=== PATIENT | female | born 2000 | race Caucasian/White ===

== ENCOUNTER 2018-07-14 20:35 | Emergency (ER) | payer SELFPAY ==
[~2018-07-14] VITALS: Ht 162.6 cm; Wt 127.0 kg
--- OUTSIDE RECORDS SUMMARY | 2018-07-14 20:47 | XMS REPORT | Continuity of Care Document ---
Author Organization Unknown Address Unknown Allergies There is no data. Medications There is no data. Problems There is no data. Procedures There is no data. Results There is no data. Encounters ACCT No. Visit Date/Time Discharge Status Pt. Type Provider Facility Loc./Unit Complaint [id number] 06/02/2018 14:20:00 06/02/2018 23:59:59 CLS Outpatient ALECIA QUIÑONEZ [facility] IN [facility]
[2018-07-14] MEDS ORDERED: CEPHALEXIN 250 MG (KEFLEX) CAP PO STA (20:49)
[2018-07-14] MEDS ORDERED: IBUPROFEN 800 MG (MOTRIN) TAB PO STA (20:49)
--- NOTE | 2018-07-14 20:56 | ED Integumentary General ---
General Chief Complaint: Skin/Wound Problems Stated Complaint: CHEST PAIN Source: patient History of Present Illness Date Seen by Provider: July 14, 2018 Time Seen by Provider: 20:39 Initial Comments 17-year-old female presenting with complaints of raised tender area on her left chest where she has a tattoo. She states that this raised area has been there f or over 4 days. She noticed pain with it since waking up this morning. It is been a sharp pain that comes and goes. It is worse with activity and using her arms. She had initially thought the area was maybe a pimple and had tried to pop it. She was never able to get anything to drain from it and all she has noted was that it has become more sore and tender. She denies any fever or chills. She has been having a GI stomach illness where she has been having some nausea and diarrhea. She denies any vomiting. Her last menstrual period was a month ago but she states that her periods are irregular and that she could not be right now. Allergies and Home Medications Allergies Coded Allergies: Sulfa (Sulfonamide Antibiotics) (Verified Allergy, Unknown, 07/14/18) silver sulfadiazine (Verified Allergy, Unknown, 07/14/18) Home Medications Cephalexin 500 Mg Tablet, 500 MG PO TID Prescribed by: SUKHI DEY on 07/14/182100 Naproxen 500 Mg Tablet, 500 MG PO BID PRN for PAIN-MODERATE TO SEVERE Prescribed by: SUKHI DEY on 07/14/182100 Patient Home Medication List Home Medication List Reviewed: Yes Review of Systems Review of Systems Constitutional: see HPI EENTM: no symptoms reported Respiratory: no symptoms reported Cardiovascular: no symptoms reported Gastrointestinal: diarrhea, nausea; No vomiting Genitourinary: No dysuria, No frequency Musculoskeletal: see HPI Skin: see HPI Psychiatric/Neurological: No Symptoms Reported Past Wjuuvqf-Wtnzel-Ymlzql Hx Past Med/Social Hx: Reviewed Nursing Past Med/Soc Hx Patient Social History Recent Foreign Travel: No Contact w/Someone Who Travel: No Physical Exam Vital Signs Vital Signs - First Documented 07/14/18 20:45 Temp 98.1 Pulse 72 Resp 16 B/P (MAP) 163/85 Pulse Ox 98 O2 Delivery Room Air Capillary Refill : General Appearance: WD/WN, no apparent distress HEENT: PERRL/EOMI, normal ENT inspection, pharynx normal Neck: non-tender, full range of motion, supple Cardiovascular: normal peripheral pulses, regular rate, rhythm Respiratory: other (chest wall tender to palpation over the upper chest on left side where she has tattoo and the red raised lesion on her chest wall) Neurologic/Psychiatric: alert, normal mood/affect, oriented x 3 Skin: warm/dry, tattoos/piercings, other (red raised papule to left upper chest wall that is in the area of a tattoo. ) Skin Problem Location: torso Skin Problem Character: tenderness (papule to left upper chest wall) Lymphatic: no adenopathy Progress/Results/Core Measures Results/Orders My Orders Orders - SUKHI DEY MD Cephalexin Capsule (Keflex Capsule) (07/14/18 20:49) Ibuprofen Tablet (Motrin Tablet) (07/14/18 20:49) Vital Signs/I&O 07/14/18 07/14/18 20:45 21:06 Temp 98.1 Pulse 72 72 Resp 16 16 B/P (MAP) 163/85 Pulse Ox 98 98 O2 Delivery Room Air Progress Progress Note : Progress Note Treat with Keflex and NSAIDS. Encourage her to follow up with Dr. Moura Thursday or Thursday if not improving Departure Impression Primary Impression: Papule of skin Additional Impression: Cellulitis of chest wall Disposition: 01 HOME, SELF-CARE Condition: Stable Departure-Patient Inst. Decision time for Depature: 20:58 Referrals: LIZETT MOURA MD (PCP) Primary Care Physician Patient Instructions: Cellulitis (Skin Infection), Adult (DC) Add. Discharge Instructions: Take the antibiotics until gone. Use Ibuprofen or Naproxen for pain and inflammation. Check with Dr. Moura in clinic if not improving or having more problems Thursday or Thursday. All discharge instructions reviewed with patient and/or family. Voiced understanding. Scripts Naproxen (Naprosyn) 500 Mg Tablet 500 MG PO BID PRN for PAIN-MODERATE TO SEVERE for 10 Days, #20 TAB 0 Refills Prov: SUKHI DEY MD 07/14/18 Cephalexin (Cephalexin) 500 Mg Tablet 500 MG PO TID for 10 Days, #30 TAB 0 Refills Prov: SUKHI DEY MD 07/14/18 SUKHI DEY MD July 14, 2018 20:56
[2018-07-14] MEDS ORDERED: NAPR-1071 PO (21:01)
[2018-07-14] MEDS ORDERED: CEPH500T PO (21:01)
== END 2018-07-14 21:15 | disposition home or self-care (01) ==
LOC: ER FS 20:37
DX: L03.313 Cellulitis of chest wall (principal); R23.8 Other skin changes; Z88.2 Allergy status to sulfonamides; Z88.8 Allergy status to other drugs, medicaments and biological substances
CPT/HCPCS: 99283

== ENCOUNTER 2018-07-18 07:13 | Emergency (ER) | payer SELFPAY ==
[~2018-07-18] VITALS: Ht 162.6 cm; Wt 127.0 kg
[~2018-07-18 07:13] MED LIST: CEPH500T PO; NAPR-1071 PO
[2018-07-18] MEDS ORDERED: NEO/POLY/BAC (NEOSPORIN) OINT 15 GM TUBE TOP STA (07:24)
[2018-07-18] MEDS ORDERED: AUGMENTIN 875 MG TAB (AMOXICILLIN/CLAVULANATE) PO STA (07:24)
[2018-07-18] MEDS ORDERED: TETANUS IMMUNE GLOBULIN 250 UNIT/ML SYR IM ONE (07:25)
[2018-07-18] MEDS ORDERED: TETANUS,DIPTH,PERTUSS P/F (BOOSTRIX) 0.5 ML VIAL IM ONE (07:30)
[2018-07-18] MEDS ORDERED: RABIES IMMUNE GLOBULIN 300 UNIT/ML 5 ML (HyperRAB) IM ONE (07:30)
[2018-07-18] MEDS ORDERED: RABIES VACCINE HUMAN DIPL CELL 1 ML/2.5 UNITS SYR IM ONE (07:30)
--- NOTE | 2018-07-18 07:39 | ED Integumentary General ---
General Chief Complaint: Bite-Animal/Human/Insect Stated Complaint: PT BIT BY DOG ON LT ANKLE History of Present Illness Date Seen by Provider: Jul 18, 2018 Time Seen by Provider: 07:15 Initial Comments The patient is a 17-year-old female who is otherwise healthy and whose tetanus is not up-to-date. She presents with concern for an unprovoked bite from an apparent stray dog occurring just prior to arrival. Bite is to the patient's left distal villegas. Patient states she was out on the road and a dog ran out and chased her for 2 blocks and then bit her on the leg. No other injury during the episode. Patient is ambulatory with a narrow, steady gait and with a superficial bite sher to her left lower villegas. No other concerns today. Of note, the patient does state that she received the full rabies immunoglobulin and vaccination series 2-3 years ago after a prior dog bite here in [facility]. Allergies and Home Medications Allergies Coded Allergies: Sulfa (Sulfonamide Antibiotics) (Verified Allergy, Unknown, 07/14/18) silver sulfadiazine (Verified Allergy, Unknown, 07/14/18) Home Medications Amoxicillin/Potassium Clav 1 Each Tablet, 1 EACH PO BID Prescribed by: PARIS CUNNINGHAM on 07/18/18 0747 Cephalexin 500 Mg Tablet, 500 MG PO TID Prescribed by: SUKHI DEY on 07/14/182100 Ibuprofen 800 Mg Tablet, 800 MG PO Q8H PRN for PAIN Prescribed by: PARIS CUNNINGHAM on 07/18/18 0747 Naproxen 500 Mg Tablet, 500 MG PO BID PRN for PAIN-MODERATE TO SEVERE Prescribed by: SUKHI DEY on 07/14/182100 Patient Home Medication List Home Medication List Reviewed: Yes Review of Systems Review of Systems Constitutional: see HPI All Other Systems Reviewed Negative Unless Noted: Yes Past Zaumrrq-Fukfjj-Fleubz Hx Past Med/Social Hx: Reviewed Nursing Past Med/Soc Hx Patient Social History 2nd Hand Smoke Exposure: No Recent Hopitalizations: No Seasonal Allergies Seasonal Allergies: No Past Medical History Surgeries: Yes Gallbladder Respiratory: No Cardiac: No Neurological: No Genitourinary: No Gastrointestinal: No Musculoskeletal: No Endocrine: No HEENT: No Cancer: No Psychosocial: No Integumentary: No Blood Disorders: No Family Medical History Reviewed Nursing Family Hx Physical Exam Vital Signs Vital Signs - First Documented 07/18/18 07:18 Temp 99.0 Pulse 96 Resp 18 B/P (MAP) 141/99 Pulse Ox 98 O2 Delivery Room Air Capillary Refill : General Appearance: no apparent distress Comments This is younger female who appears nontoxic and in no acute distress. Head is normocephalic and atraumatic. Neck is supple and nontender. Oropharynx is moist. Lungs are clear to auscultation in all stations. There is normal S1 and S2 without rubs or gallops and capillary refill is appropriate, less 2 seconds globally. Abdomen is soft, nontender nondistended. Skin is warm and dry without cyanosis, clubbing or edema. Psychiatrically, the patient in a straight appropriate mood and affect and is alert. From a musculoskeletal standpoint, examination of the left lower extremity is remarkable for an apparent bite sher to the lateral left lower villegas without surrounding erythema, warmth or swelling. This is punctate in size. The left lower extremity is neurovascularly intact. Progress/Results/Core Measures Results/Orders My Orders Orders - PARIS CUNNINGHAM MD Tetanus Immune Globulin Inj (Baytet Inje (07/18/18 07:25) Rabies Immune Globulin/Pf Inj (Hyperrab (07/18/18 07:30) Rabies Vaccine Human Dipl Cell (Rabavert (07/18/18 07:30) Amoxicillin/Clavulanate Tablet (Augmenti (07/18/18 07:24) Dipht,Pertuss(Acell),Tet Adult (Boostrix (07/18/18 07:30) Misael/Poly/Maico Topical Ointment (Neosporin (07/18/18 07:24) Tibia Fibula 2 View Left (07/18/18 07:24) Vital Signs/I&O 07/18/18 07:18 Temp 99.0 Pulse 96 Resp 18 B/P (MAP) 141/99 Pulse Ox 98 O2 Delivery Room Air Progress Progress Note : Progress Note Patient who is previously immunized with the full rabies vaccination series within the last 2-3 years who presents with unprovoked dog bite. Per CDC recommendations, patient does not require immunoglobulin and will be administered a dose of vaccine now and another in 3 days. Will give a dose of Augmentin and prescribed same and will update tetanus. Patient understands and agrees with the plan of care. Diagnostic Imaging Diagonstic Imaging: Xray Comments XR tib/fib L: negative for fracture or retained FB, EP interp Departure Impression Primary Impression: Dog bite of left lower leg Disposition: HOME, SELF-CARE Condition: Improved Departure-Patient Inst. Decision time for Depature: 07:47 Referrals: LIZETT HEARD MD (PCP/Family) Primary Care Physician Patient Instructions: Animal Bites (DC) Add. Discharge Instructions: All discharge instructions reviewed with patient and/or family. Voiced understanding. Return in 3 days or follow up with your doctor for the second rabies booster vaccination. Scripts Ibuprofen (Ibuprofen) 800 Mg Tablet 800 MG PO Q8H PRN for PAIN, #30 TAB 0 Refills Prov: PARIS CUNNINGHAM MD 07/18/18 Amoxicillin/Potassium Clav (Augmentin 875-125 Tablet) 1 Each Tablet 1 EACH PO BID, #20 TAB 0 Refills Prov: PARIS CUNNINGHAM MD 07/18/18 PARIS CUNNINGHAM MD Jul 18, 2018 07:39
[2018-07-18] MEDS ORDERED: AMOX-358 PO (07:47)
[2018-07-18] MEDS ORDERED: IBUP-1780 PO (07:47)
--- NOTE | 2018-07-18 07:50 | Diagnostic Imaging Report ---
INDICATION: Bit by dog this morning. Blood. TECHNIQUE: AP and lateral views of the left tibia and fibula CORRELATION STUDY: None FINDINGS: The tibia and fibula are intact. There is no evidence for acute fracture. Limited visualized portions of the knee and ankle are unremarkable. Soft tissues are unremarkable. No abnormal gas collection or evidence for foreign body. IMPRESSION: 1.Negative for acute bony abnormality of the leg. Dictated by: Dictated on workstation # [id number]
== END 2018-07-18 08:17 | disposition home or self-care (01) ==
LOC: EDUNIT# 07:13 → ER FS 07:15
DX: S81.852A Open bite, left lower leg, initial encounter (principal); Z23 Encounter for immunization; Z88.2 Allergy status to sulfonamides; Z88.8 Allergy status to other drugs, medicaments and biological substances; W54.0XXA Bitten by dog, initial encounter
CPT/HCPCS: 73590; 90471; 90675; 90715; 96372

== ENCOUNTER 2018-07-21 07:35 | Emergency (ER) | payer SELFPAY ==
[~2018-07-21] VITALS: Ht 162.6 cm; Wt 127.0 kg
[~2018-07-21 07:35] MED LIST changes: +AMOX-358 PO; +IBUP-1780 PO
--- OUTSIDE RECORDS SUMMARY | 2018-07-21 07:40 | XMS REPORT | Continuity of Care Document ---
Author Organization Unknown Address Unknown Allergies There is no data. Medications There is no data. Problems There is no data. Procedures There is no data. Results There is no data. Encounters ACCT No. Visit Date/Time Discharge Status Pt. Type Provider Facility Loc./Unit Complaint [id number] 06/02/2018 14:20:00 06/02/2018 23:59:59 CLS Outpatient ALECIA QUIÑONEZ [facility] IN [facility]
[2018-07-21] MEDS ORDERED: RABIES VACCINE HUMAN DIPL CELL 1 ML/2.5 UNITS SYR IM ONE (08:15)
--- NOTE | 2018-07-21 08:29 | ED Suture Removal/Wound Check ---
Suture/Wound Re-check Suture Removal/Wound Recheck : Progress 17-year-old female who is previously immunized for rabies who presents for her second of 2 rabies boosters. She received a rabies vaccination 3 days ago and is here for her second and final vaccination per CDC recommendations. She reports that her dog bite is healing well and that she has no other concerns today. She is taking her antibiotic and pain is controlled with ibuprofen. Physical Exam Vital Signs Capillary Refill : General Appearance: no apparent distress Comments This is a young female appearing nontoxic and in no acute distress. Head is normocephalic and atraumatic. Neck is supple and nontender. Oropharynx is moist. Lungs are clear to auscultation at all stations. There is a normal S1 and S2 without rubs or gallops and capillary refill is appropriate, less than 2 seconds globally. Abdomen is soft, nontender and nondistended. Skin is warm and dry without cyanosis, clubbing or edema. Psychiatrically, the patient demonstrates appropriate mood and affect and is alert. From a musculoskeletal standpoint, there is a healing dog bite incision to the left mid villegas without erythema, warmth or swelling. This is only minimally tender. The left lower extremity is neurovascularly intact. Departure Impression Primary Impression: Dog bite of left lower leg Qualified Codes: S81.852A - Open bite, left lower leg, initial encounter; W54.0XXA - Bitten by dog, initial encounter Disposition: 01 HOME, SELF-CARE Condition: Improved Departure-Patient Inst. Referrals: LIZETT HEARD MD (PCP/Family) Primary Care Physician Patient Instructions: Wound Care (DC) Add. Discharge Instructions: Follow-up with your primary care physician in the next few days for a wound recheck to make sure your wound is continuing to heal appropriately. Take your antibiotics until the prescription is gone and use the ibuprofen as needed. Return for worsening symptoms or other new concerns. PARIS CUNNINGHAM MD Jul 21, 2018 08:29
[2018-07-21 08:40] VITALS: BP 141/95
== END 2018-07-21 08:40 | disposition home or self-care (01) ==
LOC: EDUNIT# 07:35 → ER FS 07:37
DX: S81.852A Open bite, left lower leg, initial encounter (principal); W54.0XXA Bitten by dog, initial encounter
CPT/HCPCS: 90675; 96372

== ENCOUNTER 2018-09-24 15:33 | Emergency (ER) | payer SELFPAY ==
[~2018-09-24] VITALS: Ht 162.6 cm; Wt 127.0 kg
--- NOTE | 2018-09-24 15:56 | ED EENT ---
History of Present Illness General Stated Complaint: THROAT PAIN, NOSE CLOGGED, EAR PAIN, HEADACHE, SOB Source: patient Exam Limitations: no limitations History of Present Illness Date Seen by Provider: Sep 24, 2018 Time Seen by Provider: 15:40 Initial Comments The patient is a pleasant 17-year-old female who presents for evaluation of sore throat, mild headache, nasal congestion, ear fullness, cough, and general malaise over the last few days. She reports her younger brother has similar symptoms. She denies fever but believes she has been having some chills. She denies any significant past medical history. She is alert and oriented 4, calm, appears to be in no distress this time. The patient smokes cigarettes and has be en encouraged to quit smoking. She denies chest pain or shortness of breath, abdominal pain, back or flank pain, urinary symptoms, nausea or vomiting, palpitations, dizziness or syncope. Severity: moderate Location: nose, throat Prearrival Treatment: no prearrival treatment Associated Symptoms: cough, malaise, nasal congestion/drainage, sinus infection, sore throat Allergies and Home Medications Allergies Coded Allergies: Sulfa (Sulfonamide Antibiotics) (Verified Allergy, Unknown, 07/14/18) silver sulfadiazine (Verified Allergy, Unknown, 07/14/18) Uncoded Allergies: head and shoulders shampoo (Allergy, Unknown, 09/24/18) seafood (Allergy, Unknown, 09/24/18) Home Medications Amoxicillin/Potassium Clav 1 Each Tablet, 1 EACH PO BID Prescribed by: PARIS CUNNINGHAM on 07/18/18746 Cephalexin 500 Mg Tablet, 500 MG PO TID Prescribed by: SUKHI DEY on 07/14/182100 Ibuprofen 800 Mg Tablet, 800 MG PO Q8H PRN for PAIN Prescribed by: PARIS CUNNINGHAM on 07/18/18746 Naproxen 500 Mg Tablet, 500 MG PO BID PRN for PAIN-MODERATE TO SEVERE Prescribed by: SUKHI DEY on 07/14/182100 Patient Home Medication List Home Medication List Reviewed: Yes Review of Systems Review of Systems Constitutional: chills Eyes: No Symptoms Reported Ears: Pain Nose: congestion Mouth: no symptoms reported Throat: pain Respiratory: cough Cardiovascular: no symptoms reported Gastrointestinal: no symptoms reported : No Musculoskeletal: no symptoms reported Skin: no symptoms reported Neurological: No Symptoms Reported Hematologic/Lymphatic: No Symptoms Reported Immunological/Allergic: no symptoms reported All Other Systems Reviewed Negative Unless Noted: Yes Past Iycicws-Yrlqpz-Ltfbdh Hx Past Med/Social Hx: Reviewed Nursing Past Med/Soc Hx Patient Social History Type Used: Cigarettes 2nd Hand Smoke Exposure: No Recent Foreign Travel: No Contact w/Someone Who Travel: No Recent Hopitalizations: No Seasonal Allergies Seasonal Allergies: No Past Medical History Surgeries: Yes Gallbladder Respiratory: No Cardiac: No Neurological: No Genitourinary: No Gastrointestinal: No Musculoskeletal: No Endocrine: No HEENT: No Cancer: No Psychosocial: No Integumentary: No Blood Disorders: No Physical Exam Vital Signs Vital Signs - First Documented 09/24/18 15:39 Temp 100.1 Pulse 96 Resp 18 B/P (MAP) 138/80 Pulse Ox 96 Height, Weight, BMI Height: 5'4.00" Weight: 280lbs. oz. 127.712280yk; 42.18 BMI Method:Stated General Appearance: WD/WN, no apparent distress Eyes: bilateral eye normal inspection, bilateral eye PERRL, bilateral eye EOMI Ears: bilateral ear auricle normal, bilateral ear canal normal Nose: discharge, sinus tenderness (b/l maxillary) Mouth/Throat: tonsillar swelling (mild) Neck: non-tender, full range of motion, supple, normal inspection Cardiovascular: regular rate, rhythm, no JVD, no murmur Respiratory: chest non-tender, normal breath sounds, no respiratory distress, no accessory muscle use Gastrointestinal: normal bowel sounds, non tender, soft, no pulsatile mass Neurologic/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 She will go home with a prescription for Augmentin and guaifenesin. Advised the patient strongly to stop smoking cigarettes. Workup today fails to reveal any emergent pathology. The patient is stable for discharge home at this time. Advised the pt to follow-up with her PCP in the next 2-3 days and to return to the emergency Department immediately for new or worsening symptoms. Departure Impression Primary Impression: URI (upper respiratory infection) Additional Impressions: Acute viral pharyngitis Acute sinusitis Tobacco abuse Disposition: HOME, SELF-CARE Condition: Stable Departure-Patient Inst. Decision time for Depature: 16:20 Referrals: LIZETT HEARD MD (PCP/Family) Primary Care Physician Patient Instructions: Viral Pharyngitis (DC), Sinusitis, Adult (DC), Sinus Headache (DC) Add. Discharge Instructions: Follow-up with your doctor in the next 2-3 days. Stop smoking cigarettes. Return to the emergency Department immediately for new or worsening symptoms. Take the prescribed medications as instructed. Scripts Guaifenesin (Guaifenesin) 400 Mg Tablet 400 MG PO Q4H PRN for COUGH for 7 Days, #20 TAB Prov: OSIRIS JIMENEZ DO 09/24/18 Amoxicillin/Potassium Clav (Augmentin 875-125 Tablet) 1 Each Tablet 1 EACH PO BID for 7 Days, #14 TAB 0 Refills Prov: OSIRIS JIMENEZ DO 09/24/18 Work/School Note: Work Release Form Date Seen in the Emergency Department: Sep 24, 2018 Return to Work: Sep 27, 2018 Restrictions: No Restrictions OSIRIS JIMENEZ DO Sep 24, 2018 15:56
[2018-09-24] MEDS ORDERED: AMOX-358 PO (16:21)
[2018-09-24] MEDS ORDERED: GUAI400T71 PO (16:21)
--- OUTSIDE RECORDS SUMMARY | 2018-09-24 16:44 | XMS REPORT | Continuity of Care Document ---
Author Organization Unknown Address Unknown Phone Unavailable Allergies Active Description Code Type Severity Reaction Onset Reported/Identified Relationship to Patient Clinical Status Yes silver sulfadiazine [id number] Drug Allergy Unknown N/A 07/14/2018 Yes Sulfa (Sulfonamide Antibiotics) [id number] Drug Allergy Unknown N/A 07/14/2018 Yes head and shoulders shampoo head and shoulders shampoo Unknown N/A 09/24/2018 Yes seafood seafood Unknown N/A 09/24/2018 Medications There is no data. Problems Date Dx Coded Attending Type Code Diagnosis Diagnosed By 07/14/2018 SUKHI DEY MD, Ot L03.313 CELLULITIS OF CHEST WALL 07/14/2018 SUKHI DEY MD Ot R07.89 OTHER CHEST PAIN 07/14/2018 SUKHI DEY MD Ot R23.8 OTHER SKIN CHANGES 07/14/2018 SUKHI DEY MD, Ot Z88.2 ALLERGY STATUS TO SULFONAMIDES STATUS 07/14/2018 SUKHI DEY MD, Ot Z88.8 ALLERGY STATUS TO OTH DRUG/MEDS/BIOL SUB 07/16/2018 SUKHI DEY MD, Ot L03.313 CELLULITIS OF CHEST WALL 07/16/2018 SUKHI DEY MD, Ot R07.89 OTHER CHEST PAIN 07/16/2018 SUKHI DEY MD, Ot R23.8 OTHER SKIN CHANGES 07/16/2018 SUKHI DEY MD, Ot Z88.2 ALLERGY STATUS TO SULFONAMIDES STATUS 07/16/2018 SUKHI DEY MD, Ot Z88.8 ALLERGY STATUS TO OTH DRUG/MEDS/BIOL SUB 07/22/2018 PARIS CUNNINGHAM MD Ot S81.852A OPEN BITE, LEFT LOWER LEG, INITIAL ENCOU 07/22/2018 PARIS CUNNINGHAM MD, Ot W54.0XXA BITTEN BY DOG, INITIAL ENCOUNTER 07/22/2018 PARIS CUNNINGHAM MD, Ot Z23 ENCOUNTER FOR IMMUNIZATION 07/22/2018 PARIS CUNNINGHAM MD Ot Z88.2 ALLERGY STATUS TO SULFONAMIDES STATUS 07/22/2018 PARIS CUNNINGHAM MD Ot Z88.8 ALLERGY STATUS TO OTH DRUG/MEDS/BIOL SUB 07/26/2018 PARIS CUNNINGHAM MD Ot S81.852A OPEN BITE, LEFT LOWER LEG, INITIAL ENCOU 07/26/2018 PARIS CUNNINGHAM MD, Ot W54.0XXA BITTEN BY DOG, INITIAL ENCOUNTER Procedures There is no data. Results Test Result Range GC/CHLAMYDIA (SWAB OR URINE)-RAPID - 07/29/18 14:47 CHLAMYDIA TRACHOMATIS RNA, TMA NOT DETECTED NOT DETECTED NEISSERIA GONORRHOEAE RNA, TMA NOT DETECTED NOT DETECTED COMMENT NRG PROLACTIN - 09/06/18 16:00 PROLACTIN 19.5 ng/mL NRG TSH - 09/06/18 16:00 TSH 2.38 mIU/L NRG TESTOSTERONE, FREE AND TOTAL - 09/06/18 16:00 TESTOSTERONE, TOTAL, LC/MS/MS TNP ng/dL NRG INSULIN LEVEL - 09/06/18 16:00 INSULIN 51.3 uIU/mL 2.0-19.6 TESTOSTERONE, FREE AND TOTAL - 09/10/18 12:14 TESTOSTERONE, TOTAL, LC/MS/MS 64 ng/dL 2-45 TESTOSTERONE, FREE 6.6 pg/mL 0.2-5.0 TESTOSTERONE,BIOAVAILABLE 12.2 ng/dL 0.5-8.5 SEX HORMONE BINDING GLOBULIN 40 nmol/L 17-124 Streptococcus pyogenes antigen detection - 09/24/18 15:47 Streptococcus pyogenes antigen detection NEGATIVE NEGATIVE Encounters ACCT No. Visit Date/Time Discharge Status Pt. Type Provider Facility Loc./Unit Complaint [id number] 09/10/2018 12:00:00 09/10/2018 23:59:59 [id number] 09/10/2018 12:00:00 Document Registration [id number] 09/06/2018 15:45:00 Document Registration [id number] 07/29/2018 15:15:00 Document Registration [id number] 07/21/2018 07:37:00 07/21/2018 08:40:00 DIS Outpatient PARIS CUNNINGHAM MD [facility] FS DOG BITE [id number] 07/18/2018 07:15:00 07/18/2018 08:17:00 DIS Outpatient MARISA JOHNSON, PARIS Carey [facility] FS PT BIT BY DOG ON LT ANKLE [id number] 07/14/2018 20:37:00 07/14/2018 21:15:00 DIS Emergency TIBURCIO JOHNSON, SUKHI Pereira [facility] FS CHEST PAIN [id number] 09/24/2018 15:35:00 ACT Emergency TONY NEWELL DO [facility] FS THROAT PAIN, NOSE CLOGGED, EAR PAIN, HEADACHE, SOB
== END 2018-09-24 16:29 | disposition home or self-care (01) ==
LOC: EDUNIT# 15:33 → ER FS 15:35
DX: J02.9 Acute pharyngitis, unspecified (principal); J01.90 Acute sinusitis, unspecified; F17.210 Nicotine dependence, cigarettes, uncomplicated; Z88.2 Allergy status to sulfonamides; Z90.49 Acquired absence of other specified parts of digestive tract
CPT/HCPCS: 87430; 87804

== ENCOUNTER 2018-12-08 20:04 | Emergency (ER) | payer SELFPAY ==
[~2018-12-08] VITALS: Ht 165 cm; Wt 132.5 kg
[~2018-12-08 20:04] MED LIST changes: +GUAI400T71 PO
--- NOTE | 2018-12-08 20:22 | ED GI ---
General Chief Complaint: Rect Problems Stated Complaint: ANAL PAIN,DIARRHEA Source of Information: Patient Exam Limitations: No Limitations History of Present Illness Date Seen by Provider: Dec 08, 2018 Time Seen by Provider: 20:08 Initial Comments 18-year-old female presents with anal pain. Patient reports that she has been having diarrhea for about a month. That she saw her primary care provider about a week ago. She reports that this was medication related so they stopped her off of the medication. She still having some diarrhea and now hurts when she sits down on the toilet. She is concerned that she may have hemorrhoids. She presents tonight because she would like me to see if she has any hemorrhoids and if there is any treatment options. Allergies and Home Medications Allergies Coded Allergies: Sulfa (Sulfonamide Antibiotics) (Verified Allergy, Unknown, 07/14/18) silver sulfadiazine (Verified Allergy, Unknown, 07/14/18) Uncoded Allergies: head and shoulders shampoo (Allergy, Unknown, 09/24/18) seafood (Allergy, Unknown, 09/24/18) Home Medications Amoxicillin/Potassium Clav 1 Each Tablet, 1 EACH PO BID Prescribed by: PARIS CUNNINGHAM on 07/18/18746 Amoxicillin/Potassium Clav 1 Each Tablet, 1 EACH PO BID Prescribed by: OSIRIS JIMENEZ on 09/24/181620 Cephalexin 500 Mg Tablet, 500 MG PO TID Prescribed by: SUKHI DEY on 07/14/182100 Diphenoxylate HCl/Atropine 1 Each Tablet, 1 EACH PO TID PRN for DIARRHEA Prescribed by: NESSA SMITH on 12/08/182026 Guaifenesin 400 Mg Tablet, 400 MG PO Q4H PRN for COUGH Prescribed by: OSIRIS JIMENEZ on 09/24/181620 Ibuprofen 800 Mg Tablet, 800 MG PO Q8H PRN for PAIN Prescribed by: PARIS CUNNINGHAM on 07/18/18746 Naproxen 500 Mg Tablet, 500 MG PO BID PRN for PAIN-MODERATE TO SEVERE Prescribed by: SUKHI DEY on 07/14/182100 Jaswant Mcintyre 1 Each Med..pad, 1 EACH TP Q4H PRN for PAIN-MILD Prescribed by: NESSA SMITH on 12/08/182026 Patient Home Medication List Home Medication List Reviewed: Yes Review of Systems Review of Systems Constitutional: no symptoms reported; No chills, No fever EENTM: No Symptoms Reported Respiratory: No Symptoms Reported Cardiovascular: No Symptoms Reported Gastrointestinal: See HPI, Diarrhea Past Zjnhhky-Aojhgf-Vbumhu Hx Past Med/Social Hx: Reviewed Nursing Past Med/Soc Hx Patient Social History Type Used: Cigarettes 2nd Hand Smoke Exposure: No Recent Foreign Travel: No Contact w/Someone Who Travel: No Recent Hopitalizations: No Seasonal Allergies Seasonal Allergies: No Past Medical History Surgeries: Yes Gallbladder Respiratory: No Cardiac: No Neurological: No Genitourinary: No Gastrointestinal: No Musculoskeletal: No Endocrine: Yes (high testosterone level) Diabetes, Non-Insulin dep HEENT: No Cancer: No Psychosocial: No Integumentary: No Blood Disorders: No Physical Exam Vital Signs Vital Signs - First Documented 12/08/18 20:10 Temp 36.8 Pulse 103 Resp 16 B/P (MAP) 160/92 (114) Pulse Ox 96 O2 Delivery Room Air Capillary Refill : Height/Weight/BMI Height: 5'4.00" Weight: 280lbs. oz. 127.735227zn; 42.18 BMI Method:Stated General Appearance: WD/WN, no apparent distress Respiratory: lungs clear, normal breath sounds Cardiovascular: normal peripheral pulses, regular rate, rhythm Gastrointestinal: soft Rectal: No hemorrhoids; tenderness, other (irritation to the perirectal area) Neurologic/Psychiatric: alert, normal mood/affect Progress/Results/Core Measures Results/Orders Vital Signs/I&O 12/08/18 12/08/18 20:10 20:28 Temp 36.8 36.8 Pulse 103 103 Resp 16 16 B/P (MAP) 160/92 (114) 160/92 Pulse Ox 96 96 O2 Delivery Room Air Room Air Departure Impression Primary Impression: Rectal fissure Disposition: HOME, SELF-CARE Condition: Stable Departure-Patient Inst. Referrals: LIZETT HEARD MD (PCP/Family) Primary Care Physician Patient Instructions: Anal Fissure (DC) Scripts Jaswant Mcintyre (Kathy) 1 Each Med..pad 1 EACH TP Q4H PRN for PAIN-MILD, #30 PKT Prov: NESSA SMITH DO 12/08/18 Diphenoxylate HCl/Atropine (Lomotil 2.5-0.025 mg Tablet) 1 Each Tablet 1 EACH PO TID PRN for DIARRHEA, #10 TAB Prov: NESSA SMITH DO 12/08/18 NESSA SMITH DO Dec 08, 2018 20:22
[2018-12-08] MEDS ORDERED: DIPH1TAB PO (20:27)
[2018-12-08] MEDS ORDERED: WITC1MED3 TP (20:27)
[2018-12-08 20:28] VITALS: BP 160/92
== END 2018-12-08 20:29 | disposition home or self-care (01) ==
LOC: EDUNIT# 20:04 → ER FS 20:05
DX: K60.2 Anal fissure, unspecified (principal); E11.9 Type 2 diabetes mellitus without complications; Z88.2 Allergy status to sulfonamides; Z88.8 Allergy status to other drugs, medicaments and biological substances
CPT/HCPCS: 99282

== ENCOUNTER 2018-12-22 11:00 | Outpatient (CLI) | payer SELFPAY ==
[~2018-12-22] VITALS: Ht 162 cm; Wt 127.0 kg
[~2018-12-22 11:00] MED LIST changes: +DIPH1TAB PO; +WITC1MED3 TP
== END 2018-12-22 13:58 | disposition home or self-care (01) ==
LOC: PREOP 11:00
PROVIDERS: ATTEND Pediatrics
DX: Z01.818 Encounter for other preprocedural examination (principal)

== ENCOUNTER → 2018-12-23 | Day surgery (SDC) | payer SELFPAY ==
[~2018-12-23] VITALS: Ht 162 cm; Wt 127.0 kg
[2018-12-23] VITALS (10 sets, daily range): BP systolic 103–136; BP diastolic 53–87
[~2018-12-23] MED LIST changes: +LACTATED RINGERS 1,000 ML IV ONE; +LACTATED RINGERS 1,000 ML IV STA; +MIDAZOLAM 2 MG/2 ML (VERSED) VIAL ONE; +PROPOFOL INJECTION 50 ML IV ONE
--- NOTE | 2018-12-23 08:37 | Progress Note-Pre Operative ---
Pre-Operative Progress Note H&P Reviewed The H&P was reviewed, patient examined and no changes noted. Date Seen by Provider: Dec 23, 2018 Time Seen by Provider: 08:37 Date H&P Reviewed: Dec 23, 2018 Time H&P Reviewed: 08:37 Pre-Operative Diagnosis: LIZETT MCKEON MD Dec 23, 2018 08:37 POS
--- NOTE | 2018-12-23 08:52 | Endoscopy Procedure Report ---
Colonoscopy Procedure Performed: Colonoscopy Pre-Operative Diagnosis: diarrhea Post-Operative Diagnosis: none Store Associate: None. Indications for Procedure: diarhea and BRBPR Procedure Details: Informed consent was obtained, the risks, benefits and alternatives to the procedure were explained to the patient. The Sugey العراقي, a 18 yr old fe male, was brought to to surgery area, sedated by anesthesia per their documentation She was placed in the left lateral decubitus position. Under direct visualization the scope was passed easily to the cecum. Cecum is identified by landmarks. Scope was carefully withdrawn. Findings: Ascending Colon: none Transverse Colon: none Descending/Sigmoid: none Rectum: none Estimated Blood Loss: 0 mL Specimens: none Complications: None; patient tolerated the procedure well. Final Diagnosis: very poor bowel prep as photo documented with no obvious inflammatory changes or mass lesion or polyp LIZETT HEARD MD Dec 23, 2018 08:52 POS
--- NOTE | 2018-12-23 10:51 | Anesthesia-General Post-Op ---
MAC Post Op Complications Complications None Follow Up Care/Instructions Patient Instructions None needed. Anesthesiology Discharge Order Discharge Order Patient is doing well, no complaints, stable vital signs, no apparent adverse anesthesia problems. No complications reported per nursing. MOISES SANDOVAL CRNA Dec 23, 2018 10:51 POS
== END | disposition home or self-care (01) ==
LOC: ENDO 06:53
PROVIDERS: ATTEND Pediatrics
DX: K62.5 Hemorrhage of anus and rectum (principal); R19.7 Diarrhea, unspecified; K21.9 Gastro-esophageal reflux disease without esophagitis; J45.909 Unspecified asthma, uncomplicated; E66.01 Morbid (severe) obesity due to excess calories; F17.200 Nicotine dependence, unspecified, uncomplicated; Z90.49 Acquired absence of other specified parts of digestive tract; Z68.41 Body mass index [BMI] 40.0-44.9, adult; Z87.410 Personal history of cervical dysplasia; Z88.8 Allergy status to other drugs, medicaments and biological substances; Z88.1 Allergy status to other antibiotic agents; Z91.013 Allergy to seafood; Z88.2 Allergy status to sulfonamides; Z91.048 Other nonmedicinal substance allergy status
CPT/HCPCS: 84703

== ENCOUNTER 2019-01-25 19:06 | Emergency (ER) | payer SELFPAY ==
[~2019-01-25] VITALS: Ht 162 cm; Wt 131.0 kg
[~2019-01-25 19:06] MED LIST changes: -LACTATED RINGERS 1,000 ML IV ONE; -LACTATED RINGERS 1,000 ML IV STA; -MIDAZOLAM 2 MG/2 ML (VERSED) VIAL ONE; -PROPOFOL INJECTION 50 ML IV ONE
[2019-01-25 19:37] LABS: CLARITY,URINE CLOUDY; COLOR,URINE RED; GLUCOSE, URINE (UA) TRACE (NEGATIVE); KETONES,URINE NEGATIVE (NEGATIVE); NITRITE,URINE POSITIVE (NEGATIVE); PH,URINE 5.5 (5-9); PROTEIN,URINE 2+ (NEGATIVE)
[2019-01-25 19:38] LABS: BACTERIA,URINE NEGATIVE /HPF; BILIRUBIN,URINE NEGATIVE (NEGATIVE); LEUKOCYTE ESTERASE ,URINE 1+ (NEGATIVE); RBC,URINE TNTC /HPF
--- NOTE | 2019-01-25 20:56 | ED GU-Female ---
General Chief Complaint: Abdominal/GI Problems Stated Complaint: LOWER ABDOMINAL PAIN Nursing Triage Note: pt complaining of lower abd cramping since 6pm tonight Nursing Sepsis Screen: No Definite Risk Source: patient History of Present Illness Date Seen by Provider: Jan 25, 2019 Time Seen by Provider: 20:56 Initial Comments 18-year-old female presenting with complaints of lower pelvic pain since she woke up around 1800 tonight. She had tried taking 400 mg of ibuprofen at home with no improvement in her symptoms. She also has only been spotting for her menstrual cycle. She is approximately 7-10 days late because she usually starts around the first of the month. She was concerned that she might be or having a miscarriage. She has not checked a test at home. She has had unprotected sex. She denies any vaginal discharge and has only had spotting. She denies any change in her bowels or bladder. She has no fever or chills. She denies any nausea or vomiting. Allergies and Home Medications Allergies Coded Allergies: sulfamethoxazole (Verified Allergy, Mild, RASH, 12/22/18) trimethoprim (Verified Allergy, Mild, RASH, 12/22/18) Uncoded Allergies: head and shoulders shampoo (Allergy, Unknown, 09/24/18) seafood (Allergy, Unknown, 09/24/18) Home Medications No Active Prescriptions or Reported Meds Patient Home Medication List Home Medication List Reviewed: Yes Review of Systems Review of Systems Constitutional: No chills, No fever EENTM: no symptoms reported Respiratory: no symptoms reported Cardiovascular: no symptoms reported Gastrointestinal: see HPI, abdominal pain (low pelvic pain since waking up from a nap at 1800 tonight. The pain is cramping in nature); No constipation, No diarrhea; heartburn; No melena, No nausea, No vomiting Genitourinary: denies discharge, denies dysuria, denies frequency, denies flank pain, denies pain, denies urgency Musculoskeletal: no symptoms reported Skin: no symptoms reported Past Qplifhd-Vndcof-Mkuwzf Hx Past Med/Social Hx: Reviewed Nursing Past Med/Soc Hx Patient Social History Alcohol Use: Denies Use Recreational Drug Use: No Smoking Status: Current Everyday Smoker Type Used: Cigarettes 2nd Hand Smoke Exposure: No Recent Foreign Travel: No Contact w/Someone Who Travel: No Recent Infectious Disease Expo: No Recent Hopitalizations: No Physical Abuse: No Sexual Abuse: No Mistreated: No Seasonal Allergies Seasonal Allergies: Yes Past Medical History Surgeries: Yes Gallbladder Respiratory: No Cardiac: No Neurological: No Sexually Transmitted Disease: No HIV/AIDS: No Genitourinary: No Gastrointestinal: Yes Gastroesophageal Reflux, Chronic Diarrhea Musculoskeletal: No Endocrine: Yes (high testosterone level-INSULIN RESISTANCE) Diabetes, Non-Insulin dep HEENT: Yes (GLASSES) Loss of Vision: Denies Hearing Impairment: Denies Cancer: No Psychosocial: Yes (MILD) Anxiety, Depression Integumentary: No Blood Disorders: No Adverse Reaction/Blood Tranf: No (N/A) Physical Exam Vital Signs Vital Signs - First Documented 01/25/19 19:13 Temp 36.3 Pulse 84 Resp 18 B/P (MAP) 127/68 (87) Pulse Ox 100 O2 Delivery Room Air Capillary Refill : Less Than 3 Seconds Height, Weight, BMI Height: 5'4.00" Weight: 280lbs. oz. 127.308116lm; 49.00 BMI Method:Stated General Appearance: WD/WN, no apparent distress, obese HEENT: PERRL/EOMI, pharynx normal Neck: non-tender, supple Cardiovascular: normal peripheral pulses, regular rate, rhythm Respiratory: chest non-tender, lungs clear, normal breath sounds, no resp iratory distress, no accessory muscle use Gastrointestinal: normal bowel sounds, soft, no pulsatile mass; No guarding, No rebound; tenderness (mild suprapubic tenderness) Genital/Rectal: other (deferred as pt would rather wait and follow up with Dr. Page if pelvic was needed) Rectal: deferred Back: no vertebral tenderness Extremities: normal range of motion, non-tender, normal capillary refill Neurologic/Psychiatric: [employer] II-XII nml as tested, alert, normal mood/affect, oriented x 3 Skin: normal color, warm/dry Progress/Results/Core Measures Suspected Sepsis Recent Fever Within 48 Hours: No Infection Criteria Present: None New/Unexplained Altered Menta: No Sepsis Screen: No Definite Risk SIRS Temperature: Pulse: 84 Respiratory Rate: 18 Blood Pressure 127 /68 Mean: 87 Results/Orders Lab Results Laboratory Tests Test 01/25/19 19:17 Range/Units Urine Color RED H Urine Clarity CLOUDY Urine pH 5.5 5-9 Urine Specific [place] 1.025 H 1.016-1.022 Urine Protein 2+ H NEGATIVE Urine Glucose (UA) TRACE H NEGATIVE Urine Ketones NEGATIVE NEGATIVE Urine Nitrite POSITIVE NEGATIVE Urine Bilirubin NEGATIVE NEGATIVE Urine Urobilinogen 1.0 < = 1.0 MG/DL Urine Leukocyte Esterase 1+ H NEGATIVE Urine RBC (Auto) 3+ H NEGATIVE Urine RBC TNTC H /HPF Urine WBC NONE /HPF Urine Squamous Epithelial Cells NONE /HPF Urine Crystals NONE /LPF Urine Bacteria NEGATIVE /HPF Urine Casts NONE /LPF Urine Mucus NEGATIVE /LPF Urine Culture Indicated YES Urine Test NEGATIVE NEGATIVE My Orders Orders - SUKHI DEY MD Ua Culture If Indicated (01/25/19 19:30) Hcg,Qualitative Urine (01/25/19 19:30) Urine Culture (01/25/19 19:17) Ketorolac Injection (Toradol Injection) (01/25/19 21:09) Vital Signs/I&O 01/25/19 01/25/19 19:13 21:21 Temp 36.3 Pulse 84 76 Resp 18 18 B/P (MAP) 127/68 (87) 121/64 Pulse Ox 100 100 O2 Delivery Room Air Room Air Capillary Refill : Less Than 3 Seconds Blood Pressure Mean: 87 POS Progress Note : Progress Note UA showed blood but no sign of infection. Negative test. When reviewed these results with the patient I advised her that between this and the vital signs were looking okay and having localized pain down in the pelvis area that is likely was related to go for your uterus. I could do a CT scan and some g eneral labs but they may still not show any specific source for her symptoms. An ultrasound could be more specific but I would not have that available until during the day. They pelvic exam could also give a little more detail but with no discharge and it does not appear to be an infection. Patient stated she would prefer to wait and work with Dr. Page during the day of a pelvic exam or ultrasound was needed. I did advise her that the emergency department would have an ultrasound available during the day as well. Especially if she could not get in with Dr. Page she could always return to the emergency department during the day. I could still do the basic labs to look for abnormality with blood count or electrolytes but pt stated she would wait and check with Dr. Page clinic tomorrow. Give Toradol shot to help with symptoms tonight and discharge home with return precautions Departure Impression Primary Impression: Acute pelvic pain, female Additional Impression: Abnormal vaginal bleeding Disposition: HOME, SELF-CARE Condition: Stable Departure-Patient Inst. Decision time for Depature: 21:12 Referrals: LIZETT HEARD MD (PCP/Family) Primary Care Physician JACEK PAGE DO Patient Instructions: Acute Pelvic Pain (DC) Add. Discharge Instructions: Check with Dr. Page in the morning and if having continued pain or worsening symptoms than you may need to have an ultrasound tomorrow to look for an ovarian cyst or reason for your pelvic pain Continue on Ibuprofen or Naprosyn for your pelvic pain All discharge instructions reviewed with patient and/or family. Voiced understanding. Scripts No Active Prescriptions or Reported Meds SUKHI DEY MD Jan 25, 2019 20:56 POS
[2019-01-25] MEDS ORDERED: KETOROLAC 60 MG/2 ML VIAL IM STA (21:09)
[2019-01-25 21:21] VITALS: BP 121/64
== END 2019-01-25 21:21 | disposition home or self-care (01) ==
LOC: EDUNIT# 19:06 → ER FS 19:09
DX: R10.2 Pelvic and perineal pain (principal); N93.9 Abnormal uterine and vaginal bleeding, unspecified; E11.9 Type 2 diabetes mellitus without complications; F41.9 Anxiety disorder, unspecified; F32.9 Major depressive disorder, single episode, unspecified; K21.9 Gastro-esophageal reflux disease without esophagitis; F17.210 Nicotine dependence, cigarettes, uncomplicated; Z88.2 Allergy status to sulfonamides; Z88.1 Allergy status to other antibiotic agents
CPT/HCPCS: 81000; 84703; 87088; 96372; 99284

== ENCOUNTER 2019-03-18 07:58 | Emergency (ER) | payer SELFPAY ==
[~2019-03-18] VITALS: Ht 162.6 cm; Wt 132.1 kg
--- NOTE | 2019-03-18 08:15 | ED General ---
General Stated Complaint: LUMP ON LEFT BREAST Source of Information: Patient Exam Limitations: No Limitations History of Present Illness Date Seen by Provider: Mar 18, 2019 Time Seen by Provider: 08:05 Initial Comments The patient is a pleasant 18-year-old obese female who presents for evaluation of tenderness and redness to the left breast over the last 5 days or so. She states that it started out as a small lesion approximately the size of her pinky. She states that since that time the area has become more tender and red. She denies any history of MRSA or abscess or cellulitis. She is not breast- feeding. She denies fevers or chills, nausea or vomiting, chest pain or shortness of breath, drainage or discharge, bleeding, or any breast abnormality prior to 5 days ago. She has been taking Tylenol at home for pain relief which she states is working quite well. Timing/Duration: 5-6 Days Severity: Mild Modifying Factors: improves with Medication (Tylenol is helping) Associated Systoms: Denies Symptoms Allergies and Home Medications Allergies Coded Allergies: sulfamethoxazole (Verified Allergy, Mild, RASH, 12/22/18) trimethoprim (Verified Allergy, Mild, RASH, 12/22/18) Uncoded Allergies: head and shoulders shampoo (Allergy, Unknown, 09/24/18) seafood (Allergy, Unknown, 09/24/18) Home Medications No Active Prescriptions or Reported Meds Patient Home Medication List Home Medication List Reviewed: Yes Review of Systems Review of Systems Constitutional: no symptoms reported EENTM: no symptoms reported Respiratory: no symptoms reported Cardiovascular: no symptoms reported Gastrointestinal: no symptoms reported Genitourinary: no symptoms reported Musculoskeletal: no symptoms reported Skin: other (redness and pain to left breast) Psychiatric/Neurological: No Symptoms Reported Hematologic/Lymphatic: No Symptoms Reported Immunological/Allergic: no symptoms reported All Other Systems Reviewed Negative Unless Noted: Yes Past Xgmilim-Rvrpso-Crffxa Hx Past Med/Social Hx: Reviewed Nursing Past Med/Soc Hx Patient Social History Type Used: Cigarettes 2nd Hand Smoke Exposure: No Recent Foreign Travel: No Contact w/Someone Who Travel: No Recent Hopitalizations: No Seasonal Allergies Seasonal Allergies: Yes Past Medical History Surgeries: Yes Gallbladder Respiratory: No Cardiac: No Neurological: No Sexually Transmitted Disease: No HIV/AIDS: No Genitourinary: No Gastrointestinal: Yes Gastroesophageal Reflux, Chronic Diarrhea Musculoskeletal: No Endocrine: Yes (high testosterone level-INSULIN RESISTANCE) Diabetes, Non-Insulin dep HEENT: Yes (GLASSES) Loss of Vision: Denies Hearing Impairment: Denies Cancer: No Psychosocial: Yes (MILD) Anxiety, Depression Integumentary: No Blood Disorders: No Adverse Reaction/Blood Tranf: No (N/A) Physical Exam Vital Signs Capillary Refill : Height, Weight, BMI Height: 5'4.00" Weight: 280lbs. oz. 127.361635pz; 49.00 BMI Method:Stated General Appearance: No Apparent Distress, WD/WN, Obese HEENT: PERRL/EOMI, Pharynx Normal Neck: Full Range of Motion, Normal Inspection, Non Tender Respiratory: Chest Non Tender, Lungs Clear, Normal Breath Sounds, No Accessory Muscle Use, No Respiratory Distress Cardiovascular: Regular Rate, Rhythm, No Edema, No Murmur Gastrointestinal: Normal Bowel Sounds, No Pulsatile Mass, Non Tender, Soft Extremity: Normal Capillary Refill, Normal Inspection, Normal Range of Motion Neurologic/Psychiatric: Alert, Oriented x3, No Motor/Sensory Deficits, Normal Mood/Affect Skin: Warm/Dry, Other (in the medial and inferior surface of the left breast there is a small lesion approximately 0.5 cm in diameter which is soft but not fluctuant, surrounding this area there is approximately 5 cm of skin redness consistent with cellulitis, there is no other abnormality seen, this area does not reach the areola) Progress/Results/Core Measures Suspected Sepsis SIRS Temperature: Pulse: Respiratory Rate: Blood Pressure / Mean: Results/Orders Vital Signs/I&O Capillary Refill : Progress Note : Progress Note @0818 - advised to the patient to apply Neosporin topically to the area and to take the prescribed oral antibiotic as directed. Advised to keep the area very clean and dry. Advise follow-up with PCP in 2-3 days and return to the emergency department for new or worsening symptoms such as but not limited to worsening pain, spread of red area/cellulitis, or nausea vomiting/fevers. The patient expresses verbal understanding and agreement with the plan. Explained to the patient that this may be an early abscess but it is too early for incision and drainage and the patient understands that antibiotics may completely resolve her issue or she may have the symptoms worsen to the point where she does require incision and drainage at a future date. She understands this and does not want any attempted incision and drainage performed today. Departure Impression Primary Impression: Cellulitis of left breast Disposition: 01 HOME, SELF-CARE Condition: Stable Departure-Patient Inst. Decision time for Depature: 08:27 Referrals: LIZETT HEARD MD (PCP/Family) Primary Care Physician Add. Discharge Instructions: Take the prescribed medicine as directed. Apply topical Neosporin or similar antibiotic to the red area 2 times daily. Continue to take Tylenol for pain relief. Follow-up with your doctor in the next 2-3 days. Return to the Emergency Department immediately for new or worsening symptoms. Scripts Clindamycin HCl (Clindamycin HCl) 300 Mg Capsule 300 MG PO Q6H for 10 Days, #40 CAP Prov: OSIRIS JIMENEZ DO 03/18/19 OSIRIS JIMENEZ DO Mar 18, 2019 08:15
[2019-03-18] MEDS ORDERED: CLIN300C11 PO (08:39)
[2019-03-18 08:44] VITALS: BP 156/83
== END 2019-03-18 08:45 | disposition home or self-care (01) ==
LOC: EDUNIT# 07:58 → ER FS 08:00
DX: N61.0 Mastitis without abscess (principal); Z88.2 Allergy status to sulfonamides; Z88.1 Allergy status to other antibiotic agents
CPT/HCPCS: 99282

== ENCOUNTER 2019-04-16 14:16 | Emergency (ER) | payer SELFPAY ==
[~2019-04-16] VITALS: Ht 162.5 cm; Wt 132.1 kg
[~2019-04-16 14:16] MED LIST changes: +CLIN300C11 PO; -GUAI400T71 PO; +GUAI400T86 PO
[2019-04-16 14:27] VITALS: BP 107/73
--- NOTE | 2019-04-16 14:40 | NUR ---
This RN present in room for Dr to do a physical examination of pt's genital area c/o.
--- NOTE | 2019-04-16 14:43 | ED Integumentary General ---
General Chief Complaint: Skin/Wound Problems Stated Complaint: VAGINAL SORES Source: patient History of Present Illness Date Seen by Provider: Apr 16, 2019 Time Seen by Provider: 14:40 Initial Comments Presents with complaint of a sore in her vaginal area, first noticed yesterday after shaving and then had some blood on her toilet tissue. This morning she thinks she felt a bump. Denies any pelvic pain, vaginal discharge, fever or chills. Denies any lesions or sores. Allergies and Home Medications Allergies Coded Allergies: sulfamethoxazole (Verified Allergy, Mild, RASH, 12/22/18) trimethoprim (Verified Allergy, Mild, RASH, 12/22/18) Uncoded Allergies: head and shoulders shampoo (Allergy, Unknown, 09/24/18) seafood (Allergy, Unknown, 09/24/18) Home Medications Clindamycin HCl 300 Mg Capsule, 300 MG PO Q6H Prescribed by: OSIRIS JIMNEEZ on 03/18/19 0839 Patient Home Medication List Home Medication List Reviewed: Yes Review of Systems Review of Systems Constitutional: No fever, No malaise Gastrointestinal: No abdominal pain, No loss of appetite Genitourinary: no symptoms reported; No decreased output, No dysuria, No frequency, No pain Skin: see HPI, lesions, lumps, other Past Rmnhxue-Fqmsbm-Vmansw Hx Past Med/Social Hx: Reviewed Nursing Past Med/Soc Hx Patient Social History Alcohol Use: Occasionally Uses Recreational Drug Use: No Smoking Status: Current Someday Smoker Type Used: Cigarettes 2nd Hand Smoke Exposure: No Recent Hopitalizations: No Physical Abuse: No Sexual Abuse: No Mistreated: No Fear: No Seasonal Allergies Seasonal Allergies: Yes Past Medical History Surgeries: Yes Gallbladder Respiratory: No Cardiac: No Neurological: No Sexually Transmitted Disease: No HIV/AIDS: No Genitourinary: No Gastrointestinal: Yes Gastroesophageal Reflux, Chronic Diarrhea Musculoskeletal: No Endocrine: Yes (high testosterone level-INSULIN RESISTANCE) Diabetes, Non-Insulin dep HEENT: Yes (GLASSES) Loss of Vision: Denies Hearing Impairment: Denies Cancer: No Psychosocial: Yes (MILD) Anxiety, Depression Integumentary: No Blood Disorders: No Adverse Reaction/Blood Tranf: No (N/A) Physical Exam Vital Signs Vital Signs - First Documented 04/16/19 14:27 Temp 36.6 Pulse 83 Resp 20 B/P (MAP) 107/73 (84) Pulse Ox 99 O2 Delivery Room Air Capillary Refill : General Appearance: WD/WN, no apparent distress Gastrointestinal: non tender, soft Skin: normal color, warm/dry, other (normal color, warm/dry, other (very small abrasion/ lesion w small eschar (likely 2 to shaving). no abscess. no papules or vessicles.)) Progress/Results/Core Measures Results/Orders Vital Signs/I&O 04/16/19 14:27 Temp 36.6 Pulse 83 Resp 20 B/P (MAP) 107/73 (84) Pulse Ox 99 O2 Delivery Room Air Departure Impression Primary Impression: Perineal abrasion Disposition: 01 HOME, SELF-CARE Condition: Stable Departure-Patient Inst. Referrals: LIZETT HEARD MD (PCP/Family) Primary Care Physician Patient Instructions: Skin Abrasions (DC) OPAL VIDES DO Apr 16, 2019 14:42
== END 2019-04-16 14:47 | disposition home or self-care (01) ==
LOC: EDUNIT# 14:16 → ER FS 14:18
DX: S30.814A Abrasion of vagina and vulva, initial encounter (principal); F17.210 Nicotine dependence, cigarettes, uncomplicated; Z88.2 Allergy status to sulfonamides; Z88.1 Allergy status to other antibiotic agents; X58.XXXA Exposure to other specified factors, initial encounter
CPT/HCPCS: 99282

== ENCOUNTER 2019-04-26 20:53 | Emergency (ER) | payer SELFPAY ==
[~2019-04-26] VITALS: Ht 162.5 cm; Wt 133.6 kg
--- NOTE | 2019-04-26 21:09 | ED Chest Pain ---
General Chief Complaint: Chest Pain Stated Complaint: CHEST PAINS History of Present Illness Date Seen by Provider: Apr 26, 2019 Time Seen by Provider: 21:08 Initial Comments This patient presented to the emergency department with complaint of pleuritic- type chest pain when she takes deep breath. Patient denies cough or fever. Patient states she smokes half pack per day. Patient denies any other significant medical problems patient denies any significant cardiac pain. We'll do a medical evaluation and treatment as needed. Timing/Duration: 4-6 hours Severity/Quality: mild Location: substernal Radiation: no radiation Activities at Onset: none Prior CP/Workup: no prior chest pain, non-cardiac Modifying Factors: worse with antacids, worse with breathing, worse with coughing, worse with defecting, worse with eating, worse with exercise, worse with lying down, worse with morphine, worse with movement, worse with nitroglycerin, worse with oxygen, worse with palpation, worse with rest, worse with other Associated Symptoms: denies symptoms; No abdominal pain, No back pain, No diaphoresis, No dizziness, No edema, No fatigue, No fever/chills, No headache, No heartburn, No nausea/vomiting, No rash, No shortness of breath, No swelling/lump in chest, No syncope, No weakness Allergies and Home Medications Allergies Coded Allergies: sulfamethoxazole (Verified Allergy, Mild, RASH, 12/22/18) trimethoprim (Verified Allergy, Mild, RASH, 12/22/18) Uncoded Allergies: head and shoulders shampoo (Allergy, Unknown, 09/24/18) seafood (Allergy, Unknown, 09/24/18) Home Medications Clindamycin HCl 300 Mg Capsule, 300 MG PO Q6H Prescribed by: OSIRIS JIMENEZ on 03/18/19 0839 Patient Home Medication List Home Medication List Reviewed: Yes Review of Systems Review of Systems Constitutional: no symptoms reported, see HPI; No chills, No diaphoresis, No dizziness, No fever, No malaise, No weakness, No weight gain, No weight loss, No other EENTM: No No Symptoms Reported, No See HPI, No Blurred Vision, No Double Vision, No Eye Pain, No Eye Tearing, No Ear Drainage, No Ear Pain, No Mouth Pain, No Mouth Swelling, No Nose Congestion, No Nose Pain, No Throat Pain, No Throat Swelling, No Other Respiratory: No Symptoms Reported, See HPI; Denies Cough, Denies Orthopnea, Denies Shortness of Air, Denies SOA With Exertion, Denies SOA at Rest, Denies Stridor, Denies Wheezing, Denies Other Cardiovascular: No Symptoms Reported, See HPI Gastrointestinal: No Symptoms Reported, See HPI; Denies Abdomen Distended, Denies Abdominal Pain, Denies Blood Streaked Stools, Denies Constipated, Denies Diarrhea, Denies Difficulty Swallowing, Denies Nausea, Denies Poor Appetite, Denies Poor Fluid Intake, Denies Rectal Bleeding, Denies Vomiting, Denies Other Genitourinary: No Symptoms Reported, See HPI; Denies Burning, Denies Discharge, Denies Drainage, Denies Frequency, Denies Flank Pain, Denies Hematuria, Denies Incontinence, Denies Pain, Denies Urgency, Denies Other Past Dnapfds-Eipddq-Bjsjoq Hx Patient Social History Type Used: Cigarettes 2nd Hand Smoke Exposure: No Recent Foreign Travel: No Contact w/Someone Who Travel: No Recent Hopitalizations: No Seasonal Allergies Seasonal Allergies: Yes Past Medical History Surgeries: Yes Gallbladder Respiratory: No Cardiac: No Neurological: No Sexually Transmitted Disease: No HIV/AIDS: No Genitourinary: No Gastrointestinal: Yes Gastroesophageal Reflux, Chronic Diarrhea Musculoskeletal: No Endocrine: Yes (high testosterone level-INSULIN RESISTANCE) Diabetes, Non-Insulin dep HEENT: Yes (GLASSES) Loss of Vision: Denies Hearing Impairment: Denies Cancer: No Psychosocial: Yes (MILD) Anxiety, Depression Integumentary: No Blood Disorders: No Adverse Reaction/Blood Tranf: No (N/A) Physical Exam Vital Signs Vital Signs - First Documented 04/26/19 04/26/19 21:00 21:05 Temp 37.0 Pulse 90 B/P (MAP) 149/96 (113) Pulse Ox 97 O2 Delivery Room Air Capillary Refill : Height, Weight, BMI Height: 5'4.00" Weight: 280lbs. oz. 127.288105dq; 50.00 BMI Method:Stated General Appearance: No Apparent Distress, WD/WN HEENT: PERRL/EOMI, TMs Normal, Normal ENT Inspection, Pharynx Normal Neck: Full Range of Motion, Normal Inspection, Non Tender Respiratory: Chest Non Tender, Lungs Clear, Normal Breath Sounds, No Accessory Muscle Use, No Respiratory Distress Cardiovascular: Regular Rate, Rhythm, No Edema, No Gallop, No JVD, No Murmur, Normal Peripheral Pulses Gastrointestinal: Normal Bowel Sounds, No Organomegaly, No Pulsatile Mass, Non Tender Skin: Normal Color, Warm/Dry Progress/Results/Core Measures Results/Orders Lab Results Laboratory Tests Test 04/26/19 21:09 Range/Units Urine Color DARK YELLOW Urine Clarity SL CLOUDY Urine pH 6.0 5-9 Urine Specific [place] >=1.030 1.016-1.022 Urine Protein NEGATIVE NEGATIVE Urine Glucose (UA) NEGATIVE NEGATIVE Urine Ketones TRACE H NEGATIVE Urine Nitrite NEGATIVE NEGATIVE Urine Bilirubin 1+ H NEGATIVE Urine Urobilinogen 0.2 < = 1.0 MG/DL Urine Leukocyte Esterase NEGATIVE NEGATIVE Urine RBC (Auto) 2+ H NEGATIVE Urine RBC 2-5 H /HPF Urine WBC RARE /HPF Urine Squamous Epithelial Cells 25-50 H /HPF Urine Crystals PRESENT H /LPF Urine Calcium Oxalate Crystals LARGE H /LPF Urine Bacteria NEGATIVE /HPF Urine Casts NONE /LPF Urine Mucus LARGE H /LPF Urine Culture Indicated NO Urine Test NEGATIVE NEGATIVE My Orders Orders - SD CLARKE MD Urinalysis (04/26/19 21:06) Chest 1 View Ap/Pa Only (04/26/19 21:06) Ekg Tracing (04/26/19 21:06) Hcg,Qualitative Urine (04/26/19 21:10) Vital Signs/I&O 04/26/19 04/26/19 21:00 21:05 Temp 37.0 Pulse 90 B/P (MAP) 149/96 (113) Pulse Ox 97 O2 Delivery Room Air Room Air Progress Progress Note : Progress Note Negative evaluation in the emergency department. Chest x-ray negative EKG. Negative exam. Patient is a smoker most likely pleuritic chest pain patient instructed the use cool mist humidifier at home. Try to avoid smoking encourage by mouth fluids. Patient states understanding she is discharged home Initial ECG Impression Date: Apr 26, 2019 Initial ECG Impression Time: 21:20 Initial ECG Rate: 87 Initial ECG Rhythm: Normal Sinus Initial ECG Intervals: Normal Initial ECG Impression: Normal Departure Impression Primary Impression: Pleurisy Disposition: 01 HOME, SELF-CARE Condition: Stable Departure-Patient Inst. Referrals: LIZETT HEARD MD (PCP/Family) Primary Care Physician Patient Instructions: Pleuritic Chest Pain Add. Discharge Instructions: Encourage by mouth fluids. Cool mist humidifier at home while sleeping. Stop smoking. Follow-up with her PCP in 2-3 days. Tylenol Motrin as needed for pain. All discharge instructions reviewed with patient and/or family. Voiced understanding. SD CLARKE MD Apr 26, 2019 21:09
--- NOTE | 2019-04-26 21:23 | Diagnostic Imaging Report ---
INDICATION: Midsternal chest pain around 9:00 this morning. Pain continued to get worse. Patient is also having some diarrhea. FINDINGS: Frontal view of the chest demonstrates the lungs to be clear. The heart, mediastinum, and pulmonary vascularity and visualized bony thorax are normal. IMPRESSION: Normal chest. Dictated by: Dictated on workstation # [id number]
[2019-04-26 21:30] LABS: CLARITY,URINE SL CLOUDY; COLOR,URINE DARK YELLOW; GLUCOSE, URINE (UA) NEGATIVE (NEGATIVE); KETONES,URINE TRACE (NEGATIVE); NITRITE,URINE NEGATIVE (NEGATIVE); PROTEIN,URINE NEGATIVE (NEGATIVE)
[2019-04-26 21:31] LABS: BACTERIA,URINE NEGATIVE /HPF; BILIRUBIN,URINE 1+ (NEGATIVE); CALCIUM OXALATE CRYSTALS,UR LARGE /LPF; LEUKOCYTE ESTERASE ,URINE NEGATIVE (NEGATIVE); SQUAMOUS EPITHELIAL CELL,UR 25-50 /HPF; WBC,URINE RARE /HPF
[2019-04-26 21:48] VITALS: BP 149/96
--- OUTSIDE RECORDS SUMMARY | 2019-04-28 23:30 | XMS REPORT | Continuity of Care Document ---
Author Organization Unknown Address Unknown Phone Unavailable Allergies Active Description Code Type Severity Reaction Onset Reported/Identified Relationship to Patient Clinical Status Yes silver sulfadiazine [id number] Drug Allergy Unknown N/A 07/14/2018 Yes Sulfa (Sulfonamide Antibiotics) [id number] Drug Allergy Unknown N/A 019 Yes head and shoulders shampoo hea d and shoulders shampoo Unknown N/A 9 Yes seafood seafood Unknown N/A 09/24/2018 Yes sulfamethoxazole [id number] Drug Allergy Mild RASH 12/22/2018 Yes trimethoprim [id number] Drug Allergy Mild RASH 12/22/2018 Medications There is no data. Problems Date Dx Coded Attending Type Code Diagnosis Diagnosed By 07/14/2018 SUKHI DEY MD, Ot L03.3 13 CELLULITIS OF CHEST WALL 07/14/2018 SUKHI DEY MD Ot R07.8 9 OTHER CHEST PAIN 07/14/2018 SUKHI DEY MD, Ot R23.8 OTHER SKIN CHANGES 07/14/2018 SUKHI DEY MD, Ot Z88.2 ALLERGY STATUS TO SULFONAMIDES STATUS 07/14/2018 SUKHI DEY MD Ot Z88.8 ALLERGY STATUS TO OTH DRUG/MEDS/BIOL SUB 07/16/2018 SUKHI DEY MD Ot L03.3 13 CELLULITIS OF CHEST WALL 07/16/2018 SUKHI DEY MD, Ot R07.8 9 OTHER CHEST PAIN 07/16/2018 SUKHI DEY MD, Ot R23.8 OTHER SKIN CHANGES 07/16/2018 SUKHI DEY MD, Ot Z88.2 ALLERGY STATUS TO SULFONAMIDES STATUS 07/16/2018 SUKHI DEY MD, Ot Z88.8 ALLERGY STATUS TO OTH DRUG/MEDS/BIOL SUB 07/18/2018 PARIS CUNNINGHAM MD, Ot S81.852A OPEN BITE, LEFT LOWER LEG, INITIAL ENCOU 07/18/2018 MARISA MD, [place] W Ot W54.0XXA BITTEN BY DOG, INITIAL ENCOUNTER 07/18/2018 [place]IS CUNNINGHAM MD Ot Z23 ENCOUNTER FOR IMMUNIZATION 07/18/2018 [place]IS CUNNINGHAM MD Ot Z88. 2 ALLERGY STATUS TO SULFONAMIDES STATUS 07/18/2018 PARIS CUNNINGHAM MD, Ot Z88. 8 ALLERGY STATUS TO OTH DRUG/MEDS/BIOL SUB 07/21/2018 PARIS CUNNINGHAM MD Ot S81.852A OPEN BITE, LEFT LOWER LEG, INITIAL ENCOU 07/21/2018 PARIS CUNNINGHAM MD Ot W54.0XXA BITTEN BY DOG, INITIAL ENCOUNTER 07/22/2018 PARIS CUNNINGHAM MD Ot S81.852A OPEN BITE, LEFT LOWER LEG, INITIAL ENCOU 07/22/2018 PARIS CUNNINGHAM MD Ot W54.0XXA BITTEN BY DOG, INITIAL ENCOUNTER 07/22/2018 PARIS CUNNINGHAM MD, Ot Z23 ENCOUNTER FOR IMMUNIZATION 07/22/2018 PARIS CUNNINGHAM MD, Ot Z88. 2 ALLERGY STATUS TO SULFONAMIDES STATUS 07/22/2018 PARIS CUNNINGHAM MD Ot Z88. 8 ALLERGY STATUS TO OTH DRUG/MEDS/BIOL SUB 07/26/2018 PARIS CUNNINGHAM MD Ot S81.852A OPEN BITE, LEFT LOWER LEG, INITIAL ENCOU 07/26/2018 PARIS CUNNINGHAM MD Ot W54.0XXA BITTEN BY DOG, INITIAL ENCOUNTER 09/24/2018 TONY NEWELL DO Ot F17.210 NICOTINE DEPENDENCE, CIGARETTES, UNCOMPL 09/24/2018 TONY NEWELL DO Ot J01. 90 ACUTE SINUSITIS, UNSPECIFIED 09/24/2018 TONY NEWELL DO Ot J02. 9 ACUTE PHARYNGITIS, UNSPECIFIED 09/24/2018 TONY NEWELL DO Ot R07. 0 PAIN IN THROAT 09/24/2018 TONY NEWELL DO Ot Z88. 2 ALLERGY STATUS TO SULFONAMIDES STATUS 09/24/2018 TONY NEWELL DO Ot Z90. 49 ACQUIRED ABSENCE OF OTHER SPECIFIED PART 12/08/2018 SMITH DO NESSA L Ot E11.9 TYPE 2 DIABETES MELLITUS WITHOUT COMPLIC 12/08/2018 ROSELIA SMITH DOVOR L Ot K60.2 ANAL FISSURE, UNSPECIFIED 12/08/2018 SMITH DO, NESSA L Ot Z88.2 ALLERGY STATUS TO SULFONAMIDES STATUS 12/08/2018 SMITH DO, NESSA L Ot Z88.8 ALLERGY STATUS TO OTH DRUG/MEDS/BIOL SUB 12/13/2018 SMITH DO, NESSA L Ot E11.9 TYPE 2 DIABETES MELLITUS WITHOUT COMPLIC 12/13/2018 SMITH DO, NESSA L Ot K60.2 ANAL FISSURE, UNSPECIFIED 12/13/2018 SMITH DO, NESSA L Ot Z88.2 ALLERGY STATUS TO SULFONAMIDES STATUS 12/13/2018 SMITH DO, NESSA L Ot Z88.8 ALLERGY STATUS TO OTH DRUG/MEDS/BIOL SUB 12/22/2018 LIZETT HEARD MD Ot Z01.818 ENCOUNTER FOR OTHER PREPROCEDURAL EXAMIN 12/22/2018 LIZETT HEARD MD, Ot Z01.818 ENCOUNTER FOR OTHER PREPROCEDURAL EXAMIN 12/27/2018 LIZETT HEARD MD Ot E66.01 MORBID (SEVERE) OBESITY DUE TO EXCESS CA 12/27/2018 LIZETT HEARD MD Ot F17.200 NICOTINE DEPENDENCE, UNSPECIFIED, UNCOMP 12/27/2018 LIZETT HEARD MD Ot J45.909 UNSPECIFIED ASTHMA, UNCOMPLICATED 12/27/2018 LIZETT HEARD MD Ot K21.9 GASTRO-ESOPHAGEAL REFLUX DISEASE WITHOUT 12/27/2018 LIZETT HEARD MD Ot K62.5 HEMORRHAGE OF ANUS AND RECTUM 12/27/2018 LIZETT HEARD MD Ot R19.7 DIARRHEA, UNSPECIFIED 12/27/2018 LIZETT HEARD MD Ot Z68.41 BODY MASS INDEX (BMI) 40.0-44.9, ADULT 12/27/2018 LIZETT HEARD MD Ot Z87.410 PERSONAL HISTORY OF CERVICAL DYSPLASIA 12/27/2018 LIZETT HEARD MD Ot Z88.1 ALLERGY STATUS TO OTHER ANTIBIOTIC AGENT 12/27/2018 LIZETT HEARD MD Ot Z88.2 ALLERGY STATUS TO SULFONAMIDES STATUS 12/27/2018 LIZETT HEARD MD Ot Z88.8 ALLERGY STATUS TO OTH DRUG/MEDS/BIOL SUB 12/27/2018 LIZETT HEARD MD Ot Z90.49 ACQUIRED ABSENCE OF OTHER SPECIFIED PART 12/27/2018 LIZETT HEARD MD Ot Z91.013 ALLERGY TO SEAFOOD 12/27/2018 LIZETT HEARD MD Ot Z91.048 OTHER NONMEDICINAL SUBSTANCE ALLERGY STA 12/29/2018 LIZETT HEARD MD Ot E66.01 MORBID (SEVERE) OBESITY DUE TO EXCESS CA 12/29/2018 LIZETT HEARD MD, Ot F17.200 NICOTINE DEPENDENCE, UNSPECIFIED, UNCOMP 12/29/2018 LIZETT HEARD MD, Ot J45.909 UNSPECIFIED ASTHMA, UNCOMPLICATED 12/29/2018 LIZETT HEARD MD Ot K21.9 GASTRO-ESOPHAGEAL REFLUX DISEASE WITHOUT 12/29/2018 LIZETT HEARD MD Ot K62.5 HEMORRHAGE OF ANUS AND RECTUM 12/29/2018 LIZETT HEARD MD, Ot R19.7 DIARRHEA, UNSPECIFIED 12/29/2018 LIZETT HEARD MD, Ot Z68.41 BODY MASS INDEX (BMI) 40.0-44.9, ADULT 12/29/2018 LIZETT HEARD MD, Ot Z87.410 PERSONAL HISTORY OF CERVICAL DYSPLASIA 12/29/2018 LIZETT HEARD MD, Ot Z88.1 ALLERGY STATUS TO OTHER ANTIBIOTIC AGENT 12/29/2018 LIZETT HEARD MD, Ot Z88.2 ALLERGY STATUS TO SULFONAMIDES STATUS 12/29/2018 LIZETT HEARD MD, Ot Z88.8 ALLERGY STATUS TO OTH DRUG/MEDS/BIOL SUB 12/29/2018 LIZETT HEARD MD Ot Z90.49 ACQUIRED ABSENCE OF OTHER SPECIFIED PART 12/29/2018 LIZETT HEARD MD Ot Z91.013 ALLERGY TO SEAFOOD 12/29/2018 LIZETT HEARD MD Ot Z91.048 OTHER NONMEDICINAL SUBSTANCE ALLERGY STA 01/25/2019 LIZETT HEARD MD Ot E66.01 MORBID (SEVERE) OBESITY DUE TO EXCESS CA 01/25/2019 LIZETT HEARD MD Ot F17.200 NICOTINE DEPENDENCE, UNSPECIFIED, UNCOMP 01/25/2019 LIZETT HEARD MD, Ot J45.909 UNSPECIFIED ASTHMA, UNCOMPLICATED 01/25/2019 LIZETT HEARD MD, Ot K21.9 GASTRO-ESOPHAGEAL REFLUX DISEASE WITHOUT 01/25/2019 LIZETT HEARD MD, Ot K62.5 HEMORRHAGE OF ANUS AND RECTUM 01/25/2019 LZIETT HEARD MD, Ot R19.7 DIARRHEA, UNSPECIFIED 01/25/2019 LIZETT HEARD MD, Ot Z68.41 BODY MASS INDEX (BMI) 40.0-44.9, ADULT 01/25/2019 LIZETT HEARD MD Ot Z87.410 PERSONAL HISTORY OF CERVICAL DYSPLASIA 01/25/2019 LIZETT HEARD MD Ot Z88.1 ALLERGY STATUS TO OTHER ANTIBIOTIC AGENT 01/25/2019 LIZETT HEARD MD Ot Z88.2 ALLERGY STATUS TO SULFONAMIDES STATUS 01/25/2019 LIZETT HEARD MD Ot Z88.8 ALLERGY STATUS TO OTH DRUG/MEDS/BIOL SUB 01/25/2019 LIZETT HEARD MD Ot Z90.49 ACQUIRED ABSENCE OF OTHER SPECIFIED PART 01/25/2019 LIZETT HEARD MD Ot Z91.013 ALLERGY TO SEAFOOD 01/25/2019 LIZETT HEARD MD Ot Z91.048 OTHER NONMEDICINAL SUBSTANCE ALLERGY STA 03/22/2019 TONY NEWELL DO B Ot N61. 0 MASTITIS WITHOUT ABSCESS 03/22/2019 TONY NEWELL DO B Ot Z88. 1 ALLERGY STATUS TO OTHER ANTIBIOTIC AGENT 03/22/2019 TONY NEWELL DO B Ot Z88. 2 ALLERGY STATUS TO SULFONAMIDES STATUS 04/19/2019 ROVENSTINE DO OPAL L Ot F17.210 NICOTINE DEPENDENCE, CIGARETTES, UNCOMPL 04/19/2019 ROVENSTINE DO OPAL L Ot S30.814A ABRASION OF VAGINA AND VULVA, INITIAL EN 04/19/2019 ROVENSTINE DO, OPAL L Ot X58.XXXA EXPOSURE TO OTHER SPECIFIED FACTORS, INI 04/19/2019 ROVENSTINE DO OPAL L Ot Z88.1 ALLERGY STATUS TO OTHER ANTIBIOTIC AGENT 04/19/2019 ROVENSTINE DO, OPAL L Ot Z88.2 ALLERGY STATUS TO SULFONAMIDES STATUS Procedures There is no data. Results Test Result Range GC/CHLAMYDIA (SWAB OR URINE)-RAPID - 14:47 CHLAMYDIA TRACHOMATIS RNA, TMA NOT DETECTED [...] FREE 6.6 pg/mL 0.2-5.0 TESTOSTERONE,BIOAVAILABLE 12.2 ng/dL 0.5 -8.5 SEX HORMONE BINDING GLOBULIN 40 nmol/L 1 7-124 Streptococcus pyogenes antigen detection - 09/24/18 15:47 Streptococcus pyogenes antigen detection NEGATIVE NEGATIVE Bacterial throat culture - 09/24/18 15:4 7 Bacterial throat culture NBS NRG Influenza virus A and B antigen detectio n - 09/24/18 15:48 FLU RESULT NEGATIVE FOR INFLUENZA A AND B ANTIGENS BY IA NRG HCG, QUANTITATIVE - 11/10/18 11:13 HCG, TOTAL, QN <2 mIU/mL NRG STOOL (C-DIFF) - 11/10/18 13:10 CLOSTRIDIUM DIFFICILE TOXIN/GDH W/REFL TO PCR SEE NOTE NRG STOOL (O T P) - 11/10/18 13:29 OVA AND PARASITES, CONC AND PERM SMEAR SEE NOTE NRG STOOL (WBC) - 11/10/18 13:29 FECAL LEUKOCYTE STAIN SEE NOTE NRG CULTURE, STOOL - 11/10/18 13:29 SALMONELLA AND SHIGELLA, CULTURE SEE NOTE NRG GIARDIA, STOOL - 11/10/18 13:29 GIARDIA AG, EIA, STOOL SEE NOTE NRG Complete urinalysis with reflex to cultu re - 01/25/19 19:17 Urine color determination RED NRG Urine clarity determination CLOUDY NR G Urine pH measurement by test strip 5.5 5-9 Specific gravity of urine by test strip 1.025 1.016-1.022 Urine protein assay by test strip, semi-quantitative 2+ NEGATIVE Urine glucose detection by automated test strip TR MARCUS NEGATIVE Erythrocytes detection in urine sediment by light micr oscopy 3+ NEGATIVE Urine ketones detection by automated test strip NE GATIVE NEGATIVE Urine nitrite detection by test strip POSITIVE NEGATIVE Urine total bilirubin detection by test strip NEGA TIVE NEGATIVE Urine urobilinogen measurement by automated test strip (mass/volume) 1.0 mg/dL < = 1.0 Urine leukocyte esterase detection by dipstick 1+ NEGATIVE Automated urine sediment erythrocyte cou nt by microscopy (number/high power field) TNTC NRG Automated urine sediment leukocyte count by microscopy (number/high power field) NONE NRG Bacteria detection in urine sediment by light microsco py NEGATIVE NRG Squamous epithelial cells detection in u rine sediment by light microscopy NONE NRG Crystals detection in urine sediment by light microsco py NONE NRG Casts detection in urine sediment by light microscopy NONE NRG Mucus detection in urine sediment by light microscopy NEGATIVE NRG Complete urinalysis with reflex to culture YES NRG Urine beta human chorionic gonadotropin (hCG) measurement - 01/25/19 19:17 Urine beta human chorionic gonadotropin (hCG) measurem ent NEGATIVE NEGATIVE Bacterial urine culture - 01/25/19 19:17 Bacterial urine culture 3 OR MORE NRG COLONY COUNT 60,000 cfu/ml NRG FTX;REPORTABLE GRAM POSITIVE ISOLATES; SUGGESTING NRG FREE TEXT ENTRY 2 PROBABLE COLLECTION CONTAMINATIO N WITH NRG FREE TEXT ENTRY 3 SKIN KVNG. NO SUSCEPTIBILITY PE RFORMED. NRG INSULIN LEVEL - 01/31/19 10:37 INSULIN 52.1 uIU/mL 2.0-19.6 HCG, QUANTITATIVE - 01/31/19 10:37 HCG, TOTAL, QN <2 mIU/mL NRG A1C - 01/31/19 10:37 HEMOGLOBIN A1c 4.8 % of total Hgb <5.7 Urine beta human chorionic gonadotropin (hCG) measurement - 04/26/19 21:09 Urine beta human chorionic gonadotropin (hCG) measurem ent NEGATIVE NEGATIVE Complete urinalysis with reflex to cultu re - 04/26/19 21:09 Urine color determination DARK YELLOW N RG Urine clarity determination SL CLOUDY N RG Urine pH measurement by test strip 6.0 5-9 Specific gravity of urine by test strip >= 1.016-1.022 Urine protein assay by test strip, semi-quantitative NEGATIVE NEGATIVE Urine glucose detection by automated test strip NE GATIVE NEGATIVE Erythrocytes detection in urine sediment by light micr oscopy 2+ NEGATIVE Urine ketones detection by automated test strip TR MARCUS NEGATIVE Urine nitrite detection by test strip NEGATIVE NEGATIVE Urine total bilirubin detection by test strip 1+ NEGATIVE Urine urobilinogen measurement by automated test strip (mass/volume) 0.2 mg/dL < = 1.0 Urine leukocyte esterase detection by dipstick NEG ATIVE NEGATIVE Automated urine sediment erythrocyte cou nt by microscopy (number/high power field) [HPF] NRG Automated urine sediment leukocyte count by microscopy (number/high power field) RARE NRG Bacteria detection in urine sediment by light microsco py NEGATIVE NRG Squamous epithelial cells detection in u rine sediment by light microscopy 25-50 NRG Crystals detection in urine sediment by light microsco py PRESENT NRG Casts detection in urine sediment by light microscopy NONE NRG Mucus detection in urine sediment by light microscopy LARGE NRG Complete urinalysis with reflex to culture NO NRG Calcium oxalate crystals detection in ur ine sediment by light microscopy LARGE NRG Encounters ACCT No. Visit Date/Time Discharge Status Pt. Type Provider Facility Loc./Unit Complaint [id number] 01/31/2019 10:00:00 01/31/2019 23:59: 59 CLS Outpatient SUGEY YEPEZ [facility] [id number] 01/31/2019 10:00:00 Document Registration [id number] 11/10/2018 09:20:00 Document Registration [id number] 09/10/2018 12:00:00 Document Registration [id number] 09/06/2018 15:45:00 Document Registration [id number] 07/29/2018 15:15:00 Document Registration [id number] 09/07/2017 08:00:00 09/07/2017 23:59 :59 CLS Outpatient [facility] [id number] 04/26/2019 20:54:00 21:48:00 DIS Emergency SD CLARKE MD [facility] ER FS CHEST PAINS [id number] 04/16/2019 14:18:00 14:47:00 DIS Outpatient OPAL VIDES DO [facility] ER FS VAGINAL SORES [id number] 03/18/2019 08:00:00 08:45:00 DIS Outpatient TONY NEWELL DO [facility] ER FS LUMP ON LEFT BREAST [id number] 01/25/2019 19:09:00 21:21:00 DIS Emergency SUKHI DEY MD [facility] ER FS LOWER ABDOMINAL PAIN [id number] 12/23/2018 06:53:00 23:59:59 CLS Outpatient LIZETT HEARD MD [facility] ENDO PERSISTANT DIARRHEA/MUC OUS [id number] 12/22/2018 11:00:00 13:58:00 DIS Outpatient LIZETT HEARD MD [facility] PREOP COLONOSCOPY [id number] 12/08/2018 20:05:00 20:29:00 DIS Emergency SARAH ROCHA NESSA L [facility] ER FS ANAL PAIN,DIARRHEA [id number] 09/24/2018 15:35:00 16:29:00 DIS Emergency OSIRIS ROCHA TONY Yina [facility] ER FS THROAT PAIN, NOSE CLOGG ED, EAR PAIN, HEADACHE, SOB [id number] 07/21/2018 07:37:00 08:40:00 DIS Emergency MARISA JOHNSON, [place] Carey [facility] ER FS DOG BITE [id number] 07/18/2018 07:15:00 08:17:00 DIS Emergency MARISA JOHNSON, [place] Carey [facility] ER FS PT BIT BY DOG ON LT ANK LE [id number] 07/14/2018 20:37:00 21:15:00 DIS Emergency SUKHI DEY MD [facility] ER FS CHEST PAIN
== END 2019-04-26 21:48 | disposition home or self-care (01) ==
LOC: EDUNIT# 20:53 → ER FS 20:54
DX: R09.1 Pleurisy (principal); F17.210 Nicotine dependence, cigarettes, uncomplicated; Z88.2 Allergy status to sulfonamides; Z88.1 Allergy status to other antibiotic agents
CPT/HCPCS: 71045; 81000; 84703; 93005

== ENCOUNTER 2019-07-13 07:20 | Emergency (ER) | payer SELFPAY ==
[~2019-07-13] VITALS: Ht 162.6 cm; Wt 109.1 kg
[2019-07-13 07:36] VITALS: BP 139/92
[2019-07-13] MEDS ORDERED: DICL75TA2 PO (07:44)
--- NOTE | 2019-07-13 07:44 | ED General ---
General Chief Complaint: Facial Problems Stated Complaint: FACIAL PAIN Source of Information: Patient Exam Limitations: No Limitations History of Present Illness Date Seen by Provider: July 13, 2019 Time Seen by Provider: 07:30 Initial Comments This patient is a 18-year-old female presents to the emergency department and threatening intermittent left sided face pain. Patient states less than coming on for about a week. Patient does have a local dentist and a peak PCP. Denies injury. Denies fever. Denies swelling. Timing/Duration: 1 Week Associated Systoms: No Denies Symptoms, No Chest Pain, No Cough, No Diaphoresis, No Fever/Chills, No Headaches, No Loss of Appetite, No Malaise, No Nausea/Vomiting, No Rash, No Seizure, No Shortness of Air, No Syncope, No Weakness, No Other Allergies and Home Medications Allergies Coded Allergies: sulfamethoxazole (Verified Allergy, Unknown, 07/13/19) trimethoprim (Verified Allergy, Unknown, 07/13/19) Uncoded Allergies: seafood (Allergy, Unknown, 07/13/19) Patient Home Medication List Home Medication List Reviewed: Yes Review of Systems Review of Systems Constitutional: see HPI EENTM: No see HPI, No no symptoms reported, No ear discharge, No hearing loss, No ear pain, No blurred vision, No double vision, No eye pain, No tearing, No vision loss, No dental problems, No hoarseness, No mouth pain, No mouth swelling, No epistaxis, No nose congestion, No nose pain, No throat pain, No throat swelling, No other Respiratory: No no symptoms reported, No see HPI, No cough, No dyspnea on exertion, No hemoptysis, No orthopnea, No phlegm, No short of breath, No stridor, No wheezing, No other Cardiovascular: No no symptoms reported, No see HPI, No chest pain, No edema, No Hx of Intervention, No palpitations, No syncope, No vascular heart diseas, No other Gastrointestinal: No RUQ, No LUQ, No RLQ, No LLQ, No no symptoms reported, No see HPI, No abdominal pain, No constipation, No diarrhea, No dysphagia, No hemat emesis, No heartburn, No jaundice, No loss of appetite, No melena, No nausea, No vomiting, No other Genitourinary: No no symptoms reported, No see HPI, No decreased output, No discharge, No dysuria, No frequency, No hematuria, No hesitancy, No incontinence, No nocturia, No pain, No other Musculoskeletal: No no symptoms reported, No see HPI, No back pain, No gout, No joint pain, No joint swelling, No muscle pain, No muscle stiffness, No muscle cramps, No muscle twitching, No muscle weakness, No neck pain, No other Skin: No no symptoms reported, No see HPI, No change in color, No change in hair/nails, No dryness, No hx of skin cancer, No lesions, No lumps, No pruritus, No rash, No other All Other Systems Reviewed Negative Unless Noted: Yes Past Lolgybr-Qcwyre-Hsgitp Hx Patient Social History Alcohol Use: Denies Use Recreational Drug Use: No Smoking Status: Current Everyday Smoker Type Used: Cigarettes 2nd Hand Smoke Exposure: Yes Recent Hopitalizations: No Physical Abuse: No Sexual Abuse: No Mistreated: No Fear: No Seasonal Allergies Seasonal Allergies: No Past Medical History Surgeries: Yes Gallbladder Respiratory: No Cardiac: No Neurological: No Genitourinary: No Gastrointestinal: No Musculoskeletal: No Endocrine: No HEENT: No Cancer: No Psychosocial: No Integumentary: No Blood Disorders: No Physical Exam Vital Signs Capillary Refill : Height, Weight, BMI Height: '" Weight: lbs. oz. kg; BMI Method: General Appearance: No Apparent Distress, WD/WN HEENT: PERRL/EOMI, TMs Normal, Normal ENT Inspection, Pharynx Normal Neck: Full Range of Motion, Normal Inspection, Non Tender, Supple, Carotid Bruit Respiratory: Chest Non Tender, Lungs Clear, Normal Breath Sounds, No Accessory Muscle Use, No Respiratory Distress Cardiovascular: Regular Rate, Rhythm, No Edema, No Gallop, No JVD, No Murmur, Normal Peripheral Pulses Skin: Normal Color, Warm/Dry Progress/Results/Core Measures Suspected Sepsis SIRS Temperature: Pulse: Respiratory Rate: Blood Pressure / Mean: Results/Orders Vital Signs/I&O Capillary Refill : Progress Note : Time: 07:42 Progress Note Negative evaluation in the emergency department. There is no pain at this time no signs of swelling of dental problems negative ENT evaluation. I did discuss limitations of options. Patient be written a prescription for diclofenac. Patient is encouraged to use ice as needed. Follow up with PCP if it still continues. Patient states understanding she is discharged home Departure Impression Primary Impression: Face pain Disposition: HOME, SELF-CARE Condition: Stable Departure-Patient Inst. Decision time for Depature: 07:43 Add. Discharge Instructions: Alternate heat and ice as needed. Diclofenac as needed for pain. Follow up with PCP in 2-3 days the symptoms felt improved. All discharge instructions reviewed with patient and/or family. Voiced understanding. Scripts Diclofenac Sodium (Diclofenac Sodium) 75 Mg Tablet. 75 MG PO BID for 10 Days, #20 TAB 0 Refills Prov: SD CLARKE MD 07/13/19 SD CLARKE MD July 13, 2019 07:44
--- OUTSIDE RECORDS SUMMARY | 2019-07-13 08:03 | XMS REPORT | Continuity of Care Document ---
Author Organization Unknown Address Unknown Phone Unavailable Allergies Active Description Code Type Severity Reaction Onset Reported/Identified Relationship to Patient Clinical Status Yes silver sulfadiazine [id number] Drug Allergy Unknown N/A 07/14/2018 Yes Sulfa (Sulfonamide Antibiotics) N79671 0491 Drug Allergy Unknown N/A 019 Yes head and shoulders shampoo hea d and shoulders shampoo Unknown N/A 9 Yes seafood seafood Unknown N/A 09/24/2018 Yes sulfamethoxazole [id number] Drug Allergy Mild RASH 12/22/2018 Yes trimethoprim [id number] Drug Allergy Mild RASH 12/22/2018 Medications There [...] Z91.048 OTHER NONMEDICINAL SUBSTANCE ALLERGY STA 12/29/2018 LZIETT HEARD MD Ot E66.01 MORBID (SEVERE) OBESITY [...] K62.5 HEMORRHAGE OF ANUS AND RECTUM 01/25/2019 LIZETT HEARD MD, Ot R19.7 DIARRHEA, UNSPECIFIED 01/25/2019 [...] ine sediment by light microscopy LARGE NRG CULTURE, URINE - 05/20/19 17:15 CULTURE, URINE, ROUTINE SEE NOTE NRG Encounters ACCT No. Visit Date/Time Discharge Status Pt. Type Provider Facility Loc./Unit Complaint [id number] 01/31/2019 10:00:00 01/31/2019 23:59: 59 CLS Outpatient MARLENI SUGEY [facility] [id number] 05/20/2019 16:40:00 Document Registration [id number] 01/31/2019 10:00:00 Document Registration [id number] 11/10/2018 09:20:00 Document Registration [id number] 09/10/2018 12:00:00 Document Registration [id number] 09/06/2018 15:45:00 Document Registration [id number] 07/29/2018 15:15:00 Document Registration [id number] 09/07/2017 08:00:00 09/07/2017 23:59 :59 CLS Outpatient Uriel Daniels [facility] [id number] 04/26/2019 20:54:00 21:48:00 DIS Emergency TRICIA JOHNSON, [place] Carey [facility] ER FS CHEST PAINS [id number] 04/16/2019 14:18:00 14:47:00 DIS Outpatient OPAL VIDES DO [facility] ER FS VAGINAL SORES [id number] 03/18/2019 08:00:00 08:45:00 DIS Outpatient TONY NEWELL DO Via [facility] ER FS LUMP ON LEFT BREAST [id number] 01/25/2019 19:09:00 21:21:00 DIS Emergency SUKHI DEY MD Via [facility] ER FS LOWER ABDOMINAL PAIN [id number] 12/23/2018 06:53:00 23:59:59 CLS Outpatient FÉLIX JOHNSON, LIZETT mariscal [facility] ENDO PERSISTANT DIARRHEA/MUC OUS [id number] 12/22/2018 11:00:00 13:58:00 DIS Outpatient FÉLIX JOHNSON, LIZETT mariscal [facility] PREOP COLONOSCOPY [id number] 12/08/2018 20:05:00 20:29:00 DIS Emergency SARAH NESSA ROCHA [facility] ER FS ANAL PAIN,DIARRHEA [id number] 09/24/2018 15:35:00 16:29:00 DIS Emergency OSIRIS ROCHA TONY B [facility] ER FS THROAT PAIN, NOSE CLOGG ED, EAR PAIN, HEADACHE, SOB [id number] 07/21/2018 07:37:00 08:40:00 DIS Emergency MARISA JOHNSON, [place] Carey [facility] ER FS DOG BITE [id number] 07/18/2018 07:15:00 08:17:00 DIS Emergency MARISA JOHNSON, [place] Carey Via [facility] ER FS PT BIT BY DOG ON LT ANK LE [id number] 07/14/2018 20:37:00 21:15:00 DIS Emergency SUKHI DEY MD [facility] ER FS CHEST PAIN [id number] 07/13/2019 07:58:[address] Emergency TRICIA JOHNSON, [place] Carey [facility] ER FS FACIAL PAIN
== END 2019-07-13 07:58 | disposition home or self-care (01) ==
LOC: EDUNIT# 07:20 → ER FS 07:58
DX: R51 Headache (principal); F17.210 Nicotine dependence, cigarettes, uncomplicated; Z88.2 Allergy status to sulfonamides; Z88.1 Allergy status to other antibiotic agents; Z91.013 Allergy to seafood
CPT/HCPCS: 99283

== ENCOUNTER 2019-08-02 00:58 | Emergency (ER) | payer SELFPAY ==
[~2019-08-02] VITALS: Ht 162.6 cm; Wt 131.6 kg
[~2019-08-02 00:58] MED LIST changes: +DICL75TA2 PO
[2019-08-02] MEDS ORDERED: ONDANSETRON 4 MG/2 ML (SDV) Z0FRAN IVP STA (01:09)
[2019-08-02] MEDS ORDERED: KETOROLAC 60 MG/2 ML VIAL IM STA (01:09)
[2019-08-02] MEDS ORDERED: NS IV 1000 ML 1,000 ML IV STA (01:09)
--- NOTE | 2019-08-02 01:16 | ED General ---
General Chief Complaint: Abdominal/GI Problems Stated Complaint: NAUSEA,DIZZINESS Nursing Triage Note: PT AMBULATE TO ROOM FS02 WITH C/O SUNBURN, DIZZINESS, VOMITING. PT STATES ALL SYMPTOMS STARTED AFTER THE SUNBURN. Nursing Sepsis Screen: No Definite Risk Source of Information: Patient History of Present Illness Date Seen by Provider: Aug 02, 2019 Time Seen by Provider: 01:01 Initial Comments 18 yo female presents to the ED with complaints of sunburn with blisters since this weekend. Then yesterday she started having n/v. She continued to vomit today and feels dizzy, especially with changing positions. She denies burning or pain with urination. She has headache and blurry vision when she stands up fast. She has not tried anything for this at home. Her LMP was 2 weeks ago with spotting. She is still making urine. She threw up on her way to the ED tonight, but is asking for water and something to drink on arrival. Allergies and Home Medications Allergies Coded Allergies: sulfamethoxazole (Verified Allergy, Mild, RASH, 12/22/18) trimethoprim (Verified Allergy, Mild, RASH, 12/22/18) Uncoded Allergies: head and shoulders shampoo (Allergy, Unknown, 09/24/18) seafood (Allergy, Unknown, 09/24/18) Home Medications Clindamycin HCl 300 Mg Capsule, 300 MG PO Q6H Prescribed by: OSIRIS JIMENEZ on 03/18/19 0839 Diclofenac Sodium 75 Mg Tablet.dr, 75 MG PO BID Prescribed by: SD CLARKE on 07/13/19 0744 Patient Home Medication List Home Medication List Reviewed: Yes Review of Systems Review of Systems Constitutional: chills, dizziness (with changing positions), malaise EENTM: blurred vision (when she gets dizzy and nauseated) Respiratory: no symptoms reported Cardiovascular: no symptoms reported Gastrointestinal: No abdominal pain; diarrhea (chronic and no different from normal), nausea, vomiting Genitourinary: decreased output Musculoskeletal: no symptoms reported Skin: change in color (diffuse sunburn with some areas burned to the point she has blisters) Psychiatric/Neurological: Anxiety Hematologic/Lymphatic: No Symptoms Reported Immunological/Allergic: no symptoms reported Past Oscruzj-Xctugd-Avgvqe Hx Past Med/Social Hx: Reviewed Nursing Past Med/Soc Hx Patient Social History Type Used: Cigarettes 2nd Hand Smoke Exposure: No Recent Foreign Travel: No Contact w/Someone Who Travel: No Recent Infectious Disease Expo: No Recent Hopitalizations: No Seasonal Allergies Seasonal Allergies: Yes Past Medical History Surgeries: Yes Gallbladder Respiratory: No Cardiac: No Neurological: No Sexually Transmitted Disease: No HIV/AIDS: No Genitourinary: No Gastrointestinal: Yes Gastroesophageal Reflux, Chronic Diarrhea Musculoskeletal: No Endocrine: Yes (high testosterone level-INSULIN RESISTANCE) Diabetes, Non-Insulin dep HEENT: Yes (GLASSES) Loss of Vision: Denies Hearing Impairment: Denies Cancer: No Psychosocial: Yes (MILD) Anxiety, Depression Integumentary: No Blood Disorders: No Adverse Reaction/Blood Tranf: No (N/A) Physical Exam Vital Signs Vital Signs - First Documented 08/02/19 01:04 Temp 36.3 Pulse 115 Resp 18 B/P (MAP) 125/80 (95) O2 Delivery Room Air Capillary Refill : Less Than 3 Seconds Height, Weight, BMI Height: 5'4.00" Weight: 280lbs. oz. 127.738211xu; 49.00 BMI Method:Stated General Appearance: WD/WN, Mild Distress, Obese HEENT: PERRL/EOMI, TMs Normal, Normal ENT Inspection, Pharynx Normal, Moist Mucous Membranes Neck: Full Range of Motion, Normal Inspection, Non Tender, Supple Respiratory: Chest Non Tender, Lungs Clear, Normal Breath Sounds Cardiovascular: Normal Peripheral Pulses, Tachycardia Gastrointestinal: Normal Bowel Sounds, Non Tender, Soft Rectal: Deferred Extremity: Normal Capillary Refill, Normal Inspection, No Pedal Edema Neurologic/Psychiatric: Alert, Oriented x3, No Motor/Sensory Deficits, Normal Mood/Affect, weather stripper II-XII Norm as Tested Skin: Warm/Dry, Other (diffuse sun burn, especially on shoulders and upper ar ms) Progress/Results/Core Measures Suspected Sepsis Recent Fever Within 48 Hours: No Infection Criteria Present: None New/Unexplained Altered Menta: No Sepsis Screen: No Definite Risk SIRS Temperature: Pulse: 115 Respiratory Rate: 18 Laboratory Tests 08/02/19 01:17: White Blood Count 12.9H Blood Pressure 125 /80 Mean: 95 Laboratory Tests 08/02/19 01:17: Creatinine 0.98, Platelet Count 321, Total Bilirubin 0.2 Results/Orders Lab Results Laboratory Tests Test 08/02/19 01:17 Range/Units White Blood Count 12.9 H 4.3-11.0 10^3/uL Red Blood Count 4.52 4.35-5.85 10^6/uL Hemoglobin 13.0 11.5-16.0 G/DL Hematocrit 38 35-52 % Mean Corpuscular Volume 85 80-99 FL Mean Corpuscular Hemoglobin 29 25-34 PG Mean Corpuscular Hemoglobin Concent 34 32-36 G/DL Red Cell Distribution Width 12.1 10.0-14.5 % Platelet Count 321 130-400 10^3/uL Mean Platelet Volume 10.2 7.4-10.4 FL Neutrophils (%) (Auto) 62 42-75 % Lymphocytes (%) (Auto) 29 12-44 % Monocytes (%) (Auto) 7 0-12 % Eosinophils (%) (Auto) 1 0-10 % Basophils (%) (Auto) 0 0-10 % Neutrophils # (Auto) 8.0 H 1.8-7.8 X 10^3 Lymphocytes # (Auto) 3.7 1.0-4.0 X 10^3 Monocytes # (Auto) 0.9 0.0-1.0 X 10^3 Eosinophils # (Auto) 0.2 0.0-0.3 10^3/uL Basophils # (Auto) 0.1 0.0-0.1 10^3/uL Urine Color YELLOW Urine Clarity SLT CLOUDY Urine pH 6.0 5-9 Urine Specific [place] 1.025 H 1.016-1.022 Urine Protein NEGATIVE NEGATIVE Urine Glucose (UA) NEGATIVE NEGATIVE Urine Ketones TRACE H NEGATIVE Urine Nitrite NEGATIVE NEGATIVE Urine Bilirubin 1+ H NEGATIVE Urine Urobilinogen 0.2 < = 1.0 MG/DL Urine Leukocyte Esterase 1+ H NEGATIVE Urine RBC (Auto) NEGATIVE NEGATIVE Urine RBC NONE /HPF Urine WBC 2-5 /HPF Urine Squamous Epithelial Cells 10-25 H /HPF Urine Crystals NONE /LPF Urine Bacteria MODERATE H /HPF Urine Casts NONE /LPF Urine Mucus MODERATE H /LPF Urine Culture Indicated YES Sodium Level 140 135-145 MMOL/L Potassium Level 3.9 3.6-5.0 MMOL/L Chloride Level 104 98-107 MMOL/L Carbon Dioxide Level 23 21-32 MMOL/L Anion Gap 13 5-14 MMOL/L Blood Urea Nitrogen 10 7-18 MG/DL Creatinine 0.98 0.60-1.30 MG/DL Estimat Glomerular Filtration Rate > 60 BUN/Creatinine Ratio 10 Glucose Level 107 H 70-105 MG/DL Calcium Level 8.8 8.5-10.1 MG/DL Corrected Calcium 8.9 8.5-10.1 MG/DL Total Bilirubin 0.2 0.1-1.0 MG/DL Aspartate Amino Transf (AST/SGOT) 18 5-34 U/L Alanine Aminotransferase (ALT/SGPT) 18 0-55 U/L Alkaline Phosphatase 51 40-136 U/L Total Protein 7.1 6.4-8.2 GM/DL Albumin 3.9 3.2-4.5 GM/DL Lipase 14 8-78 U/L Serum Test, Qualitative NEGATIVE NEGATIVE My Orders Orders - SUKHI DEY MD Comprehensive Metabolic Panel (08/02/19 01:09) Lipase (08/02/19 01:09) Ua Culture If Indicated (08/02/19 01:09) Hcg,Qualitative Serum (08/02/19 01:09) Ed Iv/Invasive Line Start (08/02/19 01:09) Cbc With Automated Diff (08/02/19 01:09) Ns Iv 1000 Ml (Sodium Chloride 0.9%) (08/02/19 01:09) Ondansetron Injection (Zofran Injectio (08/02/19 01:09) Ketorolac Injection (Toradol Injection) (08/02/19 01:22) Urine Culture (08/02/19 01:17) Vital Signs/I&O 08/02/19 01:04 Temp 36.3 Pulse 115 Resp 18 B/P (MAP) 125/80 (95) O2 Delivery Room Air Capillary Refill : Less Than 3 Seconds Blood Pressure Mean: 95 Progress Note #1: Progress Note check labs and urine. Give IVF with Zofran for nausea and toradol for pain. Progress Note #2: Time: 02:11 Progress Note CBC with mild elevationof WBC count to go with stress and dehydration. UA concentrated with specific gravity 1.025 and contaminated with skin cells. Culture pending but with pt denying dysuria, frequency will defer any antibiotic until culture indicates it is needed. Chemistry still pending. Pt tolerating oral intake and feeling better. Progress Note #3: Time: 02:28 Progress Note Chemistry panel is normal other than glucose 107. IVF infused so will discharge to home and have her use the zofran she has at home. Counseled on follow up and return precautions. Departure Impression Primary Impression: Nausea and vomiting Qualified Codes: R11.14 - Bilious vomiting Additional Impressions: Sunburn of second degree Dehydration Disposition: 01 HOME, SELF-CARE Condition: Improved Departure-Patient Inst. Decision time for Depature: 02:29 Referrals: LIZETT HEARD MD (PCP/Family) Primary Care Physician Patient Instructions: Nausea and Vomiting, Adult (DC), Sunburn (DC), Dehydration, Adult (DC) Add. Discharge Instructions: Continue to drink plenty of fluids and electrolyte drinks. Use nausea medicine to help keep your stomach settled. Use aloe or moisturizing lotion to help with sunburn. Avoid excessive sun exposure and make sure you frequently apply sun roman lotion with a high SPF value to help prevent further burning. Follow up with clinic if not improving. All discharge instructions reviewed with patient and/or family. Voiced understanding. SUKHI DEY MD Aug 02, 2019 01:16
--- OUTSIDE RECORDS SUMMARY | 2019-08-02 01:21 | XMS REPORT | Continuity of Care Document ---
Author Organization Unknown Address Unknown Phone Unavailable Allergies Active Description Code Type Severity Reaction Onset Reported/Identified Relationship to Patient Clinical Status Yes silver sulfadiazine [id number] Drug Allergy Unknown N/A 07/14/2018 Yes Sulfa (Sulfonamide Antibiotics) E42320 0491 Drug Allergy Unknown N/A 019 Yes head and shoulders shampoo hea d and shoulders shampoo Unknown N/A 9 Yes seafood seafood Unknown N/A 09/24/2018 Yes sulfamethoxazole [id number] Drug Allergy Mild RASH 12/22/2018 Yes trimethoprim [id number] Drug Allergy Mild RASH 12/22/2018 Medications There [...] HISTORY OF CERVICAL DYSPLASIA 01/25/2019 LIZETT HEARD MD, Ot Z88.1 ALLERGY STATUS TO OTHER ANTIBIOTIC AGENT 01/25/2019 LIZETT HEARD MD Ot Z88.2 ALLERGY STATUS TO SULFONAMIDES STATUS 01/25/2019 LIZETT HEARD MD, Ot Z88.8 ALLERGY STATUS TO OTH DRUG/MEDS/BIOL SUB 01/25/2019 LIZETT HEARD MD Ot Z90.49 ACQUIRED ABSENCE OF OTHER SPECIFIED PART 01/25/2019 LIZETT HEARD MD Ot Z91.013 ALLERGY TO SEAFOOD 01/25/2019 LIZETT HEARD MD Ot Z91.048 OTHER NONMEDICINAL SUBSTANCE ALLERGY STA 03/22/2019 OSIRIS ROCHA TONY B Ot N61. 0 MASTITIS WITHOUT ABSCESS 03/22/2019 TONY NEWELL DO B Ot Z88. 1 ALLERGY STATUS TO OTHER ANTIBIOTIC AGENT 03/22/2019 OSIRIS ROCHA TONY B Ot Z88. 2 ALLERGY STATUS TO SULFONAMIDES STATUS 04/19/2019 ROVENSTINE DO, OPAL L Ot F17.210 NICOTINE DEPENDENCE, CIGARETTES, UNCOMPL 04/19/2019 ROVENSTINE DO, OPAL L Ot S30.814A ABRASION OF VAGINA AND VULVA, INITIAL EN 04/19/2019 ROVENSTINE DO, OPAL L Ot X58.XXXA EXPOSURE TO OTHER SPECIFIED FACTORS, INI 04/19/2019 ROVENSTINE DO, OPAL L Ot Z88.1 ALLERGY STATUS TO OTHER ANTIBIOTIC AGENT 04/19/2019 ROVENSTINE DO, OPAL L Ot Z88.2 ALLERGY STATUS TO SULFONAMIDES STATUS 07/15/2019 SD CLARKE MD Ot F17.210 NICOTINE DEPENDENCE, CIGARETTES, UNCOMPL 07/15/2019 SD CLARKE MD Ot R5 1 HEADACHE 07/15/2019 SD CLARKE MD Ot Z88.1 ALLERGY STATUS TO OTHER ANTIBIOTIC AGENT 07/15/2019 DS CLARKE MD Ot Z88.2 ALLERGY STATUS TO SULFONAMIDES STATUS 07/15/2019 SD CLARKE MD Ot Z91.013 ALLERGY TO SEAFOOD Procedures There is no data. Results Test [...] 17:15 CULTURE, URINE, ROUTINE SEE NOTE NRG TSH - 07/26/19 16:26 TSH 1.80 mIU/L NRG Encounters ACCT No. Visit Date/Time Discharge Status Pt. Type Provider Facility Loc./Unit Complaint [id number] 07/26/2019 16:00:00 07/26/2019 23:59: 59 CLS Outpatient MARLENI SUGEY [facility] [id number] 07/26/2019 16:00:00 Document Registration [id number] 05/20/2019 16:40:00 Document Registration [id number] 01/31/2019 10:00:00 Document Registration [id number] 11/10/2018 09:20:00 Document Registration [id number] 09/10/2018 12:00:00 Document Registration [id number] 09/06/2018 15:45:00 Document Registration [id number] 07/29/2018 15:15:00 Document Registration [id number] 09/07/2017 08:00:00 09/07/2017 23:59 :59 CLS Outpatient Uriel Daniels [employer] [id number] 07/13/2019 07:58:00 07:58:00 DIS Emergency SD CLARKE MD Via [facility] ER FS FACIAL PAIN [id number] 04/26/2019 20:54:00 21:48:00 DIS Emergency SD CLARKE MD Via [facility] ER FS CHEST PAINS [id number] 04/16/2019 14:18:00 14:47:00 DIS Outpatient OPAL VIDES DO Salomon [facility] ER FS VAGINAL SORES [id number] 03/18/2019 08:00:00 08:45:00 DIS Outpatient TONY NEWELL DO Via [facility] ER FS LUMP ON LEFT BREAST [id number] 01/25/2019 19:09:00 21:21:00 DIS Emergency SUKHI DEY MD Via [facility] ER FS LOWER ABDOMINAL PAIN [id number] 12/23/2018 06:53:00 23:59:59 CLS Outpatient LIZETT HEARD MD [facility] ENDO PERSISTANT DIARRHEA/MUC OUS [id number] 12/22/2018 11:00:00 13:58:00 DIS Outpatient LIZETT HEARD MD [facility] PREOP COLONOSCOPY [id number] 12/08/2018 20:05:00 20:29:00 DIS Emergency SARAH ROCHANESSA Salomon [facility] ER FS ANAL PAIN,DIARRHEA [id number] 09/24/2018 15:35:00 16:29:00 DIS Emergency TONY NEWELL DO Via [facility] ER FS THROAT PAIN, NOSE CLOGG ED, EAR PAIN, HEADACHE, SOB [id number] 07/21/2018 07:37:00 08:40:00 DIS Emergency [place]IS CUNNINGHAM MD Via [facility] ER FS DOG BITE [id number] 07/18/2018 07:15:00 08:17:00 DIS Emergency [place]IS CUNNINGHAM MD Via [facility] ER FS PT BIT BY DOG ON LT ANK LE [id number] 07/14/2018 20:37:00 21:15:00 DIS Emergency SUKHI DEY MD Via [facility] ER FS CHEST PAIN
[2019-08-02] MEDS ORDERED: KETOROLAC 30 MG/ML VIAL IVP STA (01:22)
[2019-08-02 01:49] LABS: BASOPHILS % (AUTO) 0 % (0-10); EOSINOPHILS % (AUTO) 1 % (0-10); HEMATOCRIT 38 % (35-52); LYMPHOCYTES % (AUTO) 29 % (12-44); MEAN CORPUSCULAR HEMOGLOBIN 29 PG (25-34); MEAN CORPUSCULAR HGB CONC 34 G/DL (32-36); MEAN CORPUSCULAR VOLUME 85 FL (80-99); MEAN PLATELET VOLUME 10.2 FL (7.4-10.4); MONOCYTES % (AUTO) 7 % (0-12); NEUTROPHILS % (AUTO) 62 % (42-75); PLATELET COUNT 321 10^3/uL (130-400); RED CELL DISTRIBUTION WIDTH 12.1 % (10.0-14.5); WHITE BLOOD COUNT 12.9 10^3/uL (4.3-11.0)
[2019-08-02 01:50] LABS: BASOPHILS # (AUTO) 0.1 10^3/uL (0.0-0.1); EOSINOPHILS # (AUTO) 0.2 10^3/uL (0.0-0.3); LYMPHOCYTES # (AUTO) 3.7 X 10^3 (1.0-4.0); MONOCYTES # (AUTO) 0.9 X 10^3 (0.0-1.0)
[2019-08-02 02:01] LABS: BILIRUBIN,URINE 1+ (NEGATIVE); CLARITY,URINE SLT CLOUDY; COLOR,URINE YELLOW; GLUCOSE, URINE (UA) NEGATIVE (NEGATIVE); KETONES,URINE TRACE (NEGATIVE); LEUKOCYTE ESTERASE ,URINE 1+ (NEGATIVE); NITRITE,URINE NEGATIVE (NEGATIVE); PROTEIN,URINE NEGATIVE (NEGATIVE)
[2019-08-02 02:02] LABS: BACTERIA,URINE MODERATE /HPF
[2019-08-02 02:25] LABS: CHLORIDE 104 MMOL/L (98-107); POTASSIUM 3.9 MMOL/L (3.6-5.0); SODIUM 140 MMOL/L (135-145)
[2019-08-02 02:26] LABS: ALANINE AMINOTRANSFERASE 18 U/L (0-55); ALBUMIN 3.9 GM/DL (3.2-4.5); ALKALINE PHOSPHATASE 51 U/L (40-136); BILIRUBIN,TOTAL 0.2 MG/DL (0.1-1.0); BUN/CREATININE RATIO 10; CALCIUM 8.8 MG/DL (8.5-10.1); CARBON DIOXIDE 23 MMOL/L (21-32); CREATININE SERUM 0.98 MG/DL (0.60-1.30); GFR ESTIMATED > 60; GLUCOSE 107 MG/DL (70-105); TOTAL PROTEIN 7.1 GM/DL (6.4-8.2)
[2019-08-02 02:27] LABS: LIPASE 14 U/L (8-78)
[2019-08-02] MEDS ORDERED: RX-ONDANSETRON 4 MG ODT (ZOFRAN) PPK #4 PO PRN (02:30)
[2019-08-02 02:37] VITALS: BP 137/80
== END 2019-08-02 02:37 | disposition home or self-care (01) ==
LOC: EDUNIT# 00:58 → ER FS 01:00
DX: L55.1 Sunburn of second degree (principal); E86.0 Dehydration; R11.2 Nausea with vomiting, unspecified; E11.9 Type 2 diabetes mellitus without complications; Z88.2 Allergy status to sulfonamides; Z88.1 Allergy status to other antibiotic agents
CPT/HCPCS: 36415; 80053; 81000; 83690; 84703; 85025; 87088

== ENCOUNTER 2019-08-16 15:22 | Emergency (ER) | payer SELFPAY ==
[~2019-08-16] VITALS: Ht 162.5 cm; Wt 131.9 kg
--- NOTE | 2019-08-16 15:38 | ED Abdominal Pain ---
General Chief Complaint: Abdominal/GI Problems Stated Complaint: ABD/RIB PAIN Source of Information: Patient History of Present Illness Date Seen by Provider: Aug 16, 2019 Time Seen by Provider: 15:30 Initial Comments This patient is a 18-year-old female presents to the [facility] department complaining of upper abdominal pain. Patient states she does have a history of acid reflux but states this pain is different patient also has a long history of constipation and has not had a bowel movement several days. Patient states in the past she has had to use MiraLAX to help with the bowel movements. Patient denies nausea and vomiting. We'll do medical evaluation treatment is needed. Timing/Duration: 1-2 Days Severity/Quality: Mild Location: Epigastric Radiation: No Radiation Activities at Onset: None Associated Symptoms: No Denies Symptoms, No Back Pain, No Chest Pain, No Diaphoresis, No Fever/Chills, No Fatigue, No Headache, No Heartburn, No Nausea/Vomiting, No Rash, No Shortness of Air, No Swelling/Mass in Abdomen, No Syncope, No Weakness, No Other Allergies and Home Medications Allergies Coded Allergies: sulfamethoxazole (Verified Allergy, Mild, RASH, 12/22/18) trimethoprim (Verified Allergy, Mild, RASH, 12/22/18) Uncoded Allergies: head and shoulders shampoo (Allergy, Unknown, 09/24/18) seafood (Allergy, Unknown, 09/24/18) Home Medications Clindamycin HCl 300 Mg Capsule, 300 MG PO Q6H Prescribed by: OSIRIS JIMENEZ on 03/18/19 0839 Diclofenac Sodium 75 Mg Tablet.dr, 75 MG PO BID Prescribed by: SD CLARKE on 07/13/19 0744 Patient Home Medication List Home Medication List Reviewed: Yes Review of Systems Review of Systems Constitutional: No no symptoms reported; see HPI; No chills, No diaphoresis, No dizziness, No fever, No malaise, No weakness, No weight gain, No weight loss, No other EENTM: No No Symptoms Reported, No See HPI, No Blurred Vision, No Double Vision, No Eye Pain, No Eye Tearing, No Ear Drainage, No Ear Pain, No Mouth Pain, No Mouth Swelling, No Nose Congestion, No Nose Pain, No Throat Pain, No Throat Swelling, No Other Respiratory: Denies No Symptoms Reported, Denies See HPI, Denies Cough, Denies Orthopnea, Denies Shortness of Air, Denies SOA With Exertion, Denies SOA at Rest, Denies Stridor, Denies Wheezing, Denies Other Cardiovascular: Denies No Symptoms Reported, Denies See HPI, Denies Chest Pain, Denies Edema, Denies Irregular Heart Rate, Denies Lightheadedness, Denies Palpitations, Denies Syncope, Denies Other Gastrointestinal: Denies No Symptoms Reported; See HPI; Denies Abdomen Distended; Abdominal Pain; Denies Blood Streaked Stools; Constipated; Denies Diarrhea, Denies Difficulty Swallowing, Denies Nausea, Denies Poor Appetite, Denies Poor Fluid Intake, Denies Rectal Bleeding, Denies Vomiting, Denies Other Genitourinary: Denies No Symptoms Reported, Denies See HPI, Denies Burning, Denies Discharge, Denies Drainage, Denies Frequency, Denies Flank Pain, Denies Hematuria, Denies Incontinence, Denies Pain, Denies Urgency, Denies Other Skin: No no symptoms reported, No see HPI, No change in color, No change in hair/nails, No dryness, No hx of skin cancer, No lesions, No lumps, No pruritus, No rash, No other All Other Systems Reviewed Negative Unless Noted: Yes Past Qpnpwzt-Qxtuwo-Yateqs Hx Patient Social History Alcohol Use: Denies Use Recreational Drug Use: No Smoking Status: Current Everyday Smoker Type Used: Cigarettes 2nd Hand Smoke Exposure: Yes Recent Foreign Travel: No Contact w/Someone Who Travel: No Recent Hopitalizations: No Physical Abuse: No Sexual Abuse: No Mistreated: No Fear: No Seasonal Allergies Seasonal Allergies: No Past Medical History Surgeries: Yes Gallbladder Respiratory: No Cardiac: No Neurological: No Sexually Transmitted Disease: No HIV/AIDS: No Genitourinary: No Gastrointestinal: No Gastroesophageal Reflux, Chronic Diarrhea Musculoskeletal: No Endocrine: No Diabetes, Non-Insulin dep HEENT: No Loss of Vision: Denies Hearing Impairment: Denies Cancer: No Psychosocial: No Anxiety, Depression Integumentary: No Blood Disorders: No Adverse Reaction/Blood Tranf: No (N/A) Physical Exam Vital Signs Vital Signs - First Documented 08/16/19 15:25 Temp 35.8 Pulse 78 Resp 16 B/P (MAP) 129/65 (86) Pulse Ox 98 O2 Delivery Room Air Capillary Refill : Height/Weight/BMI Height: 5'4.00" Weight: 280lbs. oz. 127.914115ez; 49.00 BMI Method:Stated General Appearance: WD/WN, no apparent distress HEENT: PERRL/EOMI, normal ENT inspection, TMs normal, pharynx normal Neck: non-tender, full range of motion, supple, normal inspection Respiratory: chest non-tender, lungs clear, normal breath sounds, no respiratory distress, no accessory muscle use Cardiovascular: normal peripheral pulses, regular rate, rhythm, no edema, no gallop, no JVD, no murmur Gastrointestinal: normal bowel sounds, non tender, soft, no organomegaly, no pulsatile mass Skin: normal color, warm/dry Progress/Results/Core Measures Results/Orders My Orders Orders - SD CLARKE MD Abdomen Flat & Upright/Decub (08/16/19 15:36) Urinalysis (08/16/19 15:36) Hcg,Qualitative Urine (08/16/19 16:16) Vital Signs/I&O 08/16/19 15:25 Temp 35.8 Pulse 78 Resp 16 B/P (MAP) 129/65 (86) Pulse Ox 98 O2 Delivery Room Air Progress Progress Note : Time: 16:27 Progress Note Action appears to have constipation on x-ray. Consistent with patient's history. Take Bentyl as prescribed. MiraLAX [id number]. May also make a brown cow with mixing Milk of magnesia 2 ounces with 4 ounces of prune juice and 1 tablespoon assaulted butter. Serve warm. May do this daily. Diagnostic Imaging Diagonstic Imaging: Xray Plain Films/CT/US/NM/MRI: abdomen Comments Constipation on x-ray Departure Impression Primary Impression: Constipation Additional Impression: Nonspecific abdominal pain Disposition: HOME, SELF-CARE Condition: Stable Departure-Patient Inst. Decision time for Depature: 16:28 Referrals: LIZETT HEARD MD (PCP/Family) Primary Care Physician Patient Instructions: Constipation, Adult (DC) Add. Discharge Instructions: Take Bentyl as prescribed. MiraLAX [id number]. May also make a brown cow with mixing Milk of magnesia 2 ounces with 4 ounces of prune juice and 1 tablesp oon assaulted butter. Serve warm. May do this daily. All discharge instructions reviewed with patient and/or family. Voiced und erstanding. Scripts Dicyclomine HCl (Dicyclomine HCl) 20 Mg Tablet 20 MG PO BID for 10 Days, #20 TAB 0 Refills Prov: SD CLARKE MD 08/16/19 SD CLARKE MD Aug 16, 2019 15:38
--- NOTE | 2019-08-16 16:03 | Diagnostic Imaging Report ---
INDICATION: Abdominal pain. Time of Exam: 3:48 PM No free air is identified. There are surgical clips in the gallbladder fossa. Bowel gas pattern is nonobstructed. No pathologic calcifications are identified. IMPRESSION: No acute abnormality is detected. Dictated by: Dictated on workstation # [id number]
[2019-08-16] MEDS ORDERED: DICY20TA10 PO (16:29)
[2019-08-16 16:34] VITALS: BP 129/65
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
== END 2019-08-16 16:38 | disposition home or self-care (01) ==
LOC: EDUNIT# 15:22 → ER FS 15:23
DX: K59.00 Constipation, unspecified (principal); K21.9 Gastro-esophageal reflux disease without esophagitis; F17.210 Nicotine dependence, cigarettes, uncomplicated; E11.9 Type 2 diabetes mellitus without complications; K52.9 Noninfective gastroenteritis and colitis, unspecified; F41.9 Anxiety disorder, unspecified; F32.9 Major depressive disorder, single episode, unspecified; Z88.8 Allergy status to other drugs, medicaments and biological substances; Z88.2 Allergy status to sulfonamides; Z91.013 Allergy to seafood
CPT/HCPCS: 74019

== ENCOUNTER 2019-08-22 01:50 | Emergency (ER) | payer SELFPAY ==
[~2019-08-22] VITALS: Ht 162 cm; Wt 134.3 kg
[~2019-08-22 01:50] MED LIST changes: +DICY20TA10 PO
--- OUTSIDE RECORDS SUMMARY | 2019-08-22 01:58 | XMS REPORT | Continuity of Care Document ---
Author Organization Unknown Address Unknown Phone Unavailable Allergies Active Description Code Type Severity Reaction Onset Reported/Identified Relationship to Patient Clinical Status Yes silver sulfadiazine [id number] Drug Allergy Unknown N/A 07/14/2018 Yes Sulfa (Sulfonamide Antibiotics) [id number] 0491 Drug Allergy Unknown N/A 019 Yes head and shoulders shampoo hea d and shoulders shampoo Unknown N/A 9 Yes seafood seafood Unknown N/A 09/24/2018 Yes sulfamethoxazole [id number] Drug Allergy Mild RASH 12/22/2018 Yes trimethoprim [id number] Drug Allergy Mild RASH 12/22/2018 Medications There [...] MD Ot Z91.013 ALLERGY TO SEAFOOD 01/25/2019 LIEZTT HEARD MD Ot Z91.048 OTHER NONMEDICINAL SUBSTANCE [...] Complete urinalysis with reflex to culture YES [facility] Comprehensive metabolic panel - 08/02/19 [...] Status Pt. Type Provider Facility Loc./Unit Complaint [id number] 07/26/2019 16:00:00 07/26/2019 23:59: 59 [facility] [id number] 07/26/2019 16:00:00 Document Registration [id number] 05/20/2019 16:40:00 Document Registration [id number] 01/31/2019 10:00:00 Document Registration [id number] 11/10/2018 09:20:00 Document Registration [id number] 09/10/2018 12:00:00 Document Registration [id number] 09/06/2018 15:45:00 Document Registration [id number] 07/29/2018 15:15:00 Document Registration [id number] 09/07/2017 08:00:00 09/07/2017 23:59 :59 CLS Outpatient Uriel Daniels [employer] [id number] 08/16/2019 15:23:00 16:38:00 DIS Emergency SD CLARKE MD [facility] ER FS ABD/RIB PAIN [id number] 08/02/2019 01:00:00 02:37:00 DIS Emergency SUKHI DEY MD [facility] ER FS NAUSEA,DIZZINESS [id number] 07/13/2019 07:58:00 07:58:00 DIS Emergency SD CLARKE MD [facility] ER FS FACIAL PAIN [id number] 04/26/2019 20:54:00 21:48:00 DIS Emergency SD CLARKE MD [facility] ER FS CHEST PAINS [id number] 04/16/2019 14:18:00 14:47:00 DIS Outpatient OPAL VIDES DO [facility] ER FS VAGINAL SORES [id number] 03/18/2019 08:00:00 08:45:00 DIS Outpatient TONY NEWELL DO [facility] ER FS LUMP ON LEFT BREAST [id number] 01/25/2019 19:09:00 21:21:00 DIS Emergency SUKHI DEY MD [facility] ER FS LOWER ABDOMINAL PAIN [id number] 12/23/2018 06:53:00 23:59:59 CLS Outpatient FÉLIX JOHNSON, LIZETT mariscal [facility] ENDO PERSISTANT DIARRHEA/MUC OUS [id number] 12/22/2018 11:00:00 13:58:00 DIS Outpatient FÉLIX JOHNSON, LIZETT mariscal [facility] PREOP COLONOSCOPY [id number] 12/08/2018 20:05:00 20:29:00 DIS Emergency NESSA SMITH DO [facility] ER FS ANAL PAIN,DIARRHEA [id number] 09/24/2018 15:35:00 16:29:00 DIS Emergency TONY NEWELL DO [facility] ER FS THROAT PAIN, NOSE CLOGG ED, EAR PAIN, HEADACHE, SOB [id number] 07/21/2018 07:37:00 08:40:00 DIS Emergency PARIS CUNNINGHAM MD [facility] ER FS DOG BITE [id number] 07/18/2018 07:15:00 08:17:00 DIS Emergency PARIS CUNNINGHAM MD [facility] ER FS PT BIT BY DOG ON LT ANK LE [id number] 07/14/2018 20:37:00 21:15:00 DIS Emergency SUKHI DEY MD [facility] ER FS CHEST PAIN
--- NOTE | 2019-08-22 02:19 | ED Cardiac General ---
History of Present Illness General Chief Complaint: Cardiac/General Problems Stated Complaint: FLUCCUATING BP Nursing Triage Note: Pt states she woke up feeling dizzy tonight and checked her bp and it was high. Source: patient History of Present Illness Date Seen by Provider: Aug 22, 2019 Time Seen by Provider: 02:16 Initial Comments Pt presents with dizziness and high blood pressure. She woke up earlier today and didn't feel good. Throughout the day she has been a little dizzy and nauseated. She checked her blood pressure tonight and it was 170 systolic. It is currently 140/76. She notes a history of insulin resistance, but is not on any diabetic medications. She does note some urinary urgency today. Allergies and Home Medications Allergies Coded Allergies: sulfamethoxazole (Verified Allergy, Mild, RASH, 12/22/18) trimethoprim (Verified Allergy, Mild, RASH, 12/22/18) Uncoded Allergies: head and shoulders shampoo (Allergy, Unknown, 09/24/18) seafood (Allergy, Unknown, 09/24/18) Home Medications Clindamycin HCl 300 Mg Capsule, 300 MG PO Q6H Prescribed by: OSIRIS JIMENEZ on 03/18/19 0839 Diclofenac Sodium 75 Mg Tablet.dr, 75 MG PO BID Prescribed by: SD CLARKE on 07/13/19 0744 Dicyclomine HCl 20 Mg Tablet, 20 MG PO BID Prescribed by: SD CLARKE on 08/16/19 1629 Patient Home Medication List Home Medication List Reviewed: Yes Review of Systems Review of Systems Constitutional: No chills, No fever EENTM: No Nose Congestion, No Throat Pain Respiratory: Denies Cough, Denies Shortness of Air Cardiovascular: Chest Pain, Lightheadedness Gastrointestinal: Nausea; Denies Vomiting Genitourinary: Denies Burning; Urgency Skin: no symptoms reported Psychiatric/Neurological: Denies Headache; Other (Dizziness) Endocrine: No Symptoms Reported Past Oljupfy-Bfzjlf-Vfamkw Hx Patient Social History Alcohol Use: Denies Use Recreational Drug Use: No Smoking Status: Current Everyday Smoker Type Used: Cigarettes 2nd Hand Smoke Exposure: Yes Recent Foreign Travel: No Contact w/Someone Who Travel: No Recent Infectious Disease Expo: No Recent Hopitalizations: No Physical Abuse: No Sexual Abuse: No Seasonal Allergies Seasonal Allergies: No Past Medical History Surgeries: Yes Gallbladder Respiratory: No Cardiac: No Neurological: No Sexually Transmitted Disease: No HIV/AIDS: No Genitourinary: No Gastrointestinal: No Gastroesophageal Reflux, Chronic Diarrhea Musculoskeletal: No Endocrine: No Diabetes, Non-Insulin dep HEENT: No Loss of Vision: Denies Hearing Impairment: Denies Cancer: No Psychosocial: No Anxiety, Depression Integumentary: No Blood Disorders: No Adverse Reaction/Blood Tranf: No (N/A) Physical Exam Vital Signs Vital Signs - First Documented 08/22/19 01:55 Temp 36.9 Pulse 77 Resp 18 B/P (MAP) 140/76 (97) Pulse Ox 96 O2 Delivery Room Air Capillary Refill : Less Than 3 Seconds Height, Weight, BMI Height: 5'4.00" Weight: 280lbs. oz. 127.832622tb; 51.00 BMI Method:Stated General Appearance: No Apparent Distress, WD/WN HEENT: PERRL/EOMI Respiratory: Lungs Clear, Normal Breath Sounds Cardiovascular: Regular Rate, Rhythm, No Murmur Gastrointestinal: Non Tender, Soft Extremity: Normal Inspection Neurologic/Psychiatric: Alert, Oriented x3 Skin: Normal Color, Warm/Dry Progress/Results/Core Measures Results/Orders Lab Results Laboratory Tests Test 08/22/19 02:10 08/22/19 02:17 Range/Units Urine Color YELLOW Urine Clarity CLEAR Urine pH 6.0 5-9 Urine Specific [place] 1.025 H 1.016-1.022 Urine Protein NEGATIVE NEGATIVE Urine Glucose (UA) NEGATIVE NEGATIVE Urine Ketones NEGATIVE NEGATIVE Urine Nitrite NEGATIVE NEGATIVE Urine Bilirubin NEGATIVE NEGATIVE Urine Urobilinogen 0.2 < = 1.0 MG/DL Urine Leukocyte Esterase 1+ H NEGATIVE Urine RBC (Auto) NEGATIVE NEGATIVE Urine RBC 0-2 /HPF Urine WBC 10-25 H /HPF Urine Squamous Epithelial Cells 25-50 H /HPF Urine Crystals NONE /LPF Urine Bacteria LARGE H /HPF Urine Casts NONE /LPF Urine Mucus NEGATIVE /LPF Urine Culture Indicated YES Urine Test NEGATIVE NEGATIVE Glucometer 103 70-110 MG/DL My Orders Orders - MARIA ANTONIA WILLIS MD Ua Culture If Indicated (08/22/19 02:09) Glucose (08/22/19 02:09) Hcg,Qualitative Urine (08/22/19 02:09) Ekg Tracing (08/22/19 02:18) Urine Culture (08/22/19 02:10) Nitrofurantoin Capsule,Macro (Macrobid C (08/22/19 02:45) Vital Signs/I&O 08/22/19 01:55 Temp 36.9 Pulse 77 Resp 18 B/P (MAP) 140/76 (97) Pulse Ox 96 O2 Delivery Room Air Blood Pressure Mean: 97 Initial ECG Impression Date: Aug 22, 2019 Initial ECG Impression Time: 21:50 Initial ECG Rate: 74 Initial ECG Rhythm: Normal Sinus Initial ECG Intervals: Normal Initial ECG Impression: Normal Departure Impression Primary Impression: Urinary tract infection Disposition: 01 HOME, SELF-CARE Condition: Stable Departure-Patient Inst. Decision time for Depature: 02:34 Referrals: LIZETT HEARD MD (PCP/Family) Primary Care Physician Patient Instructions: Urinary Tract Infections in Adults Scripts Nitrofurantoin Macrocrystal (Nitrofurantoin) 100 Mg Capsule 100 MG PO BID for 7 Days, #14 CAP 0 Refills Prov: MARIA ANTONIA WILLIS MD 08/22/19 MARIA ANTONIA WILLIS MD Aug 22, 2019 02:19
[2019-08-22 02:25] LABS: BILIRUBIN,URINE NEGATIVE (NEGATIVE); CLARITY,URINE CLEAR; COLOR,URINE YELLOW; GLUCOSE, URINE (UA) NEGATIVE (NEGATIVE); KETONES,URINE NEGATIVE (NEGATIVE); LEUKOCYTE ESTERASE ,URINE 1+ (NEGATIVE); NITRITE,URINE NEGATIVE (NEGATIVE); PROTEIN,URINE NEGATIVE (NEGATIVE)
[2019-08-22 02:26] LABS: BACTERIA,URINE LARGE /HPF; RBC,URINE 0-2 /HPF; SQUAMOUS EPITHELIAL CELL,UR 25-50 /HPF
[2019-08-22] MEDS ORDERED: NITROFURANTOIN 100 MG (MACROBID) CAPSULE PO ONE ×2 (02:32→02:45)
[2019-08-22] MEDS ORDERED: NITR100C PO (02:35)
[2019-08-22 02:36] VITALS: BP 140/76
== END 2019-08-22 02:40 | disposition home or self-care (01) ==
LOC: EDUNIT# 01:50 → ER FS 01:53
DX: N39.0 Urinary tract infection, site not specified (principal); K21.9 Gastro-esophageal reflux disease without esophagitis; K52.9 Noninfective gastroenteritis and colitis, unspecified; F41.9 Anxiety disorder, unspecified; F32.9 Major depressive disorder, single episode, unspecified; E88.81 Metabolic syndrome and other insulin resistance; F17.210 Nicotine dependence, cigarettes, uncomplicated; Z88.2 Allergy status to sulfonamides; Z88.8 Allergy status to other drugs, medicaments and biological substances; Z91.013 Allergy to seafood; Z79.899 Other long term (current) drug therapy
CPT/HCPCS: 81000; 82962; 84703; 87088; 93005

== ENCOUNTER 2019-09-11 09:26 | Emergency (ER) | payer SELFPAY ==
[~2019-09-11 09:26] MED LIST changes: +NITR100C PO
--- NOTE | 2019-09-11 09:29 | ED General ---
General Stated Complaint: RT EYE PAIN Source of Information: Patient History of Present Illness Date Seen by Provider: Sep 11, 2019 Time Seen by Provider: 09:28 Initial Comments Patient is a 18-year-old female who comes to the emergency department today complaining of pain of the right eye. She had some discomfort and pain started about 2 days earlier. Worsen. She does endorse any significant loss of vision or severe pain. She does not wear contacts at baseline but is supposed to her glasses which she does not have currently. No trauma. No foreign body sensation. Allergies and Home Medications Allergies Coded Allergies: sulfamethoxazole (Verified Allergy, Mild, RASH, 12/22/18) trimethoprim (Verified Allergy, Mild, RASH, 12/22/18) Uncoded Allergies: head and shoulders shampoo (Allergy, Unknown, 09/24/18) seafood (Allergy, Unknown, 09/24/18) Home Medications Cephalexin 500 Mg Capsule, 500 MG PO TID Prescribed by: SD BERGMAN on 09/11/19 1000 Clindamycin HCl 300 Mg Capsule, 300 MG PO Q6H Prescribed by: OSIRIS JIMENEZ on 03/18/19 0839 Diclofenac Sodium 75 Mg Tablet.dr, 75 MG PO BID Prescribed by: SD CLARKE on 07/13/19 0744 Dicyclomine HCl 20 Mg Tablet, 20 MG PO BID Prescribed by: SD CLARKE on 08/16/19 1629 Nitrofurantoin Macrocrystal 100 Mg Capsule, 100 MG PO BID Prescribed by: MARIA ANTONIA WILLIS on 08/22/19 0235 Patient Home Medication List Home Medication List Reviewed: Yes Review of Systems Review of Systems Constitutional: no symptoms reported EENTM: see HPI Respiratory: no symptoms reported Cardiovascular: no symptoms reported : No Musculoskeletal: no symptoms reported Skin: no symptoms reported All Other Systems Reviewed Negative Unless Noted: Yes Past Duqdmpf-Ydrcti-Azeigx Hx Patient Social History Type Used: Cigarettes 2nd Hand Smoke Exposure: Yes Recent Foreign Travel: No Contact w/Someone Who Travel: No Recent Hopitalizations: No Seasonal Allergies Seasonal Allergies: No Past Medical History Surgeries: Yes Gallbladder Respiratory: No Cardiac: No Neurological: No Sexually Transmitted Disease: No HIV/AIDS: No Genitourinary: No Gastrointestinal: No Gastroesophageal Reflux, Chronic Diarrhea Musculoskeletal: No Endocrine: No Diabetes, Non-Insulin dep HEENT: No Loss of Vision: Denies Hearing Impairment: Denies Cancer: No Psychosocial: No Anxiety, Depression Integumentary: No Blood Disorders: No Adverse Reaction/Blood Tranf: No (N/A) Physical Exam Vital Signs Vital Signs - First Documented 09/11/19 09:31 Temp 36.5 Pulse 91 Resp 16 B/P (MAP) 133/76 (95) Pulse Ox 95 Capillary Refill : Height, Weight, BMI Height: 5'4.00" Weight: 280lbs. oz. 127.949785sn; 51.00 BMI Method:Stated General Appearance: No Apparent Distress, WD/WN Eyes: Bilateral Eye PERRL, Bilateral Eye EOMI HEENT: PERRL/EOMI, TMs Normal, Other (stye over upper right eyelid with some edema. SLIT lamp exam as below.) Neck: Full Range of Motion Respiratory: Lungs Clear Cardiovascular: Regular Rate, Rhythm Neurologic/Psychiatric: Alert, Oriented x3 Skin: Normal Color, Warm/Dry Progress/Results/Core Measures Suspected Sepsis SIRS Temperature: Pulse: Respiratory Rate: Blood Pressure / Mean: Results/Orders My Orders Orders - SD BERGMAN DO Tetracaine 0.5% Ophth Candice Sdv (Tetracai (09/11/19 09:45) Fluorescein Strips (Ghzin-G-Rttsgz) (09/11/19 09:32) Tetracaine 0.5% Ophth Candice Sdv (Tetracai (09/11/19 09:32) Gentamicin 0.3% Ophth Solution (Garamyci (09/11/19 09:45) Vital Signs/I&O 09/11/19 09:31 Temp 36.5 Pulse 91 Resp 16 B/P (MAP) 133/76 (95) Pulse Ox 95 Capillary Refill : Progress Note : Time: 09:29 Progress Note Patient is seen in the ER for some discomfort in the right eye. She has early formation of a stye with some edema over the right upper lid. Visual acuities were 20/200 individually and together and this is expected as the patient does not have eyeglasses currently. Slit-lamp exam is performed. The conjunctiva are mildly inflamed and erythematous on the right eye. Cornea is smooth and free from any visible areas of uptake of foreseen stain. Anterior chamber is clear and without cell or flare. Stye is present as documented above. Following this, Chacorta-Pen was used to measure pressure in the eye. The readings were 17, 20, 18. Patient has an eye doctor in town which she states she cannot follow up with because she does not have money or coverage. I recommended she make some attempt to have on a follow-up. She is started on Keflex and given some gentamicin ophthalmic solution. Discharged home. Departure Impression Primary Impression: Carmen Disposition: 01 HOME, SELF-CARE Condition: Improved Departure-Patient Inst. Referrals: LIZETT HEARD MD (PCP/Family) Primary Care Physician Scripts Cephalexin (Keflex) 500 Mg Capsule 500 MG PO TID for 7 Days, #21 CAP Prov: SD BERGMAN DO 09/11/19 SD BERGMAN DO Sep 11, 2019 09:29
[2019-09-11 09:31] VITALS: BP 133/76
--- OUTSIDE RECORDS SUMMARY | 2019-09-11 09:31 | XMS REPORT | Continuity of Care Document ---
Author Organization Unknown Address Unknown Phone Unavailable Allergies Active Description Code Type Severity Reaction Onset Reported/Identified Relationship to Patient Clinical Status Yes silver sulfadiazine [id number] Drug Allergy Unknown N/A 07/14/2018 Yes Sulfa (Sulfonamide Antibiotics) [id number] Drug Allergy Unknown N/A 019 Yes head and shoulders shampoo hea d and shoulders shampoo Unknown N/A 9 Yes seafood seafood Unknown N/A 09/24/2018 Yes sulfamethoxazole [id number] Drug Allergy Mild RASH 12/22/2018 Yes trimethoprim [id number] Drug Allergy Mild RASH 12/22/2018 Medications There [...] J45.909 UNSPECIFIED ASTHMA, UNCOMPLICATED 12/29/2018 LIZETT HEARD MD, Ot K21.9 GASTRO-ESOPHAGEAL REFLUX DISEASE WITHOUT 12/29/2018 LIZETT HEARD MD, Ot K62.5 HEMORRHAGE OF [...] TO OTH DRUG/MEDS/BIOL SUB 12/29/2018 LIZETT HEARD MD, Ot Z90.49 ACQUIRED ABSENCE OF OTHER SPECIFIED PART 12/29/2018 LIZETT HEARD MD, Ot Z91.013 ALLERGY TO SEAFOOD 12/29/2018 LIZETT HEARD MD, Ot Z91.048 OTHER NONMEDICINAL SUBSTANCE ALLERGY STA 01/25/2019 SUKHI DEY MD Ot E11.9 TYPE 2 DIABETES MELLITUS WITHOUT COMPLIC 01/25/2019 SUKHI DEY MD, Ot F17.2 10 NICOTINE DEPENDENCE, CIGARETTES, UNCOMPL 01/25/2019 SUKHI DEY MD, Ot F32.9 MAJOR DEPRESSIVE DISORDER, SINGLE EPISOD 01/25/2019 SUKHI DEY MD, Ot F41.9 ANXIETY DISORDER, UNSPECIFIED 01/25/2019 SUKHI DEY MD, Ot K21.9 GASTRO-ESOPHAGEAL REFLUX DISEASE WITHOUT 01/25/2019 SUKHI DEY MD, Ot N93.9 ABNORMAL UTERINE AND VAGINAL BLEEDING, U 01/25/2019 SUKHI DEY MD, Ot R10.2 PELVIC AND PERINEAL PAIN 01/25/2019 ENYART MD, SUKHI E Ot Z88.1 ALLERGY STATUS TO OTHER ANTIBIOTIC AGENT 01/25/2019 TIBURCIO JOHNSON, SUKHI Pereira Ot Z88.2 ALLERGY STATUS TO SULFONAMIDES STATUS 01/25/2019 LIZETT HEARD MD Ot E66.01 MORBID (SEVERE) OBESITY DUE TO EXCESS CA 01/25/2019 LIZETT HEARD MD Ot F17.200 NICOTINE DEPENDENCE, UNSPECIFIED, UNCOMP 01/25/2019 LIZETT HEARD MD Ot J45.909 UNSPECIFIED ASTHMA, UNCOMPLICATED 01/25/2019 LIZETT HEARD MD Ot K21.9 GASTRO-ESOPHAGEAL REFLUX DISEASE WITHOUT 01/25/2019 LIZETT HEARD MD Ot K62.5 HEMORRHAGE OF ANUS AND RECTUM 01/25/2019 LIZETT HEARD MD Ot R19.7 DIARRHEA, UNSPECIFIED 01/25/2019 LIZETT HEARD [...] Ot Z91.048 OTHER NONMEDICINAL SUBSTANCE ALLERGY STA 03/18/2019 TONY NEWELL DO Ot N61. 0 MASTITIS WITHOUT ABSCESS 03/18/2019 TONY NEWELL DO Ot Z88. 1 ALLERGY STATUS TO OTHER ANTIBIOTIC AGENT 03/18/2019 TONY NEWELL DO Ot Z88. 2 ALLERGY STATUS TO SULFONAMIDES STATUS 03/22/2019 TONY NEWELL DO Ot N61. 0 MASTITIS WITHOUT ABSCESS 03/22/2019 TONY NEWELL DO Ot Z88. 1 ALLERGY STATUS TO OTHER ANTIBIOTIC AGENT 03/22/2019 TONY NEWELL DO Ot Z88. 2 ALLERGY STATUS TO SULFONAMIDES STATUS 04/16/2019 JOHNVENOPAL TRENT DO Ot F17.210 NICOTINE DEPENDENCE, CIGARETTES, UNCOMPL 04/16/2019 ROVENSTINE DO, OPAL L Ot S30.814A ABRASION OF VAGINA AND VULVA, INITIAL EN 04/16/2019 ROVENSTINE DO, OPAL L Ot X58.XXXA EXPOSURE TO OTHER SPECIFIED FACTORS, INI 04/16/2019 ROVENSTINE DO, OPAL L Ot Z88.1 ALLERGY STATUS TO OTHER ANTIBIOTIC AGENT 04/16/2019 ROVENSTINE DO, OPAL L Ot Z88.2 ALLERGY STATUS TO SULFONAMIDES STATUS 04/19/2019 ROVENSTINE [...] Ot Z88.2 ALLERGY STATUS TO SULFONAMIDES STATUS 07/13/2019 SD CLARKE MD Ot F17.210 NICOTINE DEPENDENCE, CIGARETTES, UNCOMPL 07/13/2019 SD CLARKE MD Ot R5 1 HEADACHE 07/13/2019 SD CLARKE MD Ot Z88.1 ALLERGY STATUS TO OTHER ANTIBIOTIC AGENT 07/13/2019 SD CLARKE MD Ot Z88.2 ALLERGY STATUS TO SULFONAMIDES STATUS 07/13/2019 SD CLARKE MD Ot Z91.013 ALLERGY TO SEAFOOD 07/15/2019 SD CLARKE MD Ot F17.210 NICOTINE [...] SUNBURN OF SECOND DEGREE 08/05/2019 SUKHI DEY MD Ot R11.2 NAUSEA WITH VOMITING, UNSPECIFIED 08/05/2019 SUKHI DEY MD Ot Z88.1 ALLERGY STATUS TO OTHER ANTIBIOTIC AGENT 08/05/2019 SUKHI DEY MD Ot Z88.2 ALLERGY STATUS TO SULFONAMIDES STATUS 08/22/2019 LIZETT HEARD MD Ot E66.01 MORBID (SEVERE) OBESITY DUE TO EXCESS CA 08/22/2019 LIZETT HEARD MD Ot F17.200 NICOTINE DEPENDENCE, UNSPECIFIED, UNCOMP 08/22/2019 LIZETT HEARD MD Ot J45.909 UNSPECIFIED ASTHMA, UNCOMPLICATED 08/22/2019 LIZETT HEARD MD Ot K21.9 GASTRO-ESOPHAGEAL REFLUX DISEASE WITHOUT 08/22/2019 LIZETT HEARD MD Ot K62.5 HEMORRHAGE OF ANUS AND RECTUM 08/22/2019 LIZETT HEARD MD Ot R19.7 DIARRHEA, UNSPECIFIED 08/22/2019 LIZETT HEARD MD Ot Z68.41 BODY MASS INDEX (BMI) 40.0-44.9, ADULT 08/22/2019 LIZETT HEARD MD Ot Z87.410 PERSONAL HISTORY OF CERVICAL DYSPLASIA 08/22/2019 LIZETT HEARD MD Ot Z88.1 ALLERGY STATUS TO OTHER ANTIBIOTIC AGENT 08/22/2019 LIZETT HEARD MD Ot Z88.2 ALLERGY STATUS TO SULFONAMIDES STATUS 08/22/2019 LIZETT HEARD MD Ot Z88.8 ALLERGY STATUS TO OTH DRUG/MEDS/BIOL SUB 08/22/2019 LIZETT HEARD MD Ot Z90.49 ACQUIRED ABSENCE OF OTHER SPECIFIED PART 08/22/2019 LIZETT HEARD MD Ot Z91.013 ALLERGY TO SEAFOOD 08/22/2019 LIZETT HEARD MD Ot Z91.048 OTHER NONMEDICINAL SUBSTANCE ALLERGY STA 08/23/2019 SD CLARKE MD Ot E11.9 TYPE 2 DIABETES MELLITUS WITHOUT COMPLIC 08/23/2019 SD CLARKE MD Ot F17.210 NICOTINE DEPENDENCE, CIGARETTES, UNCOMPL 08/23/2019 SD CLARKE MD Ot F32.9 MAJOR DEPRESSIVE DISORDER, SINGLE EPISOD 08/23/2019 SD CLARKE MD, Ot F41.9 ANXIETY DISORDER, UNSPECIFIED 08/23/2019 SD CLARKE MD Ot K21.9 GASTRO-ESOPHAGEAL REFLUX DISEASE WITHOUT 08/23/2019 SD CLARKE MD Ot K52.9 NONINFECTIVE GASTROENTERITIS AND COLITIS 08/23/2019 SD CLARKE MD, Ot K59.00 CONSTIPATION, UNSPECIFIED 08/23/2019 SD CLARKE MD Ot R10.9 UNSPECIFIED ABDOMINAL PAIN 08/23/2019 SD CLARKE MD, Ot Z88.2 ALLERGY STATUS TO SULFONAMIDES STATUS 08/23/2019 SD CLARKE MD, Ot Z88.8 ALLERGY STATUS TO OTH DRUG/MEDS/BIOL SUB 08/23/2019 SD CLARKE MD Ot Z91.013 ALLERGY TO SEAFOOD 08/26/2019 MARIA ANTONIA WILLIS MD Ot E88.8 1 METABOLIC SYNDROME 08/26/2019 MARIA ANTONIA WILLIS MD Ot F17.2 10 NICOTINE DEPENDENCE, CIGARETTES, UNCOMPL 08/26/2019 MARIA ANTONIA WILLIS MD, Ot F32.9 MAJOR DEPRESSIVE DISORDER, SINGLE EPISOD 08/26/2019 MARIA ANTONIA WILLIS MD, Ot F41.9 ANXIETY DISORDER, UNSPECIFIED 08/26/2019 MARIA ANTONIA WILLIS MD Ot K21.9 GASTRO-ESOPHAGEAL REFLUX DISEASE WITHOUT 08/26/2019 MARIA ANTONIA WILLIS MD, Ot K52.9 NONINFECTIVE GASTROENTERITIS AND COLITIS 08/26/2019 MARIA ANTONIA WILLIS MD Ot N39.0 URINARY TRACT INFECTION, SITE NOT SPECIF 08/26/2019 MARIA ANTONIA WILLIS MD Ot R42 DIZZINESS AND GIDDINESS 08/26/2019 MARIA ANTONIA WILLIS MD Ot Z79.8 99 OTHER [facility] (CURRENT) DRUG THERAPY 08/26/2019 MARIA ANTONIA WILLIS MD, Ot Z88.2 ALLERGY STATUS TO SULFONAMIDES STATUS 08/26/2019 MARIA ANTONIA WILLIS MD, Ot Z88.8 ALLERGY STATUS TO OTH DRUG/MEDS/BIOL SUB 08/26/2019 MARIA ANTONIA WILLIS MD, Ot Z91.0 13 ALLERGY TO SEAFOOD 08/28/2019 MARIA ANTONIA WILLIS MD, Ot E88.8 1 METABOLIC SYNDROME 08/28/2019 MARIA ANTONIA WILLIS MD, Ot F17.2 10 NICOTINE DEPENDENCE, CIGARETTES, UNCOMPL 08/28/2019 MARIA ANTONIA WILLIS MD, Ot F32.9 MAJOR DEPRESSIVE DISORDER, SINGLE EPISOD 08/28/2019 MARIA ANTONIA WILLIS MD, Ot F41.9 ANXIETY DISORDER, UNSPECIFIED 08/28/2019 MARIA ANTONIA WILLIS MD, Ot K21.9 GASTRO-ESOPHAGEAL REFLUX DISEASE WITHOUT 08/28/2019 MARIA ANTONIA WILLIS MD, Ot K52.9 NONINFECTIVE GASTROENTERITIS AND COLITIS 08/28/2019 MARIA ANTONIA WILLIS MD, Ot N39.0 URINARY TRACT INFECTION, SITE NOT SPECIF 08/28/2019 MARIA ANTONIA WILLIS MD, Ot R42 DIZZINESS AND GIDDINESS 08/28/2019 MARIA ANTONIA WILLIS MD, Ot Z79.8 99 OTHER [employer] [facility] (CURRENT) DRUG THERAPY 08/28/2019 MARIA ANTONIA WILLIS MD, Ot Z88.2 ALLERGY STATUS TO SULFONAMIDES STATUS 08/28/2019 MARIA ANTONIA WILLIS MD, Ot Z88.8 ALLERGY STATUS TO OTH DRUG/MEDS/BIOL SUB 08/28/2019 MARIA ANTONIA WILLIS MD, Ot Z91.0 13 ALLERGY TO SEAFOOD Procedures There is no [...] urinalysis with reflex to culture YES NRG Comprehensive metabolic panel - 08/02/19 01:17 Serum [...] 08/02/19 01:17 Bacterial urine culture NG NRG Urine beta human chorionic gonadotropin (hCG) measurement - 08/22/19 02:10 Urine beta human chorionic gonadotropin (hCG) measurem ent NEGATIVE NEGATIVE Complete urinalysis with reflex to cultu re - 08/22/19 02:10 Urine color determination YELLOW NRG Urine clarity determination CLEAR NR G Urine pH measurement by test strip 6.0 [...] in urine sediment by light microsco py LARGE NRG Squamous epithelial cells detection in u rine sediment by light microscopy 25-50 NRG Crystals detection in urine sediment by light microsco py NONE NRG Casts detection in urine sediment by light microscopy NONE NRG Mucus detection in urine sediment by light microscopy NEGATIVE NRG Complete urinalysis with reflex to culture YES NRG Bacterial urine culture - 08/22/19 02:10 Bacterial urine culture 3 OR MORE NRG COLONY COUNT >100,000/ML NRG SUSCEPTIBILITY GRAM POSITIVES, SUGGESTING PROBABLE NRG MRSA SCREEN COLLECTION CONTAMINATION WITH SKIN KAREN RA NRG RAPID ID NO SUSCEPTIBILITY PERFORMED N RG Capillary blood glucose measurement by g lucometer (mass/volume) - 08/22/19 02:17 Capillary blood glucose measurement by glucometer (mas s/volume) 103 mg/dL 70-110 TEST, SERUM (QUAL) - 09/01/19 09:33 HCG, TOTAL, QL NEGATIVE See Note: Encounters ACCT No. Visit Date/Time Discharge Status Pt. Type Provider Facility Loc./Unit Complaint [id number] 09/01/2019 09:30:00 09/01/2019 23:59: 59 CLS Outpatient MARLENI SUGEY [facility] [id number] 09/01/2019 09:30:00 Document Registration [id number] 07/26/2019 16:00:00 Document Registration [id number] 05/20/2019 16:40:00 Document Registration [id number] 01/31/2019 10:00:00 Document Registration [id number] 11/10/2018 09:20:00 Document Registration [id number] 09/10/2018 12:00:00 Document Registration [id number] 09/06/2018 15:45:00 Document Registration [id number] 07/29/2018 15:15:00 Document Registration [id number] 09/07/2017 08:00:00 09/07/2017 23:59 :59 CLS Outpatient Frances Uriel [facility] [id number] 08/22/2019 01:53:00 02:40:00 DIS Outpatient ALBA JOHNSON, MARIA ANTONIA Zaragoza Via [facility] FS FLUCCUATING BP [id number] 08/16/2019 15:23:00 16:38:00 DIS Outpatient SD CLARKE MD Via [facility] FS ABD/RIB PAIN [id number] 08/02/2019 01:00:00 020 02:37:00 DIS Emergency SUKHI DEY MD Via [facility] FS NAUSEA,DIZZINESS [id number] 07/13/2019 07:58:00 07:58:00 DIS Emergency SD CLRAKE MD Via [facility] FS FACIAL PAIN [id number] 04/26/2019 20:54:00 21:48:00 DIS Emergency SD CLARKE MD Via [facility] FS CHEST PAINS [id number] 04/16/2019 14:18:00 14:47:00 DIS Emergency ROVENSTOPAL LY DO Via [facility] FS VAGINAL SORES [id number] 03/18/2019 08:00:00 08:45:00 DIS Emergency TONY NEWELL DO Via [facility] ER FS LUMP ON LEFT BREAST [id number] 01/25/2019 19:09:00 21:21:00 DIS Emergency SUKHI DEY MD Via [facility] ER FS LOWER ABDOMINAL PAIN [id number] 12/23/2018 06:53:00 23:59:59 CLS Outpatient LIZETT HEARD MD [facility] ENDO PERSISTANT DIARRHEA/MUC OUS [id number] 12/22/2018 11:00:00 13:58:00 DIS Outpatient LIZETT HEARD MD [facility] PREOP COLONOSCOPY [id number] 12/08/2018 20:05:00 20:29:00 DIS Emergency NESSA SMITH DO Via [facility] FS ANAL PAIN,DIARRHEA [id number] 09/24/2018 15:35:00 16:29:00 DIS Emergency TONY NEWELL DO Via [facility] FS THROAT PAIN, NOSE CLOGG ED, EAR PAIN, HEADACHE, SOB [id number] 07/21/2018 07:37:00 08:40:00 DIS Emergency PARIS CUNNINGHAM MD Via [facility] FS DOG BITE [id number] 07/18/2018 07:15:00 08:17:00 DIS Emergency PARIS CUNNINGHAM MD Via [facility] FS PT BIT BY DOG ON LT ANK LE [id number] 07/14/2018 20:37:00 019 21:15:00 DIS Emergency TIBURCIO JOHNSON, SUKHI Reina [facility] ER FS CHEST PAIN
[2019-09-11] MEDS ORDERED: FLUORESCEIN (FLUOR-I-STRIPS) 1 MG STRP ONE (09:32)
[2019-09-11] MEDS ORDERED: TETRACAINE 0.5% OPHTH SOLN 4 ML BTL (SINGLE DOSE ONLY) ONE (09:32)
[2019-09-11] MEDS ORDERED: TETRACAINE 0.5% OPHTH SOLN 4 ML BTL (SINGLE DOSE ONLY) OP ONE (09:45)
[2019-09-11] MEDS ORDERED: GENTAMICIN 0.3% OPHTH SOLN 5 ML OP SCH (09:45)
[2019-09-11] MEDS ORDERED: CEPH-507 PO (10:00)
== END 2019-09-11 10:07 | disposition home or self-care (01) ==
LOC: EDUNIT# 09:26 → ER FS 09:27
DX: H00.011 Hordeolum externum right upper eyelid (principal); Z88.2 Allergy status to sulfonamides; Z88.1 Allergy status to other antibiotic agents; Z77.22 Contact with and (suspected) exposure to environmental tobacco smoke (acute) (chronic)
CPT/HCPCS: 99282

== ENCOUNTER 2019-09-18 04:21 | Emergency (ER) | payer SELFPAY ==
[~2019-09-18] VITALS: Ht 162.5 cm; Wt 133.4 kg
[~2019-09-18 04:21] MED LIST changes: +CEPH-507 PO
[2019-09-18 04:27] VITALS: BP 155/92
--- OUTSIDE RECORDS SUMMARY | 2019-09-18 04:28 | XMS REPORT | Continuity of Care Document ---
Author Organization Unknown Address Unknown Phone Unavailable Allergies Active Description Code Type Severity Reaction Onset Reported/Identified Relationship to Patient Clinical Status Yes silver sulfadiazine [id number] Drug Allergy Unknown N/A 07/14/2018 Yes Sulfa (Sulfonamide Antibiotics) Z75366 0491 Drug Allergy Unknown N/A 019 Yes head and shoulders shampoo hea d and shoulders shampoo Unknown N/A 9 Yes seafood seafood Unknown N/A 09/24/2018 Yes sulfamethoxazole [id number] Drug Allergy Mild RASH 12/22/2018 Yes trimethoprim [id number] Drug Allergy Mild RASH 12/22/2018 Medications There [...] BITE, LEFT LOWER LEG, INITIAL ENCOU 07/26/2018 PRAIS CUNNINGHAM MD Ot W54.0XXA BITTEN BY DOG, [...] ANTONIA WILLIS MD Ot Z79.8 99 OTHER [facility] (CURRENT) DRUG THERAPY 08/26/2019 MARIA ANTONIA WILLIS MD, Ot Z88.2 ALLERGY STATUS TO SULFONAMIDES STATUS 08/26/2019 MARIA ANTONIA WILLIS MD, Ot Z88.8 ALLERGY STATUS TO OTH DRUG/MEDS/BIOL SUB 08/26/2019 MARIA ANTONIA WILLIS MD, Ot Z91.0 13 ALLERGY TO SEAFOOD 08/28/2019 MARAI ANTONIA WILLIS MD, Ot E88.8 1 METABOLIC [...] ANTONIA WILLIS MD, Ot Z79.8 99 OTHER [facility] (CURRENT) DRUG THERAPY 08/28/2019 MARIA ANTONIA WILLIS MD, Ot Z88.2 ALLERGY STATUS TO SULFONAMIDES STATUS 08/28/2019 MARIA ANTONIA WILLIS MD, Ot Z88.8 ALLERGY STATUS TO OTH DRUG/MEDS/BIOL SUB 08/28/2019 MARIA ANTONIA WILLIS MD, Ot Z91.0 13 ALLERGY TO SEAFOOD 09/13/2019 SD BERGMAN DO Ot H00.011 HORDEOLUM EXTERNUM RIGHT UPPER EYELID 09/13/2019 SD BERGMAN DO, Ot H57.11 OCULAR PAIN, RIGHT EYE 09/13/2019 SD BERGMAN DO Ot Z77.22 CNTCT W AND EXPSR TO ENVIRON TOBACCO SMO 09/13/2019 SD BERGMAN DO, Ot Z88 .1 ALLERGY STATUS TO OTHER ANTIBIOTIC AGENT 09/13/2019 SD BERGMAN DO, Ot Z88 .2 ALLERGY STATUS TO SULFONAMIDES STATUS Procedures There [...] Status Pt. Type Provider Facility Loc./Unit Complaint [id number] 09/14/2019 10:15:00 09/14/2019 23:59: 59 CLS Outpatient SUGEY [facility]PE[facility] [id number] 09/01/2019 09:30:00 Document Registration [id number] 07/26/2019 16:00:00 Document Registration [id number] 05/20/2019 16:40:00 Document Registration [id number] 01/31/2019 10:00:00 Document Registration [id number] 11/10/2018 09:20:00 Document Registration [id number] 09/10/2018 12:00:00 Document Registration [id number] 09/06/2018 15:45:00 Document Registration [id number] 07/29/2018 15:15:00 Document Registration [id number] 09/07/2017 08:00:00 09/07/2017 23:59 :59 CLS Outpatient Uriel Daniels [employer] [id number] 09/11/2019 09:27:00 020 10:07:00 DIS Outpatient SD BERGMAN DO Via [facility] FS RT EYE PAIN [id number] 08/22/2019 01:53:00 02:40:00 DIS Outpatient ALBA JOHNSON, MARIA ANTONIA Zaragoza Via [facility] FS FLUCCUATING BP [id number] 08/16/2019 15:23:00 16:38:00 DIS Outpatient TRICIA JOHNSON, SD Carey Via [facility] FS ABD/RIB PAIN [id number] 08/02/2019 01:00:00 02:37:00 DIS Emergency TIBURCIO JOHNSON, SUKHI Pereira Via [facility] FS NAUSEA,DIZZINESS [id number] 07/13/2019 07:58:00 07:58:00 DIS Emergency TRICIA JOHNSON, SD Carey Via [facility] FS FACIAL PAIN [id number] 04/26/2019 20:54:00 21:48:00 DIS Emergency TRICIA JOHNSON, SD Carey Via [facility] FS CHEST PAINS [id number] 04/16/2019 14:18:00 14:47:00 DIS Emergency ROVENSTOPAL LY DO Via [facility] FS VAGINAL SORES [id number] 03/18/2019 08:00:00 08:45:00 DIS Emergency TONY NEWELL DO Via [facility] FS LUMP ON LEFT BREAST [id number] 01/25/2019 19:09:00 21:21:00 DIS Emergency SUKHI DEY MD Via [facility] FS LOWER ABDOMINAL PAIN [id number] 12/23/2018 06:53:00 23:59:59 CLS Outpatient FÉLIX JOHNSON, LIZETT mariscal [facility] ENDO PERSISTANT DIARRHEA/MUC OUS [id number] 12/22/2018 11:00:00 13:58:00 DIS Outpatient LIZETT HEARD MD [facility] PREOP COLONOSCOPY [id number] 12/08/2018 20:05:00 20:29:00 DIS Emergency NESSA SMITH DO Via [facility] FS ANAL PAIN,DIARRHEA [id number] 09/24/2018 15:35:00 16:29:00 DIS Emergency TONY NEWELL DO Via [facility] FS THROAT PAIN, NOSE CLOGG ED, EAR PAIN, HEADACHE, SOB [id number] 07/21/2018 07:37:00 08:40:00 DIS Emergency MARISA JOHNSON, PARIS Carey Via [facility] FS DOG BITE [id number] 07/18/2018 07:15:00 08:17:00 DIS Emergency PARIS CUNNINGHAM MD Via [facility] FS PT BIT BY DOG ON LT ANK LE [id number] 07/14/2018 20:37:00 21:15:00 DIS Emergency SUKHI DEY MD Via [facility] FS CHEST PAIN
[2019-09-18] MEDS ORDERED: IBUPROFEN TABLET 200 MG TAB PO ONE (04:45)
[2019-09-18 04:48] LABS: BILIRUBIN,URINE NEGATIVE (NEGATIVE); CLARITY,URINE CLOUDY; COLOR,URINE YELLOW; GLUCOSE, URINE (UA) NEGATIVE (NEGATIVE); KETONES,URINE NEGATIVE (NEGATIVE); LEUKOCYTE ESTERASE ,URINE 2+ (NEGATIVE); NITRITE,URINE NEGATIVE (NEGATIVE); PROTEIN,URINE NEGATIVE (NEGATIVE); WBC,URINE 25-50 /HPF
[2019-09-18 04:49] LABS: BACTERIA,URINE LARGE /HPF
[2019-09-18] MEDS ORDERED: ONDANSETRON 4 MG (ZOFRAN) ORAL DISSOLVE TAB PO STA (04:56)
[2019-09-18] MEDS ORDERED: CEPHALEXIN 250 MG (KEFLEX) CAP PO ONE (05:00)
[2019-09-18] MEDS ORDERED: CEPH-507 PO (05:03)
[2019-09-18] MEDS ORDERED: ONDA4TAB11 PO (05:03)
--- NOTE | 2019-09-18 05:03 | ED General ---
General Chief Complaint: - Urinary Stated Complaint: CRAMPING Nursing Triage Note: Patient states that she has been cramping for approximately a week. Patient saw her doctor on 09-13-19 because of the cramping and being late on her period. Patient had a urine that was negative. Patient was advised to go back to the office to get another test on Thursday. Patient states the cramping is worse and she wanted to have it checked out. Nursing Sepsis Screen: No Definite Risk Source of Information: Patient Exam Limitations: No Limitations History of Present Illness Date Seen by Provider: Sep 18, 2019 Time Seen by Provider: 04:57 Initial Comments Patient is a 18-year-old female who presents with pelvic cramping consistent with menstrual period for several days. Patient is approximately 10 days late for her period. She was evaluated by her PCP 2 days ago and had a negative urine test. She states her pain is poorly controlled to the point where she is nauseated. She did take Tylenol prior to ED arrival. No flank pain, urinary f requency urgency or hematuria. No vomiting. No fever chills or sweats. No other acute symptoms or complaints. Timing/Duration: 1 Week Severity: Moderate Modifying Factors: improves with Medication Associated Systoms: Nausea/Vomiting Allergies and Home Medications Allergies Coded Allergies: sulfamethoxazole (Verified Allergy, Mild, RASH, 12/22/18) trimethoprim (Verified Allergy, Mild, RASH, 12/22/18) Uncoded Allergies: head and shoulders shampoo (Allergy, Unknown, 09/24/18) seafood (Allergy, Unknown, 09/24/18) Home Medications Cephalexin 500 Mg Capsule, 500 MG PO TID Prescribed by: SD BERGMAN on 09/11/19 1000 Clindamycin HCl 300 Mg Capsule, 300 MG PO Q6H Prescribed by: OSIRIS JIMENEZ on 03/18/19 0839 Diclofenac Sodium 75 Mg Tablet.dr, 75 MG PO BID Prescribed by: SD CLARKE on 07/13/19 0744 Dicyclomine HCl 20 Mg Tablet, 20 MG PO BID Prescribed by: SD CLARKE on 08/16/19 1629 Nitrofurantoin Macrocrystal 100 Mg Capsule, 100 MG PO BID Prescribed by: MARIA ANTONIA WILLIS on 08/22/19 0235 Patient Home Medication List Home Medication List Reviewed: Yes Review of Systems Review of Systems Constitutional: see HPI EENTM: see HPI Respiratory: see HPI Cardiovascular: see HPI Genitourinary: see HPI Musculoskeletal: see HPI Skin: see HPI Psychiatric/Neurological: See HPI Hematologic/Lymphatic: See HPI Immunological/Allergic: see HPI All Other Systems Reviewed Negative Unless Noted: Yes Past Ocexiws-Soxkek-Tsdmvm Hx Past Med/Social Hx: Reviewed Nursing Past Med/Soc Hx Patient Social History Alcohol Use: Denies Use Recreational Drug Use: No Smoking Status: Current Everyday Smoker Type Used: Cigarettes 2nd Hand Smoke Exposure: Yes Recent Foreign Travel: No Contact w/Someone Who Travel: No Recent Infectious Disease Expo: No Recent Hopitalizations: No Physical Abuse: No Sexual Abuse: No Mistreated: No Fear: No Seasonal Allergies Seasonal Allergies: No Past Medical History Surgeries: Yes (eye surgery as ) Gallbladder Respiratory: Yes Asthma Cardiac: No Neurological: No Sexually Transmitted Disease: No HIV/AIDS: No Genitourinary: No Gastrointestinal: No Gastroesophageal Reflux, Chronic Diarrhea Musculoskeletal: No Endocrine: No Diabetes, Non-Insulin dep HEENT: No Loss of Vision: Denies Hearing Impairment: Denies Cancer: No Psychosocial: No Anxiety, Depression Integumentary: No Blood Disorders: No Adverse Reaction/Blood Tranf: No (N/A) Physical Exam Vital Signs Vital Signs - First Documented 09/18/19 04:27 Temp 36.2 Pulse 102 Resp 18 B/P (MAP) 155/92 (113) Pulse Ox 97 O2 Delivery Room Air Capillary Refill : Less Than 3 Seconds Height, Weight, BMI Height: 5'4.00" Weight: 280lbs. oz. 127.879592lm; 50.00 BMI Method:Stated General Appearance: WD/WN Eyes: Bilateral Eye Normal Inspection, Bilateral Eye PERRL, Bilateral Eye EOMI HEENT: PERRL/EOMI Neck: Full Range of Motion Respiratory: Lungs Clear Cardiovascular: Regular Rate, Rhythm Gastrointestinal: Tenderness, Other Back: Normal Inspection (suprapubic), No CVA Tenderness Neurologic/Psychiatric: Alert, Oriented x3, core winder II-XII Norm as Tested Focused Exam Sepsis Stage: Ruled Out Progress/Results/Core Measures Suspected Sepsis Recent Fever Within 48 Hours: No Infection Criteria Present: None New/Unexplained Altered Menta: No Sepsis Screen: No Definite Risk SIRS Temperature: Pulse: 102 Respiratory Rate: 18 Blood Pressure 155 /92 Mean: 113 Results/Orders Lab Results Laboratory Tests Test 8/2/20 04:34 Range/Units Urine Color YELLOW Urine Clarity CLOUDY Urine pH 6.0 5-9 Urine Specific [place] 1.020 1.016-1.022 Urine Protein NEGATIVE NEGATIVE Urine Glucose (UA) NEGATIVE NEGATIVE Urine Ketones NEGATIVE NEGATIVE Urine Nitrite NEGATIVE NEGATIVE Urine Bilirubin NEGATIVE NEGATIVE Urine Urobilinogen 0.2 < = 1.0 MG/DL Urine Leukocyte Esterase 2+ H NEGATIVE Urine RBC (Auto) NEGATIVE NEGATIVE Urine RBC 5-10 H /HPF Urine WBC 25-50 H /HPF Urine Squamous Epithelial Cells 10-25 H /HPF Urine Crystals NONE /LPF Urine Bacteria LARGE H /HPF Urine Casts NONE /LPF Urine Mucus NEGATIVE /LPF Urine Culture Indicated YES My Orders Orders - TREY PAZ DO Ua Culture If Indicated (09/18/19 04:32) Urine Bedside (09/18/19 04:32) Ibuprofen Tablet (Motrin Tablet) (09/18/19 04:45) Urine Culture (09/18/19 04:34) Ondansetron Oral Dissolve Tab (Zofran (09/18/19 04:56) Cephalexin Capsule (Keflex Capsule) (09/18/19 05:00) Medications Given in ED Current Medications Medications Dose Ordered Sig/Artem Route Start Time Stop Time Status Last Admin Dose Admin Ibuprofen 400 mg ONCE ONCE PO 09/18/19 04:45 09/18/19 04:46 DC 09/18/19 04:40 400 MG Vital Signs/I&O 09/18/19 04:27 Temp 36.2 Pulse 102 Resp 18 B/P (MAP) 155/92 (113) Pulse Ox 97 O2 Delivery Room Air Capillary Refill : Less Than 3 Seconds Blood Pressure Mean: 113 Departure Communication (Admissions) Urine is negative. Diffuse intermittent pelvic cramping waxing and waning similar in location care to menstrual cramps. Ibuprofen given. Antibiotics given for possible UTI. Patient plans to follow up with [facility] on Thursday. Impression Primary Impression: Urinary tract infection Additional Impression: Pelvic pain Disposition: HOME, SELF-CARE Condition: Stable Departure-Patient Inst. Decision time for Depature: 05:01 Referrals: LIZETT HEARD MD (PCP/Family) Primary Care Physician Patient Instructions: Acute Pelvic Pain (DC) Add. Discharge Instructions: Please increase fluids and take antibiotics nausea medication as directed. Take Tylenol and ibuprofen as needed for pelvic cramps and follow-up with your gy necologist or PCP on Thursday. All discharge instructions reviewed with patient and/or family. Voiced understanding. Scripts Ondansetron (Ondansetron Odt) 4 Mg Tab.rapdis 4 MG PO Q6H, #10 TAB Prov: TREY PAZ DO 09/18/19 Cephalexin (Keflex) 500 Mg Capsule 500 MG PO BID, #10 CAP Prov: TREY PAZ DO 09/18/19 TREY PAZ DO Sep 18, 2019 05:02
== END 2019-09-18 05:05 | disposition home or self-care (01) ==
LOC: EDUNIT# 04:21 → ER FS 04:24
DX: N39.0 Urinary tract infection, site not specified (principal); R10.2 Pelvic and perineal pain; Z88.2 Allergy status to sulfonamides; Z91.048 Other nonmedicinal substance allergy status; Z91.013 Allergy to seafood; E11.9 Type 2 diabetes mellitus without complications; F41.9 Anxiety disorder, unspecified; F32.9 Major depressive disorder, single episode, unspecified; K21.9 Gastro-esophageal reflux disease without esophagitis; K52.9 Noninfective gastroenteritis and colitis, unspecified; F17.210 Nicotine dependence, cigarettes, uncomplicated
CPT/HCPCS: 81000; 84703; 87088; 99283

== ENCOUNTER 2019-12-05 19:07 | Emergency (ER) | payer SELFPAY ==
[~2019-12-05] VITALS: Ht 162.5 cm; Wt 133.5 kg
[~2019-12-05 19:07] MED LIST changes: +ONDA4TAB11 PO
[2019-12-05 19:13] VITALS: BP 157/93
[2019-12-05] MEDS ORDERED: ONDANSETRON 4 MG (ZOFRAN) ORAL DISSOLVE TAB PO STA (19:17)
--- NOTE | 2019-12-05 19:19 | ED GI ---
General Chief Complaint: Abdominal/GI Problems Stated Complaint: VOMITING Source of Information: Patient, Old Records, RN/MD, RN Notes Reviewed Exam Limitations: No Limitations History of Present Illness Date Seen by Provider: Dec 05, 2019 Time Seen by Provider: 19:10 Initial Comments This patient is a 19-year-old female presents to the emergency department with complaints of nausea and feels like she vomits every time she tries to drink water. Patient denies diarrhea. Patient does not appear to be acutely sick. Patient states she has long history of reflux. Timing/Duration: 1-3 Hours Severity/Quality: Mild Allergies and Home Medications Allergies Coded Allergies: sulfamethoxazole (Verified Allergy, Mild, RASH, 12/22/18) trimethoprim (Verified Allergy, Mild, RASH, 12/22/18) Uncoded Allergies: head and shoulders shampoo (Allergy, Unknown, 09/24/18) seafood (Allergy, Unknown, 09/24/18) Home Medications Cephalexin 500 Mg Capsule, 500 MG PO TID Prescribed by: SD BERGMAN on 09/11/19 1000 Cephalexin 500 Mg Capsule, 500 MG PO BID Prescribed by: TREY PAZ on 09/18/19 0503 Clindamycin HCl 300 Mg Capsule, 300 MG PO Q6H Prescribed by: OSIRIS JIMENEZ on 03/18/19 0839 Diclofenac Sodium 75 Mg Tablet.dr, 75 MG PO BID Prescribed by: SD CLARKE on 07/13/19 0744 Dicyclomine HCl 20 Mg Tablet, 20 MG PO BID Prescribed by: SD CLARKE on 08/16/19 1629 Nitrofurantoin Macrocrystal 100 Mg Capsule, 100 MG PO BID Prescribed by: MARIA ANTONIA WILLIS on 08/22/19 0235 Ondansetron 4 Mg Tab.rapdis, 4 MG PO Q6H Prescribed by: TREY PAZ on 09/18/19 0503 Patient Home Medication List Home Medication List Reviewed: Yes Review of Systems Review of Systems Constitutional: No no symptoms reported, No see HPI, No chills, No diaphoresis, No dizziness, No fever, No malaise, No weakness, No weight gain, No weight loss, No other EENTM: No No Symptoms Reported, No See HPI, No Blurred Vision, No Double Vision, No Eye Pain, No Eye Tearing, No Ear Drainage, No Ear Pain, No Mouth Pain, No Mouth Swelling, No Nose Congestion, No Nose Pain, No Throat Pain, No Throat Swelling, No Other Respiratory: Denies No Symptoms Reported, Denies See HPI, Denies Cough, Denies Orthopnea, Denies Shortness of Air, Denies SOA With Exertion, Denies SOA at Rest, Denies Stridor, Denies Wheezing, Denies Other Cardiovascular: Denies No Symptoms Reported, Denies See HPI, Denies Chest Pain, Denies Edema, Denies Irregular Heart Rate, Denies Lightheadedness, Denies Palpitations, Denies Syncope, Denies Other Gastrointestinal: Denies No Symptoms Reported; See HPI; Denies Abdomen Distended, Denies Abdominal Pain, Denies Blood Streaked Stools, Denies Constipated, Denies Diarrhea, Denies Difficulty Swallowing; Nausea; Denies Poor Appetite, Denies Poor Fluid Intake, Denies Rectal Bleeding, Denies Vomiting, Denies Other Genitourinary: Denies No Symptoms Reported, Denies See HPI, Denies Burning, Denies Discharge, Denies Drainage, Denies Frequency, Denies Flank Pain, Denies Hematuria, Denies Incontinence, Denies Pain, Denies Urgency, Denies Other Musculoskeletal: No no symptoms reported, No see HPI, No back pain, No gout, No joint pain, No joint swelling, No muscle pain, No muscle stiffness, No muscle cramps, No muscle twitching, No muscle weakness, No neck pain, No other Skin: No no symptoms reported, No see HPI, No change in color, No change in hair/nails, No dryness, No hx of skin cancer, No lesions, No lumps, No pruritus, No rash, No other Psychiatric/Neurological: Denies No Symptoms Reported, Denies See HPI, Denies Anxiety, Denies Depressed, Denies Emotional Problems, Denies Headache, Denies Numbness, Denies Paresthesia, Denies Pre-Existing Deficit, Denies Seizure, Denies Tingling, Denies Tremors, Denies Weakness, Denies Other All Other Systems Reviewed Negative Unless Noted: Yes Past Wzahcxm-Ksmxad-Mxblff Hx Patient Social History Type Used: Cigarettes 2nd Hand Smoke Exposure: Yes Recent Foreign Travel: No Contact w/Someone Who Travel: No Recent Hopitalizations: No Seasonal Allergies Seasonal Allergies: No Past Medical History Surgeries: Yes (eye surgery as ) Gallbladder Respiratory: Yes Asthma Cardiac: No Neurological: No Sexually Transmitted Disease: No HIV/AIDS: No Genitourinary: No Gastrointestinal: No Gastroesophageal Reflux, Chronic Diarrhea Musculoskeletal: No Endocrine: No Diabetes, Non-Insulin dep HEENT: No Loss of Vision: Denies Hearing Impairment: Denies Cancer: No Psychosocial: No Anxiety, Depression Integumentary: No Blood Disorders: No Adverse Reaction/Blood Tranf: No (N/A) Physical Exam Vital Signs Vital Signs - First Documented 12/05/19 19:13 Temp 36.8 Pulse 86 Resp 18 B/P (MAP) 157/93 (114) Pulse Ox 100 O2 Delivery Room Air Capillary Refill : Height/Weight/BMI Height: 5'4.00" Weight: 280lbs. oz. 127.995640xw; 50.00 BMI Method:Stated General Appearance: WD/WN, no apparent distress Respiratory: chest non-tender, lungs clear, normal breath sounds, no respiratory distress, no accessory muscle use Cardiovascular: normal peripheral pulses, regular rate, rhythm, no edema, no gallop, no JVD, no murmur Gastrointestinal: normal bowel sounds, non tender, soft, no organomegaly, no pulsatile mass Extremities: normal range of motion, non-tender, normal inspection, no pedal edema, no calf tenderness, normal capillary refill, pelvis stable Skin: normal color, warm/dry Progress/Results/Core Measures Results/Orders My Orders Orders - SD CLARKE MD Ondansetron Oral Dissolve Tab (Zofran (12/05/19 19:17) Urine Bedside (12/05/19 19:27) Vital Signs/I&O 12/05/19 19:13 Temp 36.8 Pulse 86 Resp 18 B/P (MAP) 157/93 (114) Pulse Ox 100 O2 Delivery Room Air Progress Progress Note : Time: 20:06 Progress Note Patient was given water and Zofran patient states she was feeling much better but that she did vomit appears to be her dinner that she ate prior to coming. Patient states she feels much better after vomiting. I did discuss at length with patient further had offered full medical screening exam including IV labs IV fluids and further nausea medication. Patient declines. Patient requesting a test which was negative. Again discuss length with patient about options and offered again a full medical screening exam the patient declines. She agrees and understands treatment options. Request we discharged home. Patient given a prescription for Zofran to help with nausea. Patient should start with ice chips and clear liquid diet and advance slowly. May use Pepto- Bismol as needed to help soothe stomach and may help if patient develops diarrhea. Patient should return to the emergency department symptoms failed to improve or worsen follow-up with PCP in 2-3 days as needed. Departure Impression Primary Impression: Nausea and vomiting Disposition: HOME, SELF-CARE Condition: Stable Departure-Patient Inst. Decision time for Depature: 20:08 Referrals: LIZETT HEARD MD (PCP/Family) Primary Care Physician Patient Instructions: Nausea and Vomiting, Adult (DC) Add. Discharge Instructions: Patient given a prescription for Zofran to help with nausea. Patient should start with ice chips and clear liquid diet and advance slowly. May use Pepto- Bismol as needed to help soothe stomach and may help if patient develops diarr hea. Patient should return to the emergency department symptoms failed to improve or worsen follow-up with PCP in 2-3 days as needed. All discharge instructions reviewed with patient and/or family. Voiced understanding. Scripts Ondansetron (Ondansetron Odt) 4 Mg Tab.rapdis 4 MG PO BID for 7 Days, #10 TAB 0 Refills Prov: SD CLARKE MD 12/05/19 SD CLARKE MD Dec 05, 2019 19:19
[2019-12-05] MEDS ORDERED: ONDA4TAB11 PO (20:09)
[2019-12-05] MEDS ORDERED: RX-ONDANSETRON 4 MG ODT (ZOFRAN) PPK #4 PO STA (20:24)
[2019-12-05] MEDS ORDERED: RX-ONDANSETRON 4 MG ODT (ZOFRAN) PPK #4 ONE (20:26)
== END 2019-12-05 20:29 | disposition home or self-care (01) ==
LOC: EDUNIT# 19:07 → ER FS 19:09
DX: R11.2 Nausea with vomiting, unspecified (principal); Z77.22 Contact with and (suspected) exposure to environmental tobacco smoke (acute) (chronic); Z88.1 Allergy status to other antibiotic agents; Z88.2 Allergy status to sulfonamides
CPT/HCPCS: 84703; 99283

== ENCOUNTER 2019-12-25 18:43 | Emergency (ER) | payer SELFPAY ==
[2019-12-25] MEDS ORDERED: ONDANSETRON 4 MG (ZOFRAN) ORAL DISSOLVE TAB PO STA (18:58)
[2019-12-25] MEDS ORDERED: ONDANSETRON 4 MG (ZOFRAN) ORAL DISSOLVE TAB ONE (18:59)
--- NOTE | 2019-12-25 19:05 | ED Abdominal Pain ---
General Chief Complaint: Abdominal/GI Problems Stated Complaint: STOMACH PAIN Nursing Triage Note: Pt complaining of nausea, decreased appetite and LUQ pain for a few days Sepsis Screen: No Definite Risk Source of Information: Patient Exam Limitations: No Limitations History of Present Illness Date Seen by Provider: Dec 25, 2019 Time Seen by Provider: 18:55 Initial Comments Patient is a 19-year-old female who presents to the emergency department today with a chief complaint of left upper quadrant abdominal discomfort, nausea, decreased appetite. Patient states her symptoms have been going on for about 3 days. Patient states that she had one episode of vomiting at the onset of her symptoms. Patient denies any hematemesis, she denies any black or bloody stools or diarrhea. Patient denies any dysuria, urgency or frequency. Her last menstrual cycle was 6 days ago and was shorter than normal at 2 days. Patient denies any fevers or chills. No productive cough she has had upper respiratory symptoms however with congestion and runny nose, she believes that she has had a "cold". Patient has taken some ibuprofen without any relief of her symptoms. Nothing makes her symptoms any worse and nothing has made it any better. All other review of systems reviewed and negative except as stated above. Timing/Duration: 2-3 Days Severity/Quality: Mild, Cramping Location: LUQ Radiation: No Radiation Activities at Onset: None Modifying Factors: Improves With Analgesics Associated Symptoms: Nausea/Vomiting Allergies and Home Medications Allergies Coded Allergies: sulfamethoxazole (Verified Allergy, Mild, RASH, 12/22/18) trimethoprim (Verified Allergy, Mild, RASH, 12/22/18) Uncoded Allergies: head and shoulders shampoo (Allergy, Unknown, 09/24/18) seafood (Allergy, Unknown, 09/24/18) Home Medications Cephalexin 500 Mg Capsule, 500 MG PO TID Prescribed by: SD BERGMAN on 09/11/19 1000 Cephalexin 500 Mg Capsule, 500 MG PO BID Prescribed by: TREY PAZ on 09/18/19 0503 Clindamycin HCl 300 Mg Capsule, 300 MG PO Q6H Prescribed by: OSIRIS JIMENEZ on 03/18/19 0839 Diclofenac Sodium 75 Mg Tablet.dr, 75 MG PO BID Prescribed by: SD CLARKE on 07/13/19 0744 Dicyclomine HCl 20 Mg Tablet, 20 MG PO BID Prescribed by: SD CLARKE on 08/16/19 1629 Nitrofurantoin Macrocrystal 100 Mg Capsule, 100 MG PO BID Prescribed by: MARIA ANTONIA WILLIS on 08/22/19 0235 Ondansetron 4 Mg Tab.rapdis, 4 MG PO Q6H Prescribed by: TREY PAZ on 09/18/19 0503 Ondansetron 4 Mg Tab.rapdis, 4 MG PO BID Prescribed by: SD CLARKE on 12/05/192008 Patient Home Medication List Home Medication List Reviewed: Yes Review of Systems Review of Systems Constitutional: no symptoms reported EENTM: Nose Congestion Respiratory: No Symptoms Reported Cardiovascular: No Symptoms Reported Gastrointestinal: Abdominal Pain (Left upper quadrant), Nausea Genitourinary: No Symptoms Reported Musculoskeletal: no symptoms reported Skin: no symptoms reported All Other Systems Reviewed Negative Unless Noted: Yes Past Qawcugq-Rlbbzz-Pclcfd Hx Patient Social History Alcohol Use: Denies Use Recreational Drug Use: No Smoking Status: Current Everyday Smoker Type Used: Cigarettes 2nd Hand Smoke Exposure: Yes Recent Foreign Travel: No Contact w/Someone Who Travel: No Recent Infectious Disease Expo: No Recent Hopitalizations: No Physical Abuse: No Sexual Abuse: No Seasonal Allergies Seasonal Allergies: No Past Medical History Surgeries: Yes (eye surgery as ) Gallbladder Respiratory: Yes Asthma Cardiac: No Neurological: No Sexually Transmitted Disease: No HIV/AIDS: No Genitourinary: No Gastrointestinal: No Gastroesophageal Reflux, Chronic Diarrhea Musculoskeletal: No Endocrine: No Diabetes, Non-Insulin dep HEENT: No Loss of Vision: Denies Hearing Impairment: Denies Cancer: No Psychosocial: No Anxiety, Depression Integumentary: No Blood Disorders: No Adverse Reaction/Blood Tranf: No (N/A) Physical Exam Vital Signs Vital Signs - First Documented 12/25/19 18:45 Temp 37.0 Pulse 88 Resp 18 B/P (MAP) 148/90 (109) Pulse Ox 97 O2 Delivery Room Air Capillary Refill : Less Than 3 Seconds Height/Weight/BMI Height: 5'4.00" Weight: 280lbs. oz. 127.968176pz; 50.00 BMI Method:Stated General Appearance: WD/WN, no apparent distress, obese HEENT: PERRL/EOMI Neck: full range of motion Respiratory: lungs clear, normal breath sounds, no respiratory distress, no accessory muscle use Cardiovascular: regular rate, rhythm, no gallop, no murmur Gastrointestinal: normal bowel sounds, soft, tenderness (Mild tenderness in the left upper quadrant to deep palpation, no rebound, no involuntary guarding) Extremities: non-tender, normal inspection Back: normal inspection Neurologic/Psychiatric: alert, normal mood/affect, oriented x 3 Skin: normal color, warm/dry Progress/Results/Core Measures Results/Orders Lab Results Laboratory Tests Test 12/25/19 18:50 Range/Units Urine Color YELLOW Urine Clarity SLIGHTLY CLOUDY Urine pH 7.0 5-9 Urine Specific [place] 1.020 1.016-1.022 Urine Protein NEGATIVE NEGATIVE Urine Glucose (UA) NEGATIVE NEGATIVE Urine Ketones NEGATIVE NEGATIVE Urine Nitrite NEGATIVE NEGATIVE Urine Bilirubin NEGATIVE NEGATIVE Urine Urobilinogen 0.2 < = 1.0 MG/DL Urine Leukocyte Esterase TRACE H NEGATIVE Urine RBC (Auto) NEGATIVE NEGATIVE Urine RBC 0-2 /HPF Urine WBC 10-25 H /HPF Urine Squamous Epithelial Cells 10-25 H /HPF Urine Crystals NONE /LPF Urine Bacteria FEW H /HPF Urine Casts NONE /LPF Urine Mucus LARGE H /LPF Urine Culture Indicated YES Urine Test NEGATIVE NEGATIVE My Orders Orders - VANESSA ABDULLAHI MD Ua Culture If Indicated (12/25/19 18:58) Hcg,Qualitative Urine (12/25/19 18:58) Ondansetron Oral Dissolve Tab (Zofran (12/25/19 18:58) Ondansetron Oral Dissolve Tab (Zofran (12/25/19 18:59) Urine Culture (12/25/19 18:50) Vital Signs/I&O 12/25/19 18:45 Temp 37.0 Pulse 88 Resp 18 B/P (MAP) 148/90 (109) Pulse Ox 97 O2 Delivery Room Air Blood Pressure Mean: 109 Progress Progress Note : Time: 19:03 Progress Note 19-year-old female presents to the emergency room with a chief complaint of left upper quadrant abdominal pain. Patient's exam is benign, mild tenderness noted to deep palpation in the left upper quadrant. No involuntary guarding, rebound tenderness, no hypoactive bowel sounds no hyperactive bowel sounds. Patient is nontoxic-appearing. Patient had a shorter than normal period this month, will check a test as well as a urinalysis. Anticipate the patient will go home with symptomatic treatment of some ODT Zofran and recheck in 24 hours if worsening. 192 Patient's test is negative, urinalysis was contaminated with squamous epithelial cells and does not appear to be infected. Patient will be sent home with gastritis precautions including Zofran [id number] Protonix, bland diet and follow-up in 24 hours if worsening. She verbalized understanding of her discharge instructions and is comfortable with plan of care. All questions were sought and answered and she is stable for discharge. Departure Impression Primary Impression: Gastritis Qualified Codes: K29.00 - Acute gastritis without bleeding Disposition: ADMITTED INPATIENT Condition: Stable Departure-Patient Inst. Decision time for Depature: 19:19 Referrals: LIZETT HEARD MD (PCP/Family) Primary Care Physician Patient Instructions: Gastritis Add. Discharge Instructions: Take the Zofran as needed for upset stomach. [place] diet for 24 hours. You can also take [id number] Prilosec which can help reduce the amount of acid in your stomach and may help improve your symptoms. Call your primary care doctor's office on Thursday for a follow-up appointment. Please come back to the emergency department for any worsening symptoms especially associated with fever over 101, persistent vomiting or other emergent, concerning symptoms. Scripts Ondansetron (Ondansetron Odt) 4 Mg Tab.rapdis 4 MG PO Q8H for nausea, #10 TAB Prov: VANESSA ABDULLAHI MD 12/25/19 VANESSA ABDULLAHI MD Dec 25, 2019 19:04
[2019-12-25 19:11] LABS: BACTERIA,URINE FEW /HPF; BILIRUBIN,URINE NEGATIVE (NEGATIVE); CLARITY,URINE SLIGHTLY CLOUDY; COLOR,URINE YELLOW; GLUCOSE, URINE (UA) NEGATIVE (NEGATIVE); KETONES,URINE NEGATIVE (NEGATIVE); LEUKOCYTE ESTERASE ,URINE TRACE (NEGATIVE); NITRITE,URINE NEGATIVE (NEGATIVE); PROTEIN,URINE NEGATIVE (NEGATIVE); RBC,URINE 0-2 /HPF
[2019-12-25] MEDS ORDERED: ONDA4TAB11 PO (19:21)
[2019-12-25 19:23] VITALS: BP 148/90
== END 2019-12-25 19:24 | disposition other institution (70) ==
LOC: EDUNIT# 18:43 → ER FS 18:44
DX: K29.00 Acute gastritis without bleeding (principal); F17.210 Nicotine dependence, cigarettes, uncomplicated; Z88.2 Allergy status to sulfonamides; Z88.1 Allergy status to other antibiotic agents
CPT/HCPCS: 81000; 84703; 87088; 99283

== ENCOUNTER 2019-12-27 01:48 | Emergency (ER) | payer SELFPAY ==
[~2019-12-27] VITALS: Ht 162.5 cm; Wt 132.7 kg
[2019-12-27 01:55] VITALS: BP 142/92
--- NOTE | 2019-12-27 02:09 | ED Respiratory ---
General Chief Complaint: Cough/Cold/Flu Symptoms Stated Complaint: RESP PROBLEMS Nursing Triage Note: Patient states that she has been having a productive cough. Patient states that she wakes up from sleep short of breath. Patient had a covid test and it was negative. Source: patient, RN/MD, RN notes reviewed Exam Limitations: no limitations History of Present Illness Date Seen by Provider: Dec 27, 2019 Time Seen by Provider: 01:50 Initial Comments This patient presents to the emergency department with complaint of felt like she had a cough which he tried to lay down, she was short of breath. This happen multiple times throughout the day. Patient is completely normal sats 100% no signs of illness. Patient was in the emergency department last night with a complaint of abdominal pain which states since resolved. Patient states that she monitored just been cold. Patient denies fever. Patient denies any significant cough or congestion. Denies any nausea. Denies any cold or flulike symptoms. Discussed at length about different options. Patient lack of symptoms does not warrant any testing. Patient is an encourage by mouth fluids. Cool mist humidifier/warm vaporizer as needed. May take Benadryl or Claritin as needed for any congestion. Patient should follow-up with PCP tomorrow if symptoms failed to improve or worsen. Timing/Duration: this morning Severity: mild Prior Episodes/Possible Cause: no prior episodes Associated Symptoms: denies symptoms; No chest pain/soreness, No cough, No dizziness, No earache, No facial pain, No fever/chills, No headache, No lightheadedness, No muscle aches, No nasal congestion; nasal drainage; No shortness of breath, No sinus infection, No sore throat, No wheezing, No other Allergies and Home Medications Allergies Coded Allergies: sulfamethoxazole (Verified Allergy, Mild, RASH, 12/22/18) trimethoprim (Verified Allergy, Mild, RASH, 12/22/18) Uncoded Allergies: head and shoulders shampoo (Allergy, Unknown, 09/24/18) seafood (Allergy, Unknown, 09/24/18) Home Medications Cephalexin 500 Mg Capsule, 500 MG PO TID Prescribed by: SD BERGMAN on 09/11/19 1000 Cephalexin 500 Mg Capsule, 500 MG PO BID Prescribed by: TREY PAZ on 09/18/19 0503 Clindamycin HCl 300 Mg Capsule, 300 MG PO Q6H Prescribed by: OSIRIS JIMENEZ on 03/18/19 0839 Diclofenac Sodium 75 Mg Tablet.dr, 75 MG PO BID Prescribed by: SD CLARKE on 07/13/19 0744 Dicyclomine HCl 20 Mg Tablet, 20 MG PO BID Prescribed by: SD CLARKE on 08/16/19 1629 Nitrofurantoin Macrocrystal 100 Mg Capsule, 100 MG PO BID Prescribed by: MARIA ANTONIA WILLIS on 08/22/19 0235 Ondansetron 4 Mg Tab.rapdis, 4 MG PO Q6H Prescribed by: TREY PAZ on 09/18/19 0503 Ondansetron 4 Mg Tab.rapdis, 4 MG PO BID Prescribed by: SD CLARKE on 12/05/192008 Ondansetron 4 Mg Tab.rapdis, 4 MG PO Q8H Prescribed by: VANESSA ABDULLAHI on 12/25/191920 Patient Home Medication List Home Medication List Reviewed: Yes Review of Systems Review of Systems Constitutional: No no symptoms reported; see HPI; No chills, No diaphoresis, No dizziness, No fever, No malaise, No weakness, No weight gain, No weight loss, No other EENTM: No see HPI, No no symptoms reported, No ear discharge, No hearing loss, No ear pain, No blurred vision, No double vision, No eye pain, No tearing, No vision loss, No dental problems, No hoarseness, No mouth pain, No mouth swelling, No epistaxis, No nose congestion, No nose pain, No throat pain, No thr oat swelling, No other Respiratory: No no symptoms reported, No see HPI; cough; No dyspnea on exertion, No hemoptysis, No orthopnea, No phlegm; short of breath; No stridor, No wheezing, No other Cardiovascular: No no symptoms reported, No see HPI, No chest pain, No edema, No Hx of Intervention, No palpitations, No syncope, No vascular heart diseas, No other Gastrointestinal: No RUQ, No LUQ, No RLQ, No LLQ, No no symptoms reported, No see HPI, No abdominal pain, No constipation, No diarrhea, No dysphagia, No hematemesis, No heartburn, No jaundice, No loss of appetite, No melena, No nausea, No vomiting, No other Genitourinary: No no symptoms reported, No see HPI, No decreased output, No discharge, No dysuria, No frequency, No hematuria, No hesitancy, No incontinence, No nocturia, No pain, No other Musculoskeletal: No no symptoms reported, No see HPI, No back pain, No gout, No joint pain, No joint swelling, No muscle pain, No muscle stiffness, No muscle cramps, No muscle twitching, No muscle weakness, No neck pain, No other Skin: No no symptoms reported, No see HPI, No change in color, No change in hair/nails, No dryness, No hx of skin cancer, No lesions, No lumps, No pruritus, No rash, No other Psychiatric/Neurological: Denies No Symptoms Reported, Denies See HPI, Denies Anxiety, Denies Depressed, Denies Emotional Problems, Denies Headache, Denies Numbness, Denies Paresthesia, Denies Pre-Existing Deficit, Denies Seizure, Denies Tingling, Denies Tremors, Denies Weakness, Denies Other Hematologic/Lymphatic: Denies No Symptoms Reported, Denies See HPI, Denies Anemia, Denies Blood Clots, Denies Easy Bleeding, Denies Easy Bruising, Denies Swollen Glands, Denies Other All Other Systems Reviewed Negative Unless Noted: Yes Past Bwnxtke-Edwoys-Hpfwpr Hx Patient Social History Alcohol Use: Denies Use Recreational Drug Use: No Smoking Status: Unknown if Ever Smoked Type Used: Cigarettes 2nd Hand Smoke Exposure: Yes Recent Foreign Travel: No Contact w/Someone Who Travel: No Recent Infectious Disease Expo: No Recent Hopitalizations: No Physical Abuse: No Sexual Abuse: No Mistreated: No Fear: No Seasonal Allergies Seasonal Allergies: No Past Medical History Surgeries: Yes (eye surgery as infant) Gallbladder Respiratory: Yes Asthma Cardiac: No Neurological: No Sexually Transmitted Disease: No HIV/AIDS: No Genitourinary: No Gastrointestinal: No Gastroesophageal Reflux, Chronic Diarrhea Musculoskeletal: No Endocrine: No Diabetes, Non-Insulin dep HEENT: No Loss of Vision: Denies Hearing Impairment: Denies Cancer: No Psychosocial: No Anxiety, Depression Integumentary: No Blood Disorders: No Adverse Reaction/Blood Tranf: No (N/A) Physical Exam Vital Signs - First Documented 12/27/19 01:55 Temp 36.3 Pulse 85 Resp 18 B/P (MAP) 142/92 (109) Pulse Ox 97 O2 Delivery Room Air Capillary Refill : Less Than 3 Seconds Height: 5'4.00" Weight: 280lbs. oz. 127.286182vo; 50.00 BMI Method:Stated General Appearance: WD/WN, no apparent distress HEENT: PERRL/EOMI, normal ENT inspection, TMs normal, pharynx normal Respiratory: chest non-tender, lungs clear, normal breath sounds, no respiratory distress, no accessory muscle use, respiratory distress Cardiovascular: normal peripheral pulses, regular rate, rhythm, no edema, no gallop, no JVD, no murmur Gastrointestinal: normal bowel sounds, non tender, soft, no organomegaly, no pulsatile mass Extremities: normal range of motion, non-tender, normal inspection, no pedal ed steph, no calf tenderness, normal capillary refill Skin: normal color, warm/dry, cyanosis, cool, diaphoresis, damp Progress/Results/Core Measures Suspected Sepsis Recent Fever Within 48 Hours: No Infection Criteria Present: None New/Unexplained Altered Menta: No Sepsis Screen: No Definite Risk SIRS Temperature: Pulse: 85 Respiratory Rate: 18 Blood Pressure 142 /92 Mean: 109 Results/Orders Vital Signs/I&O 12/27/19 01:55 Temp 36.3 Pulse 85 Resp 18 B/P (MAP) 142/92 (109) Pulse Ox 97 O2 Delivery Room Air Capillary Refill : Less Than 3 Seconds Blood Pressure Mean: 109 Progress Note : Time: 02:07 Progress Note Negative evaluation in the emergency Department normal vital signs pulse ox 100% on room air. Patient no identifiable symptoms. Symptoms. Patient states that when she was trying to sleep she felt like she Started like she was short of breath. Happen multiple times throughout the day. However the patient breathing, normal with no issues. Intermittent vague cough minor nasal drainage as described however does not seem appeared to be on physical exam. No sore throat no fever negative evaluation. Discussed at length about options possible viral URI. Related to the weather. Patient states that home was cold and lack of heat. Patient states she does have a history of asthma. Does not appear to be short of breath. Patient is an encourage by mouth fluids. Cool mist humidifier/warm vaporizer as needed. May take Benadryl or Claritin as needed for any congestion. Patient should follow-up with PCP tomorrow if symptoms failed to improve or worsen. Departure Impression Primary Impression: Viral URI with cough Disposition: 01 HOME, SELF-CARE Condition: Stable Departure-Patient Inst. Decision time for Depature: 02:09 Referrals: LIZETT HEARD MD (PCP/Family) Primary Care Physician Patient Instructions: Cough, Runny Nose, and the Common Cold (DC) Add. Discharge Instructions: Patient is an encourage by mouth fluids. Cool mist humidifier/warm vaporizer as needed. May take Benadryl or Claritin as needed for any congestion. Patient should follow-up with PCP tomorrow if symptoms failed to improve or worsen. All discharge instructions reviewed with patient and/or family. Voiced understanding. SD CLARKE MD Dec 27, 2019 02:09
== END 2019-12-27 02:11 | disposition home or self-care (01) ==
LOC: EDUNIT# 01:48 → ER FS 01:51
DX: J06.9 Acute upper respiratory infection, unspecified (principal); R05 Cough; Z77.22 Contact with and (suspected) exposure to environmental tobacco smoke (acute) (chronic); Z88.2 Allergy status to sulfonamides; Z88.1 Allergy status to other antibiotic agents
CPT/HCPCS: 99282

== ENCOUNTER 2020-04-11 12:57 | Emergency (ER) | payer SELFPAY ==
[~2020-04-11] VITALS: Ht 152.5 cm; Wt 132.7 kg
[~2020-04-11 12:57] MED LIST changes: -CLIN300C11 PO; +CLIN300C12 PO
--- NOTE | 2020-04-11 13:12 | ED GU-Female ---
General Chief Complaint: Female Reproductive Stated Complaint: IRREGULAR MENSES; SUPRAPUBIC PAIN History of Present Illness Date Seen by Provider: Apr 11, 2020 Time Seen by Provider: 13:12 Initial Comments 19-year-old female presents with suprapubic and pelvic pain. Patient reports that her regular menstrual cycle should have started about 10 days ago. This can have been irregular with some irregular spotting since then. She denies any urinary symptoms. Reports the pain is more suprapubic with little bit of right sided lower pelvic pain. She denies any vaginal discharge burning or stinging. Patient reports that her and her have been trying to get . She reports that the pain started approximately 5 days ago. She denies any fevers [place] nausea or vomiting. She does not have any flank or back pain. Allergies and Home Medications Allergies Coded Allergies: sulfamethoxazole (Verified Allergy, Mild, RASH, 12/22/18) trimethoprim (Verified Allergy, Mild, RASH, 12/22/18) Uncoded Allergies: head and shoulders shampoo (Allergy, Unknown, 09/24/18) seafood (Allergy, Unknown, 09/24/18) Home Medications Cephalexin 500 Mg Capsule, 500 MG PO TID Prescribed by: SD BERGMAN on 09/11/19 1000 Cephalexin 500 Mg Capsule, 500 MG PO BID Prescribed by: TREY PAZ on 09/18/19 0503 Clindamycin HCl 300 Mg Capsule, 300 MG PO Q6H Prescribed by: OSIRIS JIMENEZ on 03/18/19 0839 Diclofenac Sodium 75 Mg Tablet.dr, 75 MG PO BID Prescribed by: SD CLARKE on 07/13/19 0744 Dicyclomine HCl 20 Mg Tablet, 20 MG PO BID Prescribed by: SD CLARKE on 08/16/19 1629 Nitrofurantoin Macrocrystal 100 Mg Capsule, 100 MG PO BID Prescribed by: MARIA ANTONIA WILLIS on 08/22/19 0235 Ondansetron 4 Mg Tab.rapdis, 4 MG PO Q6H Prescribed by: TREY PAZ on 09/18/19 0503 Ondansetron 4 Mg Tab.rapdis, 4 MG PO BID Prescribed by: SD CLARKE on 12/05/192008 Ondansetron 4 Mg Tab.rapdis, 4 MG PO Q8H Prescribed by: VANESSA ABDULLAHI on 12/25/191920 Patient Home Medication List Home Medication List Reviewed: Yes Review of Systems Review of Systems Constitutional: No chills, No fever EENTM: no symptoms reported Respiratory: no symptoms reported Cardiovascular: no symptoms reported Gastrointestinal: see HPI Genitourinary: see HPI : No Musculoskeletal: no symptoms reported Skin: no symptoms reported Psychiatric/Neurological: No Symptoms Reported Endocrine: No Symptoms Reported Hematologic/Lymphatic: No Symptoms Reported Past Yhvsome-Bvnrmk-Rgjtju Hx Past Med/Social Hx: Reviewed Nursing Past Med/Soc Hx Patient Social History Type Used: Cigarettes 2nd Hand Smoke Exposure: Yes Recent Hopitalizations: No Seasonal Allergies Seasonal Allergies: No Past Medical History Surgeries: Yes (eye surgery as infant) Gallbladder Respiratory: Yes Asthma Cardiac: No Neurological: No Sexually Transmitted Disease: No HIV/AIDS: No Genitourinary: No Gastrointestinal: No Gastroesophageal Reflux, Chronic Diarrhea Musculoskeletal: No Endocrine: No Diabetes, Non-Insulin dep HEENT: No Loss of Vision: Denies Hearing Impairment: Denies Cancer: No Psychosocial: No Anxiety, Depression Integumentary: No Blood Disorders: No Adverse Reaction/Blood Tranf: No (N/A) Physical Exam Vital Signs Vital Signs - First Documented 04/11/20 13:15 Temp 37.7 Pulse 82 Resp 18 B/P (MAP) 118/63 (81) Pulse Ox 99 O2 Delivery Room Air Capillary Refill : Height, Weight, BMI Height: 5'4.00" Weight: 280lbs. oz. 127.555345gr; 50.00 BMI Method:Stated General Appearance: WD/WN, no apparent distress, obese Cardiovascular: normal peripheral pulses, regular rate, rhythm Respiratory: chest non-tender, lungs clear Gastrointestinal: soft, tenderness (Very minimal tenderness to palpation suprapubic and right pelvic region no rebound or guarding noted) Back: normal inspection, no CVA tenderness Extremities: normal range of motion, non-tender Neurologic/Psychiatric: alert, normal mood/affect, oriented x 3 Skin: normal color, warm/dry Progress/Results/Core Measures Suspected Sepsis SIRS Temperature: Pulse: Respiratory Rate: Laboratory Tests 04/11/20 13:20: White Blood Count 11.7H Blood Pressure / Mean: Laboratory Tests 04/11/20 13:20: Creatinine 0.76, Platelet Count 327 Results/Orders Lab Results Laboratory Tests Test 04/11/20 13:04 04/11/20 13:20 Range/Units Urine Color YELLOW Urine Clarity SL CLOUDY Urine pH 6.0 5-9 Urine Specific [place] >=1.030 1.016-1.022 Urine Protein NEGATIVE NEGATIVE Urine Glucose (UA) NEGATIVE NEGATIVE Urine Ketones NEGATIVE NEGATIVE Urine Nitrite NEGATIVE NEGATIVE Urine Bilirubin NEGATIVE NEGATIVE Urine Urobilinogen 0.2 < = 1.0 MG/DL Urine Leukocyte Esterase 1+ H NEGATIVE Urine RBC (Auto) TRACE H NEGATIVE Urine RBC 2-5 H /HPF Urine WBC 10-25 H /HPF Urine Squamous Epithelial Cells 25-50 H /HPF Urine Crystals PRESENT H /LPF Urine Calcium Oxalate Crystals FEW H /LPF Urine Bacteria FEW H /HPF Urine Casts NONE /LPF Urine Mucus LARGE H /LPF Urine Culture Indicated YES White Blood Count 11.7 H 4.3-11.0 10^3/uL Red Blood Count 5.06 4.35-5.85 10^6/uL Hemoglobin 14.6 11.5-16.0 G/DL Hematocrit 44 35-52 % Mean Corpuscular Volume 86 80-99 FL Mean Corpuscular Hemoglobin 29 25-34 PG Mean Corpuscular Hemoglobin Concent 34 32-36 G/DL Red Cell Distribution Width 11.9 10.0-14.5 % Platelet Count 327 130-400 10^3/uL Mean Platelet Volume 9.9 7.4-10.4 FL Immature Granulocyte % (Auto) 0 % Neutrophils (%) (Auto) 59 42-75 % Lymphocytes (%) (Auto) 32 12-44 % Monocytes (%) (Auto) 7 0-12 % Eosinophils (%) (Auto) 2 0-10 % Basophils (%) (Auto) 0 0-10 % Neutrophils # (Auto) 7.0 1.8-7.8 X 10^3 Lymphocytes # (Auto) 3.7 1.0-4.0 X 10^3 Monocytes # (Auto) 0.8 0.0-1.0 X 10^3 Eosinophils # (Auto) 0.2 0.0-0.3 10^3/uL Basophils # (Auto) 0.0 0.0-0.1 10^3/uL Immature Granulocyte # (Auto) 0.0 0.0-0.1 10^3/uL Sodium Level 137 135-145 MMOL/L Potassium Level 3.7 3.6-5.0 MMOL/L Chloride Level 103 98-107 MMOL/L Carbon Dioxide Level 26 21-32 MMOL/L Anion Gap 8 5-14 MMOL/L Blood Urea Nitrogen 8 7-18 MG/DL Creatinine 0.76 0.60-1.30 MG/DL Estimat Glomerular Filtration Rate > 60 BUN/Creatinine Ratio 11 Glucose Level 92 70-105 MG/DL Calcium Level 8.6 8.5-10.1 MG/DL C-Reactive Protein 0.51 H <0.50 MG/DL My Orders Orders - NESSA SMITH DO Us Non Ob Transvaginal [id number] (04/11/20 13:12) Ed Iv/Invasive Line Start (04/11/20 13:13) Urine Bedside (04/11/20 13:13) Basic Metabolic Panel (04/11/20 13:13) Cbc With Automated Diff (04/11/20 13:13) Ua Culture If Indicated (04/11/20 13:13) Crp Fs (04/11/20 13:13) Us Pelvis Non-Ob Limited [id number] (04/11/20 13:12) Urine Culture (04/11/20 13:04) Vital Signs/I&O 04/11/20 13:15 Temp 37.7 Pulse 82 Resp 18 B/P (MAP) 118/63 (81) Pulse Ox 99 O2 Delivery Room Air Capillary Refill : Diagnostic Imaging Diagonstic Imaging: Ultrasound Plain Films/CT/US/NM/MRI: abdomen, pelvis Comments No acute findings [facility], [place] NAME: MIRIAM CALDERON [facility] REC#: [id number] PT STATUS: REG ER : 2000 PHYSICIAN: NESSA SMITH DO ADMIT DATE: 04/11/20/ER FS Draft Date of Exam:04/11/20 US NON OB TRANSVAGINAL [id number] PROCEDURE: US NONOB transvaginal. TECHNIQUE: Complete transabdominal and transvaginal pelvic ultrasound was performed. In addition, limited pelvic Doppler was performed. INDICATION: Right lower quadrant pain, abnormal menses. FINDINGS: Uterus measures 7.7 x 4.6 x 3.8 cm. Endometrium is 4 mm in thickness. No myometrial mass is detected. Right ovary measures 2.1 x 4.1 x 1.3 cm and left ovary measures 3.6 x 2.6 x 2.2 cm. Ovaries contain small follicles. There is blood flow to both ovaries. No adnexal mass or free fluid is detected. IMPRESSION: Unremarkable transabdominal and transvaginal pelvic ultrasound. Dictated on workstation # [id number] Dict: 04/11/20 1434 Trans: 04/11/20 1442 [id number] Interpreted by: SHADY CHRISTIAN MD Electronically signed by: [email or web address] [place], [place] NAME: MIRIAM CALDERON [facility] REC#: [id number] PT STATUS: REG ER : 2000 PHYSICIAN: NESSA SMITH DO ADMIT DATE: 04/11/20/ER FS Draft Date of Exam:04/11/20 US PELVIS NON-OB LIMITED [id number] INDICATION: Right lower quadrant pain. EXAMINATION: Sonographic interrogation of right lower quadrant was performed. FINDINGS: The appendix could not be visualized. No mass or fluid collection is detected. IMPRESSION: Nonvisualized appendix. Dictated on workstation # [id number] Dict: 04/11/20 1436 Trans: 04/11/20 1442 [facility] [id number] Interpreted by: SHADY CHRISTIAN MD Electronically signed by: Departure Impression Primary Impression: Acute cystitis Qualified Codes: N30.01 - Acute cystitis with hematuria Additional Impression: Abnormal menstrual cycle Disposition: HOME, SELF-CARE Condition: Stable Departure-Patient Inst. Referrals: LIZETT HEARD MD (PCP/Family) Primary Care Physician Patient Instructions: Acute Cystitis (DC), Absent or Irregular Periods Add. Discharge Instructions: Follow-up with your primary care provider in 1 week for recheck of today's symptoms All discharge instructions reviewed with patient and/or family. Voiced understanding. Scripts Nitrofurantoin Monohyd/M-Cryst (Macrobid 100 mg Capsule) 100 Mg Capsule 1 EACH PO BID for 7 Days, #14 EA 0 Refills Prov: NESSA SMITH DO 04/11/20 NESSA SMITH DO Apr 11, 2020 13:12
[2020-04-11 13:38] LABS: BASOPHILS % (AUTO) 0 % (0-10); EOSINOPHILS % (AUTO) 2 % (0-10); HEMATOCRIT 44 % (35-52); HEMOGLOBIN 14.6 G/DL (11.5-16.0); LYMPHOCYTES % (AUTO) 32 % (12-44); MEAN CORPUSCULAR HEMOGLOBIN 29 PG (25-34); MEAN CORPUSCULAR HGB CONC 34 G/DL (32-36); MEAN CORPUSCULAR VOLUME 86 FL (80-99); MEAN PLATELET VOLUME 9.9 FL (7.4-10.4); MONOCYTES % (AUTO) 7 % (0-12); NEUTROPHILS % (AUTO) 59 % (42-75); PLATELET COUNT 327 10^3/uL (130-400); WHITE BLOOD COUNT 11.7 10^3/uL (4.3-11.0)
[2020-04-11 13:39] LABS: EOSINOPHILS # (AUTO) 0.2 10^3/uL (0.0-0.3); LYMPHOCYTES # (AUTO) 3.7 X 10^3 (1.0-4.0); MONOCYTES # (AUTO) 0.8 X 10^3 (0.0-1.0)
[2020-04-11 13:44] LABS: CLARITY,URINE SL CLOUDY; COLOR,URINE YELLOW
[2020-04-11 13:45] LABS: BACTERIA,URINE FEW /HPF; BILIRUBIN,URINE NEGATIVE (NEGATIVE); CALCIUM OXALATE CRYSTALS,UR FEW /LPF; GLUCOSE, URINE (UA) NEGATIVE (NEGATIVE); KETONES,URINE NEGATIVE (NEGATIVE); LEUKOCYTE ESTERASE ,URINE 1+ (NEGATIVE); NITRITE,URINE NEGATIVE (NEGATIVE); PROTEIN,URINE NEGATIVE (NEGATIVE); SQUAMOUS EPITHELIAL CELL,UR 25-50 /HPF
[2020-04-11 14:00] LABS: BUN/CREATININE RATIO 11; CALCIUM 8.6 MG/DL (8.5-10.1); CARBON DIOXIDE 26 MMOL/L (21-32); CHLORIDE 103 MMOL/L (98-107); CREATININE SERUM 0.76 MG/DL (0.60-1.30); GFR ESTIMATED > 60; GLUCOSE 92 MG/DL (70-105); POTASSIUM 3.7 MMOL/L (3.6-5.0); SODIUM 137 MMOL/L (135-145)
--- NOTE | 2020-04-11 14:42 | Diagnostic Imaging Report ---
INDICATION: Right lower quadrant pain. EXAMINATION: Sonographic interrogation of right lower quadrant was performed. FINDINGS: The appendix could not be visualized. No mass or fluid collection is detected. IMPRESSION: Nonvisualized appendix. Dictated by: Dictated on workstation # [id number]
--- NOTE | 2020-04-11 14:43 | Diagnostic Imaging Report ---
PROCEDURE: US NONOB transvaginal. TECHNIQUE: Complete transabdominal and transvaginal pelvic ultrasound was performed. In addition, limited pelvic Doppler was performed. INDICATION: Right lower quadrant pain, abnormal menses. FINDINGS: Uterus measures 7.7 x 4.6 x 3.8 cm. Endometrium is 4 mm in thickness. No myometrial mass is detected. Right ovary measures 2.1 x 4.1 x 1.3 cm and left ovary measures 3.6 x 2.6 x 2.2 cm. Ovaries contain small follicles. There is blood flow to both ovaries. No adnexal mass or free fluid is detected. IMPRESSION: Unremarkable transabdominal and transvaginal pelvic ultrasound. Dictated by: Dictated on workstation # [id number]
[2020-04-11] MEDS ORDERED: NITR-65 PO (15:07)
[2020-04-11 15:14] VITALS: BP 121/59
== END 2020-04-11 15:13 | disposition home or self-care (01) ==
LOC: EDUNIT# 12:57 → ER FS 12:59
DX: N30.00 Acute cystitis without hematuria (principal); N92.6 Irregular menstruation, unspecified; E66.9 Obesity, unspecified; Z68.43 Body mass index [BMI] 50.0-59.9, adult; Z77.22 Contact with and (suspected) exposure to environmental tobacco smoke (acute) (chronic); Z88.2 Allergy status to sulfonamides; Z88.1 Allergy status to other antibiotic agents
CPT/HCPCS: 36415; 76830; 76857; 80048; 81000; 84703; 85025; 86141; 87088

== ENCOUNTER 2020-05-24 06:53 | Emergency (ER) | payer SELFPAY ==
[~2020-05-24] VITALS: Ht 162 cm; Wt 133.0 kg
[~2020-05-24 06:53] MED LIST changes: +METR500T PO; +NITR-65 PO
[2020-05-24 07:00] VITALS: BP 137/89
[2020-05-24] MEDS ORDERED: AMOX500C2 PO (07:20)
--- NOTE | 2020-05-24 07:20 | ED EENT ---
History of Present Illness General Chief Complaint: Dental Problems/Pain Stated Complaint: FACIAL PAIN Nursing Triage Note: PT REPORTS RIGHT UPPER DENTAL PAIN SINCE YESTERDAY. History of Present Illness Date Seen by Provider: May 24, 2020 Time Seen by Provider: 07:00 Initial Comments 19 yo female reports right sided dental pain since last night. pt has had prior similar dental pain. pt has poor dentation of right upper teeth. pt has not seen a dentist. Allergies and Home Medications Allergies Coded Allergies: sulfamethoxazole (Verified Allergy, Mild, RASH, 12/22/18) trimethoprim (Verified Allergy, Mild, RASH, 12/22/18) Uncoded Allergies: head and shoulders shampoo (Allergy, Unknown, 09/24/18) seafood (Allergy, Unknown, 09/24/18) Home Medications Cephalexin 500 Mg Capsule, 500 MG PO TID Prescribed by: SD BERGMAN on 09/11/19 1000 Cephalexin 500 Mg Capsule, 500 MG PO BID Prescribed by: TREY PAZ on 09/18/19 0503 Clindamycin HCl 300 Mg Capsule, 300 MG PO Q6H Prescribed by: OSIRIS JIMENEZ on 03/18/19 0839 Diclofenac Sodium 75 Mg Tablet.dr, 75 MG PO BID Prescribed by: SD CLARKE on 07/13/19 0744 Dicyclomine HCl 20 Mg Tablet, 20 MG PO BID Prescribed by: SD CLARKE on 08/16/19 1629 Metronidazole 500 Mg Tablet, 500 MG PO BID, (Reported) Nitrofurantoin Macrocrystal 100 Mg Capsule, 100 MG PO BID Prescribed by: MARIA ANTONIA WILLIS on 08/22/19 0235 Nitrofurantoin Monohyd/M-Cryst 100 Mg Capsule, 1 EACH PO BID Prescribed by: NESSA SMITH on 04/11/20 1507 Ondansetron 4 Mg Tab.rapdis, 4 MG PO Q6H Prescribed by: TREY PAZ on 09/18/19 0503 Ondansetron 4 Mg Tab.rapdis, 4 MG PO BID Prescribed by: SD CLARKE on 12/05/192008 Ondansetron 4 Mg Tab.rapdis, 4 MG PO Q8H Prescribed by: VANESSA ABDULLAHI on 12/25/19 192 Patient Home Medication List Home Medication List Reviewed: Yes Review of Systems Review of Systems Constitutional: No fever Eyes: No Symptoms Reported Ears: No Symptoms Reported Mouth: see HPI Throat: no symptoms reported Respiratory: No cough, No short of breath Cardiovascular: No chest pain Gastrointestinal: No abdominal pain, No diarrhea, No nausea, No vomiting Musculoskeletal: no symptoms reported Skin: no symptoms reported Neurological: No Symptoms Reported Hematologic/Lymphatic: No Symptoms Reported Past Cpyyqht-Dklsnn-Jwntqo Hx Past Med/Social Hx: Reviewed Nursing Past Med/Soc Hx Patient Social History Alcohol Use: Denies Use Smoking Status: Current Everyday Smoker Type Used: Cigarettes 2nd Hand Smoke Exposure: Yes Recent Infectious Disease Expo: No Recent Hopitalizations: No Seasonal Allergies Seasonal Allergies: No Past Medical History Surgeries: Yes (eye surgery as ) Gallbladder Respiratory: Yes Asthma Cardiac: No Neurological: No Female Reproductive Disorders: Menstrual Problems Sexually Transmitted Disease: No HIV/AIDS: No Genitourinary: No Gastrointestinal: No Gastroesophageal Reflux, Chronic Diarrhea Musculoskeletal: No Endocrine: No Diabetes, Non-Insulin dep HEENT: No Loss of Vision: Denies Hearing Impairment: Denies Cancer: No Psychosocial: No Anxiety, Depression Integumentary: No Blood Disorders: No Adverse Reaction/Blood Tranf: No (N/A) Physical Exam Vital Signs Vital Signs - First Documented 05/24/20 07:00 Temp 35.9 Pulse 82 Resp 18 B/P (MAP) 137/89 (105) Pulse Ox 97 O2 Delivery Room Air Height, Weight, BMI Height: 5'4.00" Weight: 280lbs. oz. 127.528541kb; 50.00 BMI Method:Stated General Appearance: no apparent distress, obese Eyes: bilateral eye normal inspection Mouth/Throat: dental tenderness Neck: full range of motion, supple Cardiovascular: normal peripheral pulses, regular rate, rhythm Respiratory: normal breath sounds, no respiratory distress Neurologic/Psychiatric: alert, normal mood/affect, oriented x 3 Skin: normal color, warm/dry Progress/Results/Core Measures Results/Orders Vital Signs/I&O 05/24/20 07:00 Temp 35.9 Pulse 82 Resp 18 B/P (MAP) 137/89 (105) Pulse Ox 97 O2 Delivery Room Air Blood Pressure Mean: 105 Progress Progress Note : Progress Note pt with infected dental caries, discuss need to follow up with dentist for definitive care. pt sees [facility], recommeded she follows up with [facility] to have them help arrange dental follow up Departure Impression Primary Impression: Dental caries Disposition: 01 HOME, SELF-CARE Condition: Stable Departure-Patient Inst. Referrals: LIZETT HEARD MD (PCP/Family) Primary Care Physician Patient Instructions: Dental Pain (DC), Tooth Decay, Adult (DC) Scripts Amoxicillin (Amoxicillin) 500 Mg Capsule 500 MG PO TID, #21 CAP 0 Refills Prov: NESSA SMITH DO 05/24/20 NESSA SMITH DO May 24, 2020 07:20
[2020-05-25] MEDS ORDERED: ONDA4TAB11 PO (02:01)
== END 2020-05-24 07:30 | disposition home or self-care (01) ==
LOC: EDUNIT# 06:53 → ER FS 06:56
DX: K02.9 Dental caries, unspecified (principal); E11.9 Type 2 diabetes mellitus without complications; K21.9 Gastro-esophageal reflux disease without esophagitis; K52.9 Noninfective gastroenteritis and colitis, unspecified; J45.909 Unspecified asthma, uncomplicated; F17.210 Nicotine dependence, cigarettes, uncomplicated
CPT/HCPCS: 99282

== ENCOUNTER 2020-05-25 01:47 | Emergency (ER) | payer SELFPAY ==
[~2020-05-25 01:47] MED LIST changes: +AMOX500C2 PO
[2020-05-25] MEDS ORDERED: ONDANSETRON 4 MG (ZOFRAN) ORAL DISSOLVE TAB SL STA (01:56)
[2020-05-25] MEDS ORDERED: diphenhydrAMINE 50 MG/ML INJ (BENADRYL) IM STA (01:56)
--- NOTE | 2020-05-25 01:56 | ED General ---
General Stated Complaint: poss medication allergy History of Present Illness Date Seen by Provider: May 25, 2020 Time Seen by Provider: 01:53 Initial Comments 19-year-old female concerned about a possible allergic reaction to either her toothpaste or mouthwash. Patient reports that after she brushed her teeth she vomited. She reports that "has some tongue swelling" and that her tongue turn blue. Patient reports that both her toothpaste and her mouthwash was blue. She denies any difficulty breathing, no fevers no chills. No other systemic complaints. Allergies and Home Medications Allergies Coded Allergies: sulfamethoxazole (Verified Allergy, Mild, RASH, 12/22/18) trimethoprim (Verified Allergy, Mild, RASH, 12/22/18) Uncoded Allergies: head and shoulders shampoo (Allergy, Unknown, 09/24/18) seafood (Allergy, Unknown, 09/24/18) Home Medications Amoxicillin 500 Mg Capsule, 500 MG PO TID Prescribed by: NESSA SMITH on 05/24/20 0720 Cephalexin 500 Mg Capsule, 500 MG PO TID Prescribed by: SD BERGMAN on 09/11/19 1000 Cephalexin 500 Mg Capsule, 500 MG PO BID Prescribed by: TREY PAZ on 09/18/19 0503 Clindamycin HCl 300 Mg Capsule, 300 MG PO Q6H Prescribed by: OSIRIS JIMENEZ on 03/18/19 0839 Diclofenac Sodium 75 Mg Tablet.dr, 75 MG PO BID Prescribed by: SD CLARKE on 07/13/19 0744 Dicyclomine HCl 20 Mg Tablet, 20 MG PO BID Prescribed by: SD CLARKE on 08/16/19 1629 Metronidazole 500 Mg Tablet, 500 MG PO BID, (Reported) Nitrofurantoin Macrocrystal 100 Mg Capsule, 100 MG PO BID Prescribed by: MARIA ANTONIA WILLIS on 08/22/19 0235 Nitrofurantoin Monohyd/M-Cryst 100 Mg Capsule, 1 EACH PO BID Prescribed by: NESSA SMITH on 04/11/20 1507 Ondansetron 4 Mg Tab.rapdis, 4 MG PO Q6H Prescribed by: TREY PAZ on 09/18/19 0503 Ondansetron 4 Mg Tab.rapdis, 4 MG PO BID Prescribed by: SD CLARKE on 12/05/192008 Ondansetron 4 Mg Tab.rapdis, 4 MG PO Q8H Prescribed by: VANESSA ABDULLAHI on 12/25/191920 Patient Home Medication List Home Medication List Reviewed: Yes Review of Systems Review of Systems Constitutional: see HPI EENTM: see HPI Respiratory: no symptoms reported Cardiovascular: no symptoms reported Gastrointestinal: vomiting Musculoskeletal: no symptoms reported Skin: no symptoms reported Psychiatric/Neurological: No Symptoms Reported Hematologic/Lymphatic: No Symptoms Reported Past Yfagibr-Wlondz-Qcwhnw Hx Past Med/Social Hx: Reviewed Nursing Past Med/Soc Hx Patient Social History Type Used: Cigarettes 2nd Hand Smoke Exposure: Yes Recent Hopitalizations: No Seasonal Allergies Seasonal Allergies: No Past Medical History Surgeries: Yes (eye surgery as ) Gallbladder Respiratory: Yes Asthma Cardiac: No Neurological: No Female Reproductive Disorders: Menstrual Problems Sexually Transmitted Disease: No HIV/AIDS: No Genitourinary: No Gastrointestinal: No Gastroesophageal Reflux, Chronic Diarrhea Musculoskeletal: No Endocrine: No Diabetes, Non-Insulin dep HEENT: No Loss of Vision: Denies Hearing Impairment: Denies Cancer: No Psychosocial: No Anxiety, Depression Integumentary: No Blood Disorders: No Adverse Reaction/Blood Tranf: No (N/A) Physical Exam Vital Signs Capillary Refill : Height, Weight, BMI Height: 5'4.00" Weight: 280lbs. oz. 127.732328ve; 50.00 BMI Method:Stated General Appearance: No Apparent Distress, WD/WN HEENT: Normal ENT Inspection, Moist Mucous Membranes, Other (No tongue swelling or lip swelling noted. No abnormality noted of tongue.) Respiratory: Lungs Clear, Normal Breath Sounds Cardiovascular: Regular Rate, Rhythm, No Edema Gastrointestinal: Non Tender, Soft Neurologic/Psychiatric: Alert, Oriented x3, Normal Mood/Affect, drum handler II-XII Norm as Tested Progress/Results/Core Measures Suspected Sepsis SIRS Temperature: Pulse: Respiratory Rate: Blood Pressure / Mean: Results/Orders My Orders Orders - SMITH,NESSA L DO Diphenhydramine Injection (Benadryl Inje (05/25/20 01:56) Zofran Sl (05/25/20 01:56) Vital Signs/I&O Capillary Refill : Progress Note : Progress Note Patient with no obvious signs of an allergic reaction. Tongue discoloration likely normal post toothpaste or mouthwash discoloration. Recommended she go back to her previous use mouthwash and toothpaste. Departure Impression Primary Impression: Nausea and vomiting Qualified Codes: R11.2 - Nausea with vomiting, unspecified Disposition: HOME, SELF-CARE Condition: Stable Departure-Patient Inst. Referrals: LIZETT HEARD MD (PCP/Family) Primary Care Physician Scripts Ondansetron (Ondansetron Odt) 4 Mg Tab.rapdis 4 MG PO Q6H PRN for NAUSEA/VOMITING, #20 TAB 0 Refills Prov: NESSA SMITH DO 05/25/20 NESSA SMITH DO May 25, 2020 01:56
[2020-05-25] MEDS ORDERED: ONDA4TAB11 PO (02:01)
[2020-05-25 02:08] VITALS: BP 150/96
== END 2020-05-25 02:08 | disposition home or self-care (01) ==
LOC: EDUNIT# 01:47 → ER FS 01:50
DX: R11.2 Nausea with vomiting, unspecified (principal); Z77.22 Contact with and (suspected) exposure to environmental tobacco smoke (acute) (chronic); Z88.2 Allergy status to sulfonamides; Z88.1 Allergy status to other antibiotic agents
CPT/HCPCS: 99284

== ENCOUNTER 2020-07-12 20:01 | Emergency (ER) | payer SELFPAY ==
[~2020-07-12] VITALS: Ht 162.5 cm; Wt 133.1 kg
[2020-07-12 20:03] VITALS: BP 136/76
--- NOTE | 2020-07-12 20:09 | ED Lower Extremity ---
General Chief Complaint: Lower Extremity Stated Complaint: LEFT LEG PAIN History of Present Illness Date Seen by Provider: July 12, 2020 Time Seen by Provider: 20:07 Initial Comments 19-year-old female presents with left thigh pain. Patient reports that 2 days ago she was at the [employer] and was getting some of the trunk of a car when a trunk slammed down on her leg. She has some pain now throughout her whole left leg. She is able to ambulate. She denies of any abrasions or lacerations. She has full range of motion. She presents due to the pain Allergies and Home Medications Allergies Coded Allergies: sulfamethoxazole (Verified Allergy, Mild, RASH, 12/22/18) trimethoprim (Verified Allergy, Mild, RASH, 12/22/18) Uncoded Allergies: head and shoulders shampoo (Allergy, Unknown, 09/24/18) seafood (Allergy, Unknown, 09/24/18) Home Medications Amoxicillin 500 Mg Capsule, 500 MG PO TID Prescribed by: NESSA SMITH on 05/24/20 0720 Cephalexin 500 Mg Capsule, 500 MG PO TID Prescribed by: SD BERGMAN on 09/11/19 1000 Cephalexin 500 Mg Capsule, 500 MG PO BID Prescribed by: TREY PAZ on 09/18/19 0503 Clindamycin HCl 300 Mg Capsule, 300 MG PO Q6H Prescribed by: OSIRIS JIMENEZ on 03/18/19 0839 Diclofenac Sodium 75 Mg Tablet.dr, 75 MG PO BID Prescribed by: SD CLARKE on 07/13/19 0744 Dicyclomine HCl 20 Mg Tablet, 20 MG PO BID Prescribed by: SD CLARKE on 08/16/19 1629 Metronidazole 500 Mg Tablet, 500 MG PO BID, (Reported) Nitrofurantoin Macrocrystal 100 Mg Capsule, 100 MG PO BID Prescribed by: MARIA ANTONIA WILLIS on 08/22/19 0235 Nitrofurantoin Monohyd/M-Cryst 100 Mg Capsule, 1 EACH PO BID Prescribed by: NESSA SMITH on 04/11/20 1507 Ondansetron 4 Mg Tab.rapdis, 4 MG PO Q6H Prescribed by: TREY PAZ on 09/18/19 0503 Ondansetron 4 Mg Tab.rapdis, 4 MG PO BID Prescribed by: SD CLARKE on 12/05/192008 Ondansetron 4 Mg Tab.rapdis, 4 MG PO Q8H Prescribed by: VANESSA ABDULLAHI on 12/25/19 192 Ondansetron 4 Mg Tab.rapdis, 4 MG PO Q6H PRN for NAUSEA/VOMITING Prescribed by: NESSA SMITH on 05/25/20 020 Patient Home Medication List Home Medication List Reviewed: Yes Review of Systems Constitutional: no symptoms reported EENTM: no symptoms reported Respiratory: no symptoms reported Genitourinary: no symptoms reported Musculoskeletal: see HPI Skin: no symptoms reported Psychiatric/Neurological: No Symptoms Reported Past Nvjrptw-Rzsrms-Zfkmbi Hx Past Med/Social Hx: Reviewed Nursing Past Med/Soc Hx Patient Social History Type Used: Cigarettes 2nd Hand Smoke Exposure: Yes Recent Hopitalizations: No Seasonal Allergies Seasonal Allergies: No Past Medical History Surgeries: Yes (eye surgery as ) Gallbladder Respiratory: Yes Asthma Cardiac: No Neurological: No Female Reproductive Disorders: Menstrual Problems Sexually Transmitted Disease: No HIV/AIDS: No Genitourinary: No Gastrointestinal: No Gastroesophageal Reflux, Chronic Diarrhea Musculoskeletal: No Endocrine: No Diabetes, Non-Insulin dep HEENT: No Loss of Vision: Denies Hearing Impairment: Denies Cancer: No Psychosocial: No Anxiety, Depression Integumentary: No Blood Disorders: No Adverse Reaction/Blood Tranf: No (N/A) Physical Exam Vital Signs Vital Signs - First Documented 07/12/20 20:03 Temp 36.6 Pulse 72 Resp 16 B/P (MAP) 136/76 (96) Capillary Refill : Height, Weight, BMI Height: 5'4.00" Weight: 280lbs. oz. 127.152609ac; 50.00 BMI Method:Stated General Appearance: WD/WN, no apparent distress Neck: full range of motion, supple Cardiovascular: normal peripheral pulses, regular rate, rhythm Respiratory: lungs clear, normal breath sounds Gastrointestinal: non tender, soft Hips: bilateral hip normal inspection, bilateral hip normal range of motion, bilateral hip no evidence of injury Legs: bilateral leg normal inspection, bilateral leg normal range of motion, bilateral leg no evidence of injury Knees: bilateral knee normal inspection, bilateral knee normal range of motion, bilateral knee no evidence of injury Ankles: bilateral ankle non-tender, bilateral ankle normal inspection, bilateral ankle normal range of motion, bilateral ankle no evidence of injury Neurologic/Tendon: normal sensation Neurologic/Psychiatric: alert, normal mood/affect, oriented x 3, other (Normal gait) Skin: normal color Progress/Results/Core Measures Results/Orders My Orders Orders - NESSA SMITH DO Femur 2 View Left (07/12/20 20:09) Vital Signs/I&O 07/12/20 20:03 Temp 36.6 Pulse 72 Resp 16 B/P (MAP) 136/76 (96) Progress Progress Note : Progress Note Patient with contusion to left thigh. She should use ice or warm wet moist heat. Tylenol ibuprofen and topical lidocaine. Patient is discharged home in stable condition Diagnostic Imaging Diagonstic Imaging: Xray Plain Films/CT/US/NM/MRI: leg Comments No acute fracture or finding Reviewed: Reviewed by Me Departure Impression Primary Impression: Contusion of left thigh, initial encounter Disposition: 01 HOME, SELF-CARE Condition: Stable Departure-Patient Inst. Referrals: LIZETT HEARD MD (PCP/Family) Primary Care Physician Patient Instructions: Contusion (DC) Add. Discharge Instructions: Tylenol or ibuprofen as needed for pain 4% topical lidocaine with menthol to affected area as instructed on package as needed for pain All discharge instructions reviewed with patient and/or family. Voiced understanding. NESSA SMITH DO July 12, 2020 20:09
--- NOTE | 2020-07-12 20:51 | Diagnostic Imaging Report ---
INDICATION: Trauma. COMPARISON: None available. TECHNIQUE: Four radiographs of the left femur dated July 12, 2020. FINDINGS: No acute fracture or dislocation. No destructive osseous process. The left femoral head maintains its normal shape and contour. The pubic symphysis is intact. IMPRESSION: No acute osseous abnormality. Dictated by: Dictated on workstation # [id number]
== END 2020-07-12 20:29 | disposition home or self-care (01) ==
LOC: EDUNIT# 20:01 → ER FS 20:02
DX: S70.12XA Contusion of left thigh, initial encounter (principal); J45.909 Unspecified asthma, uncomplicated; Z77.22 Contact with and (suspected) exposure to environmental tobacco smoke (acute) (chronic); W20.8XXA Other cause of strike by thrown, projected or falling object, initial encounter; Y92.828 Other wilderness area as the place of occurrence of the external cause
CPT/HCPCS: 73552

== ENCOUNTER 2020-08-10 22:58 | Emergency (ER) | payer SELFPAY ==
[~2020-08-10] VITALS: Ht 162.5 cm; Wt 130.0 kg
[2020-08-10 23:04] VITALS: BP 127/76
--- NOTE | 2020-08-10 23:10 | ED GI ---
General Stated Complaint: ABD CRAMPING History of Present Illness Date Seen by Provider: Aug 10, 2020 Time Seen by Provider: 23:09 Initial Comments 19-year-old female presents with onset of her period today with strong menstrual cramps. She took an gpoa-qqc-qqyxdey pain reliever without relief and has come to the [facility] for the same. Last measure. 1 month ago, she has not missed. And has no concern of being . Allergies and Home Medications Allergies Coded Allergies: sulfamethoxazole (Verified Allergy, Mild, RASH, 12/22/18) trimethoprim (Verified Allergy, Mild, RASH, 12/22/18) Uncoded Allergies: head and shoulders shampoo (Allergy, Unknown, 09/24/18) seafood (Allergy, Unknown, 09/24/18) Home Medications Amoxicillin 500 Mg Capsule, 500 MG PO TID Prescribed by: NESSA SMTIH on 05/24/20 0720 Cephalexin 500 Mg Capsule, 500 MG PO TID Prescribed by: SD BERGMAN on 09/11/19 1000 Cephalexin 500 Mg Capsule, 500 MG PO BID Prescribed by: TREY PAZ on 09/18/19 0503 Clindamycin HCl 300 Mg Capsule, 300 MG PO Q6H Prescribed by: OSIRIS JIMENEZ on 03/18/19 0839 Diclofenac Sodium 75 Mg Tablet.dr, 75 MG PO BID Prescribed by: SD CLARKE on 07/13/19 0744 Dicyclomine HCl 20 Mg Tablet, 20 MG PO BID Prescribed by: SD CLARKE on 08/16/19 1629 Metronidazole 500 Mg Tablet, 500 MG PO BID, (Reported) Nitrofurantoin Macrocrystal 100 Mg Capsule, 100 MG PO BID Prescribed by: MARIA ANTONIA WILLIS on 08/22/19 0235 Nitrofurantoin Monohyd/M-Cryst 100 Mg Capsule, 1 EACH PO BID Prescribed by: NESSA SMITH on 04/11/20 1507 Ondansetron 4 Mg Tab.rapdis, 4 MG PO Q6H Prescribed by: TREY PAZ on 09/18/19 0503 Ondansetron 4 Mg Tab.rapdis, 4 MG PO BID Prescribed by: SD CLARKE on 12/05/192008 Ondansetron 4 Mg Tab.rapdis, 4 MG PO Q8H Prescribed by: VANESSA ABDULLAHI on 12/25/191920 Ondansetron 4 Mg Tab.rapdis, 4 MG PO Q6H PRN for NAUSEA/VOMITING Prescribed by: NESSA SMITH on 05/25/20 020 Patient Home Medication List Home Medication List Reviewed: Yes Review of Systems Review of Systems Constitutional: No dizziness, No fever, No malaise, No weakness Gastrointestinal: Denies Nausea, Denies Vomiting Genitourinary: See HPI, Pain (cramping and spotting) Musculoskeletal: No back pain; muscle pain Past Xbmvgvs-Zqojmc-Xbpyzb Hx Past Med/Social Hx: Reviewed Nursing Past Med/Soc Hx Patient Social History Type Used: Cigarettes 2nd Hand Smoke Exposure: Yes Recent Hopitalizations: No Seasonal Allergies Seasonal Allergies: No Past Medical History Surgeries: Yes (eye surgery as infant) Gallbladder Respiratory: Yes Asthma Cardiac: No Neurological: No Female Reproductive Disorders: Menstrual Problems Sexually Transmitted Disease: No HIV/AIDS: No Genitourinary: No Gastrointestinal: No Gastroesophageal Reflux, Chronic Diarrhea Musculoskeletal: No Endocrine: No Diabetes, Non-Insulin dep HEENT: No Loss of Vision: Denies Hearing Impairment: Denies Cancer: No Psychosocial: No Anxiety, Depression Integumentary: No Blood Disorders: No Adverse Reaction/Blood Tranf: No (N/A) Physical Exam Vital Signs Capillary Refill : Height/Weight/BMI Height: 5'4.00" Weight: 280lbs. oz. 127.725069vl; 50.00 BMI Method:Stated General Appearance: WD/WN, no apparent distress Neurologic/Psychiatric: alert, normal mood/affect Skin: normal color, warm/dry Progress/Results/Core Measures Results/Orders My Orders Orders - OPAL VIDES DO Ibuprofen Tablet (Motrin Tablet) (08/10/20 23:15) Departure Impression Primary Impression: Dysmenorrhea Disposition: 01 HOME, SELF-CARE Condition: Stable Departure-Patient Inst. Decision time for Depature: 23:10 Referrals: LIZETT HEARD MD (PCP/Family) Primary Care Physician Patient Instructions: Menstrual Cramps (DC) Add. Discharge Instructions: Follow up with Dr Heard in 2 weeks to discuss your painful menstrual cramps OPAL VIDES DO Aug 10, 2020 23:10
[2020-08-10] MEDS ORDERED: IBUPROFEN 800 MG (MOTRIN) TAB PO ONE ×2 (23:15)
== END 2020-08-10 23:27 | disposition home or self-care (01) ==
LOC: EDUNIT# 22:58 → ER FS 22:59
DX: N94.6 Dysmenorrhea, unspecified (principal); J45.909 Unspecified asthma, uncomplicated; E11.9 Type 2 diabetes mellitus without complications; Z77.22 Contact with and (suspected) exposure to environmental tobacco smoke (acute) (chronic)
CPT/HCPCS: 99283

== ENCOUNTER 2020-11-08 00:22 | Emergency (ER) | payer SELFPAY ==
[~2020-11-08] VITALS: Ht 162.5 cm; Wt 129.0 kg
[2020-11-08] MEDS ORDERED: ACHD5005 PO (01:45)
[2020-11-08] MEDS ORDERED: PENI500T PO (01:45)
--- NOTE | 2020-11-08 01:46 | ED EENT ---
History of Present Illness General Chief Complaint: Dental Problems/Pain Stated Complaint: DENTAL PAIN Nursing Triage Note: Pt is awake, alert, oriented. Ambulated from waiting room to ER overflow without difficulty. Reports dental pain to a tooth that is on the bottom row, on the left side, in the back of her mouth. States that she needs to get it pulled, but has been unable to schedule with a dentist. States that she has been taking an OTC pain reliever et oragel at home. Pain is 8/10. Airway intact. Respirations even et unlabored. Skin warm, dry, approriate for ethnicity. No sx of acute distress. Source: patient Exam Limitations: no limitations History of Present Illness Date Seen by Provider: Nov 08, 2020 Time Seen by Provider: 13:00 Initial Comments Patient is a 19-year-old female presents with left posterior molar dental pain. Patient's been evaluated by her dentist and told she requires an oral surgeon. She is awaiting an appointment. She has completed recent antibiotics over a week ago but states pain is poorly controlled. Is currently rated 8 out of 10. No dysphonia, drooling or trismus. No dysphagia. No other symptoms or complaints Timing/Duration: gradual Severity: moderate Location: other Prearrival Treatment: other Modifying Factors: Improves With Other Associated Symptoms: other Allergies and Home Medications Allergies Coded Allergies: sulfamethoxazole (Verified Allergy, Mild, RASH, 12/22/18) trimethoprim (Verified Allergy, Mild, RASH, 12/22/18) Uncoded Allergies: head and shoulders shampoo (Allergy, Unknown, 09/24/18) seafood (Allergy, Unknown, 09/24/18) Patient Home Medication List Home Medication List Reviewed: Yes Amoxicillin (Amoxicillin) 500 Mg Capsule, 500 MG PO TID Prescribed by: NESSA SMITH on 05/24/20 0720 Cephalexin (Keflex) 500 Mg Capsule, 500 MG PO TID Prescribed by: SD BERGMAN on 09/11/19 1000 Cephalexin (Keflex) 500 Mg Capsule, 500 MG PO BID Prescribed by: TREY PAZ on 09/18/19 0503 Clindamycin HCl (Clindamycin HCl) 300 Mg Capsule, 300 MG PO Q6H Prescribed by: OSIRIS JIMENEZ on 03/18/19 0839 Diclofenac Sodium (Diclofenac Sodium) 75 Mg Tablet.dr, 75 MG PO BID Prescribed by: SD CLARKE on 07/13/19 0744 Dicyclomine HCl (Dicyclomine HCl) 20 Mg Tablet, 20 MG PO BID Prescribed by: SD CLARKE on 08/16/19 1629 Metronidazole (Flagyl) 500 Mg Tablet, 500 MG PO BID, (Reported) Entered as Reported by: DENISE AMADO on 04/16/20 0816 Nitrofurantoin Macrocrystal (Nitrofurantoin) 100 Mg Capsule, 100 MG PO BID Prescribed by: MARIA ANTONIA WILLIS on 08/22/19 0235 Nitrofurantoin Monohyd/M-Cryst (Macrobid 100 mg Capsule) 100 Mg Capsule, 1 EACH PO BID Prescribed by: NESSA SMITH on 04/11/20 1507 Ondansetron (Ondansetron Odt) 4 Mg Tab.rapdis, 4 MG PO Q6H Prescribed by: TREY PAZ on 09/18/19 0503 Ondansetron (Ondansetron Odt) 4 Mg Tab.rapdis, 4 MG PO BID Prescribed by: SD CLARKE on 12/05/192008 Ondansetron (Ondansetron Odt) 4 Mg Tab.rapdis, 4 MG PO Q8H Prescribed by: VANESSA ABDULLAHI on 12/25/19 192 Ondansetron (Ondansetron Odt) 4 Mg Tab.rapdis, 4 MG PO Q6H PRN for NAUSEA/ VOMITING Prescribed by: NESSA SMITH on 05/25/20 0201 Review of Systems Review of Systems Constitutional: no symptoms reported Eyes: See HPI Ears: See HPI Nose: see HPI Mouth: see HPI Throat: see HPI Respiratory: see HPI Cardiovascular: see HPI Gastrointestinal: see HPI Musculoskeletal: see HPI Skin: see HPI Neurological: See HPI Hematologic/Lymphatic: See HPI Immunological/Allergic: see HPI Past Bdowhmd-Slmczp-Mesutp Hx Patient Social History Tobacco Use?: Yes Tobacco type used: Cigarettes Smoking Status: Current Everyday Smoker Use of E-Cig and/or Vaping dev: No Substance use?: No Alcohol Use?: No Pt feels they are or have been: No Immunizations Up To Date Influenza Vaccine Up-to-Date: No; Not Current First/Initial COVID19 Vaccinat: May 2020 Second COVID19 Vaccination [place]: June 2020 COVID19 Vaccine Mixing Machine Feeder: Moderna Seasonal Allergies Seasonal Allergies: No Past Medical History Surgeries: Yes (eye surgery as infant) Gallbladder Respiratory: Yes Asthma Cardiac: No Neurological: No Female Reproductive Disorders: Menstrual Problems Sexually Transmitted Disease: No HIV/AIDS: No Genitourinary: No Gastrointestinal: No Gastroesophageal Reflux, Chronic Diarrhea Musculoskeletal: No Endocrine: No Diabetes, Non-Insulin dep HEENT: No Loss of Vision: Denies Hearing Impairment: Denies Cancer: No Psychosocial: No Anxiety, Depression Integumentary: No Blood Disorders: No Adverse Reaction/Blood Tranf: No (N/A) Physical Exam Vital Signs Vital Signs - First Documented 11/08/20 00:30 Temp 36.9 Pulse 85 Resp 24 B/P (MAP) 166/104 (124) Pulse Ox 99 Height, Weight, BMI Height: 5'4.00" Weight: 280lbs. oz. 127.361525ur; 48.00 BMI Method:Stated General Appearance: no apparent distress, other Eyes: bilateral eye normal inspection, bilateral eye PERRL, bilateral eye EOMI Mouth/Throat: pharynx normal, dental tenderness, other (Left posterior molar erosion, gingival swelling, no facial swelling fluctuance erythema. No trismus drooling or dysphonia) Progress/Results/Core Measures Results/Orders My Orders Orders - TREY PAZ DO Amoxicillin/Clavulanate Tablet (Augmenti (11/08/20 08:00) Acetaminophen Tablet (Tylenol Tablet) (11/08/20 01:45) Vital Signs/I&O 11/08/20 00:30 Temp 36.9 Pulse 85 Resp 24 B/P (MAP) 166/104 (124) Pulse Ox 99 Blood Pressure Mean: 124 Departure Communication (Admissions) Chronic dental pain secondary to dental caries and dental erosion. Antibiotics and pain medication given. We will continue treatment for the same with instructions to follow-up with oral surgeon RAOUL. Impression Primary Impression: Dental caries Additional Impression: Chronic pain Disposition: HOME, SELF-CARE Condition: Stable Departure-Patient Inst. Decision time for Depature: 01:43 Referrals: LIZETT HEARD MD (PCP/Family) Primary Care Physician Patient Instructions: Dental Pain Add. Discharge Instructions: Please take newly prescribed medications as directed and follow-up with your oral surgeon as soon as possible. All discharge instructions reviewed with patient and/or family. Voiced understanding. Scripts Hydrocodone/Acetaminophen (Hydrocodone-Acetamin 5-325 mg) 1 Each Tablet 1 TAB PO Q4H PRN for PAIN-MODERATE (5-7), #2 TAB Prov: TREY PAZ DO 11/08/20 Penicillin V Potassium (Penicillin V Potassium) 500 Mg Tablet 500 MG PO QID, #40 TAB Prov: TREY PAZ DO 11/08/20 TREY PAZ DO Nov 08, 2020 01:46
[2020-11-08] MEDS: AUGMENTIN 875 MG TAB (AMOXICILLIN/CLAVULANATE) PO SCH (01:49)
[2020-11-08] MEDS: AUGMENTIN 875 MG TAB (AMOXICILLIN/CLAVULANATE) ONE (01:50)
[2020-11-08] MEDS: ACETAMINOPHEN 500 MG TAB (TYLENOL) PO ONE (01:50)
[2020-11-08 01:54] VITALS: BP 166/104
== END 2020-11-08 01:54 | disposition home or self-care (01) ==
LOC: ER FS 00:22 → EDUNIT# 00:22 → ER FS 01:54
DX: K02.9 Dental caries, unspecified (principal); G89.29 Other chronic pain; J45.909 Unspecified asthma, uncomplicated; E11.9 Type 2 diabetes mellitus without complications; F17.210 Nicotine dependence, cigarettes, uncomplicated
CPT/HCPCS: 99283

== ENCOUNTER 2020-11-11 22:50 | Emergency (ER) | payer SELFPAY ==
[~2020-11-11] VITALS: Ht 162.5 cm; Wt 126.4 kg
[~2020-11-11 22:50] MED LIST changes: +ACHD5005 PO; +PENI500T PO
[2020-11-11 22:57] VITALS: BP 141/75
--- NOTE | 2020-11-11 23:18 | ED GU-Female ---
General Chief Complaint: - Reproductive Stated Complaint: LOW ABDOMINAL PAIN Nursing Triage Note: Patient states that she began having lower abdominal pain. She states she took a test and it was negative. She is concerned she has a UTI. Source: patient Exam Limitations: no limitations History of Present Illness Date Seen by Provider: Nov 11, 2020 Time Seen by Provider: 23:00 Initial Comments Patient is a 19-year-old female who presents with urinary frequency urgency burning and pelvic cramping. Symptoms began several hours ago and are rated as mild. No fever chills, nausea vomiting or sweats. No flank pain. No hematuria, vaginal bleeding. Patient is 2 days late on her menstrual period had negative home test earlier this evening. Timing/Duration: just prior to arrival Severity/Quality: mild Location: suprapubic, other Radiation: other Activities at Onset: other Sexual [place] History: multiple partners Modifying Factors: Improves With Other Associated Symptoms: other Allergies and Home Medications Allergies Coded Allergies: sulfamethoxazole (Verified Allergy, Mild, RASH, 12/22/18) trimethoprim (Verified Allergy, Mild, RASH, 12/22/18) Uncoded Allergies: head and shoulders shampoo (Allergy, Unknown, 09/24/18) seafood (Allergy, Unknown, 09/24/18) Patient Home Medication List Home Medication List Reviewed: Yes Amoxicillin (Amoxicillin) 500 Mg Capsule, 500 MG PO TID Prescribed by: NESSA SMITH on 05/24/20 0720 Cephalexin (Keflex) 500 Mg Capsule, 500 MG PO TID Prescribed by: SD BERGMAN on 09/11/19 1000 Cephalexin (Keflex) 500 Mg Capsule, 500 MG PO BID Prescribed by: TREY PAZ on 09/18/19 0503 Clindamycin HCl (Clindamycin HCl) 300 Mg Capsule, 300 MG PO Q6H Prescribed by: OSIRIS JIMENEZ on 03/18/19 0839 Diclofenac Sodium (Diclofenac Sodium) 75 Mg Tablet.dr, 75 MG PO BID Prescribed by: SD CLARKE on 07/13/19 0744 Dicyclomine HCl (Dicyclomine HCl) 20 Mg Tablet, 20 MG PO BID Prescribed by: SD CLARKE on 08/16/19 1629 Hydrocodone/Acetaminophen (Hydrocodone-Acetamin 5-325 mg) 1 Each Tablet, 1 TAB PO Q4H PRN for PAIN-MODERATE (5-7) Prescribed by: TREY PAZ on 11/08/20 0146 Metronidazole (Flagyl) 500 Mg Tablet, 500 MG PO BID, (Reported) Entered as Reported by: DENISE AMADO on 04/16/20 0816 Nitrofurantoin Macrocrystal (Nitrofurantoin) 100 Mg Capsule, 100 MG PO BID Prescribed by: MARIA ANOTNIA WILLIS on 08/22/19 0235 Nitrofurantoin Monohyd/M-Cryst (Macrobid 100 mg Capsule) 100 Mg Capsule, 1 EACH PO BID Prescribed by: NESSA SMITH on 04/11/20 1507 Nitrofurantoin Monohyd/M-Cryst (Macrobid 100 mg Capsule) 100 Mg Capsule, 1 TAB PO BID Prescribed by: TREY PAZ on 11/11/20 2342 Last Action: New Order Ondansetron (Ondansetron Odt) 4 Mg Tab.rapdis, 4 MG PO Q6H Prescribed by: TREY PAZ on 09/18/19 0503 Ondansetron (Ondansetron Odt) 4 Mg Tab.rapdis, 4 MG PO BID Prescribed by: SD CLARKE on 12/05/192008 Ondansetron (Ondansetron Odt) 4 Mg Tab.rapdis, 4 MG PO Q8H Prescribed by: VANESSA ABDULLAHI on 12/25/19 192 Ondansetron (Ondansetron Odt) 4 Mg Tab.rapdis, 4 MG PO Q6H PRN for NAUSEA/VOMITING Prescribed by: NESSA SMITH on 05/25/20 0201 Penicillin V Potassium (Penicillin V Potassium) 500 Mg Tablet, 500 MG PO QID Prescribed by: TREY PAZ on 11/08/20 0145 Review of Systems Review of Systems Constitutional: see HPI EENTM: see HPI Respiratory: see HPI Gastrointestinal: see HPI Genitourinary: see HPI Musculoskeletal: see HPI Skin: see HPI Psychiatric/Neurological: See HPI, Anxiety Endocrine: See HPI Hematologic/Lymphatic: See HPI Past Vjzuewo-Wsnvuh-Fuysax Hx Patient Social History Tobacco Use?: Yes Tobacco type used: Cigarettes Smoking Status: Current Everyday Smoker Substance use?: No Pt feels they are or have been: No Immunizations Up To Date First/Initial COVID19 Vaccinat: May 2020 Second COVID19 Vaccination [place]: June 2020 Seasonal Allergies Seasonal Allergies: No Past Medical History Surgeries: Yes (eye surgery as infant) Gallbladder Respiratory: Yes Asthma Cardiac: No Neurological: No Female Reproductive Disorders: Menstrual Problems Sexually Transmitted Disease: No HIV/AIDS: No Genitourinary: No Gastrointestinal: No Gastroesophageal Reflux, Chronic Diarrhea Musculoskeletal: No Endocrine: No Diabetes, Non-Insulin dep HEENT: No Loss of Vision: Denies Hearing Impairment: Denies Cancer: No Psychosocial: No Anxiety, Depression Integumentary: No Blood Disorders: No Adverse Reaction/Blood Tranf: No (N/A) Physical Exam Vital Signs Vital Signs - First Documented 11/11/20 22:57 Temp 37.0 Pulse 110 Resp 18 B/P (MAP) 141/75 (97) Pulse Ox 97 O2 Delivery Room Air Capillary Refill : Less Than 3 Seconds Height, Weight, BMI Height: 5'4.00" Weight: 280lbs. oz. 127.331573aw; 47.00 BMI Method:Stated General Appearance: WD/WN, no apparent distress HEENT: PERRL/EOMI, pharynx normal Cardiovascular: regular rate, rhythm Gastrointestinal: soft Neurologic/Psychiatric: no motor/sensory deficits, oriented x 3 Skin: normal color, warm/dry Focused Exam Sepsis Stage: Ruled Out Progress/Results/Core Measures Suspected Sepsis SIRS Temperature: Pulse: 110 Respiratory Rate: 18 Blood Pressure 141 /75 Mean: 97 Results/Orders Lab Results Laboratory Tests Test 11/11/20 22:59 Range/Units Urine Color YELLOW Urine Clarity CLEAR Urine pH 6.0 5-9 Urine Specific [facility] 1.025 H 1.016-1.022 Urine Protein TRACE H NEGATIVE Urine Glucose (UA) NEGATIVE NEGATIVE Urine Ketones NEGATIVE NEGATIVE Urine Nitrite NEGATIVE NEGATIVE Urine Bilirubin NEGATIVE NEGATIVE Urine Urobilinogen 0.2 < = 1.0 MG/DL Urine Leukocyte Esterase 1+ H NEGATIVE Urine RBC (Auto) NEGATIVE NEGATIVE Urine RBC 5-10 H /HPF Urine WBC 5-10 H /HPF Urine Squamous Epithelial Cells 5-10 /HPF Urine Crystals NONE /LPF Urine Bacteria LARGE H /HPF Urine Casts NONE /LPF Urine Mucus NEGATIVE /LPF Urine Yeast FEW H /HPF Urine Culture Indicated YES My Orders Orders - TREY PAZ DO Ua Culture If Indicated (11/11/20 23:05) Urine Culture (11/11/20 22:59) Vital Signs/I&O 11/11/20 22:57 Temp 37.0 Pulse 110 Resp 18 B/P (MAP) 141/75 (97) Pulse Ox 97 O2 Delivery Room Air Capillary Refill : Less Than 3 Seconds Blood Pressure Mean: 97 Departure Communication (Admissions) Mild dysuria. Impression Primary Impression: Urinary tract infection Disposition: HOME, SELF-CARE Condition: Stable Departure-Patient Inst. Referrals: LIZETT HEARD MD (PCP/Family) Primary Care Physician Scripts Nitrofurantoin Monohyd/M-Cryst (Macrobid 100 mg Capsule) 100 Mg Capsule 1 TAB PO BID, #20 CAP Prov: TREY PAZ DO 11/11/20 TREY PAZ DO Nov 11, 2020 23:18
[2020-11-11 23:39] LABS: BILIRUBIN,URINE NEGATIVE (NEGATIVE); CLARITY,URINE CLEAR; COLOR,URINE YELLOW; GLUCOSE, URINE (UA) NEGATIVE (NEGATIVE); KETONES,URINE NEGATIVE (NEGATIVE); NITRITE,URINE NEGATIVE (NEGATIVE); PROTEIN,URINE TRACE (NEGATIVE)
[2020-11-11 23:40] LABS: BACTERIA,URINE LARGE /HPF; LEUKOCYTE ESTERASE ,URINE 1+ (NEGATIVE); YEAST,URINE FEW /HPF
[2020-11-11] MEDS ORDERED: NITR-65 PO (23:42)
== END 2020-11-11 23:49 | disposition home or self-care (01) ==
LOC: EDUNIT# 22:50 → ER FS 22:53
DX: N39.0 Urinary tract infection, site not specified (principal); J45.909 Unspecified asthma, uncomplicated; F17.210 Nicotine dependence, cigarettes, uncomplicated; Z88.2 Allergy status to sulfonamides; Z88.1 Allergy status to other antibiotic agents
CPT/HCPCS: 81000; 87088; 99282

== ENCOUNTER 2020-12-21 22:21 | Emergency (ER) | payer SELFPAY ==
[~2020-12-21 22:21] MED LIST changes: +CLIN-144 PO; -CLIN300C12 PO
[2020-12-21 22:35] VITALS: BP 137/84
--- NOTE | 2020-12-21 22:37 | ED Upper Extremity ---
General Chief Complaint: Upper Extremity Stated Complaint: FALL,RT WRIST/HAND PAIN History of Present Illness Date Seen by Provider: Dec 21, 2020 Time Seen by Provider: 22:28 Initial Comments 20-year-old female presents with right hand and right wrist pain. Patient reports that around 8:00 yesterday evening she fell landing on her hand and wrist. She reports that she bent her hand away back. She has some mild swelling to the area. She has full but painful range of motion. Patient bought a wrist brace and has been wearing it. She presents today to have it further evaluated. She has a small abrasion and bruising to the area. No other reported injuries Allergies and Home Medications Allergies Coded Allergies: sulfamethoxazole (Verified Allergy, Mild, RASH, 12/22/18) trimethoprim (Verified Allergy, Mild, RASH, 12/22/18) Uncoded Allergies: head and shoulders shampoo (Allergy, Unknown, 09/24/18) seafood (Allergy, Unknown, 09/24/18) Patient Home Medication List Home Medication List Reviewed: Yes Amoxicillin (Amoxicillin) 500 Mg Capsule, 500 MG PO TID Prescribed by: NESSA SMITH on 05/24/20 0720 Cephalexin (Keflex) 500 Mg Capsule, 500 MG PO TID Prescribed by: SD BERGMAN on 09/11/19 1000 Cephalexin (Keflex) 500 Mg Capsule, 500 MG PO BID Prescribed by: TREY PAZ on 09/18/19 0503 Clindamycin HCl (Clindamycin HCl) 300 Mg Capsule, 300 MG PO Q6H Prescribed by: OSIRIS JIMENEZ on 03/18/19 0839 Diclofenac Sodium (Diclofenac Sodium) 75 Mg Tablet.dr, 75 MG PO BID Prescribed by: SD CLARKE on 07/13/19 0744 Dicyclomine HCl (Dicyclomine HCl) 20 Mg Tablet, 20 MG PO BID Prescribed by: SD CLARKE on 08/16/19 1629 Hydrocodone/Acetaminophen (Hydrocodone-Acetamin 5-325 mg) 1 Each Tablet, 1 TAB PO Q4H PRN for PAIN-MODERATE (5-7) Prescribed by: TREY PAZ on 11/08/20 0146 Metronidazole (Flagyl) 500 Mg Tablet, 500 MG PO BID, (Reported) Entered as Reported by: DENISE AMADO on 04/16/20 0816 Metronidazole (Flagyl) 500 Mg Tablet, 500 MG PO BID, (Reported) Entered as Reported by: DENISE AMADO on 11/15/20 1828 Nitrofurantoin Macrocrystal (Nitrofurantoin) 100 Mg Capsule, 100 MG PO BID Prescribed by: MARIA ANTONIA WILLIS on 08/22/19 0235 Nitrofurantoin Monohyd/M-Cryst (Macrobid 100 mg Capsule) 100 Mg Capsule, 1 EACH PO BID Prescribed by: NESSA SMITH on 04/11/20 1507 Nitrofurantoin Monohyd/M-Cryst (Macrobid 100 mg Capsule) 100 Mg Capsule, 1 TAB PO BID Prescribed by: TREY PAZ on 11/11/20 2342 Ondansetron (Ondansetron Odt) 4 Mg Tab.rapdis, 4 MG PO Q6H Prescribed by: TERY PAZ on 09/18/19 050 Ondansetron (Ondansetron Odt) 4 Mg Tab.rapdis, 4 MG PO BID Prescribed by: SD CLARKE on 12/05/192008 Ondansetron (Ondansetron Odt) 4 Mg Tab.rapdis, 4 MG PO Q8H Prescribed by: VANESSA ABDULLAHI on 12/25/19 192 Ondansetron (Ondansetron Odt) 4 Mg Tab.rapdis, 4 MG PO Q6H PRN for NAUSEA/VOMITING Prescribed by: NESSA SMITH on 05/25/20 0201 Penicillin V Potassium (Penicillin V Potassium) 500 Mg Tablet, 500 MG PO QID Prescribed by: RTEY PAZ on 11/08/20 0145 Review of Systems Constitutional: no symptoms reported EENTM: no symptoms reported Respiratory: see HPI Cardiovascular: no symptoms reported Gastrointestinal: no symptoms reported Musculoskeletal: see HPI Skin: see HPI Past Ymrgmmv-Yoipax-Pwavzv Hx Patient Social History Tobacco Use?: Yes Tobacco type used: Cigarettes Smoking Status: Current Everyday Smoker Use of E-Cig and/or Vaping dev: No Substance use?: No Alcohol Use?: No Pt feels they are or have been: No Immunizations Up To Date First/Initial COVID19 Vaccinat: May 2020 Second COVID19 Vaccination [place]: June 2020 Seasonal Allergies Seasonal Allergies: No Past Medical History Surgeries: Yes (eye surgery as ) Gallbladder Respiratory: Yes Asthma Cardiac: No Neurological: No Female Reproductive Disorders: Menstrual Problems Sexually Transmitted Disease: No HIV/AIDS: No Genitourinary: No Gastrointestinal: No Gastroesophageal Reflux, Chronic Diarrhea Musculoskeletal: No Endocrine: No Diabetes, Non-Insulin dep HEENT: No Loss of Vision: Denies Hearing Impairment: Denies Cancer: No Psychosocial: No Anxiety, Depression Integumentary: No Blood Disorders: No Adverse Reaction/Blood Tranf: No (N/A) Physical Exam Vital Signs Vital Signs - First Documented 12/21/20 22:24 Temp 36.6 Pulse 85 Resp 18 B/P (MAP) 137/84 (101) Pulse Ox 100 O2 Delivery Room Air Capillary Refill : Height, Weight, BMI Height: 5'4.00" Weight: 280lbs. oz. 127.001344hw; 47.00 BMI Method:Stated General Appearance: no apparent distress Cardiovascular: normal peripheral pulses, regular rate, rhythm Respiratory: lungs clear, normal breath sounds Elbow/Forearm: normal inspection Wrist: Yes soft tissue tenderness, Yes swelling (Right wrist and right thenar region) Hand: Right, swelling (Right) Neurologic/Tendon: normal sensation Neurologic/Psychiatric: alert, normal mood/affect, oriented x 3 Progress/Results/Core Measures Results/Orders My Orders Orders - NESSA SMITH DO Wrist 3 View Right (12/21/20 22:25) Vital Signs/I&O 12/21/20 12/21/20 22:24 22:35 Temp 36.6 36.6 Pulse 85 85 Resp 18 18 B/P (MAP) 137/84 (101) 137/84 Pulse Ox 100 100 O2 Delivery Room Air Room Air Progress Progress Note : Progress Note No acute fracture noted on x-ray. I did recommend she wear her brace for couple days, use topical lidocaine, Tylenol ibuprofen as needed for pain reported that if radiology notices any abnormality we would call her. Patient stable and discharged home Diagnostic Imaging Diagonstic Imaging: Xray Comments No acute fracture noted Reviewed: Reviewed by Me Departure Impression Primary Impression: Contusion of hand, right Qualified Codes: S60.221A - Contusion of right hand, initial encounter Additional Impression: Sprain of wrist, right Qualified Codes: S63.501A - Unspecified sprain of right wrist, initial encounter Disposition: HOME, SELF-CARE Condition: Stable Departure-Patient Inst. Referrals: LIZETT HEARD MD (PCP/Family) Primary Care Physician Patient Instructions: Wrist Sprain ED, Common Wrist Injuries ED, Contusion (DC) Add. Discharge Instructions: 4% topical lidocaine with menthol to affected area as directed on package Tylenol or ibuprofen as needed for pain You should wear your wrist brace for the next 3 to 4 days then as needed Follow-up with your primary care provider for recheck of symptoms if not improving over the next 7 to 10 days or if they significantly worsen All discharge instructions reviewed with patient and/or family. Voiced understanding. NESSA SMITH DO Dec 21, 2020 22:37
--- NOTE | 2020-12-21 22:41 | Diagnostic Imaging Report ---
INDICATION: Fall with right wrist pain. EXAMINATION: AP, oblique and lateral views of the right wrist were obtained. FINDINGS: No fracture or acute bony abnormality is seen. Joint spaces are unremarkable. IMPRESSION: Negative right wrist. Dictated by: Dictated on workstation # [id number]
== END 2020-12-21 22:40 | disposition home or self-care (01) ==
LOC: EDUNIT# 22:21 → ER FS 22:22
DX: S63.501A Unspecified sprain of right wrist, initial encounter (principal); S60.221A Contusion of right hand, initial encounter; J45.909 Unspecified asthma, uncomplicated; E11.9 Type 2 diabetes mellitus without complications; F17.210 Nicotine dependence, cigarettes, uncomplicated; W18.30XA Fall on same level, unspecified, initial encounter
CPT/HCPCS: 73110

== ENCOUNTER 2021-01-30 15:13 | Emergency (ER) | payer SELFPAY ==
[~2021-01-30] VITALS: Ht 162.5 cm; Wt 125.8 kg
[~2021-01-30 15:13] MED LIST changes: +DICY20TA PO; -DICY20TA10 PO
[2021-01-30 15:21] VITALS: BP 142/80
[2021-01-30] MEDS ORDERED: AMOX1TAB12 PO (16:12)
[2021-01-30] MEDS ORDERED: ACHD5005 PO (16:12)
[2021-01-30] MEDS ORDERED: IBUP-1780 PO (16:12)
[2021-01-30] MEDS ORDERED: cefTRIAXone 1,000 MG VIAL IM STA (16:13)
[2021-01-30] MEDS ORDERED: KETOROLAC 60 MG/2 ML VIAL IM STA (16:13)
--- NOTE | 2021-01-30 16:13 | ED EENT ---
History of Present Illness General Chief Complaint: Dental Problems/Pain Stated Complaint: TOOTH ABSCESS Nursing Triage Note: Patient presents to the ED with c/o left sided dental abcess. She reports the pain and swelling began 4 days ago and states she needs an antibiotic. Source: patient History of Present Illness Date Seen by Provider: Jan 30, 2021 Time Seen by Provider: 15:38 Initial Comments 20-year-old female presenting with complaints of pain and swelling to her left cheek. She has a bad tooth on the left upper part of her mouth. She started having increased pain and swelling to her gums around the tooth about 4 days ago. She had tried to get in with a dentist ever since the first day it started to bother her but they had no openings. Now that she has the increased swelling going up into her cheek the dentist advised her she needed to be seen and the emergency department her clinic so that she could be placed on antibiotics prior to them seeing her or treating her tooth. She reports having some chills but denies fever. She has increased pain to her cheek with some swelling on the left side. There is swelling to her gums around her upper teeth. She denies having any drainage from the gums or tooth. There is a chip off of the tooth that is bothering her. Timing/Duration: abrupt (4 days ago) Severity: severe Location: mouth (left upper side of mouth) Prearrival Treatment: over the counter meds Modifying Factors: Worse With Lying Down Associated Symptoms: No change in hearing, No cough, No drooling, No ear drainage; facial pain/swelling; No fever; malaise; No nasal congestion/drainage, No poor fluid intake, No poor solids intake; sinus infection (feels like she has infection in left sinus); No sore throat; tooth pain; No voice change; other (pain radiating to left ear) Allergies and Home Medications Allergies Coded Allergies: sulfamethoxazole (Verified Allergy, Mild, RASH, 12/22/18) trimethoprim (Verified Allergy, Mild, RASH, 12/22/18) Uncoded Allergies: head and shoulders shampoo (Allergy, Unknown, 09/24/18) seafood (Allergy, Unknown, 09/24/18) Patient Home Medication List Home Medication List Reviewed: Yes Amoxicillin (Amoxicillin) 500 Mg Capsule, 500 MG PO TID Prescribed by: NESSA SMITH on 05/24/20 0720 Amoxicillin/Potassium Clav (Amox Tr-K Clv 875-125 mg Tab) 1 Each Tablet, 1 EACH PO BID Prescribed by: SUKHI DEY on 01/30/21 1612 Cephalexin (Keflex) 500 Mg Capsule, 500 MG PO TID Prescribed by: SD EBRGMAN on 09/11/19 1000 Cephalexin (Keflex) 500 Mg Capsule, 500 MG PO BID Prescribed by: TREY PAZ on 09/18/19 0503 Clindamycin HCl (Clindamycin HCl) 300 Mg Capsule, 300 MG PO Q6H Prescribed by: OSIRIS JIMENEZ on 03/18/19 0839 Diclofenac Sodium (Diclofenac Sodium) 75 Mg Tablet.dr, 75 MG PO BID Prescribed by: SD CLARKE on 07/13/19 0744 Dicyclomine HCl (Dicyclomine HCl) 20 Mg Tablet, 20 MG PO BID Prescribed by: SD CLARKE on 08/16/19 1629 Hydrocodone/Acetaminophen (Hydrocodone-Acetamin 5-325 mg) 1 Each Tablet, 1 TAB PO Q4H PRN for PAIN-MODERATE (5-7) Prescribed by: TREY PAZ on 11/08/20 0146 Hydrocodone/Acetaminophen (Hydrocodone-Acetamin 5-325 mg) 1 Each Tablet, 1 TAB PO Q4H PRN for PAIN-SEVERE (8-10) Prescribed by: SUKHI DEY on 01/30/21 1613 Ibuprofen (Ibuprofen) 800 Mg Tablet, 800 MG PO Q8H PRN for PAIN Prescribed by: SUKHI DEY on 01/30/21 1612 Metronidazole (Flagyl) 500 Mg Tablet, 500 MG PO BID, (Reported) Entered as Reported by: DENISE AMADO on 04/16/20 0816 Metronidazole (Flagyl) 500 Mg Tablet, 500 MG PO BID, (Reported) Entered as Reported by: DENISE AMADO on 11/15/20 1828 Nitrofurantoin Macrocrystal (Nitrofurantoin) 100 Mg Capsule, 100 MG PO BID Prescribed by: MARIA ANTONIA WILLIS on 08/22/19 0235 Nitrofurantoin Monohyd/M-Cryst (Macrobid 100 mg Capsule) 100 Mg Capsule, 1 EACH PO BID Prescribed by: NESSA SMITH on 04/11/20 1507 Nitrofurantoin Monohyd/M-Cryst (Macrobid 100 mg Capsule) 100 Mg Capsule, 1 TAB PO BID Prescribed by: TREY PAZ on 11/11/20 2342 Ondansetron (Ondansetron Odt) 4 Mg Tab.rapdis, 4 MG PO Q6H Prescribed by: TREY PAZ on 09/18/19 0503 Ondansetron (Ondansetron Odt) 4 Mg Tab.rapdis, 4 MG PO BID Prescribed by: SD CLARKE on 12/05/192008 Ondansetron (Ondansetron Odt) 4 Mg Tab.rapdis, 4 MG PO Q8H Prescribed by: VANESSA ABDULLAHI on 12/25/19 192 Ondansetron (Ondansetron Odt) 4 Mg Tab.rapdis, 4 MG PO Q6H PRN for NAUSEA/VOMITING Prescribed by: NESSA SMITH on 05/25/20 0201 Penicillin V Potassium (Penicillin V Potassium) 500 Mg Tablet, 500 MG PO QID Prescribed by: TREY PAZ on 11/08/20 0145 Review of Systems Review of Systems Constitutional: chills; No fever Eyes: Denies Blurred Vision, Denies Drainage, Denies Photophobia, Denies Vision Changes Ears: Pain (left side); Denies Tinnitus, Denies Bloody Discharge, Denies Clear Discharge, Denies Purulent Discharge, Denies Serosanguinous Discharge Nose: denies clots, denies congestion, denies epistaxis, denies bloody discharge, denies clear discharge; other (tender left maxillary sinus with swelling to left cheek) Mouth: see HPI, swelling (left upper gums); denies bloody discharge, denies clear discharge, denies purulent discharge, denies serosanguinous discharge Throat: no symptoms reported Respiratory: no symptoms reported Cardiovascular: no symptoms reported Gastrointestinal: no symptoms reported Musculoskeletal: no symptoms reported Skin: no symptoms reported Neurological: Headache (left frontal headache and sinus headache from left upper tooth pain and gum swelling) Past Zhzugoq-Pipinp-Fdofkf Hx Patient Social History Tobacco Use?: Yes Tobacco type used: Cigarettes Smoking Status: Current Everyday Smoker Use of E-Cig and/or Vaping dev: No Substance use?: No Alcohol Use?: Yes Alcohol Frequency: Once in a while Immunizations Up To Date First/Initial COVID19 Vaccinat: May 2020 Second COVID19 Vaccination [place]: June 2020 COVID19 Vaccine [employer]: [employer] Seasonal Allergies Seasonal Allergies: No Past Medical History Surgery/Hospitalization HX: [place]; colonoscopy Surgeries: Yes (eye surgery as ) Gallbladder Respiratory: Yes Asthma Cardiac: No Neurological: No Female Reproductive Disorders: Menstrual Problems Sexually Transmitted Disease: No HIV/AIDS: No Genitourinary: No Gastrointestinal: No Gastroesophageal Reflux, Chronic Diarrhea Musculoskeletal: No Endocrine: No Diabetes, Non-Insulin dep HEENT: No Loss of Vision: Denies Hearing Impairment: Denies Cancer: No Psychosocial: No Anxiety, Depression Integumentary: No Blood Disorders: No Adverse Reaction/Blood Tranf: No (N/A) Physical Exam Vital Signs Vital Signs - First Documented 01/30/21 15:21 Temp 36.6 Pulse 86 Resp 16 B/P (MAP) 142/80 (100) Pulse Ox 97 O2 Delivery Room Air Height, Weight, BMI Height: 5'4.00" Weight: 280lbs. oz. 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, alert, oriented x 3 Skin: normal color, warm/dry Progress/Results/Core Measures Results/Orders My Orders Orders - SUKHI DEY MD Ceftriaxone (Rocephin) (01/30/21 16:13) Lidocaine 1% Inj 20 Ml (Xylocaine 1% Inj (01/30/21 16:15) Ketorolac Injection (Toradol Injection) (01/30/21 16:13) Medications Given in ED Current Medications Medications Dose Ordered Sig/Artem Route Start Time Stop Time Status Last Admin Dose Admin Lidocaine HCl 2.1 ml ONCE ONCE INJ 01/30/21 16:15 01/30/21 16:16 DC 01/30/21 16:36 2.1 ML Vital Signs/I&O 01/30/21 15:21 Temp 36.6 Pulse 86 Resp 16 B/P (MAP) 142/80 (100) Pulse Ox 97 O2 Delivery Room Air Blood Pressure Mean: 100 Progress Progress Note : Progress Note With her having a dental abscess and possible extension into the left maxillary sinus will start with a Rocephin shot here in the ED in addition to a dose of Toradol for pain. Continue with Augmentin to treat for dental abscess and infection. Use ibuprofen for pain and inflammation. For severe pain use hydrocodone with acetaminophen. May use ice for pain and swelling. Continue to work with the dentist to get follow-up for definitive care of the tooth Departure Impression Primary Impression: Dental abscess Additional Impressions: Acute maxillary sinusitis Qualified Codes: J01.00 - Acute maxillary sinusitis, unspecified Pain due to dental caries Disposition: HOME, SELF-CARE Condition: Stable Departure-Patient Inst. Decision time for Depature: 16:09 Referrals: LIZETT HEARD MD (PCP/Family) Primary Care Physician Patient Instructions: Tooth Decay ED, Tooth Abscess ED, Sinusitis, Adult ED Add. Discharge Instructions: Take the full course of antibiotics to treat for infection in tooth and sinus. Follow up with dentist as soon as possible for definitive care of your tooth. Stay well hydrated and get plenty of rest. Use the Ibuprofen for pain and inflammation. Ice 20-30 minutes every few hours as needed for pain and swelling to face. Hydrocodone/Acetaminophen for severe pain. All discharge instructions reviewed with patient and/or family. Voiced understanding. Scripts Hydrocodone/Acetaminophen (Hydrocodone-Acetamin 5-325 mg) 1 Each Tablet 1 TAB PO Q4H PRN for PAIN-SEVERE (8-10) for 3 Days, #18 TAB 0 Refills Prov: SUKHI DEY MD 01/30/21 Ibuprofen (Ibuprofen) 800 Mg Tablet 800 MG PO Q8H PRN for PAIN for 10 Days, #30 TAB 0 Refills Prov: SUKHI DEY MD 01/30/21 Amoxicillin/Potassium Clav (Amox Tr-K Clv 875-125 mg Tab) 1 Each Tablet 1 EACH PO BID for dental abscess/sinusitis for 10 Days, #20 TAB 0 Refills Prov: SUKHI DEY MD 01/30/21 Images Mouth/Nose 1 - Caries, Swelling, Tenderness (Small chip off of the tooth. Swelling to the gums above the tooth. Tender to palpation of the tooth) SUKHI DEY MD Jan 30, 2021 16:13
[2021-01-30] MEDS ORDERED: LIDOCAINE 1% INJ 20 ML 20 ML VIAL INJ ONE (16:15)
== END 2021-01-30 16:38 | disposition home or self-care (01) ==
LOC: EDUNIT# 15:13 → ER FS 15:14
DX: K04.7 Periapical abscess without sinus (principal); K02.9 Dental caries, unspecified; J01.00 Acute maxillary sinusitis, unspecified; E11.9 Type 2 diabetes mellitus without complications; J45.909 Unspecified asthma, uncomplicated; F17.210 Nicotine dependence, cigarettes, uncomplicated; Z88.1 Allergy status to other antibiotic agents; Z88.2 Allergy status to sulfonamides
CPT/HCPCS: 99284

== ENCOUNTER 2021-02-03 09:08 | Emergency (ER) | payer SELFPAY ==
[~2021-02-03] VITALS: Ht 162 cm; Wt 113.0 kg
[~2021-02-03 09:08] MED LIST changes: +AMOX1TAB12 PO
[2021-02-03 09:34] LABS: CLARITY,URINE CLEAR; COLOR,URINE DARK YELLOW
[2021-02-03 09:35] LABS: BACTERIA,URINE MODERATE /HPF; BILIRUBIN,URINE NEGATIVE (NEGATIVE); GLUCOSE, URINE (UA) NEGATIVE (NEGATIVE); KETONES,URINE NEGATIVE (NEGATIVE); LEUKOCYTE ESTERASE ,URINE TRACE (NEGATIVE); NITRITE,URINE NEGATIVE (NEGATIVE); PH,URINE 5.5 (5-9); PROTEIN,URINE TRACE (NEGATIVE); SQUAMOUS EPITHELIAL CELL,UR 25-50 /HPF
--- NOTE | 2021-02-03 09:55 | ED GU-Female ---
General Chief Complaint: - Reproductive Stated Complaint: SUPRAPUBIC CRAMPS; VAGINAL BLEEDING Nursing Triage Note: VAGINAL BLEEDING SINCE GETTING THE DEPO SHOT ON THE . Source: patient History of Present Illness Date Seen by Provider: Feb 03, 2021 Time Seen by Provider: 09:17 Initial Comments 20-year-old female presenting with complaints of having spotting for the last week or 2 and then having heavy bleeding with cramping that started overnight. She last had Depo-Provera shot on December 30. Her last menstrual period was in November. She was concerned about the bleeding and cramping. Since she was having the heavy bleeding overnight she was concerned maybe she had an ovarian cyst or something wrong with her uterus. She denies any vaginal discharge other than the spotting and now bleeding. She has had no pain with urination. She recently was seen and started on antibiotics for dental infection. She has been taking Tylenol and ibuprofen for her pelvic cramping and pain. She did feel lightheaded when she had the severe pain overnight with heavy bleeding but is not feeling dizzy or lightheaded currently. Severity/Quality: moderate Location: suprapubic Radiation: suprapubic Associated Symptoms: No abdominal pain, No diaphoresis, No dysuria, No fever/chills, No loss of bladder control, No lower back pain, No lumps, No mass, No nausea/vomiting, No nocturia, No polyuria, No swelling, No syncope, No urinary frequency Allergies and Home Medications Allergies Coded Allergies: sulfamethoxazole (Verified Allergy, Mild, RASH, 12/22/18) trimethoprim (Verified Allergy, Mild, RASH, 12/22/18) Uncoded Allergies: head and shoulders shampoo (Allergy, Unknown, 09/24/18) seafood (Allergy, Unknown, 09/24/18) Patient Home Medication List Home Medication List Reviewed: Yes Amoxicillin (Amoxicillin) 500 Mg Capsule, 500 MG PO TID Prescribed by: NESSA SMITH on 05/24/20 0720 Amoxicillin/Potassium Clav (Amox Tr-K Clv 875-125 mg Tab) 1 Each Tablet, 1 EACH PO BID Prescribed by: SUKHI DYE on 01/30/21 1612 Cephalexin (Keflex) 500 Mg Capsule, 500 MG PO TID Prescribed by: SD BERGMAN on 09/11/19 1000 Cephalexin (Keflex) 500 Mg Capsule, 500 MG PO BID Prescribed by: TREY PAZ on 09/18/19 0503 Clindamycin HCl (Clindamycin HCl) 300 Mg Capsule, 300 MG PO Q6H Prescribed by: OSIRIS JIMENEZ on 03/18/19 0839 Diclofenac Sodium (Diclofenac Sodium) 75 Mg Tablet.dr, 75 MG PO BID Prescribed by: SD CLARKE on 07/13/19 0744 Dicyclomine HCl (Dicyclomine HCl) 20 Mg Tablet, 20 MG PO BID Prescribed by: SD CLARKE on 08/16/19 1629 Hydrocodone/Acetaminophen (Hydrocodone-Acetamin 5-325 mg) 1 Each Tablet, 1 TAB PO Q4H PRN for PAIN-MODERATE (5-7) Prescribed by: TREY PAZ on 11/08/20 0146 Hydrocodone/Acetaminophen (Hydrocodone-Acetamin 5-325 mg) 1 Each Tablet, 1 TAB PO Q4H PRN for PAIN-SEVERE (8-10) Prescribed by: SUKHI DEY on 01/30/21 1613 Ibuprofen (Ibuprofen) 800 Mg Tablet, 800 MG PO Q8H PRN for PAIN Prescribed by: SUKHI DEY on 01/30/21 1612 Metronidazole (Flagyl) 500 Mg Tablet, 500 MG PO BID, (Reported) Entered as Reported by: DENISE AMADO on 04/16/20 0816 Metronidazole (Flagyl) 500 Mg Tablet, 500 MG PO BID, (Reported) Entered as Reported by: DENISE AMADO on 11/15/20 1828 Nitrofurantoin Macrocrystal (Nitrofurantoin) 100 Mg Capsule, 100 MG PO BID Prescribed by: MARIA ANTONIA WILLIS on 08/22/19 0235 Nitrofurantoin Monohyd/M-Cryst (Macrobid 100 mg Capsule) 100 Mg Capsule, 1 EACH PO BID Prescribed by: NESSA SMITH on 04/11/20 1507 Nitrofurantoin Monohyd/M-Cryst (Macrobid 100 mg Capsule) 100 Mg Capsule, 1 TAB PO BID Prescribed by: TREY PAZ on 11/11/20 2342 Ondansetron (Ondansetron Odt) 4 Mg Tab.rapdis, 4 MG PO Q6H Prescribed by: TREY PAZ on 09/18/19 0503 Ondansetron (Ondansetron Odt) 4 Mg Tab.rapdis, 4 MG PO BID Prescribed by: SD CLARKE on 12/05/192008 Ondansetron (Ondansetron Odt) 4 Mg Tab.rapdis, 4 MG PO Q8H Prescribed by: VANESSA ABDULLAHI on 12/25/191920 Ondansetron (Ondansetron Odt) 4 Mg Tab.rapdis, 4 MG PO Q6H PRN for NAUSEA/VOMITING Prescribed by: NESSA SMITH on 05/25/20 0201 Penicillin V Potassium (Penicillin V Potassium) 500 Mg Tablet, 500 MG PO QID Prescribed by: TREY PAZ on 11/08/20 0145 Review of Systems Review of Systems Constitutional: No chills, No fever EENTM: other (draining from dental infection/swelling gums in mouth after seen earlier this week in ED and started on antibiotics) Respiratory: no symptoms reported Cardiovascular: no symptoms reported Gastrointestinal: no symptoms reported Genitourinary: see HPI, other (pelvic cramping with heavy menstrual bleeding since last night) Musculoskeletal: no symptoms reported Skin: no symptoms reported Psychiatric/Neurological: Denies Headache Past Eypnuoy-Jsfttp-Dwbiyu Hx Patient Social History Tobacco Use?: Yes Tobacco type used: Cigarettes Smoking Status: Current Everyday Smoker Use of E-Cig and/or Vaping dev: No Substance use?: No Alcohol Use?: No Pt feels they are or have been: No Immunizations Up To Date First/Initial COVID19 Vaccinat: 2020 Second COVID19 Vaccination [place]: 2020 COVID19 Vaccine 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: MODERNA Seasonal Allergies Seasonal Allergies: No Past Medical History Surgery/Hospitalization HX: [facility]; colonoscopy Surgeries: Yes (eye surgery as ) Gallbladder Respiratory: Yes Asthma Cardiac: No Neurological: No Female Reproductive Disorders: Menstrual Problems Sexually Transmitted Disease: No HIV/AIDS: No Genitourinary: No Gastrointestinal: No Gastroesophageal Reflux, Chronic Diarrhea Musculoskeletal: No Endocrine: No Diabetes, Non-Insulin dep HEENT: No Loss of Vision: Denies Hearing Impairment: Denies Cancer: No Psychosocial: No Anxiety, Depression Integumentary: No Blood Disorders: No Adverse Reaction/Blood Tranf: No (N/A) Physical Exam Vital Signs Vital Signs - First Documented 02/03/21 09:20 Temp 36.2 Pulse 96 Resp 20 B/P (MAP) 127/73 (91) Pulse Ox 100 O2 Delivery Room Air Capillary Refill : Less Than 3 Seconds Height, Weight, BMI Height: 5'4.00" Weight: 280lbs. oz. 127.574043ux; 43.00 BMI Method:Stated General Appearance: WD/WN, no apparent distress Cardiovascular: normal peripheral pulses, regular rate, rhythm Respiratory: chest non-tender, lungs clear, normal breath sounds, no respiratory distress, no accessory muscle use Gastrointestinal: normal bowel sounds, soft, no pulsatile mass; No guarding, No rebound; tenderness (mild suprapubic tenderness to palpation) Rectal: deferred Extremities: normal range of motion, non-tender, normal capillary refill Neurologic/Psychiatric: alert, oriented x 3 Skin: normal color, warm/dry Progress/Results/Core Measures Suspected Sepsis SIRS Temperature: Pulse: 96 Respiratory Rate: 20 Blood Pressure 127 /73 Mean: 91 Results/Orders Lab Results Laboratory Tests Test 02/03/21 09:22 Range/Units Urine Color DARK YELLOW Urine Clarity CLEAR Urine pH 5.5 5-9 Urine Specific Victor >=1.030 1.016-1.022 Urine Protein TRACE H NEGATIVE Urine Glucose (UA) NEGATIVE NEGATIVE Urine Ketones NEGATIVE NEGATIVE Urine Nitrite NEGATIVE NEGATIVE Urine Bilirubin NEGATIVE NEGATIVE Urine Urobilinogen 0.2 < = 1.0 MG/DL Urine Leukocyte Esterase TRACE H NEGATIVE Urine RBC (Auto) 3+ H NEGATIVE Urine RBC 10-25 H /HPF Urine WBC 10-25 H /HPF Urine Squamous Epithelial Cells 25-50 H /HPF Urine Crystals NONE /LPF Urine Bacteria MODERATE H /HPF Urine Casts PRESENT /LPF Urine Hyaline Casts 5-10 H /LPF Urine Mucus LARGE H /LPF Urine Culture Indicated NO My Orders Orders - SUKHI DEY MD Ua Culture If Indicated (02/03/21 09:23) Urine Bedside (02/03/21 09:23) Vital Signs/I&O 02/03/21 02/03/21 09:20 10:22 Temp 36.2 36.2 Pulse 96 96 Resp 20 20 B/P (MAP) 127/73 (91) 127/73 Pulse Ox 100 100 O2 Delivery Room Air Room Air Capillary Refill : Less Than 3 Seconds Blood Pressure Mean: 91 Progress Note #1: Progress Note UA and bedside test obtained. Progress Note #2: Progress Note Urinalysis is concentrated to go along with her need to drink more fluids. She does have some blood and skin cells present but no evidence of infection. Counseled that she is likely having heavier bleeding and cramping due to not having a menstrual cycle since November. The Depo-Provera hormones can cause her to have anything from no bleeding at all to heavy bleeding. And initially when she first starts the shots it can take a while for her body to become accustomed to it and regulate. With her complaining of heavy bleeding and cramping as well order an ultrasound as an outpatient since it is not available today. She could try to schedule this through [facility] to look for ovarian cyst or fibroids. If she continues to have severe symptoms she could be reevaluated and may need to see gynecology for additional work-up Departure Impression Primary Impression: Pelvic cramping Additional Impression: Dysfunctional uterine bleeding Disposition: HOME, SELF-CARE Condition: Stable Departure-Patient Inst. Decision time for Depature: 10:16 Referrals: LIZETT HEARD MD (PCP/Family) Primary Care Physician Patient Instructions: Heavy Periods ED, Pelvic Pain ED Add. Discharge Instructions: Make sure that you are drinking plenty of fluids and staying well-hydrated. To schedule an ultrasound to look for ovarian cyst or other reasons that you are having heavy bleeding besides the Depo-Provera and hormones, you could call the PSYCHIATRIC clinic after 8 AM Thursday at [phone]. Let them know that he had an order from the emergency department for an ultrasound and that you were trying to schedule with T[facility]. Alternatively you could go through the [facility] in [place] radiology and ultrasound department by calling their scheduling at [phone] and let them know you had an order from the emergency department in [place] to get an outpatient ultrasound. They would help schedule an ultrasound for you in [place] but you would have to drive down to [facility] to have this study done All discharge instructions reviewed with patient and/or family. Voiced understa nding. SUKHI DEY MD Feb 03, 2021 09:55
[2021-02-03 10:22] VITALS: BP 127/73
== END 2021-02-03 10:23 | disposition home or self-care (01) ==
LOC: EDUNIT# 09:08 → ER FS 09:10
DX: R10.2 Pelvic and perineal pain (principal); N93.8 Other specified abnormal uterine and vaginal bleeding; J45.909 Unspecified asthma, uncomplicated; E11.9 Type 2 diabetes mellitus without complications; F17.210 Nicotine dependence, cigarettes, uncomplicated
CPT/HCPCS: 81000; 84703; 99282

== ENCOUNTER 2021-02-10 11:13 | Emergency (ER) | payer SELFPAY ==
[~2021-02-10] VITALS: Ht 162.6 cm; Wt 126.2 kg
[2021-02-10 11:34] LABS: BACTERIA,URINE LARGE /HPF; BILIRUBIN,URINE 1+ (NEGATIVE); CLARITY,URINE CLOUDY; COLOR,URINE LIGHT RED; GLUCOSE, URINE (UA) NEGATIVE (NEGATIVE); KETONES,URINE NEGATIVE (NEGATIVE); LEUKOCYTE ESTERASE ,URINE 2+ (NEGATIVE); NITRITE,URINE NEGATIVE (NEGATIVE); PROTEIN,URINE 2+ (NEGATIVE)
[2021-02-10] MEDS ORDERED: ONDANSETRON 4 MG (ZOFRAN) ORAL DISSOLVE TAB PO STA (11:38)
--- NOTE | 2021-02-10 12:05 | ED Abdominal Pain ---
General Chief Complaint: Abdominal/GI Problems Stated Complaint: N/V,FEVER Nursing Triage Note: Patient reports nausea/vomiting/diarrhea and fever for 2-3 days. States she has been able to keep down any food or fluids during that time. Source of Information: Patient History of Present Illness Date Seen by Provider: Feb 10, 2021 Time Seen by Provider: 11:15 Initial Comments Patient is a 20-year-old female presents with 36 hours of nausea vomiting diarrhea. Patient states she has had difficulty keeping fluid and crackers down. She reports feeling lightheaded but denies lightheadedness near syncope. She denies chest pain palpitation shortness of breath. Reports minimal abdominal cramping. No fever chills or sweats. No urinary frequency urgency or dysuria. First day of last menstrual period was 1 month ago Timing/Duration: 1-3 Hours Severity/Quality: Mild Location: Other Radiation: Other Activities at Onset: Activity Modifying Factors: Improves With Other Associated Symptoms: Denies Symptoms, Other Allergies and Home Medications Allergies Coded Allergies: sulfamethoxazole (Verified Allergy, Mild, RASH, 12/22/18) trimethoprim (Verified Allergy, Mild, RASH, 12/22/18) Uncoded Allergies: head and shoulders shampoo (Allergy, Unknown, 09/24/18) seafood (Allergy, Unknown, 09/24/18) Patient Home Medication List Home Medication List Reviewed: Yes Amoxicillin (Amoxicillin) 500 Mg Capsule, 500 MG PO TID Prescribed by: NESSA SMITH on 05/24/20 0720 Amoxicillin/Potassium Clav (Amox Tr-K Clv 875-125 mg Tab) 1 Each Tablet, 1 EACH PO BID Prescribed by: SUKHI DEY on 01/30/21 1612 Cephalexin (Keflex) 500 Mg Capsule, 500 MG PO TID Prescribed by: SD BERGMAN on 09/11/19 1000 Cephalexin (Keflex) 500 Mg Capsule, 500 MG PO BID Prescribed by: TREY PAZ on 09/18/19 0503 Clindamycin HCl (Clindamycin HCl) 300 Mg Capsule, 300 MG PO Q6H Prescribed by: OSIRIS JIMENEZ on 03/18/19 0839 Diclofenac Sodium (Diclofenac Sodium) 75 Mg Tablet.dr, 75 MG PO BID Prescribed by: SD CLARKE on 07/13/19 0744 Dicyclomine HCl (Dicyclomine HCl) 20 Mg Tablet, 20 MG PO BID Prescribed by: SD CLARKE on 08/16/19 1629 Hydrocodone/Acetaminophen (Hydrocodone-Acetamin 5-325 mg) 1 Each Tablet, 1 TAB PO Q4H PRN for PAIN-MODERATE (5-7) Prescribed by: TREY PAZ on 11/08/20 0146 Hydrocodone/Acetaminophen (Hydrocodone-Acetamin 5-325 mg) 1 Each Tablet, 1 TAB PO Q4H PRN for PAIN-SEVERE (8-10) Prescribed by: SUKHI DEY on 01/30/21 1613 Ibuprofen (Ibuprofen) 800 Mg Tablet, 800 MG PO Q8H PRN for PAIN Prescribed by: SUKHI Pereira ENYART on 01/30/21 1612 Metronidazole (Flagyl) 500 Mg Tablet, 500 MG PO BID, (Reported) Entered as Reported by: DENISE AMADO on 04/16/20 0816 Metronidazole (Flagyl) 500 Mg Tablet, 500 MG PO BID, (Reported) Entered as Reported by: DENISE AMADO on 11/15/20 1828 Nitrofurantoin Macrocrystal (Nitrofurantoin) 100 Mg Capsule, 100 MG PO BID Prescribed by: MARIA ANTONIA WILLIS on 08/22/19 0235 Nitrofurantoin Monohyd/M-Cryst (Macrobid 100 mg Capsule) 100 Mg Capsule, 1 EACH PO BID Prescribed by: NESSA SMITH on 04/11/20 1507 Nitrofurantoin Monohyd/M-Cryst (Macrobid 100 mg Capsule) 100 Mg Capsule, 1 TAB PO BID Prescribed by: TREY PAZ on 11/11/20 2342 Ondansetron (Ondansetron Odt) 4 Mg Tab.rapdis, 4 MG PO Q6H Prescribed by: TREY PAZ on 09/18/19 0503 Ondansetron (Ondansetron Odt) 4 Mg Tab.rapdis, 4 MG PO BID Prescribed by: SD CLARKE on 12/05/192008 Ondansetron (Ondansetron Odt) 4 Mg Tab.rapdis, 4 MG PO Q8H Prescribed by: VANESSA ABDULLAHI on 12/25/19 192 Ondansetron (Ondansetron Odt) 4 Mg Tab.rapdis, 4 MG PO Q6H PRN for NAUSEA/VOMITING Prescribed by: NESSA SMITH on 05/25/20 0201 Penicillin V Potassium (Penicillin V Potassium) 500 Mg Tablet, 500 MG PO QID Prescribed by: TREY PAZ on 11/08/20 0145 Review of Systems Review of Systems Constitutional: see HPI EENTM: See HPI Respiratory: See HPI Cardiovascular: See HPI Gastrointestinal: See HPI Genitourinary: See HPI Musculoskeletal: see HPI Skin: see HPI Psychiatric/Neurological: See HPI Endocrine: See HPI Hematologic/Lymphatic: See HPI Past Jzbakie-Dpuumo-Rvltkj Hx Patient Social History Tobacco Use?: Yes Tobacco type used: Cigarettes Smoking Status: Current Everyday Smoker Use of E-Cig and/or Vaping dev: No Substance use?: No Alcohol Use?: No Pt feels they are or have been: No Immunizations Up To Date First/Initial COVID19 Vaccinat: 2020 Second COVID19 Vaccination [place]: 2020 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 Seasonal Allergies Seasonal Allergies: No Past Medical History Surgery/Hospitalization HX: [facility]; colonoscopy Surgeries: Yes (eye surgery as ) Gallbladder Respiratory: Yes Asthma Cardiac: No Neurological: No Female Reproductive Disorders: Menstrual Problems Sexually Transmitted Disease: No HIV/AIDS: No Genitourinary: No Gastrointestinal: No Gastroesophageal Reflux, Chronic Diarrhea Musculoskeletal: No Endocrine: No Diabetes, Non-Insulin dep HEENT: No Loss of Vision: Denies Hearing Impairment: Denies Cancer: No Psychosocial: No Anxiety, Depression Integumentary: No Blood Disorders: No Adverse Reaction/Blood Tranf: No (N/A) Physical Exam Vital Signs Vital Signs - First Documented 02/10/21 11:23 Temp 36.8 Pulse 90 Resp 16 B/P (MAP) 167/89 (115) Pulse Ox 96 O2 Delivery Room Air Capillary Refill : Less Than 3 Seconds Height/Weight/BMI Height: 5'4.00" Weight: 280lbs. oz. 127.201306le; 47.00 BMI Method:Stated Progress/Results/Core Measures Results/Orders Lab Results Laboratory Tests Test 02/10/21 11:20 Range/Units Urine Color LIGHT RED Urine Clarity CLOUDY Urine pH 6.0 5-9 Urine Specific Ida 1.025 H 1.016-1.022 Urine Protein 2+ H NEGATIVE Urine Glucose (UA) NEGATIVE NEGATIVE Urine Ketones NEGATIVE NEGATIVE Urine Nitrite NEGATIVE NEGATIVE Urine Bilirubin 1+ H NEGATIVE Urine Urobilinogen 0.2 < = 1.0 MG/DL Urine Leukocyte Esterase 2+ H NEGATIVE Urine RBC (Auto) 3+ H NEGATIVE Urine RBC 5-10 H /HPF Urine WBC 5-10 H /HPF Urine Squamous Epithelial Cells 2-5 /HPF Urine Crystals NONE /LPF Urine Bacteria LARGE H /HPF Urine Casts NONE /LPF Urine Mucus NEGATIVE /LPF Urine Culture Indicated YES My Orders Orders - TREY PAZ DO Ua Culture If Indicated (02/10/21 11:18) Urine Bedside (02/10/21 11:18) Urine Culture (02/10/21 11:20) Ondansetron Oral Dissolve Tab (Zofran (02/10/21 11:38) Vital Signs/I&O 02/10/21 11:23 Temp 36.8 Pulse 90 Resp 16 B/P (MAP) 167/89 (115) Pulse Ox 96 O2 Delivery Room Air Blood Pressure Mean: 115 Departure Communication (Admissions) Vomiting and diarrhea. Abdomen soft, nontender. Symptoms consistent with GI illness prevalent in the community. Oral Zofran given. Patient able to tolerate fluids crackers prior to discharge. Will treat supportively with watchful waiting and PCP follow-up. Return precautions reviewed. Patient verbalizes understanding agreement discharge instructions prior to departure. Impression Primary Impression: Nausea and vomiting Additional Impression: Diarrhea Disposition: 01 HOME, SELF-CARE Condition: Stable Departure-Patient Inst. Decision time for Depature: 12:18 Referrals: LIZETT HEARD MD (PCP/Family) Primary Care Physician Patient Instructions: Nausea and Vomiting, Adult ED, Diarrhea, Adult ED Add. Discharge Instructions: You were evaluated in the emergency department for vomiting and diarrhea. The exact cause of your symptoms has not been determined but is consistent with a GI illness, and in the community. Please take nausea medication and antacids as directed. Drink clear liquids only and progressed to bland diet as tolerated over the next 6 to 12 hours. Additionally, you may take 2 pills of Imodium every 4 hours as needed for diarrhea. Follow-up with your PCP in 2 to 3 days for reevaluation if symptoms persist. Return to the ED if new or worsening symptoms. All discharge instructions reviewed with patient and/or family. Voiced understanding. Scripts Ondansetron (Ondansetron Odt) 4 Mg Tab.rapdis 4 MG PO Q6H, #10 TAB Prov: TREY PAZ DO 02/10/21 TREY PAZ DO Feb 10, 2021 12:05
[2021-02-10] MEDS ORDERED: ONDA4TAB11 PO (12:22)
[2021-02-10 12:32] VITALS: BP 167/89
== END 2021-02-10 12:32 | disposition home or self-care (01) ==
LOC: EDUNIT# 11:13 → ER FS 11:15
DX: R11.2 Nausea with vomiting, unspecified (principal); R19.7 Diarrhea, unspecified; E11.9 Type 2 diabetes mellitus without complications; K21.9 Gastro-esophageal reflux disease without esophagitis; J45.909 Unspecified asthma, uncomplicated; F17.210 Nicotine dependence, cigarettes, uncomplicated; Z88.1 Allergy status to other antibiotic agents; Z88.2 Allergy status to sulfonamides; Z79.899 Other long term (current) drug therapy
CPT/HCPCS: 81000; 84703; 87088; 99283

== ENCOUNTER 2021-05-13 23:26 | Emergency (ER) | payer SELFPAY ==
--- NOTE | 2021-05-13 23:47 | ED General ---
General Chief Complaint: General Problems/Pain Stated Complaint: FEVER;NAUSEA Nursing Triage Note: Pt states she has had intermittent nausea/vomitinng, fever, and a headache for about a week and a half Source of Information: Patient Exam Limitations: No Limitations History of Present Illness Date Seen by Provider: May 13, 2021 Time Seen by Provider: 23:31 Initial Comments 20-year-old female with no significant past medical history coming in due to a week and a half of intermittent fever. Tonight her temperature was up to 102 for which she took Tylenol. She says she was at work so she left work. 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 Denies any cough, vomiting, diarrhea, abdominal pain, chest pain, shortness of breath, vaginal bleeding, dysuria, urinary frequency, rash, or any other concerns. Has been vaccinated for COVID but has not had a flu or COVID recently. She is unsure of her LMP, but she is on the Depo shot. Allergies and Home Medications Allergies Coded Allergies: sulfamethoxazole (Verified Allergy, Mild, RASH, 12/22/18) trimethoprim (Verified Allergy, Mild, RASH, 12/22/18) Uncoded Allergies: head and shoulders shampoo (Allergy, Unknown, 09/24/18) seafood (Allergy, Unknown, 09/24/18) Patient Home Medication List Home Medication List Reviewed: Yes Amoxicillin (Amoxicillin) 500 Mg Capsule, 500 MG PO TID Prescribed by: NESSA SMITH on 05/24/20 0720 Amoxicillin/Potassium Clav (Amox Tr-K Clv 875-125 mg Tab) 1 Each Tablet, 1 EACH PO BID Prescribed by: SUKHI DEY on 01/30/21 1612 Cephalexin (Keflex) 500 Mg Capsule, 500 MG PO TID Prescribed by: SD BERGMAN on 09/11/19 1000 Cephalexin (Keflex) 500 Mg Capsule, 500 MG PO BID Prescribed by: TREY PAZ on 09/18/19 0503 Clindamycin HCl (Clindamycin HCl) 300 Mg Capsule, 300 MG PO Q6H Prescribed by: OSIRIS JIMENEZ on 03/18/19 0839 Diclofenac Sodium (Diclofenac Sodium) 75 Mg Tablet.dr, 75 MG PO BID Prescribed by: SD CLARKE on 07/13/19 0744 Dicyclomine HCl (Dicyclomine HCl) 20 Mg Tablet, 20 MG PO BID Prescribed by: SD CLARKE on 08/16/19 1629 Hydrocodone/Acetaminophen (Hydrocodone-Acetamin 5-325 mg) 1 Each Tablet, 1 TAB PO Q4H PRN for PAIN-MODERATE (5-7) Prescribed by: TREY PAZ on 11/08/20 0146 Hydrocodone/Acetaminophen (Hydrocodone-Acetamin 5-325 mg) 1 Each Tablet, 1 TAB PO Q4H PRN for PAIN-SEVERE (8-10) Prescribed by: SUKHI DEY on 01/30/21 1613 Ibuprofen (Ibuprofen) 800 Mg Tablet, 800 MG PO Q8H PRN for PAIN Prescribed by: SKUHI Pereira ENYART on 01/30/21 1612 Metronidazole (Flagyl) 500 Mg Tablet, 500 MG PO BID, (Reported) Entered as Reported by: DENISE AMADO on 04/16/20 0816 Metronidazole (Flagyl) 500 Mg Tablet, 500 MG PO BID, (Reported) Entered as Reported by: DENISE AMADO on 11/15/20 1828 Nitrofurantoin Macrocrystal (Nitrofurantoin) 100 Mg Capsule, 100 MG PO BID Prescribed by: MARIA ANTONIA WILLIS on 08/22/19 0235 Nitrofurantoin Monohyd/M-Cryst (Macrobid 100 mg Capsule) 100 Mg Capsule, 1 EACH PO BID Prescribed by: NESSA SMITH on 04/11/20 1507 Nitrofurantoin Monohyd/M-Cryst (Macrobid 100 mg Capsule) 100 Mg Capsule, 1 TAB PO BID Prescribed by: TREY PAZ on 11/11/20 2342 Ondansetron (Ondansetron Odt) 4 Mg Tab.rapdis, 4 MG PO Q6H Prescribed by: TREY PAZ on 09/18/19 0503 Ondansetron (Ondansetron Odt) 4 Mg Tab.rapdis, 4 MG PO BID Prescribed by: SD CLARKE on 12/05/192008 Ondansetron (Ondansetron Odt) 4 Mg Tab.rapdis, 4 MG PO Q8H Prescribed by: VANESSA ABDULLAHI on 12/25/19 192 Ondansetron (Ondansetron Odt) 4 Mg Tab.rapdis, 4 MG PO Q6H PRN for NAUSEA/VOMITING Prescribed by: NESSA SMITH on 05/25/20 0201 Ondansetron (Ondansetron Odt) 4 Mg Tab.rapdis, 4 MG PO Q6H Prescribed by: TREY PAZ on 02/10/21 1222 Penicillin V Potassium (Penicillin V Potassium) 500 Mg Tablet, 500 MG PO QID Prescribed by: TREY PAZ on 11/08/20 0145 Review of Systems Review of Systems Constitutional: No chills; fever EENTM: No blurred vision Respiratory: No cough, No short of breath Cardiovascular: No chest pain Gastrointestinal: No abdominal pain, No diarrhea, No vomiting Genitourinary: No decreased output, No discharge, No dysuria, No frequency, No hematuria, No hesitancy Musculoskeletal: no symptoms reported Skin: no symptoms reported Psychiatric/Neurological: No Symptoms Reported Hematologic/Lymphatic: No Symptoms Reported Immunological/Allergic: no symptoms reported All Other Systems Reviewed Negative Unless Noted: Yes Past Fjxnmfl-Msfbsd-Oxgcbq Hx Patient Social History Tobacco Use?: No Use of E-Cig and/or Vaping dev: No Substance use?: No Alcohol Use?: No Pt feels they are or have been: No Immunizations Up To Date First/Initial COVID19 Vaccinat: 2020 Second COVID19 Vaccination [place]: 2020 Seasonal Allergies Seasonal Allergies: No Past Medical History Surgery/Hospitalization HX: [facility]; colonoscopy Surgeries: Yes (eye surgery as ) Gallbladder Respiratory: Yes Asthma Cardiac: No Neurological: No Female Reproductive Disorders: Menstrual Problems Sexually Transmitted Disease: No HIV/AIDS: No Genitourinary: No Gastrointestinal: No Gastroesophageal Reflux, Chronic Diarrhea Musculoskeletal: No Endocrine: No Diabetes, Non-Insulin dep HEENT: No Loss of Vision: Denies Hearing Impairment: Denies Cancer: No Psychosocial: No Anxiety, Depression Integumentary: No Blood Disorders: No Adverse Reaction/Blood Tranf: No (N/A) Physical Exam Vital Signs Vital Signs - First Documented 05/13/21 23:30 Temp 36.7 Pulse 84 Resp 18 B/P (MAP) 143/90 (107) Pulse Ox 97 O2 Delivery Room Air Capillary Refill : Less Than 3 Seconds Height, Weight, BMI Height: 5'4.00" Weight: 280lbs. oz. 127.910849ux; 47.00 BMI Method:Stated General Appearance: No Apparent Distress, WD/WN Eyes: Bilateral Eye Normal Inspection HEENT: PERRL/EOMI, Normal ENT Inspection, Pharynx Normal Neck: Full Range of Motion, Normal Inspection, Non Tender, Supple Respiratory: Chest Non Tender, Lungs Clear, Normal Breath Sounds, No Accessory Muscle Use, No Respiratory Distress Cardiovascular: Regular Rate, Rhythm, No Edema, Normal Peripheral Pulses Gastrointestinal: Normal Bowel Sounds, Non Tender, Soft; No Distended, No Guarding Back: Normal Inspection, No CVA Tenderness, No Vertebral Tenderness Extremity: Normal Capillary Refill, Normal Inspection, Normal Range of Motion, Non Tender, No Calf Tenderness, No Pedal Edema Neurologic/Psychiatric: Alert, No Motor/Sensory Deficits, Normal Mood/Affect Skin: Normal Color, Warm/Dry Lymphatic: No Adenopathy Progress/Results/Core Measures Suspected Sepsis SIRS Temperature: Pulse: 84 Respiratory Rate: 18 Blood Pressure 143 /90 Mean: 107 Results/Orders My Orders Orders - SUKHWINDER BRADY MD Covid 19 Inhouse Test (05/13/21 23:36) Influenza A & B Antigens (05/13/21 23:36) Vital Signs/I&O 05/13/21 23:30 Temp 36.7 Pulse 84 Resp 18 B/P (MAP) 143/90 (107) Pulse Ox 97 O2 Delivery Room Air Capillary Refill : Less Than 3 Seconds Blood Pressure Mean: 107 Progress Note : Progress Note 20-year-old female with above history coming in due to intermittent fever. ABCs were intact and vitals were stable on presentation. She is afebrile here, but says she took Tylenol recently. Physical exam reassuring with no focal abnormalities. We will do flu and COVID testing. We will call the patient with the results if they are positive. She is otherwise well-appearing and I think can manage isolating at home until she has results. She was sent home with strict return precautions. Departure Impression Primary Impression: Flu-like symptoms Additional Impression: Person under investigation for COVID-19 Disposition: HOME, SELF-CARE Condition: Stable Departure-Patient Inst. Decision time for Depature: 23:50 Referrals: OLGA HDIALGO MD (PCP) Primary Care Physician LIZETT HEARD MD (Family) Primary Care Physician Patient Instructions: VIRAL SYNDROME Add. Discharge Instructions: Take Tylenol every 6 hours as needed for fever. You can add ibuprofen as well if you continue to have fever, chills, or body aches. Drink plenty of fluids. Do not go to work for up to 24 hours after your most recent fever. We will call you with the results of your COVID/flu test if they are positive in the morning. Work/School Note: Work Release Form Date Seen in the Emergency Department: May 13, 2021 Return to Work: May 15, 2021 Restrictions: Return-No Fever (24hrs), Return-No Vomiting(24hrs) SUKHWINDER BRADY MD May 13, 2021 23:47
[2021-05-13 23:55] VITALS: BP 143/90
== END 2021-05-13 23:55 | disposition home or self-care (01) ==
LOC: EDUNIT# 23:26 → ER FS 23:29
DX: R50.9 Fever, unspecified (principal); R51.9 Headache, unspecified; R11.2 Nausea with vomiting, unspecified; Z20.822 Contact with and (suspected) exposure to COVID-19
CPT/HCPCS: 87636; 87804; 99283

== ENCOUNTER 2021-05-28 21:35 | Emergency (ER) | payer SELFPAY ==
--- NOTE | 2021-05-28 21:46 | ED GI ---
General Stated Complaint: ABD PAIN,DIZZY,NAUSEA History of Present Illness Date Seen by Provider: May 28, 2021 Time Seen by Provider: 21:44 Initial Comments 20-year-old female with PMH of frequent visits and vague complaints, irregular menstruation cycle, is here with complaints of abdominal cramping and nausea, with mild light headedness, which started 30 minutes ago. Symptoms were associated with passing a blood clot while taking a shower today. Patient states she has been on and off control pills for irregular menstruation cycles. She reports that she has not had a period prior to having a blood clot today. Denies fever, shortness of breath, vaginal discharge, continued vaginal bleeding, dysuria, hematuria, diarrhea. Allergies and Home Medications Allergies Coded Allergies: sulfamethoxazole (Verified Allergy, Mild, RASH, 12/22/18) trimethoprim (Verified Allergy, Mild, RASH, 12/22/18) Uncoded Allergies: head and shoulders shampoo (Allergy, Unknown, 09/24/18) seafood (Allergy, Unknown, 09/24/18) Patient Home Medication List Home Medication List Reviewed: Yes Amoxicillin (Amoxicillin) 500 Mg Capsule, 500 MG PO TID Prescribed by: NESSA SMITH on 05/24/20 0720 Amoxicillin/Potassium Clav (Amox Tr-K Clv 875-125 mg Tab) 1 Each Tablet, 1 EACH PO BID Prescribed by: SUKHI DEY on 01/30/21 1612 Cephalexin (Keflex) 500 Mg Capsule, 500 MG PO TID Prescribed by: SD BERGMAN on 09/11/19 1000 Cephalexin (Keflex) 500 Mg Capsule, 500 MG PO BID Prescribed by: TREY PAZ on 09/18/19 0503 Clindamycin HCl (Clindamycin HCl) 300 Mg Capsule, 300 MG PO Q6H Prescribed by: OSIRIS JIMENEZ on 03/18/19 0839 Diclofenac Sodium (Diclofenac Sodium) 75 Mg Tablet.dr, 75 MG PO BID Prescribed by: SD CLARKE on 07/13/19 0744 Dicyclomine HCl (Dicyclomine HCl) 20 Mg Tablet, 20 MG PO BID Prescribed by: SD CLARKE on 08/16/19 1629 Hydrocodone/Acetaminophen (Hydrocodone-Acetamin 5-325 mg) 1 Each Tablet, 1 TAB PO Q4H PRN for PAIN-MODERATE (5-7) Prescribed by: TREY PAZ on 11/08/20 0146 Hydrocodone/Acetaminophen (Hydrocodone-Acetamin 5-325 mg) 1 Each Tablet, 1 TAB PO Q4H PRN for PAIN-SEVERE (8-10) Prescribed by: SUKHI DEY on 01/30/21 1613 Ibuprofen (Ibuprofen) 800 Mg Tablet, 800 MG PO Q8H PRN for PAIN Prescribed by: SUKHI DEY on 01/30/21 1612 Metronidazole (Flagyl) 500 Mg Tablet, 500 MG PO BID, (Reported) Entered as Reported by: DENISE AMADO on 04/16/20 0816 Metronidazole (Flagyl) 500 Mg Tablet, 500 MG PO BID, (Reported) Entered as Reported by: DENISE AMADO on 11/15/20 1828 Nitrofurantoin Macrocrystal (Nitrofurantoin) 100 Mg Capsule, 100 MG PO BID Prescribed by: MARIA ANTONIA WILLIS on 08/22/19 0235 Nitrofurantoin Monohyd/M-Cryst (Macrobid 100 mg Capsule) 100 Mg Capsule, 1 EACH PO BID Prescribed by: NESSA SMITH on 04/11/20 1507 Nitrofurantoin Monohyd/M-Cryst (Macrobid 100 mg Capsule) 100 Mg Capsule, 1 TAB PO BID Prescribed by: TREY PAZ on 11/11/20 2342 Ondansetron (Ondansetron Odt) 4 Mg Tab.rapdis, 4 MG PO Q6H Prescribed by: TREY PAZ on 09/18/19 0503 Ondansetron (Ondansetron Odt) 4 Mg Tab.rapdis, 4 MG PO BID Prescribed by: SD CLARKE on 12/05/192008 Ondansetron (Ondansetron Odt) 4 Mg Tab.rapdis, 4 MG PO Q8H Prescribed by: VANESSA ABDULLAHI on 12/25/19 192 Ondansetron (Ondansetron Odt) 4 Mg Tab.rapdis, 4 MG PO Q6H PRN for NAUSEA/VOMITING Prescribed by: NESSA SMITH on 05/25/20 0201 Ondansetron (Ondansetron Odt) 4 Mg Tab.rapdis, 4 MG PO Q6H Prescribed by: TREY PAZ on 02/10/21 1222 Penicillin V Potassium (Penicillin V Potassium) 500 Mg Tablet, 500 MG PO QID Prescribed by: TREY PAZ on 11/08/20 0145 Review of Systems Review of Systems Constitutional: dizziness EENTM: No Symptoms Reported Respiratory: No Symptoms Reported Cardiovascular: No Symptoms Reported Gastrointestinal: Abdominal Pain, Nausea Genitourinary: No Symptoms Reported Musculoskeletal: no symptoms reported Skin: no symptoms reported Psychiatric/Neurological: No Symptoms Reported Endocrine: No Symptoms Reported Hematologic/Lymphatic: No Symptoms Reported Past Yqfgwfd-Oxqwpf-Hezsyq Hx Immunizations Up To Date First/Initial COVID19 Vaccinat: 2020 Second COVID19 Vaccination [place]: 2020 Seasonal Allergies Seasonal Allergies: No Past Medical History Surgery/Hospitalization HX: [place]; colonoscopy Surgeries: Yes (eye surgery as infant) Gallbladder Respiratory: Yes Asthma Cardiac: No Neurological: No Female Reproductive Disorders: Menstrual Problems Sexually Transmitted Disease: No HIV/AIDS: No Genitourinary: No Gastrointestinal: No Gastroesophageal Reflux, Chronic Diarrhea Musculoskeletal: No Endocrine: No Diabetes, Non-Insulin dep HEENT: No Loss of Vision: Denies Hearing Impairment: Denies Cancer: No Psychosocial: No Anxiety, Depression Integumentary: No Blood Disorders: No Adverse Reaction/Blood Tranf: No (N/A) Physical Exam Vital Signs Vital Signs - First Documented 05/28/21 21:38 Pulse 88 Resp 18 B/P (MAP) 154/80 (104) Pulse Ox 96 O2 Delivery Room Air Capillary Refill : Height/Weight/BMI Height: 5'4.00" Weight: 280lbs. oz. 127.769348rt; 47.00 BMI Method:Stated General Appearance: WD/WN, no apparent distress, obese HEENT: PERRL/EOMI, pharynx normal Neck: full range of motion, supple Respiratory: lungs clear, normal breath sounds, no respiratory distress Cardiovascular: regular rate, rhythm, no edema Gastrointestinal: soft, tenderness (suprapubic) Back: no CVA tenderness Neurologic/Psychiatric: alert, normal mood/affect, oriented x 3 Skin: normal color Progress/Results/Core Measures Results/Orders Lab Results Laboratory Tests Test 05/28/21 21:44 Range/Units White Blood Count 11.8 H 4.3-11.0 10^3/uL Red Blood Count 4.78 3.80-5.11 10^6/uL Hemoglobin 13.9 11.5-16.0 g/dL Hematocrit 40 35-52 % Mean Corpuscular Volume 84 80-99 fL Mean Corpuscular Hemoglobin 29 25-34 pg Mean Corpuscular Hemoglobin Concent 35 32-36 g/dL Red Cell Distribution Width 11.9 10.0-14.5 % Platelet Count 308 130-400 10^3/uL Mean Platelet Volume 9.9 9.0-12.2 fL Immature Granulocyte % (Auto) 0 % Neutrophils (%) (Auto) 67 42-75 % Lymphocytes (%) (Auto) 27 12-44 % Monocytes (%) (Auto) 6 0-12 % Eosinophils (%) (Auto) 1 0-10 % Basophils (%) (Auto) 0 0-10 % Neutrophils # (Auto) 7.8 1.8-7.8 10^3/uL Lymphocytes # (Auto) 3.1 1.0-4.0 10^3/uL Monocytes # (Auto) 0.7 0.0-1.0 10^3/uL Eosinophils # (Auto) 0.1 0.0-0.3 10^3/uL Basophils # (Auto) 0.0 0.0-0.1 10^3/uL Immature Granulocyte # (Auto) 0.0 0.0-0.1 10^3/uL Urine Color DARK YELLOW Urine Clarity CLEAR Urine pH 6.0 5-9 Urine Specific Roberts >=1.030 1.016-1.022 Urine Protein NEGATIVE NEGATIVE Urine Glucose (UA) NEGATIVE NEGATIVE Urine Ketones NEGATIVE NEGATIVE Urine Nitrite NEGATIVE NEGATIVE Urine Bilirubin NEGATIVE NEGATIVE Urine Urobilinogen 0.2 < = 1.0 MG/DL Urine Leukocyte Esterase NEGATIVE NEGATIVE Urine RBC (Auto) NEGATIVE NEGATIVE Urine RBC RARE /HPF Urine WBC 2-5 /HPF Urine Squamous Epithelial Cells 5-10 /HPF Urine Crystals NONE /LPF Urine Bacteria FEW H /HPF Urine Casts NONE /LPF Urine Mucus MODERATE H /LPF Urine Culture Indicated NO Urine Test NEGATIVE NEGATIVE Sodium Level 138 135-145 MMOL/L Potassium Level 4.1 3.6-5.0 MMOL/L Chloride Level 101 98-107 MMOL/L Carbon Dioxide Level 21 21-32 MMOL/L Anion Gap 16 H 5-14 MMOL/L Blood Urea Nitrogen 15 7-18 MG/DL Creatinine 0.90 0.60-1.30 MG/DL Estimat Glomerular Filtration Rate 93 BUN/Creatinine Ratio 17 Glucose Level 117 H 70-105 MG/DL Calcium Level 8.8 8.5-10.1 MG/DL Corrected Calcium 8.6 8.5-10.1 MG/DL Total Bilirubin 0.2 0.1-1.0 MG/DL Aspartate Amino Transf (AST/SGOT) 15 5-34 U/L Alanine Aminotransferase (ALT/SGPT) 23 0-55 U/L Alkaline Phosphatase 48 40-136 U/L Total Protein 7.5 6.4-8.2 GM/DL Albumin 4.2 3.2-4.5 GM/DL Lipase 21 8-78 U/L Urine Opiates Screen NEGATIVE NEGATIVE Urine Oxycodone Screen NEGATIVE NEGATIVE Urine Methadone Screen NEGATIVE NEGATIVE Urine Propoxyphene Screen NEGATIVE NEGATIVE Urine Barbiturates Screen NEGATIVE NEGATIVE Ur Tricyclic Antidepressants Screen NEGATIVE NEGATIVE Urine Phencyclidine Screen NEGATIVE NEGATIVE Urine Amphetamines Screen NEGATIVE NEGATIVE Urine Methamphetamines Screen NEGATIVE NEGATIVE Urine Benzodiazepines Screen NEGATIVE NEGATIVE Urine Cocaine Screen NEGATIVE NEGATIVE Urine Cannabinoids Screen NEGATIVE NEGATIVE My Orders Orders - BART SHEFFIELD MD Comprehensive Metabolic Panel (05/28/21 21:50) Lipase (05/28/21 21:50) Ua Culture If Indicated (05/28/21 21:50) Ed Iv/Invasive Line Start (05/28/21 21:50) Cbc With Automated Diff (05/28/21 21:50) Ct Abdomen/Pelvis W (05/28/21 21:50) Drug Screen Stat (Urine) (05/28/21 21:51) Ns Iv 1000 Ml (Sodium Chloride 0.9%) (05/28/21 22:00) Ondansetron Injection (Zofran Injectio (05/28/21 22:00) Hcg,Qualitative Urine (05/28/21 21:53) Hcg,Qualitative Urine (05/28/21 21:54) Iohexol Injection (Omnipaque 350 Mg/Ml 1 (05/28/21 22:00) Received Contrast (Hold Metformin- Contr (05/28/21 22:00) Ns (Ivpb) (Sodium Chloride 0.9% Ivpb Bag (05/28/21 22:00) Medications Given in ED Current Medications Medications Dose Ordered Sig/Artem Route Start Time Stop Time Status Last Admin Dose Admin Iohexol 100 ml ONCE ONCE IV 05/28/21 22:00 05/28/21 22:01 DC 05/28/21 22:22 100 ML Ondansetron HCl 4 mg ONCE ONCE IVP 05/28/21 22:00 05/28/21 22:01 DC 05/28/21 21:57 4 MG Sodium Chloride 100 ml ONCE ONCE IV 05/28/21 22:00 05/28/21 22:01 DC 05/28/21 22:22 80 ML Vital Signs/I&O 05/28/21 21:38 Pulse 88 Resp 18 B/P (MAP) 154/80 (104) Pulse Ox 96 O2 Delivery Room Air Progress Progress Note : Progress Note 1. ABDOMINAL CRAMP & DUB: - CT ABD & PELVIS: normal - Labs unremarkable - NS IVF bolus STAT - Hb is stable and vital signs stable - F/u with PCP and OB-STAFFING ANALYST within 3 to 5 days -The patient was seen in the ED, and treated appropriately to presentation at a specific point in time. Patient is informed that there is a possibility that disease and illness can evolve and change in acuity rapidly or slowly after patient is discharged from the ER. Precautionary advice given to the patient for immediate return to ER if symptoms worsen or do not resolve, and to seek emergency care sooner rather than later. Pt also advised on the importance of PCP follow up and compliance with management and follow up plan. Pt verbally expressed understanding. Diagnostic Imaging Diagonstic Imaging: CT Plain Films/CT/US/NM/MRI: abdomen Comments [facility], [place] NAME: MIRIAM CALDERON [facility] REC#: [id number] PT STATUS: REG ER : 2000 PHYSICIAN: BART SHEFFIELD MD ADMIT DATE: 05/28/21/ER FS Signed Date of Exam:05/28/21 CT ABDOMEN/PELVIS W PROCEDURE: CT abdomen and pelvis with contrast. TECHNIQUE: Multiple contiguous axial images were obtained through the abdomen and pelvis after administration of intravenous contrast. Auto Exposure Controls were utilized during the CT exam to meet ALARA standards for radiation dose reduction. All CT scans use one or more of the following dose optimizing techniques: automated exposure control, MA and/or KvP adjustment based on patient size and exam type or iterative reconstruction. INDICATION: Vaginal bleeding, pelvic pain. FINDINGS: The lung bases are clear. The gallbladder is surgically absent. Solid organs, vascular structures and bowel normal. The appendix is normal. There is no free air or free fluid. The uterus is grossly unremarkable. There are physiologic follicles on both ovaries. Urinary bladder normal. Osseous structures are age-appropriate. IMPRESSION: Negative CT abdomen and pelvis. Dictated by: Dictated on workstation # [id number] Dict: 05/28/212237 Trans: 05/28/212242 [facility] [id number] Interpreted by: GRIS CHAVIS Electronically signed by: GRIS CHAVIS 05/28/212242 Departure Impression Primary Impression: Dysfunctional uterine bleeding Additional Impression: Abdominal cramping Disposition: HOME, SELF-CARE Condition: Improved Departure-Patient Inst. Referrals: OLGA HIDALGO MD (PCP) Primary Care Physician LIZETT HEARD MD (Family) Primary Care Physician Patient Instructions: Absent or Irregular Periods, Menstrual Cramps (DC) Add. Discharge Instructions: - F/u with PCP and OB-STAFFING ANALYST within 3 to 5 days -The patient was seen in the ED, and treated appropriately to presentation at a specific point in time. Patient is informed that there is a possibility that disease and illness can evolve and change in acuity rapidly or slowly after patient is discharged from the ER. Precautionary advice given to the patient for immediate return to ER if symptoms worsen or do not resolve, and to seek emergency care sooner rather than later. Pt also advised on the importance of PCP follow up and compliance with management and follow up plan. Pt verbally expressed understanding. BART SHEFFIELD MD May 28, 2021 21:45
[2021-05-28 21:57] LABS: BASOPHILS % (AUTO) 0 % (0-10); EOSINOPHILS # (AUTO) 0.1 10^3/uL (0.0-0.3); EOSINOPHILS % (AUTO) 1 % (0-10); HEMATOCRIT 40 % (35-52); HEMOGLOBIN 13.9 g/dL (11.5-16.0); LYMPHOCYTES # (AUTO) 3.1 10^3/uL (1.0-4.0); LYMPHOCYTES % (AUTO) 27 % (12-44); MEAN CORPUSCULAR HEMOGLOBIN 29 pg (25-34); MEAN CORPUSCULAR HGB CONC 35 g/dL (32-36); MEAN CORPUSCULAR VOLUME 84 fL (80-99); MEAN PLATELET VOLUME 9.9 fL (9.0-12.2); MONOCYTES # (AUTO) 0.7 10^3/uL (0.0-1.0); MONOCYTES % (AUTO) 6 % (0-12); NEUTROPHILS # (AUTO) 7.8 10^3/uL (1.8-7.8); NEUTROPHILS % (AUTO) 67 % (42-75); PLATELET COUNT 308 10^3/uL (130-400); WHITE BLOOD COUNT 11.8 10^3/uL (4.3-11.0)
[2021-05-28] MEDS ORDERED: NS 100 ML (IVPB) BAG IV ONE (22:00)
[2021-05-28] MEDS ORDERED: IOHEXOL 350 MG/ML 100 ML (OMNIPAQUE 350) VIAL IV ONE (22:00)
[2021-05-28] MEDS ORDERED: ONDANSETRON 4 MG/2 ML (SDV) Z0FRAN IVP ONE (22:00)
[2021-05-28] MEDS ORDERED: HOLD METFORMIN - RECEIVED CONTRAST 20 ML VIAL IV SCH (22:00)
[2021-05-28] MEDS ORDERED: NS IV 1000 ML 1,000 ML IV SCH (22:00)
[2021-05-28 22:07] LABS: BILIRUBIN,URINE NEGATIVE (NEGATIVE); CLARITY,URINE CLEAR; GLUCOSE, URINE (UA) NEGATIVE (NEGATIVE); KETONES,URINE NEGATIVE (NEGATIVE); LEUKOCYTE ESTERASE ,URINE NEGATIVE (NEGATIVE); NITRITE,URINE NEGATIVE (NEGATIVE); PROTEIN,URINE NEGATIVE (NEGATIVE)
[2021-05-28 22:17] LABS: AMPHETAMINE SCREEN, URINE NEGATIVE (NEGATIVE); BARBITURATE SCREEN URINE NEGATIVE (NEGATIVE); BENZODIAZEPINES SCREEN URINE NEGATIVE (NEGATIVE); CANNABINOID SCREEN, URINE NEGATIVE (NEGATIVE); COCAINE SCREEN URINE NEGATIVE (NEGATIVE); HCG,QUALITATIVE URINE NEGATIVE (NEGATIVE); METHADONE STAT NEGATIVE (NEGATIVE); METHAMPHETAMINE SCREEN URINE S NEGATIVE (NEGATIVE); OPIATE SCREEN URINE NEGATIVE (NEGATIVE); OXYCODONE STAT NEGATIVE (NEGATIVE); PROPOXYPHENE STAT NEGATIVE (NEGATIVE); TRICYCLIC ANTIDEPRESSANTS SCRE NEGATIVE (NEGATIVE)
[2021-05-28 22:19] LABS: BACTERIA,URINE FEW /HPF; COLOR,URINE DARK YELLOW; RBC,URINE RARE /HPF
[2021-05-28 22:21] LABS: ALBUMIN 4.2 GM/DL (3.2-4.5); BILIRUBIN,TOTAL 0.2 MG/DL (0.1-1.0); CALCIUM 8.8 MG/DL (8.5-10.1); CREATININE SERUM 0.9 MG/DL (0.60-1.30); POTASSIUM 4.1 MMOL/L (3.6-5.0); TOTAL PROTEIN 7.5 GM/DL (6.4-8.2)
--- NOTE | 2021-05-28 22:41 | Diagnostic Imaging Report ---
PROCEDURE: CT abdomen and pelvis with contrast. TECHNIQUE: Multiple contiguous axial images were obtained through the abdomen and pelvis after administration of intravenous contrast. Auto Exposure Controls were utilized during the CT exam to meet ALARA standards for radiation dose reduction. All CT scans use one or more of the following dose optimizing techniques: automated exposure control, MA and/or KvP adjustment based on patient size and exam type or iterative reconstruction. INDICATION: Vaginal bleeding, pelvic pain. FINDINGS: The lung bases are clear. The gallbladder is surgically absent. Solid organs, vascular structures and bowel normal. The appendix is normal. There is no free air or free fluid. The uterus is grossly unremarkable. There are physiologic follicles on both ovaries. Urinary bladder normal. Osseous structures are age-appropriate. IMPRESSION: Negative CT abdomen and pelvis. Dictated by: Dictated on workstation # [id number]
[2021-05-28 23:04] VITALS: BP 154/80
== END 2021-05-28 23:08 | disposition home or self-care (01) ==
LOC: EDUNIT# 21:35 → ER FS 21:36
DX: N93.8 Other specified abnormal uterine and vaginal bleeding (principal); E66.9 Obesity, unspecified; Z68.42 Body mass index [BMI] 45.0-49.9, adult
CPT/HCPCS: 36415; 74177; 80053; 80306; 81000; 83690; 84703; 85025; Q9967

== ENCOUNTER 2021-06-12 23:35 | Emergency (ER) | payer SELFPAY ==
[2021-06-12 23:35] VITALS: BP 140/75
--- NOTE | 2021-06-13 01:57 | ED GI ---
General Chief Complaint: Rect Problems Stated Complaint: BLOODY STOOLS Nursing Triage Note: pt presents and reports bright red blood after having bowl movements. reports the blood is only present when she wipes. reports discomfort when sitting down. reports hx of hemorrhoids. Source of Information: Patient History of Present Illness Date Seen by Provider: Jun 12, 2021 Time Seen by Provider: 23:33 Initial Comments 20-year-old female presenting with complaints of bright red blood per rectum since having constipation and hard bowel movement. She reports that this happened yesterday and she has continued to have blood when she wipes after having a bowel movement. She denies any abdominal pain, pain with urination, vaginal discharge, vaginal bleeding. She has rectal pain when she sits down as well as when she has a bowel movement. She states that she works during the day and does not have a way to get off to be able to go see Dr. Hidalgo in the clinic. She has had a history of hemorrhoids in the past but she usually does not have the burning pain like this episode Timing/Duration: 1 Day Severity/Quality: Moderate Location: Other (Rectum) Activities at Onset: Other (Having bowel movement) Modifying Factors: Improves With Defecating Associated Symptoms: No Back Pain, No Chest Pain, No Diaphoresis, No Fever/Chills, No Fatigue, No Headache, No Heartburn, No Nausea/Vomiting, No Rash, No Shortness of Air, No Swelling/Mass in Abdomen, No Syncope, No Weakness Allergies and Home Medications Allergies Coded Allergies: sulfamethoxazole (Verified Allergy, Mild, RASH, 12/22/18) trimethoprim (Verified Allergy, Mild, RASH, 12/22/18) Uncoded Allergies: head and shoulders shampoo (Allergy, Unknown, 09/24/18) seafood (Allergy, Unknown, 09/24/18) Patient Home Medication List Home Medication List Reviewed: Yes Amoxicillin (Amoxicillin) 500 Mg Capsule, 500 MG PO TID Prescribed by: NESSA SMITH on 05/24/20 0720 Amoxicillin/Potassium Clav (Amox Tr-K Clv 875-125 mg Tab) 1 Each Tablet, 1 EACH PO BID Prescribed by: SUKHI DEY on 01/30/21 1612 Cephalexin (Keflex) 500 Mg Capsule, 500 MG PO TID Prescribed by: SD BERGMAN on 09/11/19 1000 Cephalexin (Keflex) 500 Mg Capsule, 500 MG PO BID Prescribed by: TREY PAZ on 09/18/19 0503 Clindamycin HCl (Clindamycin HCl) 300 Mg Capsule, 300 MG PO Q6H Prescribed by: OSIRIS JIMENEZ on 03/18/19 0839 Diclofenac Sodium (Diclofenac Sodium) 75 Mg Tablet.dr, 75 MG PO BID Prescribed by: SD CLARKE on 07/13/19 0744 Dicyclomine HCl (Dicyclomine HCl) 20 Mg Tablet, 20 MG PO BID Prescribed by: SD CLARKE on 08/16/19 1629 Hydrocodone/Acetaminophen (Hydrocodone-Acetamin 5-325 mg) 1 Each Tablet, 1 TAB PO Q4H PRN for PAIN-MODERATE (5-7) Prescribed by: TREY PAZ on 11/08/20 0146 Hydrocodone/Acetaminophen (Hydrocodone-Acetamin 5-325 mg) 1 Each Tablet, 1 TAB PO Q4H PRN for PAIN-SEVERE (8-10) Prescribed by: SUKHI DEY on 01/30/21 1613 Ibuprofen (Ibuprofen) 800 Mg Tablet, 800 MG PO Q8H PRN for PAIN Prescribed by: SUKHI DEY on 01/30/21 1612 Metronidazole (Flagyl) 500 Mg Tablet, 500 MG PO BID, (Reported) Entered as Reported by: DENISE AMADO on 04/16/20 0816 Metronidazole (Flagyl) 500 Mg Tablet, 500 MG PO BID, (Reported) Entered as Reported by: DENISE AMADO on 11/15/20 1828 Nitrofurantoin Macrocrystal (Nitrofurantoin) 100 Mg Capsule, 100 MG PO BID Prescribed by: MARIA ANTONIA WILLIS on 08/22/19 0235 Nitrofurantoin Monohyd/M-Cryst (Macrobid 100 mg Capsule) 100 Mg Capsule, 1 EACH PO BID Prescribed by: NESSA SMITH on 04/11/20 1507 Nitrofurantoin Monohyd/M-Cryst (Macrobid 100 mg Capsule) 100 Mg Capsule, 1 TAB PO BID Prescribed by: TREY PAZ on 11/11/20 2342 Ondansetron (Ondansetron Odt) 4 Mg Tab.rapdis, 4 MG PO Q6H Prescribed by: TREY PAZ on 09/18/19 0503 Ondansetron (Ondansetron Odt) 4 Mg Tab.rapdis, 4 MG PO BID Prescribed by: SD CLARKE on 12/05/192008 Ondansetron (Ondansetron Odt) 4 Mg Tab.rapdis, 4 MG PO Q8H Prescribed by: VANESSA ABDULLAHI on 12/25/191920 Ondansetron (Ondansetron Odt) 4 Mg Tab.rapdis, 4 MG PO Q6H PRN for NAUSEA/VOMITING Prescribed by: NESSA SMITH on 05/25/20 0201 Ondansetron (Ondansetron Odt) 4 Mg Tab.rapdis, 4 MG PO Q6H Prescribed by: TREY PAZ on 02/10/21 1222 Penicillin V Potassium (Penicillin V Potassium) 500 Mg Tablet, 500 MG PO QID Prescribed by: TREY PAZ on 11/08/20 0145 Review of Systems Review of Systems Constitutional: No chills, No dizziness, No fever EENTM: No Symptoms Reported Respiratory: No Symptoms Reported Cardiovascular: No Symptoms Reported Gastrointestinal: See HPI Genitourinary: No Symptoms Reported Musculoskeletal: no symptoms reported Skin: no symptoms reported Psychiatric/Neurological: No Symptoms Reported Past Rigamdu-Omzmoq-Eljpcc Hx Patient Social History Tobacco Use?: Yes Tobacco type used: Cigarettes Smoking Status: Current Everyday Smoker Substance use?: No Alcohol Use?: No Immunizations Up To Date Influenza Vaccine Up-to-Date: No; Not Current First/Initial COVID19 Vaccinat: unknown date Second COVID19 Vaccination [place]: unknown date Seasonal Allergies Seasonal Allergies: No Past Medical History Surgery/Hospitalization HX: [place]; colonoscopy Surgeries: Yes (eye surgery as ) Gallbladder Respiratory: Yes Asthma Cardiac: No Neurological: No Last Menstrual Period: Jun 12, 2021 Female Reproductive Disorders: Menstrual Problems Sexually Transmitted Disease: No HIV/AIDS: No Genitourinary: No Gastrointestinal: No Gastroesophageal Reflux, Chronic Diarrhea Musculoskeletal: No Endocrine: No Diabetes, Non-Insulin dep HEENT: No Loss of Vision: Denies Hearing Impairment: Denies Cancer: No Psychosocial: No Anxiety, Depression Integumentary: No Blood Disorders: No Adverse Reaction/Blood Tranf: No (N/A) Physical Exam Vital Signs Vital Signs - First Documented 06/12/21 23:35 Temp 37.0 Pulse 97 Resp 18 B/P (MAP) 140/75 (96) Pulse Ox 97 O2 Delivery Room Air Capillary Refill : Height/Weight/BMI Height: 5'4.00" Weight: 280lbs. oz. 127.448334hg; 47.00 BMI Method:Stated General Appearance: WD/WN, no apparent distress Respiratory: chest non-tender, lungs clear, normal breath sounds, no respiratory distress, no accessory muscle use Cardiovascular: normal peripheral pulses, regular rate, rhythm Gastrointestinal: normal bowel sounds, non tender, soft, no pulsatile mass Rectal: normal rectal tone, hemorrhoids (Small hemorrhoid at the 12 o'clock position), other (Patient had no stool present on digital rectal exam. There is also no bright red blood or bleeding present. She did have pain and discomfort with rectal exam. She had a very small hemorrhoid at the 12 o'clock position) Extremities: normal range of motion, non-tender, normal capillary refill Neurologic/Psychiatric: alert, oriented x 3 Skin: normal color, warm/dry Progress/Results/Core Measures Results/Orders Vital Signs/I&O 06/12/21 23:35 Temp 37.0 Pulse 97 Resp 18 B/P (MAP) 140/75 (96) Pulse Ox 97 O2 Delivery Room Air Blood Pressure Mean: 96 Progress Progress Note : Progress Note Reassured patient that there is no active bleeding or obvious tear in her rectum. Will treat for hemorrhoids and encouraged her to increase fiber in her diet to get her stools more soft and regular. May also use MiraLAX to help get stools soft and regular. Check back with the clinic for continued problems Departure Impression Primary Impression: Bright red blood per rectum Additional Impressions: Hemorrhoid Qualified Codes: K64.0 - First degree hemorrhoids Rectal pain Disposition: HOME, SELF-CARE Condition: Stable Departure-Patient Inst. Decision time for Depature: 00:01 Referrals: OLGA HIDALGO MD (PCP) Primary Care Physician LIZETT HEARD MD (Family) Primary Care Physician Patient Instructions: Hemorrhoids ED, How to Do a Sitz Bath Add. Discharge Instructions: Use fiber to soften your stools make your stools more regular. Use MiraLAX 17 g in 8 ounces of juice or water once a day to help keep your stools more regular. Use Proctofoam to help with hemorrhoid and rectal pain. Follow-up with the clinic if having continued problems and concerns All discharge instructions reviewed with patient and/or family. Voiced understanding. Scripts Hydrocortisone/Pramoxine (Proctofoam-Hc 1%-1% Foam) 1 %-1 % Foam 10 GM RC UD for Hemorrhoids for 7 Days, #10 GM 1 Refill Apply foam to anal area after bowel movement TID prn hemorrhoids/rectal pain and bleeding. Prov: SUKHI DEY MD 06/13/21 SUKHI DEY MD Jun 13, 2021 01:57
[2021-06-13] MEDS ORDERED: HCPR10FM RC (02:02)
== END 2021-06-13 00:10 | disposition home or self-care (01) ==
LOC: EDUNIT# 23:35 → ER FS 23:50
DX: K64.0 First degree hemorrhoids (principal)
CPT/HCPCS: 99281

== ENCOUNTER 2021-06-27 07:03 | Emergency (ER) | payer SELFPAY ==
[~2021-06-27] VITALS: Ht 162.5 cm; Wt 121.3 kg
[~2021-06-27 07:03] MED LIST changes: +HCPR10FM RC
--- NOTE | 2021-06-27 07:15 | ED EENT ---
History of Present Illness General Chief Complaint: Dental Problems/Pain Stated Complaint: DENTAL PAIN History of Present Illness Date Seen by Provider: June 27, 2021 Time Seen by Provider: 07:13 Initial Comments 18-year-old female is here with complaints of left-sided upper and lower tooth pain which has been going on for 3 days she feels it radiating across her jaw and into her ear and is also concerned she might possibly have an ear infection. Denies fever, cough, nasal congestion, facial tenderness, shortness of breath. Patient has not yet seen a dentist. Allergies and Home Medications Allergies Coded Allergies: sulfamethoxazole (Verified Allergy, Mild, RASH, 12/22/18) trimethoprim (Verified Allergy, Mild, RASH, 12/22/18) Uncoded Allergies: head and shoulders shampoo (Allergy, Unknown, 09/24/18) seafood (Allergy, Unknown, 09/24/18) Patient Home Medication List Home Medication List Reviewed: Yes Amoxicillin (Amoxicillin) 500 Mg Capsule, 500 MG PO TID Prescribed by: NESSA SMITH on 05/24/20 0720 Amoxicillin/Potassium Clav (Amox Tr-K Clv 875-125 mg Tab) 1 Each Tablet, 1 EACH PO BID Prescribed by: SUKHI DEY on 01/30/21 1612 Cephalexin (Keflex) 500 Mg Capsule, 500 MG PO TID Prescribed by: SD BERGMAN on 09/11/19 1000 Cephalexin (Keflex) 500 Mg Capsule, 500 MG PO BID Prescribed by: TREY PAZ on 09/18/19 0503 Clindamycin HCl (Clindamycin HCl) 300 Mg Capsule, 300 MG PO Q6H Prescribed by: OSIRIS JIMENEZ on 03/18/19 0839 Diclofenac Sodium (Diclofenac Sodium) 75 Mg Tablet.dr, 75 MG PO BID Prescribed by: SD CLARKE on 07/13/19 0744 Dicyclomine HCl (Dicyclomine HCl) 20 Mg Tablet, 20 MG PO BID Prescribed by: SD CLARKE on 08/16/19 1629 Hydrocodone/Acetaminophen (Hydrocodone-Acetamin 5-325 mg) 1 Each Tablet, 1 TAB PO Q4H PRN for PAIN-MODERATE (5-7) Prescribed by: TREY PAZ on 11/08/20 0146 Hydrocodone/Acetaminophen (Hydrocodone-Acetamin 5-325 mg) 1 Each Tablet, 1 TAB PO Q4H PRN for PAIN-SEVERE (8-10) Prescribed by: SUKHI Pereira ENYART on 01/30/21 1613 Hydrocortisone/Pramoxine (Proctofoam-Hc 1%-1% Foam) 1 %-1 % Foam, 10 GM RC UD Prescribed by: SUKHI PURCELLYART on 06/13/21 0202 Ibuprofen (Ibuprofen) 800 Mg Tablet, 800 MG PO Q8H PRN for PAIN Prescribed by: SUKHI PURCELLYART on 01/30/21 1612 Metronidazole (Flagyl) 500 Mg Tablet, 500 MG PO BID, (Reported) Entered as Reported by: DENISE AMADO on 04/16/20 0816 Metronidazole (Flagyl) 500 Mg Tablet, 500 MG PO BID, (Reported) Entered as Reported by: DENISE AMADO on 11/15/20 1828 Nitrofurantoin Macrocrystal (Nitrofurantoin) 100 Mg Capsule, 100 MG PO BID Prescribed by: MARIA ANTONIA WILLIS on 08/22/19 0235 Nitrofurantoin Monohyd/M-Cryst (Macrobid 100 mg Capsule) 100 Mg Capsule, 1 EACH PO BID Prescribed by: NESSA SMITH on 04/11/20 1507 Nitrofurantoin Monohyd/M-Cryst (Macrobid 100 mg Capsule) 100 Mg Capsule, 1 TAB PO BID Prescribed by: TREY PAZ on 11/11/20 2342 Ondansetron (Ondansetron Odt) 4 Mg Tab.rapdis, 4 MG PO Q6H Prescribed by: TREY PAZ on 09/18/19 0503 Ondansetron (Ondansetron Odt) 4 Mg Tab.rapdis, 4 MG PO BID Prescribed by: SD CLARKE on 12/05/192008 Ondansetron (Ondansetron Odt) 4 Mg Tab.rapdis, 4 MG PO Q8H Prescribed by: VANESSA ABDULLAHI on 12/25/19 192 Ondansetron (Ondansetron Odt) 4 Mg Tab.rapdis, 4 MG PO Q6H PRN for NAUSEA/VOMITING Prescribed by: NESSA SMITH on 05/25/20 0201 Ondansetron (Ondansetron Odt) 4 Mg Tab.rapdis, 4 MG PO Q6H Prescribed by: TREY PAZ on 02/10/21 1222 Penicillin V Potassium (Penicillin V Potassium) 500 Mg Tablet, 500 MG PO QID Prescribed by: TREY PAZ on 11/08/20 0145 Review of Systems Review of Systems Constitutional: no symptoms reported Eyes: No Symptoms Reported Ears: No Symptoms Reported Nose: no symptoms reported Mouth: pain Throat: no symptoms reported Respiratory: no symptoms reported Cardiovascular: no symptoms reported Gastrointestinal: no symptoms reported Musculoskeletal: no symptoms reported Skin: no symptoms reported Neurological: No Symptoms Reported Hematologic/Lymphatic: No Symptoms Reported Immunological/Allergic: no symptoms reported Past Uajagtu-Vcfjfp-Fvzjtt Hx Immunizations Up To Date First/Initial COVID19 Vaccinat: unknown date Second COVID19 Vaccination [place]: unknown date Seasonal Allergies Seasonal Allergies: No Past Medical History Surgery/Hospitalization HX: [place]; colonoscopy Surgeries: Yes (eye surgery as infant) Gallbladder Respiratory: Yes Asthma Cardiac: No Neurological: No Female Reproductive Disorders: Menstrual Problems Sexually Transmitted Disease: No HIV/AIDS: No Genitourinary: No Gastrointestinal: No Gastroesophageal Reflux, Chronic Diarrhea Musculoskeletal: No Endocrine: No Diabetes, Non-Insulin dep HEENT: No Loss of Vision: Denies Hearing Impairment: Denies Cancer: No Psychosocial: No Anxiety, Depression Integumentary: No Blood Disorders: No Adverse Reaction/Blood Tranf: No (N/A) Physical Exam Height, Weight, BMI Height: 5'4.00" Weight: 280lbs. oz. 127.388756op; 47.00 BMI Method:Stated General Appearance: no apparent distress Ears: left ear auricle normal, left ear canal normal, left ear TM normal Nose: normal inspection Mouth/Throat: other (dental caries in the left upper and lower molarss. Gum not inflamed) Neck: non-tender, supple, normal inspection Neurologic/Psychiatric: alert, normal mood/affect, oriented x 3 Skin: normal color Progress/Results/Core Measures Progress Progress Note : Progress Note 1. DENTAL CARIES: - Augmentin for 7 days - NSAID and Tylenol for pain prn - F/u with dentist RAOUL Departure Impression Primary Impression: Dental caries Disposition: 01 HOME, SELF-CARE Condition: Stable Departure-Patient Inst. Referrals: OLGA HIDALGO MD (PCP) Primary Care Physician Patient Instructions: Tooth Decay, Adult (DC), Dental Pain ED Add. Discharge Instructions: Augmentin for 7 days twice a day Tylenol and Ibuprofen prn pain Make dental appointment RAOUL All discharge instructions reviewed with patient and/or family. Voiced underst anding. Scripts Amoxicillin/Potassium Clav (Augmentin 500-125 Tablet) 500 Mg-125 Mg Tablet 1 EACH PO BID for 7 Days, #14 TAB Prov: BART SHEFFIELD MD 06/27/21 BART SHEFFIELD MD June 27, 2021 07:14
[2021-06-27] MEDS ORDERED: AMOX-355 PO (07:26)
[2021-06-27 07:28] VITALS: BP 139/95
== END 2021-06-27 07:28 | disposition home or self-care (01) ==
LOC: EDUNIT# 07:03 → ER FS 07:04
DX: K02.9 Dental caries, unspecified (principal)
CPT/HCPCS: 99282

== ENCOUNTER 2021-07-08 14:04 | Emergency (ER) | payer SELFPAY ==
[~2021-07-08 14:04] MED LIST changes: +AMOX-355 PO
--- NOTE | 2021-07-08 14:17 | ED Upper Extremity ---
General Chief Complaint: Laceration Stated Complaint: LT THUMB INJ Source: patient Exam Limitations: no limitations History of Present Illness Date Seen by Provider: July 08, 2021 Time Seen by Provider: 14:05 Initial Comments 20-year-old female coming in after she cut her left thumb with a pocket knife trying to get mayonnaise out of a jar. Occurred just a couple minutes prior to arrival. She did get her normal vaccines growing up and tetanus was updated within the last 10 years. She has mild pain in her left thumb which is throbbing, better with rest, worse when she tries to bend her thumb. She is otherwise denying any other acute complaints. She is not taking any medicines yet for the pain. Allergies and Home Medications Allergies Coded Allergies: sulfamethoxazole (Verified Allergy, Mild, RASH, 12/22/18) trimethoprim (Verified Allergy, Mild, RASH, 12/22/18) Uncoded Allergies: head and shoulders shampoo (Allergy, Unknown, 09/24/18) seafood (Allergy, Unknown, 09/24/18) Patient Home Medication List Home Medication List Reviewed: Yes Amoxicillin (Amoxicillin) 500 Mg Capsule, 500 MG PO TID Prescribed by: NESSA SMITH on 05/24/20 0720 Amoxicillin/Potassium Clav (Amox Tr-K Clv 875-125 mg Tab) 1 Each Tablet, 1 EACH PO BID Prescribed by: SUKHI DEY on 01/30/21 1612 Amoxicillin/Potassium Clav (Augmentin 500-125 Tablet) 500 Mg-125 Mg Tablet, 1 EACH PO BID Prescribed by: BART SHEFFIELD MD on 06/27/21 0726 Cephalexin (Keflex) 500 Mg Capsule, 500 MG PO TID Prescribed by: SD BERGMAN on 09/11/19 1000 Cephalexin (Keflex) 500 Mg Capsule, 500 MG PO BID Prescribed by: TREY PAZ on 09/18/19 0503 Clindamycin HCl (Clindamycin HCl) 300 Mg Capsule, 300 MG PO Q6H Prescribed by: OSIRIS JIMENEZ on 03/18/19 0839 Diclofenac Sodium (Diclofenac Sodium) 75 Mg Tablet.dr, 75 MG PO BID Prescribed by: SD CLARKE on 07/13/19 0744 Dicyclomine HCl (Dicyclomine HCl) 20 Mg Tablet, 20 MG PO BID Prescribed by: SD CLARKE on 08/16/19 1629 Hydrocodone/Acetaminophen (Hydrocodone-Acetamin 5-325 mg) 1 Each Tablet, 1 TAB PO Q4H PRN for PAIN-MODERATE (5-7) Prescribed by: TREY PAZ on 11/08/20 0146 Hydrocodone/Acetaminophen (Hydrocodone-Acetamin 5-325 mg) 1 Each Tablet, 1 TAB PO Q4H PRN for PAIN-SEVERE (8-10) Prescribed by: SUKHI DEY on 01/30/21 1613 Hydrocortisone/Pramoxine (Proctofoam-Hc 1%-1% Foam) 1 %-1 % Foam, 10 GM RC UD Prescribed by: SUKHI KWONRT on 06/13/21 0202 Ibuprofen (Ibuprofen) 800 Mg Tablet, 800 MG PO Q8H PRN for PAIN Prescribed by: SUKHI DEY on 01/30/21 1612 Metronidazole (Flagyl) 500 Mg Tablet, 500 MG PO BID, (Reported) Entered as Reported by: DENISE AMADO on 04/16/20 0816 Metronidazole (Flagyl) 500 Mg Tablet, 500 MG PO BID, (Reported) Entered as Reported by: DENISE AMADO on 11/15/20 1828 Nitrofurantoin Macrocrystal (Nitrofurantoin) 100 Mg Capsule, 100 MG PO BID Prescribed by: MARIA ANTONIA WILLIS on 08/22/19 0235 Nitrofurantoin Monohyd/M-Cryst (Macrobid 100 mg Capsule) 100 Mg Capsule, 1 EACH PO BID Prescribed by: NESSA SMITH on 04/11/20 1507 Nitrofurantoin Monohyd/M-Cryst (Macrobid 100 mg Capsule) 100 Mg Capsule, 1 TAB PO BID Prescribed by: TREY PAZ on 11/11/20 2342 Ondansetron (Ondansetron Odt) 4 Mg Tab.rapdis, 4 MG PO Q6H Prescribed by: TREY PAZ on 09/18/19 0503 Ondansetron (Ondansetron Odt) 4 Mg Tab.rapdis, 4 MG PO BID Prescribed by: SD CLARKE on 12/05/192008 Ondansetron (Ondansetron Odt) 4 Mg Tab.rapdis, 4 MG PO Q8H Prescribed by: VANESSA ABDULLAHI on 12/25/19 192 Ondansetron (Ondansetron Odt) 4 Mg Tab.rapdis, 4 MG PO Q6H PRN for NAUSEA/VOMITING Prescribed by: NESSA SMITH on 05/25/20 0201 Ondansetron (Ondansetron Odt) 4 Mg Tab.rapdis, 4 MG PO Q6H Prescribed by: TREY PAZ on 02/10/21 1222 Penicillin V Potassium (Penicillin V Potassium) 500 Mg Tablet, 500 MG PO QID Prescribed by: TREY PAZ on 11/08/20 0145 Review of Systems Constitutional: No chills EENTM: No blurred vision Respiratory: No cough Cardiovascular: No chest pain Gastrointestinal: No abdominal pain Genitourinary: no symptoms reported Musculoskeletal: no symptoms reported Skin: other (small cut to thumb) Psychiatric/Neurological: No Symptoms Reported All Other Systems Reviewed Negative Unless Noted: Yes Past Mymplvc-Hbymzr-Cejpkx Hx Patient Social History Tobacco Use?: Yes Immunizations Up To Date First/Initial COVID19 Vaccinat: unknown date Second COVID19 Vaccination [place]: unknown date Third COVID19 Vaccination Date: unknown date Seasonal Allergies Seasonal Allergies: No Past Medical History Surgery/Hospitalization HX: [place]; colonoscopy Surgeries: Yes (eye surgery as ) Gallbladder Respiratory: Yes Asthma Cardiac: No Neurological: No Female Reproductive Disorders: Menstrual Problems Sexually Transmitted Disease: No HIV/AIDS: No Genitourinary: No Gastrointestinal: No Gastroesophageal Reflux, Chronic Diarrhea Musculoskeletal: No Endocrine: No Diabetes, Non-Insulin dep HEENT: No Loss of Vision: Denies Hearing Impairment: Denies Cancer: No Psychosocial: No Anxiety, Depression Integumentary: No Blood Disorders: No Adverse Reaction/Blood Tranf: No (N/A) Physical Exam Vital Signs Capillary Refill : Height, Weight, BMI Height: 5'4.00" Weight: 280lbs. oz. 127.034981dj; 45.00 BMI Method:Stated General Appearance: WD/WN, no apparent distress HEENT: PERRL/EOMI, normal ENT inspection, pharynx normal Neck: non-tender, full range of motion, supple, normal inspection Cardiovascular: regular rate, rhythm, no edema, no murmur Respiratory: chest non-tender, lungs clear, normal breath sounds, no respiratory distress, no accessory muscle use Gastrointestinal: normal bowel sounds, non tender, soft; No guarding, No rebound Hand: normal inspection, non-tender, normal ROM, abrasions (Small superficial abrasion to the left dorsal aspect of the thumb) Neurologic/Tendon: normal sensation, normal motor functions, normal tendon functions Neurologic/Psychiatric: no motor/sensory deficits, alert, normal mood/affect Skin: normal color, warm/dry Lymphatic: no adenopathy Progress/Results/Core Measures Progress Progress Note : Progress Note 20-year-old female coming in after she cut her left thumb with a knife. Tetanus is up-to-date. ABCs intact and vital stable on presentation. The wound was cleaned, and was a extremely superficial abrasion. A Band-Aid was placed on the wound. She was then discharged home in stable condition with strict return precautions. Departure Impression Primary Impression: Finger abrasion Qualified Codes: S60.419A - Abrasion of unspecified finger, initial encounter Disposition: HOME, SELF-CARE Condition: Stable Departure-Patient Inst. Decision time for Depature: 14:16 Referrals: OLGA HIDALGO MD (PCP) Primary Care Physician Patient Instructions: Skin Abrasions (DC) Add. Discharge Instructions: I would keep the Band-Aid on it for a couple days and keep it clean. Afterwards it is okay to let water run over it. Take ibuprofen and/or Tylenol as needed for pain SUKHWINDER BRADY MD July 08, 2021 14:17
[2021-07-08 14:21] VITALS: BP 132/67
== END 2021-07-08 14:21 | disposition home or self-care (01) ==
LOC: EDUNIT# 14:04 → ER FS 14:06
DX: S60.312A Abrasion of left thumb, initial encounter (principal); W26.0XXA Contact with knife, initial encounter

== ENCOUNTER 2021-08-08 12:21 | Emergency (ER) | payer SELFPAY ==
[~2021-08-08] VITALS: Ht 162.6 cm; Wt 124.0 kg
--- NOTE | 2021-08-08 13:09 | ED Cough/URI ---
General Chief Complaint: Head/Cervical Problems Stated Complaint: NAUSEA, HEADACHE Nursing Triage Note: Patient reports she has had a headache, nausea, and dizziness for 1 week. She states she was seen at walk-in care 1 week ago and had negative testing for flu and strep. She reports she has also had a cough and a fever of 99.6 last night. Source: patient Exam Limitations: no limitations History of Present Illness Date Seen by Provider: Aug 08, 2021 Time Seen by Provider: 12:29 Initial Comments Patient to the ER by private conveyance chief complaint of little over a week she has had headache nausea dizziness on standing and a dry nonproductive cough. She had a 99 temperature yesterday and today she had 100.2 temperature at work. She went to the walk-in clinic a couple days ago and was given a negative flu and rapid strep test. She has been using Tylenol and Motrin for her temperatures and body aches. She does not have a history of migraines. This is not the worst headache in her life. She does not have any visual disturbances. She has some nausea without vomiting. She has had some loose stools and tried Pepto-Bismol without success. No skin rash or tick bites or other sick conta cts. She did not get tested for COVID-19. Her cough seems to be worse when she gets up in the morning. She is working on quitting smoking. Down to quarter pack of cigarettes per day. Allergies and Home Medications Allergies Coded Allergies: sulfamethoxazole (Verified Allergy, Mild, RASH, 12/22/18) trimethoprim (Verified Allergy, Mild, RASH, 12/22/18) Uncoded Allergies: head and shoulders shampoo (Allergy, Unknown, 09/24/18) seafood (Allergy, Unknown, 09/24/18) Patient Home Medication List Home Medication List Reviewed: Yes Amoxicillin (Amoxicillin) 500 Mg Capsule, 500 MG PO TID Prescribed by: NESSA SMITH on 05/24/20 0720 Amoxicillin/Potassium Clav (Amox Tr-K Clv 875-125 mg Tab) 1 Each Tablet, 1 EACH PO BID Prescribed by: SUKHI DEY on 01/30/21 1612 Amoxicillin/Potassium Clav (Augmentin 500-125 Tablet) 500 Mg-125 Mg Tablet, 1 EACH PO BID Prescribed by: BART SHEFFIELD MD on 06/27/21 0726 Cephalexin (Keflex) 500 Mg Capsule, 500 MG PO TID Prescribed by: SD BERGMAN on 09/11/19 1000 Cephalexin (Keflex) 500 Mg Capsule, 500 MG PO BID Prescribed by: TREY PAZ on 09/18/19 0503 Clindamycin HCl (Clindamycin HCl) 300 Mg Capsule, 300 MG PO Q6H Prescribed by: OSIRIS JIMENEZ on 03/18/19 0839 Diclofenac Sodium (Diclofenac Sodium) 75 Mg Tablet.dr, 75 MG PO BID Prescribed by: SD CLARKE on 07/13/19 0744 Dicyclomine HCl (Dicyclomine HCl) 20 Mg Tablet, 20 MG PO BID Prescribed by: SD CLARKE on 08/16/19 1629 Hydrocodone/Acetaminophen (Hydrocodone-Acetamin 5-325 mg) 1 Each Tablet, 1 TAB PO Q4H PRN for PAIN-MODERATE (5-7) Prescribed by: TREY PAZ on 11/08/20 0146 Hydrocodone/Acetaminophen (Hydrocodone-Acetamin 5-325 mg) 1 Each Tablet, 1 TAB PO Q4H PRN for PAIN-SEVERE (8-10) Prescribed by: SUKHI DEY on 01/30/21 1613 Hydrocortisone/Pramoxine (Proctofoam-Hc 1%-1% Foam) 1 %-1 % Foam, 10 GM RC UD Prescribed by: SUKHI DEY on 06/13/21 0202 Ibuprofen (Ibuprofen) 800 Mg Tablet, 800 MG PO Q8H PRN for PAIN Prescribed by: SUKHI DEY on 01/30/21 1612 Metronidazole (Flagyl) 500 Mg Tablet, 500 MG PO BID, (Reported) Entered as Reported by: DENISE AMADO on 04/16/20 0816 Metronidazole (Flagyl) 500 Mg Tablet, 500 MG PO BID, (Reported) Entered as Reported by: DENISE AMADO on 11/15/20 1828 Nitrofurantoin Macrocrystal (Nitrofurantoin) 100 Mg Capsule, 100 MG PO BID Prescribed by: MARIA ANTONIA WILLIS on 08/22/19 0235 Nitrofurantoin Monohyd/M-Cryst (Macrobid 100 mg Capsule) 100 Mg Capsule, 1 EACH PO BID Prescribed by: NESSA SMITH on 04/11/20 1507 Nitrofurantoin Monohyd/M-Cryst (Macrobid 100 mg Capsule) 100 Mg Capsule, 1 TAB PO BID Prescribed by: TREY PAZ on 11/11/20 2342 Ondansetron (Ondansetron Odt) 4 Mg Tab.rapdis, 4 MG PO Q6H Prescribed by: TREY PAZ on 09/18/19 0503 Ondansetron (Ondansetron Odt) 4 Mg Tab.rapdis, 4 MG PO BID Prescribed by: SD CLARKE on 12/05/192008 Ondansetron (Ondansetron Odt) 4 Mg Tab.rapdis, 4 MG PO Q8H Prescribed by: VANESSA ABDULLAHI on 12/25/19 192 Ondansetron (Ondansetron Odt) 4 Mg Tab.rapdis, 4 MG PO Q6H PRN for NAUSEA/VOMITING Prescribed by: NESSA SMITH on 05/25/20 0201 Ondansetron (Ondansetron Odt) 4 Mg Tab.rapdis, 4 MG PO Q6H Prescribed by: TREY PAZ on 02/10/21 1222 Penicillin V Potassium (Penicillin V Potassium) 500 Mg Tablet, 500 MG PO QID Prescribed by: TREY PAZ on 11/08/20 0145 Review of Systems Review of Systems Constitutional: chills, fever, malaise EENTM: No ear discharge, No ear pain Respiratory: cough; No phlegm, No short of breath Cardiovascular: No chest pain, No edema Gastrointestinal: No abdominal pain, No constipation; diarrhea, nausea; No vomiting Genitourinary: No discharge, No dysuria Musculoskeletal: No back pain, No joint pain All Other Systems Reviewed Negative Unless Noted: Yes Past Ncmhrcx-Sbwdxb-Aflqma Hx Patient Social History Tobacco Use?: Yes Smoking Status: Current Everyday Smoker Substance use?: No Alcohol Use?: Yes Alcohol Frequency: Once in a while Pt feels they are or have been: No Immunizations Up To Date First/Initial COVID19 Vaccinat: unknown date Second COVID19 Vaccination [place]: unknown date Third COVID19 Vaccination Date: unknown date 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 Seasonal Allergies Seasonal Allergies: No Past Medical History Surgery/Hospitalization HX: [place]; colonoscopy Surgeries: Yes (eye surgery as infant) Gallbladder Respiratory: Yes Asthma Cardiac: No Neurological: No Last Menstrual Period: July 07, 2021 Female Reproductive Disorders: Menstrual Problems Sexually Transmitted Disease: No HIV/AIDS: No Genitourinary: No Gastrointestinal: No Gastroesophageal Reflux, Chronic Diarrhea Musculoskeletal: No Endocrine: No Diabetes, Non-Insulin dep HEENT: No Loss of Vision: Denies Hearing Impairment: Denies Cancer: No Psychosocial: No Anxiety, Depression Integumentary: No Blood Disorders: No Adverse Reaction/Blood Tranf: No (N/A) Physical Exam Vital Signs - First Documented 08/08/21 12:30 Temp 36.8 Pulse 75 Resp 16 B/P (MAP) 139/93 (108) Pulse Ox 100 O2 Delivery Room Air Capillary Refill : Less Than 3 Seconds Height: 5'4.00" Weight: 280lbs. oz. 127.315593kv; 46.00 BMI Method:Stated General Appearance: WD/WN, no apparent distress, obese Eyes: Bilateral Eye Normal Inspection, Bilateral Eye PERRL, Bilateral Eye EOMI HEENT: PERRL/EOMI, normal ENT inspection, TMs normal, pharynx normal (Dry without injection erythema exudate or significant tonsillar swelling) Neck: non-tender, full range of motion, supple, normal inspection Respiratory: no respiratory distress, no accessory muscle use, rhonchi (Few at the right base) Cardiovascular: normal peripheral pulses, regular rate, rhythm Gastrointestinal: non tender, soft Neurologic/Psychiatric: alert, normal mood/affect, oriented x 3 Skin: normal color, warm/dry Progress/Results/Core Measures Suspected Sepsis SIRS Temperature: Pulse: 75 Respiratory Rate: 16 Blood Pressure 139 /93 Mean: 108 Results/Orders Lab Results Laboratory Tests Test 08/08/21 12:59 Range/Units My Orders Orders - TRISTON BOWLES Urine Bedside (08/08/21 12:33) Orthostatic Vital Signs (Adult (08/08/21 12:50) Covid 19 Inhouse Test (08/08/21 12:50) Chest Pa/Lat (2 View) (08/08/21 12:56) Vital Signs/I&O 08/08/21 12:30 Temp 36.8 Pulse 75 Resp 16 B/P (MAP) 139/93 (108) Pulse Ox 100 O2 Delivery Room Air Capillary Refill : Less Than 3 Seconds Blood Pressure Mean: 108 Progress Note : Time: 13:08 Progress Note She has a septic vital signs. She reports a fever and a dry nonproductive cough. Likely this is going to be viral. Made worse by her smoking however we have encouraged her to continue working on quitting. We will get a plain film set of x-rays to rule out pneumonia. Tessalon Perles, loperamide, Tylenol Motrin, a COVID swab. Orthostatic vital signs were normal. Ondansetron to be sent to the pharmacy. Diagnostic Imaging Diagonstic Imaging: Xray Plain Films/CT/US/NM/MRI: chest (2v) Comments [facility], [place] NAME: MIRIAM CALDERON [facility] REC#: [id number] PT STATUS: REG ER : 2000 PHYSICIAN: TRISTON BOWLES MD ADMIT DATE: 08/08/21/ER FS Draft Date of Exam:08/08/21 CHEST PA/LAT (2 VIEW) CLINICAL INDICATION: Patient with cough, fever, dizziness, and headache x1 week. EXAM: Chest x-ray, PA and lateral views. COMPARISON: Chest x-ray dated 04/26/2019. FINDINGS: Lungs/pleura: Lungs are clear. There is no pneumothorax. There is no pleural effusion. Mediastinum: Unremarkable. Pulmonary vasculature: Unremarkable. Heart: Unremarkable. Bones/extrathoracic soft tissue: There are degenerative spurs involving the thoracic spine. IMPRESSION: There is no radiographic evidence of acute cardiopulmonary process. Dictated on workstation # [id number] Dict: 08/08/21 1309 Trans: 08/08/21 1312 [id number] Interpreted by: MIRTA LAUGHLIN MD Electronically signed by: Reviewed: Reviewed by Me Departure Impression Primary Impression: Upper respiratory infection, viral Additional Impression: Colitis presumed infectious Disposition: 01 HOME, SELF-CARE Condition: Stable Departure-Patient Inst. Decision time for Depature: 13:35 Referrals: OLGA HIDALGO MD (PCP) Primary Care Physician Patient Instructions: Acute Bronchitis, Adult (DC) Add. Discharge Instructions: Continue to work on smoking cessation. Drink plenty of fluids. Sports drinks such as Gatorade, Powerade etc. are recommended. For headaches fevers or chills use Tylenol and Motrin. Tylenol 1000 mg every 8 hours needed. Ibuprofen 800 mg every 8 hours as needed. Ondansetron 1 tablet under the tongue every 6 hours as needed for nausea and/or vomiting. Loperamide 2 tablets if you have loose, watery stools. Take 1 tablet every 4 hours afterwards that you are still having loose, watery stools. Decongestants especially before you sleep to help reduce the incidence of cough. Chlorpheniramine 4 mg every 4 hours as needed for nasal congestion and cough. Tessalon Perles 1 capsule every 6 hours as needed for cough. Follow-up for recheck with your primary care doctor if you are not seeing improvement in your symptoms in the next week. Return to ER promptly for severe dehydration, intractable pain, intractable vomiting etc. Someone should call you later this afternoon with the results of your COVID-19 swab. If you have not heard anything by 5:00 PM then feel free to call back. All discharge instructions reviewed with patient and/or family. Voiced understanding. Scripts Benzonatate (TESSALON PERLES) 100 Mg Capsule 100 MG PO Q6H PRN for COUGH, #20 CAP 0 Refills Prov: TRISTON BOWLES 08/08/21 Ondansetron (Ondansetron Odt) 4 Mg Tab.rapdis 4 MG PO Q6H PRN for NAUSEA/VOMITING, #15 TAB 0 Refills Prov: TRISTON BOWLES 08/08/21 Work/School Note: Work Release Form Date Seen in the Emergency Department: Aug 08, 2021 Return to Work: Aug 10, 2021 Restrictions: Return-No Fever (24hrs) TRISTON BOWLES Aug 08, 2021 13:09
--- NOTE | 2021-08-08 13:13 | Diagnostic Imaging Report ---
CLINICAL INDICATION: Patient with cough, fever, dizziness, and headache x1 week. EXAM: Chest x-ray, PA and lateral views. COMPARISON: Chest x-ray dated 04/26/2019. FINDINGS: Lungs/pleura: Lungs are clear. There is no pneumothorax. There is no pleural effusion. Mediastinum: Unremarkable. Pulmonary vasculature: Unremarkable. Heart: Unremarkable. Bones/extrathoracic soft tissue: There are degenerative spurs involving the thoracic spine. IMPRESSION: There is no radiographic evidence of acute cardiopulmonary process. Dictated by: Dictated on workstation # [id number]
[2021-08-08] MEDS ORDERED: ONDA4TAB11 PO (13:42)
[2021-08-08] MEDS ORDERED: BENZ100C18 PO (13:42)
[2021-08-08 13:45] VITALS: BP_SYST 136; BP_SYST 139; BP_SYST 142; BP_DIAS 82; BP_DIAS 89; BP_DIAS 92
== END 2021-08-08 13:47 | disposition home or self-care (01) ==
LOC: EDUNIT# 12:21 → ER FS 12:25
DX: J06.9 Acute upper respiratory infection, unspecified (principal); A09 Infectious gastroenteritis and colitis, unspecified; F17.210 Nicotine dependence, cigarettes, uncomplicated; Z20.822 Contact with and (suspected) exposure to COVID-19
CPT/HCPCS: 71046; 84703; 87636

== ENCOUNTER 2021-08-20 16:17 | Emergency (ER) | payer SELFPAY ==
[~2021-08-20] VITALS: Ht 162.6 cm; Wt 125.1 kg
[~2021-08-20 16:17] MED LIST changes: +BENZ100C18 PO
--- NOTE | 2021-08-20 17:05 | ED Abdominal Pain ---
General Stated Complaint: ABD PAIN History of Present Illness Date Seen by Provider: Aug 20, 2021 Time Seen by Provider: 17:05 Initial Comments 20-year-old female presents with suprapubic pain that started around 10-10:30 this morning is none specific and radiates mildly around in her abdomen. She does have some dysuria. She denies any hematuria. She does not have any nausea vomiting, chest pain, fever, chills or flank pain. Patient with no other systemic complaints Allergies and Home Medications Allergies Coded Allergies: sulfamethoxazole (Verified Allergy, Mild, RASH, 12/22/18) trimethoprim (Verified Allergy, Mild, RASH, 12/22/18) Uncoded Allergies: head and shoulders shampoo (Allergy, Unknown, 09/24/18) seafood (Allergy, Unknown, 09/24/18) Patient Home Medication List Home Medication List Reviewed: Yes Amoxicillin (Amoxicillin) 500 Mg Capsule, 500 MG PO TID Prescribed by: NESSA SMITH on 05/24/20 0720 Amoxicillin/Potassium Clav (Amox Tr-K Clv 875-125 mg Tab) 1 Each Tablet, 1 EACH PO BID Prescribed by: SUKHI DEY on 01/30/21 1612 Amoxicillin/Potassium Clav (Augmentin 500-125 Tablet) 500 Mg-125 Mg Tablet, 1 EACH PO BID Prescribed by: BART SHEFFIELD MD on 06/27/21 0726 Benzonatate (Tessalon Perles) 100 Mg Capsule, 100 MG PO Q6H PRN for COUGH Prescribed by: TRISTON BOWLES on 08/08/21 1342 Cephalexin (Keflex) 500 Mg Capsule, 500 MG PO TID Prescribed by: SD BERGMAN on 09/11/19 1000 Cephalexin (Keflex) 500 Mg Capsule, 500 MG PO BID Prescribed by: TREY PAZ on 09/18/19 0503 Clindamycin HCl (Clindamycin HCl) 300 Mg Capsule, 300 MG PO Q6H Prescribed by: OISRIS JIMENEZ on 03/18/19 0839 Diclofenac Sodium (Diclofenac Sodium) 75 Mg Tablet.dr, 75 MG PO BID Prescribed by: SD CLARKE on 07/13/19 0744 Dicyclomine HCl (Dicyclomine HCl) 20 Mg Tablet, 20 MG PO BID Prescribed by: SD CLARKE on 08/16/19 1629 Hydrocodone/Acetaminophen (Hydrocodone-Acetamin 5-325 mg) 1 Each Tablet, 1 TAB PO Q4H PRN for PAIN-MODERATE (5-7) Prescribed by: TREY PAZ on 11/08/20 0146 Hydrocodone/Acetaminophen (Hydrocodone-Acetamin 5-325 mg) 1 Each Tablet, 1 TAB PO Q4H PRN for PAIN-SEVERE (8-10) Prescribed by: SUKHI Pereira ENYART on 01/30/21 1613 Hydrocortisone/Pramoxine (Proctofoam-Hc 1%-1% Foam) 1 %-1 % Foam, 10 GM RC UD Prescribed by: SUKHI Pereira ENYART on 06/13/21 0202 Ibuprofen (Ibuprofen) 800 Mg Tablet, 800 MG PO Q8H PRN for PAIN Prescribed by: SUKHI Pereira ENYART on 01/30/21 1612 Metronidazole (Flagyl) 500 Mg Tablet, 500 MG PO BID, (Reported) Entered as Reported by: DENISE AMADO on 04/16/20 0816 Metronidazole (Flagyl) 500 Mg Tablet, 500 MG PO BID, (Reported) Entered as Reported by: DENISE AMADO on 11/15/20 1828 Nitrofurantoin Macrocrystal (Nitrofurantoin) 100 Mg Capsule, 100 MG PO BID Prescribed by: MARIA ANTONIA WILLIS on 08/22/19 0235 Nitrofurantoin Monohyd/M-Cryst (Macrobid 100 mg Capsule) 100 Mg Capsule, 1 EACH PO BID Prescribed by: NESSA SMITH on 04/11/20 1507 Nitrofurantoin Monohyd/M-Cryst (Macrobid 100 mg Capsule) 100 Mg Capsule, 1 TAB PO BID Prescribed by: TREY PAZ on 11/11/20 2342 Ondansetron (Ondansetron Odt) 4 Mg Tab.rapdis, 4 MG PO Q6H Prescribed by: TREY PAZ on 09/18/19 0503 Ondansetron (Ondansetron Odt) 4 Mg Tab.rapdis, 4 MG PO BID Prescribed by: SD CLARKE on 12/05/192008 Ondansetron (Ondansetron Odt) 4 Mg Tab.rapdis, 4 MG PO Q8H Prescribed by: VANESSA ABDULLAHI on 12/25/19 192 Ondansetron (Ondansetron Odt) 4 Mg Tab.rapdis, 4 MG PO Q6H PRN for NAUSEA/VOMITING Prescribed by: NESSA SMITH on 05/25/20 0201 Ondansetron (Ondansetron Odt) 4 Mg Tab.rapdis, 4 MG PO Q6H Prescribed by: TREY PAZ on 02/10/21 1222 Ondansetron (Ondansetron Odt) 4 Mg Tab.rapdis, 4 MG PO Q6H PRN for NAUSEA/VOMITING Prescribed by: TRISTON BOWLES on 08/08/21 1342 Penicillin V Potassium (Penicillin V Potassium) 500 Mg Tablet, 500 MG PO QID Prescribed by: TREY PAZ on 11/08/20 0145 Review of Systems Review of Systems Constitutional: No chills, No fever Respiratory: No Symptoms Reported Cardiovascular: No Symptoms Reported Gastrointestinal: See HPI, Abdominal Pain; Denies Nausea, Denies Vomiting Genitourinary: See HPI; Denies Flank Pain, Denies Hematuria; Pain Musculoskeletal: no symptoms reported Skin: no symptoms reported Psychiatric/Neurological: No Symptoms Reported Endocrine: No Symptoms Reported Hematologic/Lymphatic: No Symptoms Reported Past Nokztgw-Ctjgpk-Cfuzgp Hx Immunizations Up To Date First/Initial COVID19 Vaccinat: unknown date Second COVID19 Vaccination [place]: unknown date Third COVID19 Vaccination Date: unknown date Seasonal Allergies Seasonal Allergies: No Past Medical History Surgery/Hospitalization HX: [place]; colonoscopy Surgeries: Yes (eye surgery as ) Gallbladder Respiratory: Yes Asthma Cardiac: No Neurological: No Female Reproductive Disorders: Menstrual Problems Sexually Transmitted Disease: No HIV/AIDS: No Genitourinary: No Gastrointestinal: No Gastroesophageal Reflux, Chronic Diarrhea Musculoskeletal: No Endocrine: No Diabetes, Non-Insulin dep HEENT: No Loss of Vision: Denies Hearing Impairment: Denies Cancer: No Psychosocial: No Anxiety, Depression Integumentary: No Blood Disorders: No Adverse Reaction/Blood Tranf: No (N/A) Physical Exam Vital Signs Vital Signs - First Documented 08/20/21 08/20/21 17:00 19:01 Temp 35.9 Pulse 85 Resp 15 B/P (MAP) 139/67 (91) Pulse Ox 100 O2 Delivery Room Air Capillary Refill : Height/Weight/BMI Height: 5'4.00" Weight: 280lbs. oz. 127.846978wm; 46.00 BMI Method:Stated General Appearance: WD/WN, no apparent distress Respiratory: lungs clear, normal breath sounds Cardiovascular: normal peripheral pulses, regular rate, rhythm Gastrointestinal: soft, tenderness (Suprapubic) Extremities: normal range of motion, non-tender Back: No CVA tenderness (R), No CVA tenderness (L) Neurologic/Psychiatric: alert, normal mood/affect, oriented x 3 Skin: normal color, warm/dry Progress/Results/Core Measures Results/Orders Lab Results Laboratory Tests Test 08/20/21 17:00 08/20/21 18:10 Range/Units Urine Color YELLOW Urine Clarity CLEAR Urine pH 7.5 5-9 Urine Specific [place] 1.010 L 1.016-1.022 Urine Protein NEGATIVE NEGATIVE Urine Glucose (UA) NEGATIVE NEGATIVE Urine Ketones NEGATIVE NEGATIVE Urine Nitrite NEGATIVE NEGATIVE Urine Bilirubin NEGATIVE NEGATIVE Urine Urobilinogen 0.2 < = 1.0 MG/DL Urine Leukocyte Esterase NEGATIVE NEGATIVE Urine RBC (Auto) NEGATIVE NEGATIVE Urine RBC NONE /HPF Urine WBC RARE /HPF Urine Squamous Epithelial Cells 5-10 /HPF Urine Crystals NONE /LPF Urine Bacteria NEGATIVE /HPF Urine Casts NONE /LPF Urine Mucus NEGATIVE /LPF Urine Culture Indicated NO White Blood Count 10.4 4.3-11.0 10^3/uL Red Blood Count 5.18 H 3.80-5.11 10^6/uL Hemoglobin 14.9 11.5-16.0 g/dL Hematocrit 44 35-52 % Mean Corpuscular Volume 85 80-99 fL Mean Corpuscular Hemoglobin 29 25-34 pg Mean Corpuscular Hemoglobin Concent 34 32-36 g/dL Red Cell Distribution Width 12.0 10.0-14.5 % Platelet Count 290 130-400 10^3/uL Mean Platelet Volume 10.0 9.0-12.2 fL Immature Granulocyte % (Auto) 0 % Neutrophils (%) (Auto) 64 42-75 % Lymphocytes (%) (Auto) 27 12-44 % Monocytes (%) (Auto) 7 0-12 % Eosinophils (%) (Auto) 1 0-10 % Basophils (%) (Auto) 0 0-10 % Neutrophils # (Auto) 6.7 1.8-7.8 10^3/uL Lymphocytes # (Auto) 2.8 1.0-4.0 10^3/uL Monocytes # (Auto) 0.7 0.0-1.0 10^3/uL Eosinophils # (Auto) 0.1 0.0-0.3 10^3/uL Basophils # (Auto) 0.0 0.0-0.1 10^3/uL Immature Granulocyte # (Auto) 0.0 0.0-0.1 10^3/uL Sodium Level 139 135-145 MMOL/L Potassium Level 4.4 3.6-5.0 MMOL/L Chloride Level 102 98-107 MMOL/L Carbon Dioxide Level 28 21-32 MMOL/L Anion Gap 9 5-14 MMOL/L Blood Urea Nitrogen 7 7-18 MG/DL Creatinine 0.75 0.60-1.30 MG/DL Estimat Glomerular Filtration Rate 115 BUN/Creatinine Ratio 9 Glucose Level 93 70-105 MG/DL Calcium Level 8.9 8.5-10.1 MG/DL Corrected Calcium 8.8 8.5-10.1 MG/DL Total Bilirubin 0.4 0.1-1.0 MG/DL Aspartate Amino Transf (AST/SGOT) 12 5-34 U/L Alanine Aminotransferase (ALT/SGPT) 14 0-55 U/L Alkaline Phosphatase 51 40-136 U/L C-Reactive Protein 0.49 <0.50 MG/DL Total Protein 7.4 6.4-8.2 GM/DL Albumin 4.1 3.2-4.5 GM/DL My Orders Orders - NESSA SMITH L DO Ua Culture If Indicated (08/20/21 17:15) Phenazopyridine Tablet (Pyridium Tablet) (08/20/21 17:15) Cbc With Automated Diff (08/20/21 17:51) Comprehensive Metabolic Panel (08/20/21 17:51) Crp Fs (08/20/21 17:51) Ed Iv/Invasive Line Start (08/20/21 17:51) Urine Bedside (08/20/21 17:51) Abdomen (Kub) 1 View (08/20/21 17:51) Medications Given in ED Current Medications Medications Dose Ordered Sig/Artem Route Start Time Stop Time Status Last Admin Dose Admin Phenazopyridine HCl 100 mg ONCE ONCE PO 08/20/21 17:15 08/20/21 17:16 DC 08/20/21 17:21 100 MG Vital Signs/I&O 08/20/21 08/20/21 17:00 19:01 Temp 35.9 Pulse 85 72 Resp 15 16 B/P (MAP) 139/67 (91) 139/67 Pulse Ox 100 O2 Delivery Room Air Room Air Progress Progress Note : Progress Note Patient with negative labs and x-ray. Patient reports that she has to be discharged because she has to go to work because she cannot family work for her. Discussed with her that if her symptoms worsen she should follow-up with her primary care provider or return to the ER for further evaluation. Patient can use Tylenol ibuprofen as needed for pain. She is discharged home in stable condition Diagnostic Imaging Diagonstic Imaging: Xray Plain Films/CT/US/NM/MRI: abdomen Comments Date of Exam:08/20/21 ABDOMEN (KUB) 1 VIEW Indication: Left-sided abdominal pain. Time of Exam: 6:06 PM Bowel gas pattern appears nonobstructed. No definite free air is seen. There is a surgical clip in the right pelvis. No pathologic calcifications are seen. IMPRESSION: No acute abnormality is detected. Reviewed: Reviewed by Me, Reviewed/Discussed Departure Impression Primary Impression: Abdominal pain Qualified Codes: R10.84 - Generalized abdominal pain Disposition: HOME, SELF-CARE Condition: Stable Departure-Patient Inst. Referrals: OLGA HIDALGO MD (PCP) Primary Care Physician LIZETT HEARD MD (Family) Primary Care Physician Patient Instructions: Severe Abdominal Pain, Adult (DC) Add. Discharge Instructions: Follow-up with your primary care provider in the next 1 to 2 days for further evaluation if symptoms continue ,return to the ER if symptoms become significantly worse or any other concerns NESSA SMITH DO Aug 20, 2021 17:05
[2021-08-20] MEDS ORDERED: PHENAZOPYRIDINE 100 MG (PYRIDIUM) TABLET PO ONE (17:15)
[2021-08-20 17:20] LABS: BILIRUBIN,URINE NEGATIVE (NEGATIVE); CLARITY,URINE CLEAR; COLOR,URINE YELLOW; GLUCOSE, URINE (UA) NEGATIVE (NEGATIVE); KETONES,URINE NEGATIVE (NEGATIVE); LEUKOCYTE ESTERASE ,URINE NEGATIVE (NEGATIVE); NITRITE,URINE NEGATIVE (NEGATIVE); PH,URINE 7.5 (5-9); PROTEIN,URINE NEGATIVE (NEGATIVE)
[2021-08-20 17:25] LABS: BACTERIA,URINE NEGATIVE /HPF; WBC,URINE RARE /HPF
--- NOTE | 2021-08-20 18:12 | Diagnostic Imaging Report ---
Indication: Left-sided abdominal pain. Time of Exam: 6:06 PM Bowel gas pattern appears nonobstructed. No definite free air is seen. There is a surgical clip in the right pelvis. No pathologic calcifications are seen. IMPRESSION: No acute abnormality is detected. Dictated by: Dictated on workstation # [id number]
[2021-08-20 18:19] LABS: BASOPHILS % (AUTO) 0 % (0-10); EOSINOPHILS # (AUTO) 0.1 10^3/uL (0.0-0.3); EOSINOPHILS % (AUTO) 1 % (0-10); HEMATOCRIT 44 % (35-52); HEMOGLOBIN 14.9 g/dL (11.5-16.0); LYMPHOCYTES # (AUTO) 2.8 10^3/uL (1.0-4.0); LYMPHOCYTES % (AUTO) 27 % (12-44); MEAN CORPUSCULAR HEMOGLOBIN 29 pg (25-34); MEAN CORPUSCULAR HGB CONC 34 g/dL (32-36); MEAN CORPUSCULAR VOLUME 85 fL (80-99); MONOCYTES # (AUTO) 0.7 10^3/uL (0.0-1.0); MONOCYTES % (AUTO) 7 % (0-12); NEUTROPHILS # (AUTO) 6.7 10^3/uL (1.8-7.8); NEUTROPHILS % (AUTO) 64 % (42-75); PLATELET COUNT 290 10^3/uL (130-400); WHITE BLOOD COUNT 10.4 10^3/uL (4.3-11.0)
[2021-08-20 18:42] LABS: ALBUMIN 4.1 GM/DL (3.2-4.5); BILIRUBIN,TOTAL 0.4 MG/DL (0.1-1.0); CALCIUM 8.9 MG/DL (8.5-10.1); CREATININE SERUM 0.75 MG/DL (0.60-1.30); POTASSIUM 4.4 MMOL/L (3.6-5.0); TOTAL PROTEIN 7.4 GM/DL (6.4-8.2)
[2021-08-20 19:01] VITALS: BP 139/67
== END 2021-08-20 19:01 | disposition home or self-care (01) ==
LOC: EDUNIT# 16:17 → ER FS 16:18
DX: R10.30 Lower abdominal pain, unspecified (principal); Z90.49 Acquired absence of other specified parts of digestive tract; Z28.310 Unvaccinated for COVID-19
CPT/HCPCS: 36415; 74018; 80053; 81000; 84703; 85025; 86141

== ENCOUNTER 2021-09-06 05:21 | Emergency (ER) | payer SELFPAY ==
[~2021-09-06] VITALS: Ht 162.6 cm; Wt 162.6 kg
[2021-09-06] MEDS ORDERED: KETOROLAC 30 MG/ML VIAL IVP STA (05:36)
[2021-09-06] MEDS ORDERED: ONDANSETRON 4 MG/2 ML (SDV) Z0FRAN IVP STA (05:36)
[2021-09-06] MEDS ORDERED: PANTOPRAZOLE 40 MG (PROTONIX) VIAL IV STA (05:36)
[2021-09-06] MEDS ORDERED: NS IV 1000 ML 1,000 ML IV STA (05:36)
[2021-09-06 05:54] LABS: BASOPHILS # (AUTO) 0.1 10^3/uL (0.0-0.1); BASOPHILS % (AUTO) 0 % (0-10); EOSINOPHILS # (AUTO) 0.1 10^3/uL (0.0-0.3); EOSINOPHILS % (AUTO) 1 % (0-10); HEMATOCRIT 42 % (35-52); HEMOGLOBIN 14.4 g/dL (11.5-16.0); LYMPHOCYTES # (AUTO) 3.2 10^3/uL (1.0-4.0); LYMPHOCYTES % (AUTO) 24 % (12-44); MEAN CORPUSCULAR HEMOGLOBIN 29 pg (25-34); MEAN CORPUSCULAR HGB CONC 34 g/dL (32-36); MEAN CORPUSCULAR VOLUME 83 fL (80-99); MEAN PLATELET VOLUME 10.1 fL (9.0-12.2); MONOCYTES # (AUTO) 0.9 10^3/uL (0.0-1.0); MONOCYTES % (AUTO) 6 % (0-12); NEUTROPHILS # (AUTO) 9.1 10^3/uL (1.8-7.8); NEUTROPHILS % (AUTO) 68 % (42-75); PLATELET COUNT 295 10^3/uL (130-400); WHITE BLOOD COUNT 13.4 10^3/uL (4.3-11.0)
[2021-09-06 05:56] LABS: GLUCOSE, URINE (UA) NEGATIVE (NEGATIVE); KETONES,URINE TRACE (NEGATIVE); LEUKOCYTE ESTERASE ,URINE 1+ (NEGATIVE); NITRITE,URINE NEGATIVE (NEGATIVE); PROTEIN,URINE 1+ (NEGATIVE)
[2021-09-06 05:57] LABS: COLOR,URINE DARK YELLOW
[2021-09-06 06:07] LABS: BACTERIA,URINE MODERATE /HPF; BILIRUBIN,URINE 2+ (NEGATIVE); SQUAMOUS EPITHELIAL CELL,UR 25-50 /HPF
[2021-09-06 06:09] LABS: CLARITY,URINE CLOUDY
[2021-09-06 06:11] LABS: BILIRUBIN,TOTAL 0.5 MG/DL (0.1-1.0); CALCIUM 8.8 MG/DL (8.5-10.1); CREATININE SERUM 0.92 MG/DL (0.60-1.30); POTASSIUM 3.5 MMOL/L (3.6-5.0)
[2021-09-06 06:12] LABS: ALBUMIN 4.2 GM/DL (3.2-4.5); TOTAL PROTEIN 7.5 GM/DL (6.4-8.2)
--- NOTE | 2021-09-06 06:17 | Diagnostic Imaging Report ---
INDICATION: Nausea, vomiting and diarrhea. TECHNIQUE: Multiple contiguous axial images were obtained through the abdomen and pelvis without the use of intravenous contrast. Auto Exposure Controls were utilized during the CT exam to meet ALARA standards for radiation dose reduction. Comparison made to 05/28/2021 FINDINGS: The visualized portions of the lung bases are clear. There is no pleural fluid collection. There is no free intraperitoneal air. The liver shows no focal lesion. Patient has had prior cholecystectomy. The spleen, adrenals, and pancreas are normal. The kidneys bilaterally appear normal. There is no retroperitoneal mass or adenopathy. There is no ascites or abnormal fluid collection. Visualized bowel loops including the appendix appear unremarkable. There is a left adnexal cystic lesion measuring about 4.6 cm. IMPRESSION: No overt bowel obstruction or abscess. Evidence of previous cholecystectomy. 4.6 cm cystic lesion in left adnexa, this can be followed sonographically. This is new compared to the previous CT of 05/28/2021. Dictated by: Dictated on workstation # [id number]
--- NOTE | 2021-09-06 06:21 | ED GI ---
General Chief Complaint: Abdominal/GI Problems Stated Complaint: ABD PAIN,NAUSEA,DIARRHEA Nursing Triage Note: Pt to ED per POV ambulating to ED bathroom reporting going to vomit and have diarrhea. Pt reports 3 days of abd pain with vomiting. Pt began diarrhea 2 days ago. Pt has not called her PCP for appt. 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 Source of Information: Patient History of Present Illness Date Seen by Provider: Sep 06, 2021 Time Seen by Provider: 05:29 Initial Comments 20-year-old female presenting with complaints of 3 days of abdominal pain associated with nausea, vomiting, diarrhea. She has not seen her primary care provider about her symptoms. She has been trying alternating acetaminophen and ibuprofen for her abdominal pain. She denied fever but has felt like she was sweating a lot. She had not been having pain with urination. Her last menstrual cycle was August 09. She states that she has had her gallbladder removed and she has had a colonoscopy previously. She thought maybe she was having food poisoning from the food she eats from gas stations but no one else was getting sick. Her pain and symptoms she felt worsened overnight so she decided to come to the emergency department rather than try to get into the clinic. She has had some discomfort with urination and decreased urine output. Timing/Duration: 2-3 Days Severity/Quality: Severe, Cramping, Stabbing Location: Generalized Abdomen Radiation: RUQ, Flank (right upper flank) Activities at Onset: None Modifying Factors: Worsens With Eating, Worsens With Palpation Associated Symptoms: No Chest Pain; Diaphoresis; No Fever/Chills, No Fatigue, No Headache, No Heartburn; Nausea/Vomiting; No Rash, No Shortness of Air, No Swelling/Mass in Abdomen, No Syncope, No Weakness Allergies and Home Medications Allergies Coded Allergies: sulfamethoxazole (Verified Allergy, Mild, RASH, 12/22/18) trimethoprim (Verified Allergy, Mild, RASH, 12/22/18) Uncoded Allergies: head and shoulders shampoo (Allergy, Unknown, 09/24/18) seafood (Allergy, Unknown, 09/24/18) Patient Home Medication List Home Medication List Reviewed: Yes Dicyclomine HCl (Dicyclomine HCl) 20 Mg Tablet, 20 MG PO Q6H PRN for abdominal pain Prescribed by: SUKHI DEY on 09/06/21 0631 Nitrofurantoin Monohyd/M-Cryst (Macrobid 100 mg Capsule) 100 Mg Capsule, 1 TAB PO BID Prescribed by: SUKHI DEY on 09/06/21 0631 Ondansetron (Ondansetron Odt) 4 Mg Tab.rapdis, 4 MG PO Q6H PRN for NAUSEA/VO MITING Prescribed by: SUKHI DEY on 09/06/21 0631 Discontinued Medications Amoxicillin (Amoxicillin) 500 Mg Capsule, 500 MG PO TID Prescribed by: NESSA SMITH on 05/24/20 0720 Amoxicillin/Potassium Clav (Amox Tr-K Clv 875-125 mg Tab) 1 Each Tablet, 1 EACH PO BID Prescribed by: SUKHI DEY on 01/30/21 1612 Amoxicillin/Potassium Clav (Augmentin 500-125 Tablet) 500 Mg-125 Mg Tablet, 1 EACH PO BID Prescribed by: BART SHEFFIELD MD on 06/27/21 0726 Benzonatate (Tessalon Perles) 100 Mg Capsule, 100 MG PO Q6H PRN for COUGH Prescribed by: TRISTON BOWLES on 08/08/21 1342 Cephalexin (Keflex) 500 Mg Capsule, 500 MG PO TID Prescribed by: SD BERGMAN on 09/11/19 1000 Cephalexin (Keflex) 500 Mg Capsule, 500 MG PO BID Prescribed by: TREY PAZ on 09/18/19 0503 Clindamycin HCl (Clindamycin HCl) 300 Mg Capsule, 300 MG PO Q6H Prescribed by: OSIRIS JIMENEZ on 03/18/19 0839 Diclofenac Sodium (Diclofenac Sodium) 75 Mg Tablet.dr, 75 MG PO BID Prescribed by: SD CLARKE on 07/13/19 0744 Dicyclomine HCl (Dicyclomine HCl) 20 Mg Tablet, 20 MG PO BID Prescribed by: SD CLARKE on 08/16/19 1629 Hydrocodone/Acetaminophen (Hydrocodone-Acetamin 5-325 mg) 1 Each Tablet, 1 TAB PO Q4H PRN for PAIN-MODERATE (5-7) Prescribed by: TREY PAZ on 11/08/20 0146 Hydrocodone/Acetaminophen (Hydrocodone-Acetamin 5-325 mg) 1 Each Tablet, 1 TAB PO Q4H PRN for PAIN-SEVERE (8-10) Prescribed by: SUKHI DEY on 01/30/21 1613 Hydrocortisone/Pramoxine (Proctofoam-Hc 1%-1% Foam) 1 %-1 % Foam, 10 GM RC UD Prescribed by: SUKHI DEY on 06/13/21 0202 Ibuprofen (Ibuprofen) 800 Mg Tablet, 800 MG PO Q8H PRN for PAIN Prescribed by: SUKHI DEY on 01/30/21 1612 Metronidazole (Flagyl) 500 Mg Tablet, 500 MG PO BID, (Reported) Entered as Reported by: DENISE AMADO on 04/16/20 0816 Metronidazole (Flagyl) 500 Mg Tablet, 500 MG PO BID, (Reported) Entered as Reported by: DENISE AMADO on 11/15/20 1828 Nitrofurantoin Macrocrystal (Nitrofurantoin) 100 Mg Capsule, 100 MG PO BID Prescribed by: MARIA ANTONIA WILLIS on 08/22/19 0235 Nitrofurantoin Monohyd/M-Cryst (Macrobid 100 mg Capsule) 100 Mg Capsule, 1 EACH PO BID Prescribed by: NESSA SMITH on 04/11/20 1507 Nitrofurantoin Monohyd/M-Cryst (Macrobid 100 mg Capsule) 100 Mg Capsule, 1 TAB PO BID Prescribed by: TREY PAZ on 11/11/20 2342 Ondansetron (Ondansetron Odt) 4 Mg Tab.rapdis, 4 MG PO Q6H Prescribed by: TREY PAZ on 09/18/19 0503 Ondansetron (Ondansetron Odt) 4 Mg Tab.rapdis, 4 MG PO BID Prescribed by: SD CLARKE on 12/05/192008 Ondansetron (Ondansetron Odt) 4 Mg Tab.rapdis, 4 MG PO Q8H Prescribed by: VANESSA ABDULLAHI on 12/25/19 192 Ondansetron (Ondansetron Odt) 4 Mg Tab.rapdis, 4 MG PO Q6H PRN for NAUSEA/VOMITING Prescribed by: NESSA SMITH on 05/25/20 0201 Ondansetron (Ondansetron Odt) 4 Mg Tab.rapdis, 4 MG PO Q6H Prescribed by: TREY PAZ on 02/10/21 1222 Ondansetron (Ondansetron Odt) 4 Mg Tab.rapdis, 4 MG PO Q6H PRN for NAUSEA/VOMITING Prescribed by: TRISTON BOWLES on 08/08/21 1342 Penicillin V Potassium (Penicillin V Potassium) 500 Mg Tablet, 500 MG PO QID Prescribed by: TREY PAZ on 11/08/20 0145 Review of Systems Review of Systems Constitutional: see HPI; No chills, No fever EENTM: No Symptoms Reported Respiratory: No Symptoms Reported Cardiovascular: No Symptoms Reported Gastrointestinal: See HPI Genitourinary: See HPI Musculoskeletal: no symptoms reported Skin: No rash Psychiatric/Neurological: Denies Headache Endocrine: No Symptoms Reported Past Lfnznqp-Gtkoum-Bpstwl Hx Patient Social History Tobacco Use?: Yes Tobacco type used: Cigarettes Smoking Status: Current Everyday Smoker Substance use?: No Alcohol Use?: Yes Alcohol Frequency: Once in a while Pt feels they are or have been: No Immunizations Up To Date First/Initial COVID19 Vaccinat: unknown date Second COVID19 Vaccination [place]: unknown date Third COVID19 Vaccination Date: unknown date 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: [employer] Seasonal Allergies Seasonal Allergies: No Past Medical History Surgery/Hospitalization HX: Cholecystectomy, Colonoscopy, Morbid Obesity, Anxiety, Depression, GERD, Insulin Resistant, Chronic pain, Surgeries: Yes (eye surgery as infant) Gallbladder Respiratory: Yes Asthma Cardiac: No Neurological: No Last Menstrual Period: Aug 09, 2021 Female Reproductive Disorders: Menstrual Problems Sexually Transmitted Disease: No HIV/AIDS: No Genitourinary: No Gastrointestinal: No Gastroesophageal Reflux, Chronic Diarrhea Musculoskeletal: No Endocrine: No Diabetes, Non-Insulin dep HEENT: No Loss of Vision: Denies Hearing Impairment: Denies Cancer: No Psychosocial: No Anxiety, Depression Integumentary: No Blood Disorders: No Adverse Reaction/Blood Tranf: No (N/A) Physical Exam Vital Signs Vital Signs - First Documented 09/06/21 05:30 Temp 36.1 Pulse 99 Resp 20 B/P (MAP) 133/74 (93) Pulse Ox 97 O2 Delivery Room Air Capillary Refill : Less Than 3 Seconds Height/Weight/BMI Height: 5'4.00" Weight: 280lbs. oz. 127.671567ys; 61.00 BMI Method:Stated General Appearance: WD/WN, obese HEENT: pharynx normal Neck: non-tender, full range of motion, supple, normal inspection Respiratory: chest non-tender, lungs clear, normal breath sounds, no respiratory distress, no accessory muscle use Cardiovascular: normal peripheral pulses, regular rate, rhythm Gastrointestinal: normal bowel sounds, soft, no pulsatile mass; No distended, No guarding, No rebound; tenderness (diffuse mild tenderness to palpation) Rectal: deferred Extremities: normal range of motion, non-tender, normal capillary refill Neurologic/Psychiatric: catechist II-XII nml as tested, alert, oriented x 3 Skin: normal color, warm/dry Images 1 - complains of general pain but feels it moves to the RUQ and Right upper flank Progress/Results/Core Measures Results/Orders Lab Results Laboratory Tests Test 09/06/21 05:35 09/06/21 05:45 Range/Units Urine Color DARK YELLOW Urine Clarity CLOUDY Urine pH 6.0 5-9 Urine Specific Era >=1.030 1.016-1.022 Urine Protein 1+ H NEGATIVE Urine Glucose (UA) NEGATIVE NEGATIVE Urine Ketones TRACE H NEGATIVE Urine Nitrite NEGATIVE NEGATIVE Urine Bilirubin 2+ H NEGATIVE Urine Urobilinogen 0.2 < = 1.0 MG/DL Urine Leukocyte Esterase 1+ H NEGATIVE Urine RBC (Auto) NEGATIVE NEGATIVE Urine RBC NONE /HPF Urine WBC 5-10 H /HPF Urine Squamous Epithelial Cells 25-50 H /HPF Urine Crystals NONE /LPF Urine Bacteria MODERATE H /HPF Urine Casts NONE /LPF Urine Mucus LARGE H /LPF Urine Culture Indicated YES White Blood Count 13.4 H 4.3-11.0 10^3/uL Red Blood Count 5.01 3.80-5.11 10^6/uL Hemoglobin 14.4 11.5-16.0 g/dL Hematocrit 42 35-52 % Mean Corpuscular Volume 83 80-99 fL Mean Corpuscular Hemoglobin 29 25-34 pg Mean Corpuscular Hemoglobin Concent 34 32-36 g/dL Red Cell Distribution Width 12.0 10.0-14.5 % Platelet Count 295 130-400 10^3/uL Mean Platelet Volume 10.1 9.0-12.2 fL Immature Granulocyte % (Auto) 0 % Neutrophils (%) (Auto) 68 42-75 % Lymphocytes (%) (Auto) 24 12-44 % Monocytes (%) (Auto) 6 0-12 % Eosinophils (%) (Auto) 1 0-10 % Basophils (%) (Auto) 0 0-10 % Neutrophils # (Auto) 9.1 H 1.8-7.8 10^3/uL Lymphocytes # (Auto) 3.2 1.0-4.0 10^3/uL Monocytes # (Auto) 0.9 0.0-1.0 10^3/uL Eosinophils # (Auto) 0.1 0.0-0.3 10^3/uL Basophils # (Auto) 0.1 0.0-0.1 10^3/uL Immature Granulocyte # (Auto) 0.1 0.0-0.1 10^3/uL Sodium Level 136 135-145 MMOL/L Potassium Level 3.5 L 3.6-5.0 MMOL/L Chloride Level 103 98-107 MMOL/L Carbon Dioxide Level 22 21-32 MMOL/L Anion Gap 11 5-14 MMOL/L Blood Urea Nitrogen 11 7-18 MG/DL Creatinine 0.92 0.60-1.30 MG/DL Estimat Glomerular Filtration Rate 90 BUN/Creatinine Ratio 12 Glucose Level 103 70-105 MG/DL Calcium Level 8.8 8.5-10.1 MG/DL Corrected Calcium 8.6 8.5-10.1 MG/DL Total Bilirubin 0.5 0.1-1.0 MG/DL Aspartate Amino Transf (AST/SGOT) 14 5-34 U/L Alanine Aminotransferase (ALT/SGPT) 13 0-55 U/L Alkaline Phosphatase 50 40-136 U/L Total Protein 7.5 6.4-8.2 GM/DL Albumin 4.2 3.2-4.5 GM/DL Lipase 13 8-78 U/L My Orders Orders - SUKHI DEY MD Comprehensive Metabolic Panel (09/06/21 05:35) Lipase (09/06/21 05:35) Ua Culture If Indicated (09/06/21 05:35) Ed Iv/Invasive Line Start (09/06/21 05:35) Cbc With Automated Diff (09/06/21 05:35) Ns Iv 1000 Ml (Sodium Chloride 0.9%) (09/06/21 05:36) Ondansetron Injection (Zofran Injectio (09/06/21 05:36) Ketorolac Injection (Toradol Injection) (09/06/21 05:36) Pantoprazole Injection (Protonix Injecti (09/06/21 05:36) Ct Abdomen/Pelvis Wo (09/06/21 05:36) Urine Bedside (09/06/21 05:49) Urine Culture (09/06/21 05:35) Ceftriaxone 1 Gm Pre-Mix (Rocephin 1 Gm (09/06/21 06:32) Vital Signs/I&O 09/06/21 05:30 Temp 36.1 Pulse 99 Resp 20 B/P (MAP) 133/74 (93) Pulse Ox 97 O2 Delivery Room Air Blood Pressure Mean: 93 Progress Progress Note #1: Progress Note Obtain labs and urinalysis to evaluate for electrolyte abnormality or signs of infection. CT scan of the abdomen pelvis without contrast to look for signs of obstruction, colitis, diverticulitis, kidney stone, gastroenteritis. Give normal saline 1 L IV fluid bolus for hydration, Zofran 4 mg IV for nausea, Protonix 40 mg IV for gastritis and nausea, Toradol 30 mg IV for pain Progress Note #2: Progress Note Labs shows mild elevation of the white blood cell count of 13.4 thousand. The chemistry was without acute significant abnormality. Her urinalysis was concentrated with greater than 1.030 specific gravity. She had 1+ leukocyte Estrace and 5-10 white blood cells but she also had 20-50 epithelial cells. This may just be more of a contaminant but may cover her with a few days of antibiotics in case there is infection. CT came back showing no acute intra- abdominal process and stable from May 28 when she was last imaged. She did have a new 4.6 cm cystic area in the left adnexa. Patient is due to start her menstrual cycle any day so this may be a normal cyst on her ovary. Will update patient and continue with symptomatic treatment. Counseled to follow-up with primary care for continued symptoms Diagnostic Imaging Diagonstic Imaging: CT Plain Films/CT/US/NM/MRI: abdomen, pelvis Comments NAME: MIRIAM CALDERON MED REC#: [id number] PT STATUS: REG ER : 2000 PHYSICIAN: SUKHI DEY MD ADMIT DATE: 09/06/21/ER FS Draft Date of Exam:09/06/21 CT ABDOMEN/PELVIS WO INDICATION: Nausea, vomiting and diarrhea. TECHNIQUE: Multiple contiguous axial images were obtained through the abdomen and pelvis without the use of intravenous contrast. Auto Exposure Controls were utilized during the CT exam to meet ALARA standards for radiation dose reduction. Comparison made to 05/28/2021 FINDINGS: The visualized portions of the lung bases are clear. There is no pleural fluid collection. There is no free intraperitoneal air. The liver shows no focal lesion. Patient has had prior cholecystectomy. The spleen, adrenals, and pancreas are normal. The kidneys bilaterally appear normal. There is no retroperitoneal mass or adenopathy. There is no ascites or abnormal fluid collection. Visualized bowel loops including the appendix appear unremarkable. There is a left adnexal cystic lesion measuring about 4.6 cm. IMPRESSION: No overt bowel obstruction or abscess. Evidence of previous cholecystectomy. 4.6 cm cystic lesion in left adnexa, this can be followed sonographically. This is new compared to the previous CT of 05/28/2021. Dictated on workstation # [id number] Dict: 09/06/21611 Trans: 09/06/21 0617 [id number] Interpreted by: RAMU THOMPSON MD Electronically signed by: Reviewed: Reviewed by Me Departure Impression Primary Impression: Generalized abdominal pain Additional Impressions: Nausea vomiting and diarrhea Ovarian cyst, left Acute cystitis without hematuria Disposition: 01 HOME, SELF-CARE Condition: Stable Departure-Patient Inst. Decision time for Depature: 06:40 Referrals: OLGA HIDALGO MD (PCP) Primary Care Physician LIZETT HEARD MD (Family) Primary Care Physician Patient Instructions: Ovarian Cyst ED, Nausea and Vomiting, Adult ED, Urinary Tract Infection, Adult ED, Diarrhea, Adult ED, Abdominal Pain, Adult ED Add. Discharge Instructions: Stay well-hydrated and drink plenty of fluids. Consider taking probiotics to help your gut balance out your diarrhea and abdominal pain. Take the full course of antibiotics to help treat for urinary tract infection. Use the nausea medicine to help keep your stomach settled. You may try using the dicyclomine or Bentyl to help with abdominal pain and c ramping. If your symptoms persist or not improving check back with your primary care provider. They may need to order an ultrasound to see if that the ovarian cyst is resolving and going away. All discharge instructions reviewed with patient and/or family. Voiced understanding. Scripts Dicyclomine HCl (Dicyclomine HCl) 20 Mg Tablet 20 MG PO Q6H PRN for abdominal pain for 5 Days, #20 TAB 0 Refills Prov: SUKHI DEY MD 09/06/21 Ondansetron (Ondansetron Odt) 4 Mg Tab.rapdis 4 MG PO Q6H PRN for NAUSEA/VOMITING for 5 Days, #20 TAB 0 Refills Prov: SUKHI DEY MD 09/06/21 Nitrofurantoin Monohyd/M-Cryst (Macrobid 100 mg Capsule) 100 Mg Capsule 1 TAB PO BID for UTI for 5 Days, #10 CAP 0 Refills Prov: SUKHI DEY MD 09/06/21 SUKHI DEY MD Sep 06, 2021 06:21
[2021-09-06] MEDS ORDERED: ONDA4TAB11 PO (06:31)
[2021-09-06] MEDS ORDERED: NITR-65 PO (06:31)
[2021-09-06] MEDS ORDERED: DICY20TA PO (06:31)
[2021-09-06] MEDS ORDERED: cefTRIAXone 1 GM PRE-MIX 50 ML IV STA (06:32)
[2021-09-06 07:00] VITALS: BP 141/98
== END 2021-09-06 07:00 | disposition home or self-care (01) ==
LOC: EDUNIT# 05:21 → ER FS 05:26
DX: N83.202 Unspecified ovarian cyst, left side (principal); N30.00 Acute cystitis without hematuria; R11.2 Nausea with vomiting, unspecified; R19.7 Diarrhea, unspecified; E66.01 Morbid (severe) obesity due to excess calories; F17.210 Nicotine dependence, cigarettes, uncomplicated; Z90.49 Acquired absence of other specified parts of digestive tract; Z68.44 Body mass index [BMI] 60.0-69.9, adult
CPT/HCPCS: 36415; 74176; 80053; 81000; 83690; 84703; 85025; 87088

== ENCOUNTER 2021-10-20 08:48 | Emergency (ER) | payer OTHER ==
[~2021-10-20] VITALS: Ht 162.5 cm; Wt 122.3 kg
--- NOTE | 2021-10-20 09:13 | ED Lower Extremity ---
General Chief Complaint: Lower Extremity Stated Complaint: WC RT ANKLE INJ Nursing Triage Note: Patient presents to the ED with c/o right ankle injury and pain. States that she was a work walking up the sidewalk in the dark when she stepped on an uneven portion and her right ankle rolled and she heard a pop. Source: patient Exam Limitations: no limitations History of Present Illness Date Seen by Provider: Oct 20, 2021 Time Seen by Provider: 08:50 Initial Comments Patient is a 20-year-old female who presents with right ankle sprain/injury after rolling her ankle last night while at work. Patient states she felt a popping sensation as she inverted her ankle. She has been weightbearing th roughout the evening with some difficulty. She did take ibuprofen earlier with some improvement. She braced her fall with her outstretched right hand reports rest wrist pain without tenderness deformity with full range of motion noted to be present. No abrasions. No other symptoms or complaints. Pain/Injury Location: right ankle Method of Injury: twisted Modifying Factors: Improves With Other Allergies and Home Medications Allergies Coded Allergies: sulfamethoxazole (Verified Allergy, Mild, RASH, 12/22/18) trimethoprim (Verified Allergy, Mild, RASH, 12/22/18) Uncoded Allergies: head and shoulders shampoo (Allergy, Unknown, 09/24/18) seafood (Allergy, Unknown, 09/24/18) Patient Home Medication List Home Medication List Reviewed: Yes Dicyclomine HCl (Dicyclomine HCl) 20 Mg Tablet, 20 MG PO Q6H PRN for abdominal pain Prescribed by: SUKHI DEY on 09/06/21630 Nitrofurantoin Monohyd/M-Cryst (Macrobid 100 mg Capsule) 100 Mg Capsule, 1 TAB PO BID Prescribed by: SUKHI KWONRT on 09/06/21630 Ondansetron (Ondansetron Odt) 4 Mg Tab.rapdis, 4 MG PO Q6H PRN for NAUSEA/VOMITING Prescribed by: SUKHI DEY on 09/06/21630 Review of Systems Constitutional: see HPI Musculoskeletal: see HPI Past Uabkosm-Qlgoyv-Jiasbg Hx Patient Social History Tobacco Use?: Yes Tobacco type used: Cigarettes Smoking Status: Current Everyday Smoker Substance use?: Yes Substance type: Other Additional substance use comme: Reports using Edibles Alcohol Use?: No Pt feels they are or have been: No Immunizations Up To Date First/Initial COVID19 Vaccinat: unknown date Second COVID19 Vaccination [place]: unknown date Third COVID19 Vaccination Date: unknown date Seasonal Allergies Seasonal Allergies: No Past Medical History Surgery/Hospitalization HX: Cholecystectomy, Colonoscopy, Morbid Obesity, Anxiety, Depression, GERD, Insulin Resistant, Chronic pain, Surgeries: Yes (eye surgery as infant) Gallbladder Respiratory: Yes Asthma Cardiac: No Neurological: No Female Reproductive Disorders: Menstrual Problems Sexually Transmitted Disease: No HIV/AIDS: No Genitourinary: No Gastrointestinal: No Gastroesophageal Reflux, Chronic Diarrhea Musculoskeletal: No Endocrine: No Diabetes, Non-Insulin dep HEENT: No Loss of Vision: Denies Hearing Impairment: Denies Cancer: No Psychosocial: No Anxiety, Depression Integumentary: No Blood Disorders: No Adverse Reaction/Blood Tranf: No (N/A) Physical Exam Vital Signs Vital Signs - First Documented 10/20/21 08:50 Temp 36.8 Pulse 80 Resp 16 B/P (MAP) 133/95 (108) Pulse Ox 95 O2 Delivery Room Air Capillary Refill : Less Than 3 Seconds Height, Weight, BMI Height: 5'4.00" Weight: 280lbs. oz. 127.553066em; 46.00 BMI Method:Stated General Appearance: WD/WN, no apparent distress HEENT: PERRL/EOMI Ankles: right ankle pain, right ankle soft tissue tenderness, right ankle swelling Neurologic/Psychiatric: alert, normal mood/affect, oriented x 3 Progress/Results/Core Measures Results/Orders My Orders Orders - TREY PAZ DO Ankle 3 View Right (10/20/21 08:59) Vital Signs/I&O 10/20/21 08:50 Temp 36.8 Pulse 80 Resp 16 B/P (MAP) 133/95 (108) Pulse Ox 95 O2 Delivery Room Air Blood Pressure Mean: 108 Departure Communication (Admissions) Right ankle x-ray: No obvious displaced fracture on preliminary ED review Right ankle injury without evidence of displaced fracture on ED x-ray. Ibuprofen given for pain. Patient placed in air splint with instructions to limit activity and follow-up with work comp and/or PCP for reevaluation in 2 to 3 days if symptoms persist Impression Primary Impression: Right ankle sprain Disposition: 01 HOME, SELF-CARE Condition: Stable Departure-Patient Inst. Decision time for Depature: 09:12 Referrals: OLGA HIDALGO MD (PCP) Primary Care Physician Patient Instructions: Ankle Sprain ED Add. Discharge Instructions: You were evaluated in the emergency department for right ankle injury. X-rays were obtained and do not show obvious displaced fracture. Please take 600 mg of ibuprofen 3 times daily and Tylenol as needed for additional relief. Applied ice to affected area and wear splint for additional comfort. Avoid as excessive standing and weightbearing. Follow-up with local PCP and/or work comp doctor according to your work care policy. Return to the ED if new or concerning symptoms. All discharge instructions reviewed with patient and/or family. Voiced unde rstanding. TREY PAZ DO Oct 20, 2021 09:13
[2021-10-20] MEDS ORDERED: IBUPROFEN 600 MG (MOTRIN) TAB PO ONE (09:15)
[2021-10-20 09:21] VITALS: BP 133/95
--- NOTE | 2021-10-20 09:28 | Diagnostic Imaging Report ---
EXAMINATION: Right ankle 3 views HISTORY: Right ankle pain after injury COMPARISON: None available. FINDINGS: There is no acute fracture, dislocation or destructive osseous process. Joint spaces are normal. The soft tissues are normal. IMPRESSION: No acute osseous abnormality of the right ankle. Dictated by: Dictated on workstation # [id number]
== END 2021-10-20 09:21 | disposition home or self-care (01) ==
LOC: EDUNIT# 08:48 → ER FS 08:50
DX: S93.401A Sprain of unspecified ligament of right ankle, initial encounter (principal); F17.210 Nicotine dependence, cigarettes, uncomplicated; X50.1XXA Overexertion from prolonged static or awkward postures, initial encounter; Y99.0 Civilian activity done for income or pay
CPT/HCPCS: 73610; 99283; L4350

== ENCOUNTER 2022-01-08 08:17 | Emergency (ER) | payer SELFPAY ==
[~2022-01-08] VITALS: Ht 162.6 cm; Wt 123.8 kg
--- NOTE | 2022-01-08 08:58 | ED Cough/URI ---
General Chief Complaint: Cough/Cold/Flu Symptoms Stated Complaint: COUGH Nursing Triage Note: Patient reports she has had nasal congestion/drainage, cough, nausea/vomiting/diarrhea, and a headache for 1 week. States she has been exposed to influenza A recently. Source: patient Exam Limitations: no limitations History of Present Illness Date Seen by Provider: Jan 08, 2022 Time Seen by Provider: 08:30 Initial Comments Patient is a 21 yo female who presents with nasal congestion, cough, sore throat, headachenausea and diarrhea for the past several days. No fever, chills, sweats and shortness of breath. No chest pain,wheezes, dizziness or lightheadedness. Timing/Duration: just prior to arrival Severity/Quality: moderate Prior Episodes/Possible Cause: other Associated Symptoms: other Allergies and Home Medications Allergies Coded Allergies: sulfamethoxazole (Verified Allergy, Mild, RASH, 12/22/18) trimethoprim (Verified Allergy, Mild, RASH, 12/22/18) Uncoded Allergies: head and shoulders shampoo (Allergy, Unknown, 09/24/18) seafood (Allergy, Unknown, 09/24/18) Patient Home Medication List Home Medication List Reviewed: Yes Azithromycin (Zithromax) 250 Mg Tablet, 250 MG PO UD Prescribed by: TREY PAZ on 01/08/22905 Dicyclomine HCl (Dicyclomine HCl) 20 Mg Tablet, 20 MG PO Q6H PRN for abdominal pain Prescribed by: SUKHI DEY on 09/06/21630 Guaifenesin/Pseudoephedrne HCl (Mucinex D ER 1,200-120 mg Tab) 1,200 Mg-120 Mg Tab.er.12h, 1 EACH PO DAILY Prescribed by: TREY PAZ on 01/08/22905 Nitrofurantoin Monohyd/M-Cryst (Macrobid 100 mg Capsule) 100 Mg Capsule, 1 TAB PO BID Prescribed by: SUKHI DEY on 09/06/21630 Ondansetron (Ondansetron Odt) 4 Mg Tab.rapdis, 4 MG PO Q6H PRN for NAUSEA/VOMITING Prescribed by: SUKHI DEY on 09/06/21630 Prednisone (Prednisone) 20 Mg Tab, 40 MG PO DAILY Prescribed by: TREY PAZ on 01/08/22905 Review of Systems Review of Systems Constitutional: see HPI EENTM: see HPI Respiratory: see HPI Cardiovascular: see HPI Gastrointestinal: see HPI Genitourinary: see HPI : No Musculoskeletal: other Skin: other Psychiatric/Neurological: Other Hematologic/Lymphatic: Other All Other Systems Reviewed Negative Unless Noted: No Past Uppjcjk-Vtxjne-Yfneux Hx Patient Social History Tobacco Use?: No Substance use?: No Alcohol Use?: No Pt feels they are or have been: No Immunizations Up To Date First/Initial COVID19 Vaccinat: unknown date Second COVID19 Vaccination [place]: unknown date Third COVID19 Vaccination Date: unknown date Seasonal Allergies Seasonal Allergies: No Past Medical History Surgery/Hospitalization HX: Cholecystectomy, Colonoscopy, Morbid Obesity, Anxiety, Depression, GERD, Insulin Resistant, Chronic pain, Surgeries: Yes (eye surgery as ) Gallbladder Respiratory: Yes Asthma Cardiac: No Neurological: No Last Menstrual Period: Dec 09, 2021 Female Reproductive Disorders: Menstrual Problems Sexually Transmitted Disease: No HIV/AIDS: No Genitourinary: No Gastrointestinal: No Gastroesophageal Reflux, Chronic Diarrhea Musculoskeletal: No Endocrine: No Diabetes, Non-Insulin dep HEENT: No Loss of Vision: Denies Hearing Impairment: Denies Cancer: No Psychosocial: No Anxiety, Depression Integumentary: No Blood Disorders: No Adverse Reaction/Blood Tranf: No (N/A) Physical Exam Vital Signs - First Documented 01/08/22 08:30 Temp 36.6 Pulse 105 Resp 16 B/P (MAP) 138/78 (98) Pulse Ox 97 O2 Delivery Room Air Capillary Refill : Less Than 3 Seconds Height: 5'4.00" Weight: 280lbs. oz. 127.658544bs; 46.00 BMI Method:Stated General Appearance: WD/WN, no apparent distress Eyes: Bilateral Eye Normal Inspection, Bilateral Eye PERRL, Bilateral Eye EOMI HEENT: PERRL/EOMI, normal ENT inspection Neck: full range of motion, supple Cardiovascular: regular rate, rhythm Neurologic/Psychiatric: traveling passenger agent II-XII nml as tested, no motor/sensory deficits, alert, oriented x 3 Focused Exam Sepsis Stage: Ruled Out Progress/Results/Core Measures Suspected Sepsis SIRS Temperature: Pulse: 105 Respiratory Rate: 16 Blood Pressure 138 /78 Mean: 98 Results/Orders Lab Results Laboratory Tests Test 01/08/22 08:30 Range/Units Influenza Type A (RT-PCR) Not Detected Not Detecte Influenza Type B (RT-PCR) Not Detected Not Detecte SARS-CoV-2 RNA (RT-PCR) Detected H Not Detecte My Orders Orders - PAZTREY ROCHA Covid 19 Inhouse Test (01/08/22 08:34) Influenza A And B By Pcr (01/08/22 08:34) Isolation Central Supply Req (01/08/22 08:34) Vital Signs/I&O 01/08/22 01/08/22 08:30 08:40 Temp 36.6 Pulse 105 Resp 16 B/P (MAP) 138/78 (98) Pulse Ox 97 O2 Delivery Room Air Room Air Capillary Refill : Less Than 3 Seconds Blood Pressure Mean: 98 Departure Communication (Admissions) Influenza A/COVID: COVID-without respiratory compromise recommendations are supportive and therapeutic care with PCP follow-up as needed. Impression Primary Impression: COVID-19 Disposition: 01 HOME, SELF-CARE Condition: Stable Departure-Patient Inst. Decision time for Depature: 09:03 Referrals: LIZETT HEARD MD (PCP) Primary Care Physician Patient Instructions: COVID-19 (DC) Add. Discharge Instructions: You were evaluated in the emergency department for cough, sore throat headache and nausea. Your COVID test is positive. Please go home and rest, increase fluids and take newly prescribed medications as directed. Continue to self quarantine until symptoms resolved. All discharge instructions reviewed with patient and/or family. Voiced understanding. Scripts Guaifenesin/Pseudoephedrne HCl (Mucinex D ER 1,200-120 mg Tab) 1,200 Mg-120 Mg Tab.er.12h 1 EACH PO DAILY, #10 TAB Prov: TREY PAZ DO 01/08/22 Prednisone (Prednisone) 20 Mg Tab 40 MG PO DAILY, #6 TAB 0 Refills Prov: TREY PAZ DO 01/08/22 Azithromycin (Zithromax) 250 Mg Tablet 250 MG PO UD, #6 TAB TAKE 2 TABLETS TODAY, THEN TAKE 1 TABLET DAILY FOR 4 MORE DAYS Prov: TREY PAZ DO 01/08/22 Work/School Note: Work Release Form Date Seen in the Emergency Department: Jan 08, 2022 Return to Work: Jan 13, 2022 Restrictions: No Restrictions TREY PAZ DO Jan 08, 2022 08:58
[2022-01-08] MEDS ORDERED: AZIT250T PO (09:06)
[2022-01-08] MEDS ORDERED: PRD20T PO (09:06)
[2022-01-08] MEDS ORDERED: GUAI-365 PO (09:06)
[2022-01-08 09:09] VITALS: BP 138/78
== END 2022-01-08 09:10 | disposition home or self-care (01) ==
LOC: EDUNIT# 08:17 → ER FS 08:19
DX: U07.1 COVID-19 (principal); E66.01 Morbid (severe) obesity due to excess calories; Z68.42 Body mass index [BMI] 45.0-49.9, adult; Z88.2 Allergy status to sulfonamides
CPT/HCPCS: 87636; 99283

== ENCOUNTER 2022-01-19 17:12 | Emergency (ER) | payer SELFPAY ==
[~2022-01-19 17:12] MED LIST changes: +AZIT250T PO; +GUAI-365 PO; +PRD20T PO
--- NOTE | 2022-01-19 17:53 | ED GI ---
General Chief Complaint: Abdominal/GI Problems Stated Complaint: VOMITING; DIARRHEA Nursing Triage Note: PT REPORTS SHE HAS BEEN HAVING NAUSEA, VOMITING, AND DIARRHEA TODAY. 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 History of Present Illness Date Seen by Provider: Jan 19, 2022 Time Seen by Provider: 17:45 Initial Comments 21-year-old female presents with nausea vomiting diarrhea. She reports that started last night has been a lot worse today. That she has had numerous episodes of diarrhea and vomiting. She has Zofran at home to help with the nausea but nothing seems to help with the diarrhea. 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 No reports of fever or chills. Allergies and Home Medications Allergies Coded Allergies: sulfamethoxazole (Verified Allergy, Mild, RASH, 12/22/18) trimethoprim (Verified Allergy, Mild, RASH, 12/22/18) Uncoded Allergies: head and shoulders shampoo (Allergy, Unknown, 09/24/18) seafood (Allergy, Unknown, 09/24/18) Patient Home Medication List Home Medication List Reviewed: Yes Azithromycin (Zithromax) 250 Mg Tablet, 250 MG PO UD Prescribed by: TREY PAZ on 01/08/22905 Dicyclomine HCl (Dicyclomine HCl) 20 Mg Tablet, 20 MG PO Q6H PRN for abdominal pain Prescribed by: SUKHI KWONRT on 09/06/21630 Guaifenesin/Pseudoephedrne HCl (Mucinex D ER 1,200-120 mg Tab) 1,200 Mg-120 Mg Tab.er.12h, 1 EACH PO DAILY Prescribed by: TREY PAZ on 01/08/22905 Nitrofurantoin Monohyd/M-Cryst (Macrobid 100 mg Capsule) 100 Mg Capsule, 1 TAB P O BID Prescribed by: SUKHI KWONRT on 09/06/21630 Ondansetron (Ondansetron Odt) 4 Mg Tab.rapdis, 4 MG PO Q6H PRN for NAUSEA/VOMITING Prescribed by: SUKHI KWONRT on 09/06/21630 Prednisone (Prednisone) 20 Mg Tab, 40 MG PO DAILY Prescribed by: TREY PAZ on 11/23/22 0906 Review of Systems Review of Systems Constitutional: No chills, No fever Respiratory: No Symptoms Reported Cardiovascular: No Symptoms Reported Gastrointestinal: See HPI, Diarrhea, Nausea, Vomiting Genitourinary: No Symptoms Reported Musculoskeletal: no symptoms reported Skin: no symptoms reported Psychiatric/Neurological: No Symptoms Reported Past Lrftrmi-Benfmf-Oubkoh Hx Patient Social History Tobacco Use?: Yes Tobacco type used: Cigarettes Smoking Status: Current Everyday Smoker Use of E-Cig and/or Vaping dev: No Substance use?: No Alcohol Use?: No Pt feels they are or have been: No Immunizations Up To Date First/Initial COVID19 Vaccinat: unknown date Second COVID19 Vaccination [place]: unknown date Third COVID19 Vaccination Date: unknown date Seasonal Allergies Seasonal Allergies: No Past Medical History Surgery/Hospitalization HX: Cholecystectomy, Colonoscopy, Morbid Obesity, Anxiety, Depression, GERD, Insulin Resistant, Chronic pain, Surgeries: Yes (eye surgery as infant) Gallbladder Respiratory: Yes Asthma Cardiac: No Neurological: No Female Reproductive Disorders: Menstrual Problems Sexually Transmitted Disease: No HIV/AIDS: No Genitourinary: No Gastrointestinal: No Gastroesophageal Reflux, Chronic Diarrhea Musculoskeletal: No Endocrine: No Diabetes, Non-Insulin dep HEENT: No Loss of Vision: Denies Hearing Impairment: Denies Cancer: No Psychosocial: No Anxiety, Depression Integumentary: No Blood Disorders: No Adverse Reaction/Blood Tranf: No (N/A) Physical Exam Vital Signs Vital Signs - First Documented 01/19/22 17:39 Temp 36.6 Pulse 85 Resp 16 B/P (MAP) 144/75 (98) Pulse Ox 100 O2 Delivery Room Air Capillary Refill : Less Than 3 Seconds Height/Weight/BMI Height: 5'4.00" Weight: 280lbs. oz. 127.267758jb; 46.00 BMI Method:Stated General Appearance: WD/WN, no apparent distress Neck: full range of motion, supple Respiratory: chest non-tender, no respiratory distress, no accessory muscle use Cardiovascular: normal peripheral pulses, regular rate, rhythm Gastrointestinal: non tender, soft Extremities: non-tender, normal inspection Neurologic/Psychiatric: alert, normal mood/affect, oriented x 3 Skin: normal color, warm/dry Progress/Results/Core Measures Results/Orders Vital Signs/I&O 01/19/22 17:39 Temp 36.6 Pulse 85 Resp 16 B/P (MAP) 144/75 (98) Pulse Ox 100 O2 Delivery Room Air Blood Pressure Mean: 98 Progress Progress Note : Progress Note Patient with likely influenza or other viral gastroenteritis. Patient with Zofran and is able to tolerate fluids with Zofran. We will provide her a work note for couple days she is stable and discharged Departure Impression Primary Impression: Influenza-like illness Disposition: HOME, SELF-CARE Condition: Stable Departure-Patient Inst. Referrals: LIZETT HEARD MD (PCP) Primary Care Physician Patient Instructions: Flu, Viral Syndrome (DC) Add. Discharge Instructions: Clear liquid diet, advance as tolerated continue using her Zofran as needed All discharge instructions reviewed with patient and/or family. Voiced understanding. Work/School Note: Work Release Form Date Seen in the Emergency Department: Jan 19, 2022 Return to Work: Jan 22, 2022 Restrictions: Return-No Vomiting(24hrs) NESSA SMITH DO Jan 19, 2022 17:53
[2022-01-19 17:54] VITALS: BP 144/75
== END 2022-01-19 17:54 | disposition home or self-care (01) ==
LOC: EDUNIT# 17:12 → ER FS 17:13
DX: J11.1 Influenza due to unidentified influenza virus with other respiratory manifestations (principal); E66.01 Morbid (severe) obesity due to excess calories; F17.210 Nicotine dependence, cigarettes, uncomplicated; Z68.42 Body mass index [BMI] 45.0-49.9, adult; Z28.310 Unvaccinated for COVID-19
CPT/HCPCS: 99281

== ENCOUNTER 2022-02-01 06:01 | Emergency (ER) | payer SELFPAY ==
[~2022-02-01] VITALS: Ht 162.5 cm; Wt 129.1 kg
--- NOTE | 2022-02-01 06:24 | ED GI ---
General Chief Complaint: Abdominal/GI Problems Stated Complaint: VOMITING/DIARRHEA Source of Information: Patient Exam Limitations: No Limitations (TREY PAZ DO) History of Present Illness Date Seen by Provider: Feb 01, 2022 Time Seen by Provider: 06:19 Initial Comments 21-year-old female reports that on the she got "sick" started having some diarrhea. Then on the she started vomiting. Patient reports she went to urgent care and they told her it was a 24-hour bug and she did get better. Patient has some mild epigastric pain that she reports started after diarrhea and vomiting. She reports that since around 30-4 this morning she has had a hard time keeping anything down and has been constantly "vomiting" reports she took a Zofran but it just made it worse. She had a fever yesterday. No reports of cough. (NESSA SMITH DO) Allergies and Home Medications Allergies Coded Allergies: sulfamethoxazole (Verified Allergy, Mild, RASH, 12/22/18) trimethoprim (Verified Allergy, Mild, RASH, 12/22/18) Uncoded Allergies: head and shoulders shampoo (Allergy, Unknown, 09/24/18) seafood (Allergy, Unknown, 09/24/18) Patient Home Medication List Home Medication List Reviewed: Yes (NESSA SMITH DO) Azithromycin (Zithromax) 250 Mg Tablet, 250 MG PO UD Prescribed by: TREY PAZ on 01/08/22905 Dicyclomine HCl (Dicyclomine HCl) 20 Mg Tablet, 20 MG PO Q6H PRN for abdominal pain Prescribed by: SUKHI DEY on 09/06/21630 Guaifenesin/Pseudoephedrne HCl (Mucinex D ER 1,200-120 mg Tab) 1,200 Mg-120 Mg Tab.er.12h, 1 EACH PO DAILY Prescribed by: TREY PAZ on 01/08/22905 Nitrofurantoin Monohyd/M-Cryst (Macrobid 100 mg Capsule) 100 Mg Capsule, 1 TAB PO BID Prescribed by: SUKHI DEY on 09/06/21630 Ondansetron (Ondansetron Odt) 4 Mg Tab.rapdis, 4 MG PO Q6H PRN for NAUSEA/VOMITING Prescribed by: SUKHI DEY on 09/06/21630 Prednisone (Prednisone) 20 Mg Tab, 40 MG PO DAILY Prescribed by: TREY PAZ on 01/08/22 0906 Review of Systems Review of Systems Constitutional: fever, malaise Respiratory: Denies Cough, Denies Shortness of Air Cardiovascular: Denies Chest Pain, Denies Lightheadedness Gastrointestinal: Abdominal Pain, Diarrhea, Nausea, Vomiting Genitourinary: No Symptoms Reported Musculoskeletal: no symptoms reported Skin: no symptoms reported Psychiatric/Neurological: No Symptoms Reported (NESSA SMITH DO) Past Rwqowue-Pgqbfh-Nsrxlj Hx Immunizations Up To Date First/Initial COVID19 Vaccinat: unknown date Second COVID19 Vaccination [place]: unknown date Third COVID19 Vaccination Date: unknown date (NESSA SMITH DO) Seasonal Allergies Seasonal Allergies: No (NESSA SMITH DO) Past Medical History Surgery/Hospitalization HX: Cholecystectomy, Colonoscopy, Morbid Obesity, Anxiety, Depression, GERD, Insulin Resistant, Chronic pain, Surgeries: Yes (eye surgery as ) Gallbladder Respiratory: Yes Asthma Cardiac: No Neurological: No Female Reproductive Disorders: Menstrual Problems Sexually Transmitted Disease: No HIV/AIDS: No Genitourinary: No Gastrointestinal: No Gastroesophageal Reflux, Chronic Diarrhea Musculoskeletal: No Endocrine: No Diabetes, Non-Insulin dep HEENT: No Loss of Vision: Denies Hearing Impairment: Denies Cancer: No Psychosocial: No Anxiety, Depression Integumentary: No Blood Disorders: No Adverse Reaction/Blood Tranf: No (N/A) (NESSA SMITH DO) Physical Exam Vital Signs Vital Signs - First Documented 02/01/22 06:10 Temp 37.0 Pulse 82 Resp 16 B/P (MAP) 158/85 (109) Pulse Ox 98 O2 Delivery Room Air (TREY PAZ DO) Vital Signs Capillary Refill : (NESSA SMITH DO) Height/Weight/BMI Height: 5'4.00" Weight: 280lbs. oz. 127.503923on; 46.00 BMI Method:Stated General Appearance: WD/WN, no apparent distress Respiratory: lungs clear, normal breath sounds Cardiovascular: normal peripheral pulses, regular rate, rhythm Gastrointestinal: non tender, soft; No guarding, No rebound, No tenderness Extremities: normal range of motion, normal inspection Neurologic/Psychiatric: alert, normal mood/affect, oriented x 3 Skin: normal color, warm/dry (NESSA SMITH DO) Focused Exam Sepsis Stage: Ruled Out (TREY PAZ DO) Progress/Results/Core Measures Results/Orders Lab Results Laboratory Tests Test 02/01/22 06:36 Range/Units White Blood Count 9.9 4.3-11.0 10^3/uL Red Blood Count 4.74 3.80-5.11 10^6/uL Hemoglobin 14.0 11.5-16.0 g/dL Hematocrit 41 35-52 % Mean Corpuscular Volume 86 80-99 fL Mean Corpuscular Hemoglobin 30 25-34 pg Mean Corpuscular Hemoglobin Concent 34 32-36 g/dL Red Cell Distribution Width 11.7 10.0-14.5 % Platelet Count 273 130-400 10^3/uL Mean Platelet Volume 9.6 9.0-12.2 fL Immature Granulocyte % (Auto) 0 % Neutrophils (%) (Auto) 58 42-75 % Lymphocytes (%) (Auto) 31 12-44 % Monocytes (%) (Auto) 9 0-12 % Eosinophils (%) (Auto) 2 0-10 % Basophils (%) (Auto) 0 0-10 % Neutrophils # (Auto) 5.7 1.8-7.8 10^3/uL Lymphocytes # (Auto) 3.1 1.0-4.0 10^3/uL Monocytes # (Auto) 0.9 0.0-1.0 10^3/uL Eosinophils # (Auto) 0.2 0.0-0.3 10^3/uL Basophils # (Auto) 0.0 0.0-0.1 10^3/uL Immature Granulocyte # (Auto) 0.0 0.0-0.1 10^3/uL Sodium Level 136 135-145 MMOL/L Potassium Level 3.9 3.6-5.0 MMOL/L Chloride Level 101 98-107 MMOL/L Carbon Dioxide Level 25 21-32 MMOL/L Anion Gap 10 5-14 MMOL/L Blood Urea Nitrogen 14 7-18 MG/DL Creatinine 0.79 0.60-1.30 MG/DL Estimat Glomerular Filtration Rate 108 BUN/Creatinine Ratio 18 Glucose Level 76 70-105 MG/DL Calcium Level 9.1 8.5-10.1 MG/DL Corrected Calcium 9.3 8.5-10.1 MG/DL Total Bilirubin 0.2 0.1-1.0 MG/DL Aspartate Amino Transf (AST/SGOT) 10 5-34 U/L Alanine Aminotransferase (ALT/SGPT) 13 0-55 U/L Alkaline Phosphatase 55 40-136 U/L C-Reactive Protein 0.51 H <0.50 MG/DL Total Protein 7.1 6.4-8.2 GM/DL Albumin 3.8 3.2-4.5 GM/DL Lipase 21 8-78 U/L Serum Test, Qualitative NEGATIVE NEGATIVE (TREY PAZ DO) Medications Given in ED Current Medications Medications Dose Ordered Sig/Artem Route Start Time Stop Time Status Last Admin Dose Admin Ondansetron HCl 4 mg ONCE ONCE IVP 02/01/22 06:30 02/01/22 06:31 DC 02/01/22 06:39 4 MG (TREY PAZ DO) Vital Signs/I&O 02/01/22 06:10 Temp 37.0 Pulse 82 Resp 16 B/P (MAP) 158/85 (109) Pulse Ox 98 O2 Delivery Room Air (TREY PAZ DO) Departure Communication (Admissions) Care assumed from outgoing ER provider. Lab work and H&P reviewed. I agree with previous assessment. Patient's abdomen soft nontender on my evaluation. Lab work is reassuring. She is significantly clinically improved and her abdomen remains soft, nontender. I am comfortable with supportive care watchful waiting with PCP follow-up. Return precautions reviewed. Patient verbalizes understanding agreement discharge instructions prior to departure (TREY PAZ DO) Impression Primary Impression: Nausea and vomiting Additional Impression: Abdominal pain Disposition: 01 HOME, SELF-CARE Condition: Stable Departure-Patient Inst. Decision time for Depature: 07:43 (TREY PAZ DO) Referrals: LIZETT HEARD MD (PCP/Family) Primary Care Physician Patient Instructions: Nausea and Vomiting, Adult (DC), Abdominal Pain, Adult ED Add. Discharge Instructions: You were evaluated in the emergency department for nausea vomiting and abdominal pain. Lab work was performed and is reassuring. The exact cause of your symptoms has not been determined but may be related to a GI illness, prevalent in the community. Please go home and rest, take newly prescribed medications as directed, drink clear liquids only for the next 6 to 12 hours then gradually advance to bland diet as tolerated. Follow-up with your PCP early next week if symptoms persist. Return to the ED if new or worsening symptoms. All discharge instructions reviewed with patient and/or family. Voiced understanding. Scripts Ondansetron (Ondansetron Odt) 4 Mg Tab.rapdis 4 MG SL Q4H PRN for NAUSEA/VOMITING, #10 TAB Prov: TREY PAZ DO 02/01/22 Famotidine (Pepcid) 20 Mg Tablet 20 MG PO BID, #20 TAB Prov: TREY PAZ DO 02/01/22 Work/School Note: Work Release Form Date Seen in the Emergency Department: Feb 01, 2022 Return to Work: Feb 03, 2022 Restrictions: No Restrictions Other Restrictions Listed Below: none NESSA SMITH DO Feb 01, 2022 06:24 TREY PAZ DO Feb 01, 2022 07:45
[2022-02-01] MEDS ORDERED: LACTATED RINGERS 1,000 ML IV STA (06:25)
[2022-02-01] MEDS ORDERED: FAMOTIDINE 20MG/2ML IV (PEPCID) IV STA (06:25)
[2022-02-01] MEDS ORDERED: ONDANSETRON 4 MG/2 ML (SDV) Z0FRAN IVP ONE (06:30)
[2022-02-01 06:45] LABS: BASOPHILS % (AUTO) 0 % (0-10); EOSINOPHILS # (AUTO) 0.2 10^3/uL (0.0-0.3); EOSINOPHILS % (AUTO) 2 % (0-10); HEMATOCRIT 41 % (35-52); LYMPHOCYTES # (AUTO) 3.1 10^3/uL (1.0-4.0); LYMPHOCYTES % (AUTO) 31 % (12-44); MEAN CORPUSCULAR HEMOGLOBIN 30 pg (25-34); MEAN CORPUSCULAR HGB CONC 34 g/dL (32-36); MEAN CORPUSCULAR VOLUME 86 fL (80-99); MEAN PLATELET VOLUME 9.6 fL (9.0-12.2); MONOCYTES # (AUTO) 0.9 10^3/uL (0.0-1.0); MONOCYTES % (AUTO) 9 % (0-12); NEUTROPHILS # (AUTO) 5.7 10^3/uL (1.8-7.8); NEUTROPHILS % (AUTO) 58 % (42-75); PLATELET COUNT 273 10^3/uL (130-400); WHITE BLOOD COUNT 9.9 10^3/uL (4.3-11.0)
[2022-02-01 07:09] LABS: ALBUMIN 3.8 GM/DL (3.2-4.5); BILIRUBIN,TOTAL 0.2 MG/DL (0.1-1.0); CALCIUM 9.1 MG/DL (8.5-10.1); CREATININE SERUM 0.79 MG/DL (0.60-1.30); POTASSIUM 3.9 MMOL/L (3.6-5.0); TOTAL PROTEIN 7.1 GM/DL (6.4-8.2)
[2022-02-01] MEDS ORDERED: ONDA4TAB11 SL (07:45)
[2022-02-01] MEDS ORDERED: FAMO-119 PO (07:45)
[2022-02-01 07:49] VITALS: BP 127/86
== END 2022-02-01 07:45 | disposition home or self-care (01) ==
LOC: EDUNIT# 06:01 → ER FS 06:06
DX: R11.2 Nausea with vomiting, unspecified (principal); R10.13 Epigastric pain; Z32.02 Encounter for pregnancy test, result negative; E66.01 Morbid (severe) obesity due to excess calories; Z68.42 Body mass index [BMI] 45.0-49.9, adult; Z87.19 Personal history of other diseases of the digestive system; Z90.49 Acquired absence of other specified parts of digestive tract
CPT/HCPCS: 36415; 80053; 83690; 84703; 85025; 86141

== ENCOUNTER 2022-02-22 21:56 | Emergency (ER) | payer SELFPAY ==
[~2022-02-22] VITALS: Ht 162.5 cm; Wt 129.5 kg
[~2022-02-22 21:56] MED LIST changes: +FAMO-119 PO; +ONDA4TAB11 SL
--- NOTE | 2022-02-22 22:13 | ED Integumentary General ---
General Chief Complaint: Allergic Reaction Stated Complaint: POSS ALLERGIC REACTION Source: patient Exam Limitations: no limitations History of Present Illness Date Seen by Provider: Feb 22, 2022 Time Seen by Provider: 20:00 Initial Comments Patient is a 21-year-old female who presents with itching on both arms after carrying a box containing unknown substance. No rash, hives, shortness of breath or airway swelling. No other acute symptoms or complaints. Patient did wash with Amber soap prior to coming to ED arrival. No medications taken. Timing/Duration: just prior to arrival Severity: mild Location: hands Possible Cause: other Modifying Factors: improves with other Associated Symptoms: other Allergies and Home Medications Allergies Coded Allergies: sulfamethoxazole (Verified Allergy, Mild, RASH, 12/22/18) trimethoprim (Verified Allergy, Mild, RASH, 12/22/18) Uncoded Allergies: head and shoulders shampoo (Allergy, Unknown, 09/24/18) seafood (Allergy, Unknown, 09/24/18) Patient Home Medication List Home Medication List Reviewed: Yes Azithromycin (Zithromax) 250 Mg Tablet, 250 MG PO UD Prescribed by: TREY PAZ on 01/08/22905 Dicyclomine HCl (Dicyclomine HCl) 20 Mg Tablet, 20 MG PO Q6H PRN for abdominal pain Prescribed by: SUKHI DEY on 09/06/21630 Famotidine (Pepcid) 20 Mg Tablet, 20 MG PO BID Prescribed by: TREY PAZ on 02/01/22 07 Guaifenesin/Pseudoephedrne HCl (Mucinex D ER 1,200-120 mg Tab) 1,200 Mg-120 Mg Tab.er.12h, 1 EACH PO DAILY Prescribed by: TREY PAZ on 01/08/22 09 Nitrofurantoin Monohyd/M-Cryst (Macrobid 100 mg Capsule) 100 Mg Capsule, 1 TAB PO BID Prescribed by: SUKHI KWONRT on 09/06/21630 Ondansetron (Ondansetron Odt) 4 Mg Tab.rapdis, 4 MG PO Q6H PRN for NAUSEA/VOMITING Prescribed by: SUKHI KWONRT on 09/06/21630 Ondansetron (Ondansetron Odt) 4 Mg Tab.rapdis, 4 MG SL Q4H PRN for NAUSEA/VOMITING Prescribed by: TREY PAZ on 02/01/22 0745 Prednisone (Prednisone) 20 Mg Tab, 40 MG PO DAILY Prescribed by: TREY PAZ on 01/08/22 0906 Review of Systems Review of Systems Constitutional: see HPI : No Skin: see HPI Past Bnwujfj-Vcjqmv-Zaqfoq Hx Patient Social History Tobacco Use?: No Immunizations Up To Date First/Initial COVID19 Vaccinat: unknown date Second COVID19 Vaccination [place]: unknown date Third COVID19 Vaccination Date: unknown date Seasonal Allergies Seasonal Allergies: No Past Medical History Surgery/Hospitalization HX: Cholecystectomy, Colonoscopy, Morbid Obesity, Anxiety, Depression, GERD, Insulin Resistant, Chronic pain, Surgeries: Yes (eye surgery as ) Gallbladder Respiratory: Yes Asthma Cardiac: No Neurological: No Female Reproductive Disorders: Menstrual Problems Sexually Transmitted Disease: No HIV/AIDS: No Genitourinary: No Gastrointestinal: No Gastroesophageal Reflux, Chronic Diarrhea Musculoskeletal: No Endocrine: No Diabetes, Non-Insulin dep HEENT: No Loss of Vision: Denies Hearing Impairment: Denies Cancer: No Psychosocial: No Anxiety, Depression Integumentary: No Blood Disorders: No Adverse Reaction/Blood Tranf: No (N/A) Physical Exam Vital Signs Capillary Refill : General Appearance: WD/WN, no apparent distress HEENT: PERRL/EOMI, normal ENT inspection Cardiovascular: regular rate, rhythm Neurologic/Psychiatric: alert, oriented x 3 Skin: No rash Skin Problem Location: generalized, other Progress/Results/Core Measures Results/Orders My Orders Orders - TREY PAZ DO Diphenhydramine Tablet (Benadryl Tablet) (02/22/22 22:15) Departure Communication (Admissions) Patient with mild allergic symptoms without airway involvement or rash. Benadryl given. Recommendations continued supportive care with watchful waiting and PCP follow-up. Return cautions reviewed. Patient verbalizes understanding agreement discharge instructions prior to departure. Impression Primary Impression: Itching with irritation Disposition: HOME, SELF-CARE Condition: Stable Departure-Patient Inst. Decision time for Depature: 22:12 Referrals: LIZETT HEARD MD (PCP/Family) Primary Care Physician Patient Instructions: Itchy Skin Add. Discharge Instructions: Please take Benadryl 25 mg every 4-6 hours as needed for itching. Avoid further exposure to allergens. All discharge instructions reviewed with patient and/or family. Voiced understanding. TREY PAZ DO Feb 22, 2022 22:13
[2022-02-22] MEDS ORDERED: diphenhydrAMINE 25 MG TAB (BENADRYL) PO ONE (22:15)
[2022-02-22 22:17] VITALS: BP 143/92
== END 2022-02-22 22:17 | disposition home or self-care (01) ==
LOC: EDUNIT# 21:56 → ER FS 21:59
DX: L29.9 Pruritus, unspecified (principal)
CPT/HCPCS: 99283

== ENCOUNTER 2022-06-27 19:31 | Emergency (ER) | payer SELFPAY ==
[~2022-06-27] VITALS: Ht 162.6 cm; Wt 115.7 kg
--- NOTE | 2022-06-27 20:08 | ED Abdominal Pain ---
General Chief Complaint: Abdominal/GI Problems Stated Complaint: ABD PAIN Nursing Triage Note: PT AMB TO FS 02 W C/O ABD PAIN THAT RADIATES DOWN TO PEVLIC REGION X2 DAYS. UNK LMP, NORMAL BM MOUNTED [employer] OFF[employer]. PT A&OX4. Source of Information: Patient History of Present Illness Date Seen by Provider: June 27, 2022 Time Seen by Provider: 19:48 Initial Comments 21-year-old female presenting with complaints of pain and pressure with urina tion. She states this started yesterday. At times she will have sharp pains and other times is just some pressure. She states that she did have a normal bowel movement around 6 PM tonight. She denies any vaginal bleeding or vaginal discharge. She thinks her last menstrual period was approximately 4 weeks ago. She states that her menstrual cycles are irregular so she is not sure when she will have another cycle. She denies having fever, chills, nausea, vomiting, cough, abdominal trauma. Timing/Duration: 1-2 Days Severity/Quality: Moderate, Other (Pressure at times and other times sharp and stabbing) Location: Periumbilical, Suprapubic Radiation: No Radiation Activities at Onset: None Modifying Factors: Worsens With Urinating Associated Symptoms: No Back Pain, No Chest Pain, No Diaphoresis, No Fever/Chills, No Fatigue, No Headache, No Heartburn, No Nausea/Vomiting, No Shortness of Air, No Swelling/Mass in Abdomen, No Syncope Allergies and Home Medications Allergies Coded Allergies: sulfamethoxazole (Verified Allergy, Mild, RASH, 12/22/18) trimethoprim (Verified Allergy, Mild, RASH, 12/22/18) Uncoded Allergies: head and shoulders shampoo (Allergy, Unknown, 09/24/18) seafood (Allergy, Unknown, 09/24/18) Patient Home Medication List Home Medication List Reviewed: Yes Nitrofurantoin Monohyd/M-Cryst (Macrobid 100 mg Capsule) 100 Mg Capsule, 1 TAB PO BID Prescribed by: SUKHI DEY on 06/27/222043 Phenazopyridine HCl (Pyridium) 100 Mg Tablet, 100 MG PO TID Prescribed by: SUKHI DEY on 06/27/222043 Discontinued Medications Azithromycin (Zithromax) 250 Mg Tablet, 250 MG PO UD Prescribed by: TREY PAZ on 01/08/22 0906 Dicyclomine HCl (Dicyclomine HCl) 20 Mg Tablet, 20 MG PO Q6H PRN for abdominal pain Prescribed by: SUKHI DEY on 09/06/21630 Famotidine (Pepcid) 20 Mg Tablet, 20 MG PO BID Prescribed by: TREY PAZ on 02/01/22 07 Guaifenesin/Pseudoephedrne HCl (Mucinex D ER 1,200-120 mg Tab) 1,200 Mg-120 Mg Tab.er.12h, 1 EACH PO DAILY Prescribed by: TREY PAZ on 01/08/22 09 Nitrofurantoin Monohyd/M-Cryst (Macrobid 100 mg Capsule) 100 Mg Capsule, 1 TAB PO BID Prescribed by: SUKHI DEY on 09/06/21630 Ondansetron (Ondansetron Odt) 4 Mg Tab.rapdis, 4 MG PO Q6H PRN for NAUSEA/VOMITING Prescribed by: SUKHI DEY on 09/06/21630 Ondansetron (Ondansetron Odt) 4 Mg Tab.rapdis, 4 MG SL Q4H PRN for NAUSEA/VOMITING Prescribed by: TREY PAZ on 02/01/22 07 Prednisone (Prednisone) 20 Mg Tab, 40 MG PO DAILY Prescribed by: TREY PAZ on 01/08/22 09 Review of Systems Review of Systems Constitutional: No chills, No fever EENTM: No Symptoms Reported Respiratory: No Symptoms Reported Gastrointestinal: See HPI Genitourinary: See HPI Musculoskeletal: no symptoms reported Skin: no symptoms reported Psychiatric/Neurological: No Symptoms Reported Past Lmuvmij-Cwyrhu-Fbqllf Hx Patient Social History Tobacco Use?: Yes Smoking Status: Current Everyday Smoker Use of E-Cig and/or Vaping dev: No Substance use?: No Alcohol Use?: No Immunizations Up To Date Influenza Vaccine Up-to-Date: No; Not Current First/Initial COVID19 Vaccinat: unknown date Second COVID19 Vaccination [place]: unknown date Third COVID19 Vaccination Date: unknown date Seasonal Allergies Seasonal Allergies: No Past Medical History Surgery/Hospitalization HX: Cholecystectomy, Colonoscopy, Morbid Obesity, Anxiety, Depression, GERD, Insulin Resistant, Chronic pain Surgeries: Yes (eye surgery as ) Gallbladder Respiratory: Yes Asthma Cardiac: No Neurological: No Female Reproductive Disorders: Menstrual Problems Sexually Transmitted Disease: No HIV/AIDS: No Genitourinary: No Gastrointestinal: No Gastroesophageal Reflux, Chronic Diarrhea Musculoskeletal: No Endocrine: No Diabetes, Non-Insulin dep HEENT: No Loss of Vision: Denies Hearing Impairment: Denies Cancer: No Psychosocial: No Anxiety, Depression Integumentary: No Blood Disorders: No Adverse Reaction/Blood Tranf: No (N/A) Physical Exam Vital Signs Vital Signs - First Documented 06/27/22 19:35 Temp 37.0 Pulse 85 Resp 20 B/P (MAP) 141/82 (101) Pulse Ox 100 O2 Delivery Room Air Capillary Refill : Less Than 3 Seconds Height/Weight/BMI Height: 5'4.00" Weight: 280lbs. oz. 127.178177du; 43.00 BMI Method:Stated General Appearance: WD/WN, no apparent distress, obese Respiratory: chest non-tender, lungs clear, normal breath sounds, no respiratory distress, no accessory muscle use Cardiovascular: normal peripheral pulses, regular rate, rhythm Gastrointestinal: normal bowel sounds, non tender, soft, no pulsatile mass Extremities: normal range of motion, non-tender, normal capillary refill Neurologic/Psychiatric: javascript front end developer II-XII nml as tested, alert, oriented x 3 Skin: normal color, warm/dry Images 1 - Complains of pressure in the suprapubic area however it is not currently te nder with palpation Progress/Results/Core Measures Results/Orders Lab Results Laboratory Tests Test 06/27/22 19:40 Range/Units Urine Color YELLOW Urine Clarity CLEAR Urine pH 5.5 5-9 Urine Specific Crowley <=1.005 1.016-1.022 Urine Protein NEGATIVE NEGATIVE Urine Glucose (UA) NEGATIVE NEGATIVE Urine Ketones NEGATIVE NEGATIVE Urine Nitrite NEGATIVE NEGATIVE Urine Bilirubin NEGATIVE NEGATIVE Urine Urobilinogen 0.2 < = 1.0 MG/DL Urine Leukocyte Esterase TRACE H NEGATIVE Urine RBC (Auto) NEGATIVE NEGATIVE Urine RBC NONE /HPF Urine WBC 5-10 H /HPF Urine Squamous Epithelial Cells 25-50 H /HPF Urine Crystals NONE /LPF Urine Bacteria MODERATE H /HPF Urine Casts NONE /LPF Urine Mucus NEGATIVE /LPF Urine Culture Indicated NO My Orders Orders - SUKHI DEY MD Urine Bedside (06/27/22 19:47) Ua Culture If Indicated (06/27/22 19:47) Nitrofurantoin Capsule,Macro (Macrobid C (06/27/22 20:35) Phenazopyridine Tablet (Pyridium Tablet) (06/27/22 20:35) Vital Signs/I&O 06/27/22 19:35 Temp 37.0 Pulse 85 Resp 20 B/P (MAP) 141/82 (101) Pulse Ox 100 O2 Delivery Room Air Blood Pressure Mean: 101 Progress Progress Note #1: Progress Note Potential diagnosis of urinary tract infection, pyelonephritis, bacterial vaginosis, vaginitis, cystitis, colitis, diverticulitis. Obtain urine and check urinalysis and bedside test initially. If she has worsening symptoms or nothing showing on either of these test then will discuss with her potential of doing additional testing such as IV, labs to look at her blood count, comprehensive metabolic profile, lipase to look at her pancreas, possible imaging such as a CT scan to look for signs of obstruction or inflammation of her abdomen and pelvis. Progress Note #2: Progress Note Bedside test was negative. Urinalysis showed some trace leukocyte esterase with white blood cells and bacteria. She did have epithelial cells p resent as well so this could possibly be contaminated. Since she was having UTI symptoms and there are some findings for UTI on her urinalysis will treat her with antibiotics and Pyridium to help treat for possible bladder infection. Counseled on follow-up and return precautions. Advised if she was not improving or was getting worse that she should return or be seen again in the clinic. Treat with Macrobid 100 mg p.o. twice daily x5 days with the first dose here in the ED. Pyridium 100 mg p.o. 3 times daily for pain and pressure x2 days. Also given a first dose here in the ED. Departure Impression Primary Impression: Acute cystitis without hematuria Disposition: 01 HOME, SELF-CARE Condition: Stable Departure-Patient Inst. Decision time for Depature: 20:43 Referrals: NO,LOCAL PHYSICIAN (PCP) Primary Care Physician LIZETT HEARD MD (Family) Primary Care Physician Patient Instructions: Urinary Tract Infection, Adult ED, Acute Cystitis (DC) Add. Discharge Instructions: Drink plenty of water and fluids to stay well-hydrated. Take the full course of antibiotics to treat for urinary tract infection. The Pyridium medicine will will change her urine to an orange is red color. Make sure you are drinking plenty of fluids. This will not treat the infection but simply help with the pressure and the sensation of having to go to the bathroom frequently. Check back with the clinic if having continued concerns or not improving. All discharge instructions reviewed with patient and/or family. Voiced understanding. Scripts Phenazopyridine HCl (Pyridium) 100 Mg Tablet 100 MG PO TID for UTI/Dysuria for 2 Days, #6 TAB 0 Refills Prov: SUKHI DEY MD 06/27/22 Nitrofurantoin Monohyd/M-Cryst (Macrobid 100 mg Capsule) 100 Mg Capsule 1 TAB PO BID for UTI for 5 Days, #10 CAP 0 Refills Prov: SUKHI DEY MD 06/27/22 SUKHI DEY MD June 27, 2022 20:08
[2022-06-27 20:13] LABS: BILIRUBIN,URINE NEGATIVE (NEGATIVE); CLARITY,URINE CLEAR; COLOR,URINE YELLOW; GLUCOSE, URINE (UA) NEGATIVE (NEGATIVE); KETONES,URINE NEGATIVE (NEGATIVE); LEUKOCYTE ESTERASE ,URINE TRACE (NEGATIVE); NITRITE,URINE NEGATIVE (NEGATIVE); PH,URINE 5.5 (5-9); PROTEIN,URINE NEGATIVE (NEGATIVE)
[2022-06-27 20:15] LABS: BACTERIA,URINE MODERATE /HPF; SQUAMOUS EPITHELIAL CELL,UR 25-50 /HPF
[2022-06-27] MEDS ORDERED: NITROFURANTOIN 100 MG (MACROBID) CAPSULE PO STA (20:35)
[2022-06-27] MEDS ORDERED: PHENAZOPYRIDINE 100 MG (PYRIDIUM) TABLET PO STA (20:35)
[2022-06-27] MEDS ORDERED: NITR-65 PO (20:44)
[2022-06-27] MEDS ORDERED: PHEN-639 PO (20:44)
[2022-06-27 20:53] VITALS: BP 132/86
== END 2022-06-27 20:53 | disposition home or self-care (01) ==
LOC: EDUNIT# 19:31 → ER FS 19:32
DX: N30.00 Acute cystitis without hematuria (principal); E66.01 Morbid (severe) obesity due to excess calories; F17.200 Nicotine dependence, unspecified, uncomplicated; Z68.41 Body mass index [BMI] 40.0-44.9, adult; Z88.2 Allergy status to sulfonamides
CPT/HCPCS: 81000; 84703; 99283

== ENCOUNTER 2022-08-31 19:34 | Emergency (ER) | payer SELFPAY ==
[~2022-08-31] VITALS: Ht 162.6 cm; Wt 127.0 kg
[~2022-08-31 19:34] MED LIST changes: +PHEN-639 PO
[2022-08-31 19:38] VITALS: BP 129/76
--- NOTE | 2022-08-31 19:44 | ED Chest Pain ---
General Stated Complaint: CHEST PAIN| History of Present Illness Date Seen by Provider: Aug 31, 2022 Time Seen by Provider: 19:43 Initial Comments 21-year-old female with PMH of childhood asthma, is here with complaints of cough for the past couple of days which is causing her to have mid chest discomfort which appears to be retrosternal. She also states that she has chest discomfort on deep inspiration after she coughs. Patient also feels a little bit short of breath after she exerts herself. Patient does not have an inhaler at home and has not used an inhaler since she was a kid. Denies fever and chills, sore throat, runny nose, known sick contacts, diarrhea, abdominal pain, chest pain. Allergies and Home Medications Allergies Coded Allergies: sulfamethoxazole (Verified Allergy, Mild, RASH, 12/22/18) trimethoprim (Verified Allergy, Mild, RASH, 12/22/18) Uncoded Allergies: head and shoulders shampoo (Allergy, Unknown, 09/24/18) seafood (Allergy, Unknown, 09/24/18) Patient Home Medication List Home Medication List Reviewed: Yes Nitrofurantoin Monohyd/M-Cryst (Macrobid 100 mg Capsule) 100 Mg Capsule, 1 TAB PO BID Prescribed by: SUKHI DEY on 06/27/222043 Phenazopyridine HCl (Pyridium) 100 Mg Tablet, 100 MG PO TID Prescribed by: SUKHI DEY on 06/27/222043 Review of Systems Review of Systems Constitutional: no symptoms reported EENTM: No Symptoms Reported Respiratory: Cough, SOA With Exertion Cardiovascular: No Symptoms Reported Gastrointestinal: No Symptoms Reported Genitourinary: No Symptoms Reported Musculoskeletal: no symptoms reported Skin: no symptoms reported Psychiatric/Neurological: No Symptoms Reported Endocrine: No Symptoms Reported Hematologic/Lymphatic: No Symptoms Reported Past Cyuxbnr-Nsmoqj-Ujqtej Hx Immunizations Up To Date First/Initial COVID19 Vaccinat: unknown date Second COVID19 Vaccination [place]: unknown date Third COVID19 Vaccination Date: unknown date Seasonal Allergies Seasonal Allergies: No Past Medical History Surgery/Hospitalization HX: Cholecystectomy, Colonoscopy, Morbid Obesity, Anxiety, Depression, GERD, Insulin Resistant, Chronic pain Surgeries: Yes (eye surgery as infant) Gallbladder Respiratory: Yes Asthma Cardiac: No Neurological: No Female Reproductive Disorders: Menstrual Problems Sexually Transmitted Disease: No HIV/AIDS: No Genitourinary: No Gastrointestinal: No Gastroesophageal Reflux, Chronic Diarrhea Musculoskeletal: No Endocrine: No Diabetes, Non-Insulin dep HEENT: No Loss of Vision: Denies Hearing Impairment: Denies Cancer: No Psychosocial: No Anxiety, Depression Integumentary: No Blood Disorders: No Adverse Reaction/Blood Tranf: No (N/A) Physical Exam Vital Signs Vital Signs - First Documented 08/31/22 19:38 Temp 37.1 Pulse 73 Resp 16 B/P (MAP) 129/76 (93) Capillary Refill : Height, Weight, BMI Height: 5'4.00" Weight: 280lbs. oz. 127.382927lk; 43.00 BMI Method:Stated General Appearance: No Apparent Distress, Obese HEENT: PERRL/EOMI Neck: Full Range of Motion Respiratory: Chest Non Tender, Lungs Clear, Normal Breath Sounds, No Accessory Muscle Use, No Respiratory Distress Cardiovascular: Regular Rate, Rhythm, No Edema Gastrointestinal: Non Tender, Soft Extremity: Normal Range of Motion Neurologic/Psychiatric: Alert, Oriented x3, No Motor/Sensory Deficits Skin: Normal Color Progress/Results/Core Measures Results/Orders Lab Results Laboratory Tests Test 08/31/22 19:54 08/31/22 19:55 Range/Units Influenza Type A (RT-PCR) Not Detected Not Detecte Influenza Type B (RT-PCR) Not Detected Not Detecte SARS-CoV-2 RNA (RT-PCR) Not Detected Not Detecte Urine Color YELLOW Urine Clarity CLOUDY Urine pH 6.0 5-9 Urine Specific Lingle 1.015 L 1.016-1.022 Urine Protein NEGATIVE NEGATIVE Urine Glucose (UA) NEGATIVE NEGATIVE Urine Ketones NEGATIVE NEGATIVE Urine Nitrite NEGATIVE NEGATIVE Urine Bilirubin NEGATIVE NEGATIVE Urine Urobilinogen 0.2 < = 1.0 MG/DL Urine Leukocyte Esterase 1+ H NEGATIVE Urine RBC (Auto) NEGATIVE NEGATIVE Urine RBC 10-25 H /HPF Urine WBC 25-50 H /HPF Urine Squamous Epithelial Cells >50 H /HPF Urine Crystals NONE /LPF Urine Bacteria LARGE H /HPF Urine Casts NONE /LPF Urine Mucus NEGATIVE /LPF Urine Culture Indicated NO Urine Opiates Screen NEGATIVE NEGATIVE Urine Oxycodone Screen NEGATIVE NEGATIVE Urine Methadone Screen NEGATIVE NEGATIVE Urine Propoxyphene Screen NEGATIVE NEGATIVE Urine Barbiturates Screen NEGATIVE NEGATIVE Ur Tricyclic Antidepressants Screen NEGATIVE NEGATIVE Urine Phencyclidine Screen NEGATIVE NEGATIVE Urine Amphetamines Screen NEGATIVE NEGATIVE Urine Methamphetamines Screen NEGATIVE NEGATIVE Urine Benzodiazepines Screen NEGATIVE NEGATIVE Urine Cocaine Screen NEGATIVE NEGATIVE Urine Cannabinoids Screen NEGATIVE NEGATIVE My Orders Orders - BART SHEFFIELD MD Chest 1 View Ap/Pa Only (08/31/22 19:45) Covid 19 Inhouse Test (08/31/22 19:46) Influenza A And B By Pcr (08/31/22 19:46) Drug Screen Stat (Urine) (08/31/22 19:50) Ua Culture If Indicated (08/31/22 19:50) Albuterol/Ipra Inhalation Soln (Duoneb I (08/31/22 20:00) Svn Small Volume Nebulizer (08/31/22 19:50) Medications Given in ED Current Medications Medications Dose Ordered Sig/Artem Route Start Time Stop Time Status Last Admin Dose Admin Albuterol/ Ipratropium 3 ml ONCE ONCE INH 08/31/22 20:00 08/31/22 20:01 DC 08/31/22 20:33 3 ML Vital Signs/I&O 08/31/22 19:38 Temp 37.1 Pulse 73 Resp 16 B/P (MAP) 129/76 (93) Progress Progress Note : Progress Note 1. MILD INTERMITTENT ASTHMA: - CXR: no acute findings - COVID test/ Rapid Flu test: negative - UDS is negative - Duo neb in ER: pt's symptoms resolved after treatment - Albuterol inhaler given from the ER -Prednisone daily for the next 3 days prescription given -Follow-up with PCP within the next 7 days for follow-up -The patient was seen in the ED, and treated appropriately to presentation at a specific point in time. Patient is informed that there is a possibility that disease and illness can evolve and change in acuity rapidly or slowly after patient is discharged from the ER. Precautionary advice given to the patient for immediate return to ER if symptoms worsen or do not resolve, and to seek emergency care sooner rather than later. Pt also advised on the importance of PCP follow up and compliance with management and follow up plan with PCP and/or specialist, as this is part of the management plan. Pt verbally expressed understanding. 2. UTI: ACUTE CYSTITIS WITH HEMATURIA: - UA is positive for leukocyte esterase, WBC, RBC, bacteria - Nitrofurantoun 100mg bid for 5 days with first tab stat in ER - Adequate hydration advised Diagnostic Imaging Diagonstic Imaging: Xray Plain Films/CT/US/NM/MRI: chest Comments [facility]. [place], [place] NAME: MIRIAM CALDERON [facility] REC#: [id number] PT STATUS: REG ER : 2000 PHYSICIAN: BART SHEFFIELD MD ADMIT DATE: 08/31/22/ER FS Draft Date of Exam:08/31/22 CHEST 1 VIEW AP/PA ONLY INDICATION: Cough COMPARISONS: None FINDINGS: Single view of the chest shows normal heart, pulmonary vasculature, pleura and diaphragms with no focal opacities. Soft tissues and bony thorax normal. IMPRESSION: No acute cardiopulmonary changes. Dictated on workstation # [id number] Dict: 08/31/222003 Trans: 08/31/222008 CVB [id number] Interpreted by: BOWEN CISNEROS MD Electronically signed by: Departure Impression Primary Impression: Mild intermittent asthma Qualified Codes: J45.20 - Mild intermittent asthma, uncomplicated Additional Impression: Acute cystitis without hematuria Disposition: 01 HOME, SELF-CARE Condition: Improved Departure-Patient Inst. Referrals: LIZETT HEARD MD (PCP/Family) Primary Care Physician Patient Instructions: Asthma, Adult (DC), Asthma Action Plan, How to use your metered dose inhaler (adults), Controlling Dust and Allergens in Your Home, Urinary Tract Infection, Adult ED Add. Discharge Instructions: - Albuterol inhaler given from the ER -Prednisone daily for the next 3 days prescription given - Nitrofurantoun 100mg bid for 5 days - Adequate hydration advised -Follow-up with PCP within the next 7 days for follow-up Scripts Nitrofurantoin Macrocrystal (Nitrofurantoin) 100 Mg Capsule 100 MG PO BID for 5 Days, #10 CAP Prov: BART SHEFFIELD MD 08/31/22 Prednisone (Prednisone) 50 Mg Tab 50 MG PO DAILY for 3 Days, #3 TAB Prov: BART SHEFFIELD MD 08/31/22 BART SHEFFIELD MD Aug 31, 2022 19:44
[2022-08-31] MEDS ORDERED: RT-ALBUTEROL/IPRATROPIUM 3 ML (DUONEB) VIAL INH ONE (20:00)
[2022-08-31 20:03] LABS: BILIRUBIN,URINE NEGATIVE (NEGATIVE); COLOR,URINE YELLOW; GLUCOSE, URINE (UA) NEGATIVE (NEGATIVE); KETONES,URINE NEGATIVE (NEGATIVE); LEUKOCYTE ESTERASE ,URINE 1+ (NEGATIVE); NITRITE,URINE NEGATIVE (NEGATIVE); PROTEIN,URINE NEGATIVE (NEGATIVE)
[2022-08-31 20:09] LABS: CLARITY,URINE CLOUDY
[2022-08-31 20:10] LABS: BACTERIA,URINE LARGE /HPF; SQUAMOUS EPITHELIAL CELL,UR >50 /HPF; WBC,URINE 25-50 /HPF
--- NOTE | 2022-08-31 20:11 | Diagnostic Imaging Report ---
INDICATION: Cough COMPARISONS: None FINDINGS: Single view of the chest shows normal heart, pulmonary vasculature, pleura and diaphragms with no focal opacities. Soft tissues and bony thorax normal. IMPRESSION: No acute cardiopulmonary changes. Dictated by: Dictated on workstation # [id number]
[2022-08-31 20:14] LABS: AMPHETAMINE SCREEN, URINE NEGATIVE (NEGATIVE); BARBITURATE SCREEN URINE NEGATIVE (NEGATIVE); BENZODIAZEPINES SCREEN URINE NEGATIVE (NEGATIVE); CANNABINOID SCREEN, URINE NEGATIVE (NEGATIVE); COCAINE SCREEN URINE NEGATIVE (NEGATIVE); METHADONE STAT NEGATIVE (NEGATIVE); OPIATE SCREEN URINE NEGATIVE (NEGATIVE); OXYCODONE STAT NEGATIVE (NEGATIVE); PROPOXYPHENE STAT NEGATIVE (NEGATIVE); TRICYCLIC ANTIDEPRESSANTS SCRE NEGATIVE (NEGATIVE)
[2022-08-31] MEDS ORDERED: RX-ALBUTEROL INHALER 8.5 GM HFA (PROAIR) IH STA (20:43)
[2022-08-31] MEDS ORDERED: predniSONE 20 MG TAB PO ONE (20:45)
[2022-08-31] MEDS ORDERED: PRD50T PO (20:46)
[2022-08-31] MEDS ORDERED: NITR100C PO (20:48)
[2022-08-31] MEDS ORDERED: predniSONE 20 MG TAB ONE (20:51)
[2022-08-31] MEDS ORDERED: NITROFURANTOIN 100 MG (MACROBID) CAPSULE PO ONE ×2 (20:51→21:00)
== END 2022-08-31 21:09 | disposition home or self-care (01) ==
LOC: EDUNIT# 19:34 → ER FS 19:36
DX: J45.20 Mild intermittent asthma, uncomplicated (principal); N30.00 Acute cystitis without hematuria; E66.01 Morbid (severe) obesity due to excess calories; Z68.41 Body mass index [BMI] 40.0-44.9, adult; Z88.2 Allergy status to sulfonamides; Z20.822 Contact with and (suspected) exposure to COVID-19
CPT/HCPCS: 71045; 80306; 81000; 87636; 99285

== ENCOUNTER 2022-11-22 12:20 | Emergency (ER) | payer SELFPAY ==
[~2022-11-22] VITALS: Ht 162 cm; Wt 128.0 kg
[~2022-11-22 12:20] MED LIST changes: +PRD50T PO
--- NOTE | 2022-11-22 12:24 | ED Cough/URI ---
General Stated Complaint: COUGH History of Present Illness Date Seen by Provider: Nov 22, 2022 Time Seen by Provider: 12:24 Initial Comments 22-year-old female with PMH of asthma, is here with complaints of ongoing cough for the past 3 weeks or so. Patient had a viral illness approximately 2 and half weeks ago, and all her symptoms have resolved except for the cough. Denies shortness of breath, fever and chills, chest pain, palpitations, abdominal pain, diarrhea. Allergies and Home Medications Allergies Coded Allergies: sulfamethoxazole (Verified Allergy, Mild, RASH, 12/22/18) trimethoprim (Verified Allergy, Mild, RASH, 12/22/18) Uncoded Allergies: head and shoulders shampoo (Allergy, Unknown, 09/24/18) seafood (Allergy, Unknown, 09/24/18) Patient Home Medication List Home Medication List Reviewed: Yes Nitrofurantoin Macrocrystal (Nitrofurantoin) 100 Mg Capsule, 100 MG PO BID Prescribed by: BART SHEFFIELD MD on 08/31/222047 Nitrofurantoin Monohyd/M-Cryst (Macrobid 100 mg Capsule) 100 Mg Capsule, 1 TAB PO BID Prescribed by: SUKHI DEY on 06/27/222043 Phenazopyridine HCl (Pyridium) 100 Mg Tablet, 100 MG PO TID Prescribed by: SUKHI DEY on 06/27/222043 Prednisone (Prednisone) 50 Mg Tab, 50 MG PO DAILY Prescribed by: BART SHEFFIELD MD on 08/31/222045 Review of Systems Review of Systems Constitutional: no symptoms reported Respiratory: cough Past Xsriewu-Gnolbb-Sbppgi Hx Immunizations Up To Date First/Initial COVID19 Vaccinat: unknown date Second COVID19 Vaccination [place]: unknown date Third COVID19 Vaccination Date: unknown date Seasonal Allergies Seasonal Allergies: No Past Medical History Surgery/Hospitalization HX: Cholecystectomy, Colonoscopy, Morbid Obesity, Anxiety, Depression, GERD, Insulin Resistant, Chronic pain Surgeries: Yes (eye surgery as ) Gallbladder Respiratory: Yes Asthma Cardiac: No Neurological: No Female Reproductive Disorders: Menstrual Problems Sexually Transmitted Disease: No HIV/AIDS: No Genitourinary: No Gastrointestinal: No Gastroesophageal Reflux, Chronic Diarrhea Musculoskeletal: No Endocrine: No Diabetes, Non-Insulin dep HEENT: No Loss of Vision: Denies Hearing Impairment: Denies Cancer: No Psychosocial: No Anxiety, Depression Integumentary: No Blood Disorders: No Adverse Reaction/Blood Tranf: No (N/A) Physical Exam Vital Signs - First Documented 11/22/22 12:53 Temp 37.1 Pulse 91 Resp 18 B/P (MAP) 128/106 (113) Pulse Ox 99 O2 Delivery Room Air Capillary Refill : Height: 5'4.00" Weight: 280lbs. oz. 127.369323pq; 48.00 BMI Method:Stated General Appearance: WD/WN, no apparent distress HEENT: PERRL/EOMI, normal ENT inspection Neck: full range of motion Respiratory: chest non-tender, lungs clear, normal breath sounds, no respiratory distress Cardiovascular: regular rate, rhythm Gastrointestinal: normal bowel sounds, non tender, soft Neurologic/Psychiatric: alert, oriented x 3 Skin: normal color Progress/Results/Core Measures Suspected Sepsis SIRS Temperature: Pulse: Respiratory Rate: Blood Pressure / Mean: Results/Orders Lab Results Laboratory Tests Test 11/22/22 12:33 Range/Units Influenza Type A (RT-PCR) Not Detected Not Detecte Influenza Type B (RT-PCR) Not Detected Not Detecte SARS-CoV-2 RNA (RT-PCR) Not Detected Not Detecte My Orders Orders - BART SHEFFIELD MD Covid 19 Inhouse Test (11/22/22 12:25) Influenza A And B By Pcr (11/22/22 12:25) Chest 1 View Ap/Pa Only (11/22/22 12:28) Vital Signs/I&O 11/22/22 12:53 Temp 37.1 Pulse 91 Resp 18 B/P (MAP) 128/106 (113) Pulse Ox 99 O2 Delivery Room Air Capillary Refill : Progress Note : Progress Note 1. POST VIRAL COUGH SYNDROME: - CXR: no acute findings - COVID test/ Rapid Flu Test:negative - Prescription given for Tessalon Perle 100mg , every 8 hours as needed for cough - Follow up with PCP in 7 days -The patient was seen in the ED, and treated appropriately to presentation at a specific point in time. Patient is informed that there is a possibility that disease and illness can evolve and change in acuity rapidly or slowly after patient is discharged from the ER. Precautionary advice given to the patient for immediate return to ER if symptoms worsen or do not resolve, and to seek emergency care sooner rather than later. Pt also advised on the importance of PCP follow up and compliance with management and follow up plan with PCP and/or specialist, as this is part of the management plan. Pt verbally expressed understanding. Diagnostic Imaging Diagonstic Imaging: Xray Plain Films/CT/US/NM/MRI: chest Comments [facility]. [place], [place] NAME: MIRIAM CALDERON [facility] REC#: [id number] PT STATUS: REG ER : 2000 PHYSICIAN: BART SHEFFIELD MD ADMIT DATE: 11/22/22/ER FS Draft Date of Exam:11/22/22 CHEST 1 VIEW AP/PA ONLY INDICATION: Cough. COMPARISON: 08/31/2022. TECHNIQUE: Single radiograph of the chest dated 11/22/2022. FINDINGS: The cardiac silhouette is within normal limits in size. No significant pulmonary vascular congestion. The lungs are clear. No pleural effusion. No pneumothorax. Surgical clips overlie the right upper abdomen. No acute osseous abnormality. IMPRESSION: Stable-appearing examination without acute cardiopulmonary abnormality. Dictated on workstation # [id number] Dict: 11/22/22 1245 Trans: 11/22/22 1248 [id number] [id number] Interpreted by: IGOR CHRISTOPHER MD Electronically signed by: Departure Impression Primary Impression: Post-viral cough syndrome Disposition: HOME, SELF-CARE Condition: Stable Departure-Patient Inst. Referrals: LIZETT HEARD MD (PCP/Family) Primary Care Physician Patient Instructions: Cough, Adult (DC), BRONCHOSPASM-ADULT Add. Discharge Instructions: - Prescription given for Tessalon Perle 100mg , every 8 hours as needed for cough - Follow up with PCP in 7 days - Use inhaler as needed for SOB Scripts Benzonatate (TESSALON PERLES) 100 Mg Capsule 100 MG PO Q8H for Cough for 5 Days, #20 CAP Prov: BART SHEFFIELD MD 11/22/22 BART SHEFFIELD MD Nov 22, 2022 12:24
--- NOTE | 2022-11-22 12:48 | Diagnostic Imaging Report ---
INDICATION: Cough. COMPARISON: 08/31/2022. TECHNIQUE: Single radiograph of the chest dated 11/22/2022. FINDINGS: The cardiac silhouette is within normal limits in size. No significant pulmonary vascular congestion. The lungs are clear. No pleural effusion. No pneumothorax. Surgical clips overlie the right upper abdomen. No acute osseous abnormality. IMPRESSION: Stable-appearing examination without acute cardiopulmonary abnormality. Dictated by: Dictated on workstation # [id number]
[2022-11-22 12:53] VITALS: BP 128/106
[2022-11-22] MEDS ORDERED: BENZ100C18 PO (13:26)
== END 2022-11-22 13:29 | disposition home or self-care (01) ==
LOC: EDUNIT# 12:20 → ER FS 12:21
DX: R05.8 Other specified cough (principal); E66.01 Morbid (severe) obesity due to excess calories; Z68.42 Body mass index [BMI] 45.0-49.9, adult; Z20.822 Contact with and (suspected) exposure to COVID-19
CPT/HCPCS: 71045; 87636; 99283

== ENCOUNTER 2022-11-29 21:36 | Emergency (ER) | payer SELFPAY ==
[~2022-11-29] VITALS: Ht 162.5 cm; Wt 128.7 kg
--- NOTE | 2022-11-29 22:11 | ED Syncope ---
General Chief Complaint: Dizziness/Syncope Stated Complaint: DIZZYNESS Source of Information: Patient Exam Limitations: No Limitations History of Present Illness Date Seen by Provider: Nov 29, 2022 Time Seen by Provider: 21:51 Initial Comments 22-year-old female with chronic back pain, diabetes mellitus presents to the emergency department today after a brief syncopal episode while she was at work. She stood up and went to turn around and got lightheaded and briefly passed out. She was helped to the ground by a coworker. No new injuries from the event. She has had an episode where she passed out similarly about 6 months ago. She denies any chest pain, shortness of breath prior to the onset of syncope. She feels back to normal. All other systems reviewed and negative except documented per HPI. Voice recognition software was used to help create this chart Allergies and Home Medications Allergies Coded Allergies: sulfamethoxazole (Verified Allergy, Mild, RASH, 12/22/18) trimethoprim (Verified Allergy, Mild, RASH, 12/22/18) Uncoded Allergies: head and shoulders shampoo (Allergy, Unknown, 09/24/18) seafood (Allergy, Unknown, 09/24/18) Patient Home Medication List Home Medication List Reviewed: Yes Benzonatate (Tessalon Perles) 100 Mg Capsule, 100 MG PO Q8H Prescribed by: BART SHEFFIELD MD on 11/22/22 132 Nitrofurantoin Macrocrystal (Nitrofurantoin) 100 Mg Capsule, 100 MG PO BID Prescribed by: BATR SHEFFIELD MD on 08/31/222047 Nitrofurantoin Monohyd/M-Cryst (Macrobid 100 mg Capsule) 100 Mg Capsule, 1 TAB PO BID Prescribed by: SUKHI DEY on 06/27/222043 Phenazopyridine HCl (Pyridium) 100 Mg Tablet, 100 MG PO TID Prescribed by: SUKHI DEY on 06/27/222043 Prednisone (Prednisone) 50 Mg Tab, 50 MG PO DAILY Prescribed by: BART SHEFFIELD MD on 08/31/222045 Review of Systems Constitutional: see HPI Past Jhtdmeq-Nhgtcx-Sekllj Hx Patient Social History Tobacco Use?: Yes Tobacco type used: Cigarettes Smoking Status: Current Everyday Smoker Substance use?: Yes Substance type: Marijuana Additional substance use comme: smoked 1 mo ago Substance frequency: Once in a while Alcohol Use?: No Pt feels they are or have been: No Immunizations Up To Date Influenza Vaccine Up-to-Date: No; Not Current First/Initial COVID19 Vaccinat: unknown date Second COVID19 Vaccination [place]: unknown date Third COVID19 Vaccination Date: unknown date COVID19 Vaccine Pe Teacher: Mfr unknown- 3 shots Seasonal Allergies Seasonal Allergies: No Past Medical History Surgery/Hospitalization HX: Cholecystectomy, Colonoscopy, Morbid Obesity, Anxiety, Depression, GERD, Insulin Resistant, Chronic pain Surgeries: Yes (eye surgery as infant) Gallbladder Respiratory: Yes Asthma Cardiac: No Neurological: No Female Reproductive Disorders: Menstrual Problems Sexually Transmitted Disease: No HIV/AIDS: No Genitourinary: No Gastrointestinal: No Gastroesophageal Reflux, Chronic Diarrhea Musculoskeletal: No Endocrine: No Diabetes, Non-Insulin dep HEENT: No Loss of Vision: Denies Hearing Impairment: Denies Cancer: No Psychosocial: No Anxiety, Depression Integumentary: No Blood Disorders: No Adverse Reaction/Blood Tranf: No (N/A) Physical Exam Vital Signs Capillary Refill : Height, Weight, BMI Height: 5'4.00" Weight: 280lbs. oz. [id number]; 48.00 BMI Method:Stated General Appearance: No Apparent Distress, WD/WN HEENT: PERRL/EOMI, Normal ENT Inspection, Pharynx Normal Neck: Non Tender, Supple Cardiovascular: Regular Rate, Rhythm, No Murmur Respiratory: Chest Non Tender, Lungs Clear, Normal Breath Sounds, No Accessory Muscle Use, No Respiratory Distress Gastrointestinal: No Organomegaly, Non Tender, Soft Neurologic/Psychiatric: Alert, Oriented x3, No Motor/Sensory Deficits, Normal Mood/Affect, spotlight operator II-XII Norm as Tested Cranial Nerves: Normal Hearing, Normal Speech Coordination/Gait: Normal Finger to Nose Motor/Sensory: No Motor Deficit, No Sensory Deficit, No Pronator Drift Skin: Normal Color, Warm/Dry Progress/Results/Core Measures Results/Orders Lab Results Laboratory Tests Test 11/29/22 21:51 Range/Units Glucometer 91 70-110 MG/DL My Orders Orders - NADIAJENNIFER DO Accucheck Stat ONCE (11/29/22 21:49) Ekg Tracing (11/29/22 21:49) [facility] Bedside Testing Finger Stick Blood Glucose: 91 Blood Glucose Action Taken: reported to DR Comment Sinus rhythm with a rate of 82 bpm. Normal intervals. Normal axis. No ST or T wave abnormalities. No ectopy. No STEMI. Departure Communication (Admissions) Patient is hemodynamically stable. Blood sugar is 91 at bedside. EKG is nonischemic. Episode sounds like an episode of orthostasis. She is otherwise hemodynamically stable and back to normal mental baseline. Consideration for labs but doubt utility given the likelihood that this is orthostatic. DisCharged in stable condition. Impression Primary Impression: Syncope Qualified Codes: R55 - Syncope and collapse Disposition: HOME, SELF-CARE Condition: Stable Departure-Patient Inst. Referrals: LIZETT HEARD MD (PCP/Family) Primary Care Physician Patient Instructions: Syncope (Fainting) (DC) Add. Discharge Instructions: No emergent medical conditions are identified for your passing out today. This was likely an episode that caused your blood pressure to drop briefly. Increase your fluids at home and follow-up with your primary doctor for any nonemergent needs. Return to the emergency department for any severe concerns. All discharge instructions reviewed with patient and/or family. Voiced understanding. JENNIFER ZUNIGA DO Nov 29, 2022 22:10
[2022-11-29 22:12] VITALS: BP 166/119
== END 2022-11-29 22:12 | disposition home or self-care (01) ==
LOC: EDUNIT# 21:36 → ER FS 21:38
DX: R55 Syncope and collapse (principal); E66.01 Morbid (severe) obesity due to excess calories; E11.9 Type 2 diabetes mellitus without complications; F17.210 Nicotine dependence, cigarettes, uncomplicated; Z68.42 Body mass index [BMI] 45.0-49.9, adult
CPT/HCPCS: 82947; 93005